=== PATIENT | male | born 1950 | race Caucasian/White ===

== ENCOUNTER 2021-03-13 14:30 | Outpatient (RCR) | payer OTHER, SELFPAY ==
[2021-03-05 15:08] VITALS: BMI 48.6
[2021-03-05 15:13] VITALS: BMI 48.6
== END 2021-05-21 15:50 | disposition home or self-care (01) ==
LOC: ANHDMC 14:30
PROVIDERS: PCP Family Medicine; Visit Provider Physician Assistant
DX: E11.65 Type 2 diabetes mellitus with hyperglycemia (principal); E11.22 Type 2 diabetes mellitus with diabetic chronic kidney disease; E11.40 Type 2 diabetes mellitus with diabetic neuropathy, unspecified; Z71.89 Other specified counseling; Z71.3 Dietary counseling and surveillance
CPT/HCPCS: 97802; G0108; G0109

== ENCOUNTER 2021-05-21 09:29 | Outpatient (CLI) | payer OTHER, SELFPAY ==
[2021-05-21 09:59] LABS: Anion Gap 8 mmol/L (8-16); Blood Urea Nitrogen 9 mg/dL (9-20); Calcium 9.2 mg/dL (8.4-10.2); Carbon Dioxide 26 mmol/L (22-30); Chloride 101 mmol/L (98-107); Estimated Glomerular Filt Rate > 60; Glucose 283 mg/dL (65-110); Potassium 4.3 mmol/L (3.4-5.0); Sodium 135 mmol/L (137-145)
[2021-05-21 10:01] LABS: Prothrombin Time 12.6 Seconds (11.1-14.7)
[2021-05-21 10:02] LABS: Partial Thromboplastin Time 32.6 SECONDS (22.3-36.8)
== END 2021-05-21 09:30 | disposition home or self-care (01) ==
PROVIDERS: Anesthesiology; PCP Family Medicine; Visit Provider Plastic Surgery
DX: Z01.818 Encounter for other preprocedural examination (principal); E11.65 Type 2 diabetes mellitus with hyperglycemia; N18.30 Chronic kidney disease, stage 3 unspecified
CPT/HCPCS: 36415; 80048; 85610; 85730

== ENCOUNTER → 2021-05-25 00:41 | Outpatient (CLI) | payer OTHER, SELFPAY ==
[2021-05-25 21:01] LABS: SARS-CoV-2 RNA PCR Negative
== END ==
PROVIDERS: PCP Family Medicine; Visit Provider Plastic Surgery
DX: Z01.812 Encounter for preprocedural laboratory examination (principal); Z20.828 Contact with and (suspected) exposure to other viral communicable diseases
CPT/HCPCS: C9803; U0003; U0005

== ENCOUNTER 2021-05-29 00:26 | Day surgery (SDC) | payer OTHER, SELFPAY ==
[2021-05-20 09:55] VITALS: BMI 43.9
--- NOTE | 2021-05-28 09:54 | WPDANESEPPF ---
Anes - Initial Pre Proc Eval Procedure: Operation Date: 05/29/21 07:30 Proposed Procedures p Excision Nodular Mass Left Upper Nasal Lobule with Frozen Section and Local Tissue Transfer - Arron Ortiz MD Date/Time: 05/28/21 09:54 Surgeon: Arron Ortiz MD Pre Op Diagnosis: nodular mass left upper nasal lobule Patient Data Age: 70 Gender: M Height: 1.7 m Weight: 127.27 kg Allergies Allergy/AdvReac Type Severity Reaction Status Date / Time No Known Allergies Allergy Verified 05/29/21 06:05 Home Medications Medication Instructions Recorded Confirmed Type furosemide 20 mg tablet 20 mg PO QAM #90 tablet 08/09/20 05/29/21 Rx clonidine HCl 0.2 mg tablet 0.2 mg PO TID #270 tablet 10/22/20 05/29/21 Rx gabapentin 300 mg capsule 300 mg PO TID #270 cap 10/22/20 05/29/21 Rx glimepiride 2 mg tablet 2 mg PO QAM #90 tablet 10/22/20 05/29/21 Rx metoprolol tartrate 100 mg tablet 100 mg PO Q12H #180 tablet 10/22/20 05/29/21 Rx metformin 1,000 mg tablet 1,000 mg PO BID #180 tablet 03/01/21 05/29/21 Rx amlodipine 10 mg tablet 10 mg PO .QHS #90 tablet 04/25/21 05/29/21 Rx naloxone 4 mg/actuation nasal spray 4 mg INTRANASAL Q3M PRN #2 ea 04/29/21 05/29/21 Rx zolpidem 10 mg tablet 5 mg PO QHS PRN #30 tablet 04/29/21 05/29/21 Rx hydrocodone 10 mg-acetaminophen 1 tablet PO Q6H PRN #120 tablet 05/05/21 05/29/21 Rx 325 mg tablet aspirin [Aspirin Low Dose] 81 mg PO DAILY 05/20/21 05/29/21 History atorvastatin 20 mg PO QAM 05/20/21 05/29/21 History Patient hx anesthesia problems: none Family hx anesthesia problems: none PMFSH Past Medical History Medical History Abnormality of gait Ambulatory dysfunction Atherosclerosis of aorta CAD in [place] artery Cardiac hypertrophy Chronic diastolic (congestive) heart failure Chronic kidney disease, stage 3 (moderate) Chronic pain disorder Coronary arteriosclerosis in patient with history of previous myocardial infarction Diabetic nephropathy associated with type 2 diabetes mellitus Essential (primary) hypertension Extreme obesity Insomnia Intervertebral disc disorders with myelopathy, lumbar region Low testosterone MDD (major depressive disorder), recurrent episode, moderate Mixed hyperlipidemia Morbid (severe) obesity due to excess calories Obstructive sleep apnea (adult) (pediatric) [place] (myocardial infarction) Opioid dependence, uncomplicated Personal history of nicotine dependence Physical debility 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 Type 2 diabetes mellitus with stage 3 chronic kidney disease Ventricular hypertrophy due to hypertensive disease Vitamin D deficiency, unspecified Family History Family History Mother Family history of premature coronary heart disease Patient's mother is Father Hypertension Family history of diabetes mellitus in first degree relative Social History Social History (Updated 05/09/21 @ 13:52 by Yarely Molina) Social History: Single Smoking packs per day: 1 Smoking cigarettes per day: 20.0 Years smoked: 35 Smoking pack-years: 35.00 Smoking status: Former smoker Tobacco type: cigarettes Second hand tobacco smoke exposure: No Smoking end date: 09/21/13 Additional smoking assessment comments: QUITE 2013 Alcohol intake: former Alcohol use details: STATES STOPPED 25-30 YRS AGO Substance use: never Substance use type: does not use Living arrangements: with family Additional living arrangements comments: LIVES WITH SON Gender identity (if verbalized by the patient): Male Sexual Orientation (if Verbalized by the Patient): Straight or Heterosexual Spiritual care concerns: No Anes - Eval Final PreProcedure Day of Procedure 05/28/21 09:54 Patient weight: morbidly obese Heart: regular rate and rhythm Lungs:
[2021-05-29] VITALS (8 sets, daily range): BP systolic 125–146; BP diastolic 78–95; PULSE 85–100; RESP 14–21; TEMP 36.4–36.5; O2SAT 94–100
[2021-05-29] MEDS: LACTATED RINGERS 1,000 ML 30 ML IV CONT (06:30)
[2021-05-29 06:53] LABS: Glucose Point of Care 292 mg/dl (65-105)
[2021-05-29] MEDS: INSULIN HUMAN REGULAR (*BKC) 100 UNITS/ML IV PUSH (06:56)
--- NOTE | 2021-05-29 07:21 | SUR.PREOP ---
0707-PT INFORMED DR. FRANK HAS CALLED AND REPORTED HE WILL BE 10 MINUTES LATE.
--- NOTE | 2021-05-29 07:27 | WPDHPUPDATE1 ---
History and Physical Update Update Date/Time: 05/29/21 07:27 History and Physical has been reviewed, including an updated exam of the patient. There are NO changes in the patient's condition. Risks, benefits, and alternatives have been discussed and questions answered. Patient agrees to proceed with procedure.
[2021-05-29 07:31] LABS: Glucose Point of Care 252 mg/dl (65-105)
[2021-05-29] MEDS: ceFAZolin 3 GM/D5W 100 ML 100 ML IVPB (07:50)
[2021-05-29 09:23] LABS: Glucose Point of Care 248 mg/dl (65-105)
--- NOTE | 2021-05-29 09:30 | W.PM.PROC2 ---
Procedure Note - Detailed Date of Procedure 05/29/21 Pre-op Diagnosis nodular mass left upper nasal lobule Post-op Diagnosis other (Basal cell carcinoma of the left upper nasal lobule) Procedure Performed 1.5 cm excision of basal cell carcinoma left upper nasal lobule with frozen section and local tissue transfer for sq cm Surgeon Arron Ortiz MD Anesthesia MAC Indications Lucent 12 mm nodule in the left upper nasal lobule Findings BCC Description of Procedure The site was marked on the patient's nose in holding area. He was taken to the operating room placed supine on the operating table. A time-out was held and confirmed. His face was prepped and draped in usual fashion. He was given an LMA monitored anesthetic. The area was marked for the excision. It was locally infiltrated with 1% lidocaine with epinephrine. The full-thickness skin ellipse was taken and the specimen was marked at the most superior aspect and sent for frozen section . The pathologist revealed that the tumor was basal cell carcinoma and the margin was free Lora for specimen. In the meantime we had taken the 1 and a 0.5 mm deep margin off due to the fact it was apparent continue was tumor extending to that level. That specimen was sent to pathology but the evaluation was canceled by the surgeon after hearing the report on the 1st specimen. The closure was accomplished with local tissue transfer. This was comprised of a rotation flap from the left side. The flap was elevated and the surrounding tissue widely undermined allowing maximum advancement. The flap rotated easily. A depressed contour resulted partly because of the thickness of this tumor and the thickness of the local skin that was removed. The patient was discharged with instructions in wound care and follow-up. He has a prescription for doxycycline 100 mg 10. He has hydrocodone 10/325 at home on chronic use basis. Estimated Blood Loss 3 Drains No Packing No Pathology yes Complications No immediate complications Condition stable Disposition PACU
--- NOTE | 2021-05-29 10:51 | SUR.PHASEI ---
0951- Pt Blood sugar 248. Reviewed with Dr. Stanley he stated to have pt check blood sugar at home and treat as needed
== END 2021-05-29 10:43 | disposition home or self-care (01) ==
PROVIDERS: PCP Family Medicine; Visit Provider Plastic Surgery
PROC: (CPT 14060; principal; 2021-05-29 07:30)
DX: C44.311 Basal cell carcinoma of skin of nose (principal); I25.10 Atherosclerotic heart disease of native coronary artery without angina pectoris; I13.0 Hypertensive heart and chronic kidney disease with heart failure and stage 1 through stage 4 chronic kidney disease, or unspecified chronic kidney disease; N18.30 Chronic kidney disease, stage 3 unspecified; I50.32 Chronic diastolic (congestive) heart failure; E11.22 Type 2 diabetes mellitus with diabetic chronic kidney disease; E11.21 Type 2 diabetes mellitus with diabetic nephropathy; G89.29 Other chronic pain; E78.2 Mixed hyperlipidemia; I25.2 Old myocardial infarction; E11.42 Type 2 diabetes mellitus with diabetic polyneuropathy; E55.9 Vitamin D deficiency, unspecified; G47.33 Obstructive sleep apnea (adult) (pediatric); F33.1 Major depressive disorder, recurrent, moderate; Z79.891 Long term (current) use of opiate analgesic; Z79.84 Long term (current) use of oral hypoglycemic drugs; Z79.82 Long term (current) use of aspirin; Z87.891 Personal history of nicotine dependence; E66.01 Morbid (severe) obesity due to excess calories; Z68.42 Body mass index [BMI] 45.0-49.9, adult
CPT/HCPCS: 14060; 36415; 80048; 82948; 85610; 85730; 88304; 88305; 88331; 88332; A9270; C9803; J0690; J1815; J2250; J2370; J2704; J3010; J7120; U0003; U0005

== ENCOUNTER 2021-09-22 18:39 | Observation (INO) | payer OTHER, SELFPAY ==
[2021-09-22] VITALS (13 sets, daily range): BP systolic 126–173; BP diastolic 80–118; PULSE 87–97; RESP 14–25; TEMP 36.9; O2SAT 96–100
--- NOTE | ~2021-09-22 | CT_ITS ---
EXAMINATION: CT lumbar spine wo con DATE: 09/24/2021 09:58 INDICATION: Low back pain. Decreased left leg strength. TECHNIQUE: Computed tomography (CT) of the lumbar spine was performed without intravenous contrast. A utomated exposure control and iterative reconstruction technique were employed. The dose-length produ ct was 1248.20 mGy-cm. COMPARISON: Lumbar spine radiographs 09/10/2004 FINDINGS: There is a 2.4 cm mass in left adrenal gland measuring low-attenuation, consistent with an adenoma. There is 3 mm retrolisthesis of L1 on L2. There is severely decreased disc height at T12-L1 and L1-L2 with endplate remodeling. The following disc levels are specifically discussed: T12-L1: The disc is bulging. There is severe bilateral facet joint osteoarthritis. There is moderate right and mild left neural foraminal stenosis. There is mild central canal stenosis. L1-L2: The disc is bulging. There is moderate bilateral facet joint osteoarthritis. There is mild rig ht and moderate left neural foraminal stenosis. There is mild central canal stenosis. L2-L3: The disc is bulging. There is severe bilateral facet joint osteoarthritis. There is mild bilat eral neural foraminal stenosis. There is no central canal stenosis. L3-L4: The disc is bulging. There is severe bilateral facet joint osteoarthritis. There is mild bilat eral neural foraminal stenosis. There is mild central canal stenosis. L4-L5: The disc is bulging. There is severe bilateral facet joint osteoarthritis. There is moderate b ilateral neural foraminal stenosis. There is moderate central canal stenosis. L5-S1: The disc is bulging. There is severe bilateral facet joint osteoarthritis. There is mild bilat eral neural foraminal stenosis. There is mild central canal stenosis. IMPRESSION: 1. Severe lumbar and lower thoracic spondylosis. Reviewed, dictated and finalized at location A. RT CAR DRIVER
--- NOTE | ~2021-09-22 | CT_ITS ---
EXAMINATION: CT brain wo con DATE: 09/22/2021 19:12 INDICATION: Gait instability. Repeat fall. TECHNIQUE: Computed tomography (CT) of the head was performed without intravenous contrast. The mA wa s adjusted according to patient size. Iterative reconstruction technique was employed. The dose-lengt h product was 605.33 mGy-cm. COMPARISON: None FINDINGS: There are scattered areas of low attenuation in the cerebral white matter. There is an infa rct in left occipital lobe. There is no intracranial hemorrhage, acute infarction, or abnormal intrac ranial mass lesion. The ventricles are normal in size. There is mild mucosal thickening in the parana kriss sinuses. The orbits are normal. The mastoid air cells are normal. IMPRESSION: 1. Infarct in left occipital lobe, likely subacute or chronic. 2. Moderate nonspecific cerebral white matter disease, which likely represents chronic small vessel i schemic disease. Reviewed, dictated and finalized at location A. ONENT LAB TECH IMPRESSION: 1. Infarct in left occipital lobe, likely subacute or chronic. 2. Moderate nonspecific cerebral white matter disease, which likely represents chronic small vessel ischemic disease.
--- NOTE | ~2021-09-22 | XR_ITS ---
EXAMINATION: XR tibia fibula RT 2V DATE: 09/22/2021 19:22 INDICATION: Right lower leg pain. TECHNIQUE: 2 views of right tibia and fibula on 3 radiographs were obtained. COMPARISON: None. FINDINGS: There is varus angulation at the knee. No acute fracture. There is heterotopic ossification distal to medial malleolus. There is severe osteoarthritis of the knee and mild osteoarthritis of th e ankle. IMPRESSION: 1. Polyarticular osteoarthritis. Reviewed, dictated and finalized at location A. RAM REP
--- NOTE | ~2021-09-22 | XR_ITS ---
EXAMINATION: XR chest 1V DATE: 09/22/2021 19:22 INDICATION: Altered mental status. TECHNIQUE: A single frontal view of the chest was obtained. COMPARISON: None. FINDINGS: Sensitivity is decreased by obesity. There is no pneumonia, pleural effusion, or pneumothor ax. The heart size is normal. Calcified hilar and mediastinal lymph nodes are consistent with old gra nulomatous disease. IMPRESSION: 1. No acute cardiopulmonary disease. Reviewed, dictated and finalized at location A. UNITY SERVICE WORKER
--- NOTE | ~2021-09-22 | US_ITS ---
EXAMINATION: US carotid duplex BI DATE: 09/23/2021 08:46 INDICATION: Stroke TECHNIQUE: Grayscale, color Doppler, and pulsed Doppler images of the cervical carotid arteries were obtained. The degree of vessel stenosis is placed in one of the following categories: normal, <50%, 5 0-69%, >=70% but less than near-occlusion, near-occlusion, or total occlusion. Note that percent sten osis relative to normal distal artery lumen diameter is indirectly measured from velocity measurement s as described by Trever, et al. Radiology 2003; 229:340-346. COMPARISON: None. FINDINGS: RIGHT: The right common carotid artery (CCA) peak systolic velocity (PSV) is 66 cm/s. The right internal car otid artery (ICA) PSV is 68 cm/s. The right ICA end-diastolic velocity (EDV) is 18 cm/s. The right IC A/CCA PSV ratio is 1.0. Grayscale and color Doppler images yield an estimate of <50% diameter reducti on from plaque in the ICA. The external carotid artery (ECA) PSV is 149 cm/s. There is antegrade flow in the right vertebral artery. LEFT: The left CCA PSV is 68 cm/s. The left ICA PSV is 66 cm/s. The left ICA EDV is 18 cm/s. The left ICA/C CA PSV ratio is 1.0. Grayscale and color Doppler images yield an estimate of <50% diameter reduction from plaque in the ICA. The ECA PSV is 87 cm/s. There is antegrade flow in the left vertebral artery. IMPRESSION: 1. <50% stenosis in the right internal carotid artery. 2. <50% stenosis in the left internal carotid artery. Reviewed, dictated and finalized at location B. T HANGER
--- NOTE | 2021-09-22 18:52 | ECG_ITS ---
Measurements Intervals [place] Rate: 87 P: [place]: 0 QRS: -11 QRSD: 92 T: 24 QT: 362 QTc: 436 Interpretive Statements SINUS RHYTHM ATRIAL PREMATURE COMPLEXES LOW QRS VOLTAGE IN PRECORDIAL LEADS BORDERLINE R WAVE PROGRESSION, ANTERIOR LEADS INFERIOR INFARCT, AGE INDETERMINATE ABNORMAL ECG Electronically Signed On 09-22-2021 20:15:45 COMPUTATIONAL SCIENCES PROFESSOR by Carson Chavez D.O.
--- NOTE | 2021-09-22 18:54 | ED.GENADULT ---
HPI - General Adult General Chief complaint: Fall Stated complaint: dyspnea Time Seen by Provider: 09/22/21 18:42 Source: patient History of Present Illness HPI narrative: Patient is a 70 y/o male complaining of frequent falls for 4-5 months. He states that his last fall was yesterday. He states that his son helped him up after he fell yesterday because he was not able to get up himself. He was put in a chair. However, he has not been able to get up from the chair today. There is no known alleviating or exacerbating factor. He has some right leg pain after his fall. He did not hit his head. He has no headache, neck pain, back pain, chest pain or abdominal pain. He states that he usually use a cane and/or walker for ambulation. Related Data Home Medications Medication Instructions Recorded Confirmed aspirin [Aspirin Low Dose] 81 mg PO DAILY 05/20/21 07/31/21 atorvastatin 20 mg PO QAM 05/20/21 07/31/21 Allergies Allergy/AdvReac Type Severity Reaction Status Date / Time No Known Allergies Allergy Verified 07/31/21 08:02 Review of Systems Constitutional: Constitutional: Denies chills, Denies fever(s), Denies headache(s) and Denies weakness Eyes: Eyes: Denies blurry vision ENT: Denies headache(s) and Denies neck pain Cardiovascular: Cardiovascular: Denies chest pain and Denies dyspnea Respiratory: Respiratory: Denies cough and Denies dyspnea Gastrointestinal: Gastrointestinal: Denies abdominal pain, Denies diarrhea, Denies nausea and Denies vomiting Genitourinary: Genitourinary: Denies hematuria and Denies dysuria Musculoskeletal: Musculoskeletal: Reports as per HPI, Denies back pain, Denies neck pain and Reports other (right leg pain) Neurologic: Denies headache(s) and Denies weakness [facility] Past Medical History Medical History Abnormality of gait Ambulatory dysfunction Atherosclerosis of aorta CAD in [place] artery Cardiac hypertrophy Chronic diastolic (congestive) heart failure Chronic kidney disease, stage 3 (moderate) Chronic pain disorder Coronary arteriosclerosis in patient with history of previous myocardial infarction Diabetic nephropathy associated with type 2 diabetes mellitus Essential (primary) hypertension Extreme obesity Insomnia Intervertebral disc disorders with myelopathy, lumbar region Low testosterone MDD (major depressive disorder), recurrent episode, moderate Mixed hyperlipidemia Morbid (severe) obesity due to excess calories Obstructive sleep apnea (adult) (pediatric) [place] (myocardial infarction) Opioid dependence, uncomplicated Personal history of nicotine dependence Physical debility 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 Type 2 diabetes mellitus with stage 3 chronic kidney disease Ventricular hypertrophy due to hypertensive disease Vitamin D deficiency, unspecified Family History Family History Mother Family history of premature coronary heart disease Patient's mother is Father Hypertension Family history of diabetes mellitus in first degree relative Social History Social History Social History: Single Smoking packs per day: 1 Smoking cigarettes per day: 20.0 Years smoked: 35 Smoking pack-years: 35.00 Tobacco type: cigarettes Second hand tobacco smoke exposure: No Smoking end date: 09/21/13 Additional smoking assessment comments: 2013 Alcohol intake: former Alcohol use details: STATES STOPPED 25-30 YRS AGO Substance use: never Substance use type: does not use Additional living arrangements comments: LIVES WITH SON Gender identity (if verbalized by the patient): Male Sexual Orientation (if Verbalized by the Patient): Straight or Heterosexual Spiritual care concerns: No Exam Const: General
--- NOTE | 2021-09-22 19:00 | PC.NURSE ---
Assuming care of pt.
[2021-09-22 19:08] LABS: Basophils Percent Auto 0.3 % (0.2-1.2); Eosinophils Absolute Auto 0.1 K/mm3 (0-0.3); Eosinophils Percent Auto 1.4 % (0-4.4); Hematocrit 41.3 % (42.0-52.0); Hemoglobin 13.2 g/dL (14.0-18.0); Immature Granulocyte Absolute 0.02 K/mm3 (0.00-0.031); Immature Granulocyte Percent A 0.2 % (0-0.5); Lymphocytes Absolute Auto 1.84 K/mm3 (0.9-3.2); Lymphocytes Percent Auto 21.1 % (18.3-44.2); Mean Corpuscular Hemoglobin 29.4 pg (26-34); Mean Platelet Volume 11.3 fl (7.4-10.4); Monocytes Absolute Auto 0.5 K/mm3 (0.1-0.6); Monocytes Percent Auto 5.7 % (2.6-8.5); Neutrophils Absolute Auto 6.2 K/mm3 (1.3-6.7); Neutrophils Percent Auto 71.3 % (45.5-73.1); Platelet Count Result 161 k/mm3 (150-375); Red Blood Count 4.49 M/mm3 (4.6-6.20); Red Cell Distribution Width 13.2 % (11.5-14.5); White Blood Count 8.7 K/mm3 (4.5-10.0)
[2021-09-22 19:17] LABS: Alanine Aminotransferase 14 U/L (4-50); Albumin Level 3.7 g/dL (3.5-5.1); Alkaline Phosphatase 93 U/L (38-126); Anion Gap 8 mmol/L (8-16); Aspartate Amino Transferase 22 U/L (17-59); Bilirubin,Total 0.4 mg/dL (0.2-1.3); Blood Urea Nitrogen 17 mg/dL (9-20); Calcium 9.2 mg/dL (8.4-10.2); Carbon Dioxide 30 mmol/L (22-30); Chloride 102 mmol/L (98-107); Estimated CRCL calculation 106 ml/min; Estimated Glomerular Filt Rate > 60; Glucose 252 mg/dL (65-110); Potassium 4.1 mmol/L (3.4-5.0); Sodium 140 mmol/L (137-145)
[2021-09-22 20:21] LABS: Add Urine Microscopic? YES; Appearance Urine Clear (Clear); Bilirubin Urine Negative (Negative); Blood Urine Negative (Negative); Color Urine Yellow (Yellow); Glucose Urine UA 1+ mg/dL (Negative); Ketones Urine Negative (Negative); Leukocyte Esterase Ur Negative LEU/UL (Negative); Mucus Urine Moderate /lpf; Nitrate Urine Negative (Negative); Protein Urine Negative (Negative); Squamous Epithelial Cell Urine Rare /hpf (Few); Urobilinogen Urine Negative mg/dL (<2.0); WBC Urine 0-3 /hpf
[2021-09-23] VITALS (19 sets, daily range): BP systolic 125–181; BP diastolic 69–119; PULSE 96–122; RESP 15–30; TEMP 36.6–36.7; O2SAT 95–100; BMI 42.9
--- NOTE | 2021-09-23 | ECHO_ITS ---
Patient Info Name: Francisco J Pineda Age: 70 years : 1950 Gender: Male Ht: 67 in Wt: 379 lbs BSA: 2.96 m2 HR: 104 bpm BP: 146 / 85 mmHg Heart Rhythm: Sinus Rhythm Technical Quality: Fair Exam Date: 09/23/2021 12:51 PM Exam Location: [facility] Patient Status: Outpatient Admit Date: 09/22/2021 Staff Ordering Physician: Indira Mckeon MD Loan Interviewer Mortgage: Avani Ibrahim RDCS Attending Provider: Dot Israel DO Referring Physician: Mike CRUZ; Exam Type: CA echo doppler color flow Study Info Indications - STROKE Complete two-dimensional, color flow and Doppler transthoracic echocardiogram is performed. Summary 1. Complete two-dimensional, color flow and Doppler transthoracic echocardiogram is performed. 2. Left ventricular chamber dimension is normal. 3. Left ventricular systolic function is normal, estimated at 60-65%. 4. There is moderately increased left ventricular wall thickness. 5. The left ventricular diastolic function is grade I diastolic dysfunction. 6. There is no aortic valve stenosis. 7. There is trace tricuspid valve regurgitation. 8. No pulmonary hypertension, estimated pulmonary arterial systolic pressure is 14 mmHg. 9. There is trace mitral valve regurgitation. Left Ventricle Left ventricular chamber dimension is normal. Left ventricular systolic function is normal, estimated at 60-65%. There is moderately increased left ventricular wall thickness. The left ventricular diastolic function is grade I diastolic dysfunction. Right Ventricle Right ventricular chamber dimension is normal. Right ventricular systolic function is normal. Left Atria Left atrial chamber dimension is mildly enlarged. Right Atria Right atrial chamber dimension is mildly enlarged. Aortic Valve The aortic valve is not well visualized. There is no aortic valve stenosis. There is no aortic valve regurgitation. Pulmonic Valve The pulmonic valve is not well visualized. There is trace pulmonic regurgitation. Mitral Valve The mitral valve has normal leaflets. There is trace mitral valve regurgitation. The mitral valve annulus is moderately calcified. Tricuspid Valve The tricuspid valve leaflets are not well visualized. There is trace tricuspid valve regurgitation. No pulmonary hypertension, estimated pulmonary arterial systolic pressure is 14 mmHg. Pericardium/Pleural The pericardium appears normal. There is small pericardial effusion. Inferior Vena Cava Normal inferior vena cava with >50% collapse upon inspiration consistent with normal right atrial pressure, 5 mmHg. Aorta The aortic root size at the sinus of Valsalva is normal. The prox ascending aorta size is normal. Left Ventricular Outflow Tract Name Value Normal LVOT 2D LVOT Diameter 2.1 cm LVOT Doppler LVOT Peak Gradient 4 mmHg LVOT Mean Gradient 2 mmHg LVOT VTI 16 cm LVOT VTI/AV VTI Ratio 0.7 LVOT Stroke Volume 56 ml LVOT CO
--- NOTE | 2021-09-23 07:30 | PC.NURSE ---
Pt found sitting on edge of bed with IV ripped out and marklogic developer ripped off while this nurse was receiving report from steward/stewardess night nurse, Elena. This nurse returned pt to bed, placed pt on monitor and replaced IV.
--- NOTE | 2021-09-23 08:55 | PM.IMHP ---
H&P: HPI History of Present Illness Date/Time: 09/23/21 08:55 Chief Complaint: frequent falls Narrative: Patient is a 70 y/o male complaining of frequent falls for 4-5 months. He states he lives with his son and ambulates with walker. He has been having difficulty with ambulation for quite some time but he fell yesterday and was unable to get up by himself. His son put him up in the chair. He reports that he is weak on both of his legs he feels strong in his upper extremities. He denies any urinary problems with no urinary retention or incontinence. No stool incontinence. He denies any headache chest pain shortness of breath abdominal pain nausea vomiting.. His ER evaluation noted hypertension and mild tachycardia. He is hyperglycemic with glucose of 252. Urinalysis with rbc's were negative for infection. His CT head revealed infarct in left occipital lobe likely subacute or chronic. He denies any visual symptoms. There is also moderate nonspecific cerebral white matter disease which likely represent chronic small vessel ischemic disease. Chest x-ray was negative for any acute cardiopulmonary disease. Carotid Doppler has been done which showed less than 50% stenosis in right and left internal carotid artery. Review of Systems Review of Systems: - CONSTITUTIONAL: Denies weight loss, fever and chills. - HEENT: Denies changes in vision and hearing - RESPIRATORY: Denies SOB and cough. - CV: Denies palpitations and CP. - GI: Denies abdominal pain, nausea, vomiting and diarrhea. - : Denies dysuria and urinary frequency. - MSK: Denies myalgia and joint pain. - SKIN: Denies rash and pruritus. - NEUROLOGICAL: Denies headache and syncope. Reports recurrent falls and generalized weakness - PSYCHIATRIC: Denies recent changes in mood. Denies anxiety and depression. All systems reviewed & are unremarkable except as noted in HPI and below Constitutional: Constitutional: Reports fatigue and Reports weakness Neurologic: Reports weakness Endocrine: Endocrine: Reports fatigue PMFSH Past Medical History Medical History Abnormality of gait Ambulatory dysfunction Atherosclerosis of aorta CAD in [place] artery Cardiac hypertrophy Chronic diastolic (congestive) heart failure Chronic kidney disease, stage 3 (moderate) Chronic pain disorder Coronary arteriosclerosis in patient with history of previous myocardial infarction Diabetic nephropathy associated with type 2 diabetes mellitus Essential (primary) hypertension Extreme obesity Insomnia Intervertebral disc disorders with myelopathy, lumbar region Low testosterone MDD (major depressive disorder), recurrent episode, moderate Mixed hyperlipidemia Morbid (severe) obesity due to excess calories Obstructive sleep apnea (adult) (pediatric) [place] (myocardial infarction) Opioid dependence, uncomplicated Personal history of nicotine dependence Physical debility 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 Type 2 diabetes mellitus with stage 3 chronic kidney disease Ventricular hypertrophy due to hypertensive disease Vitamin D deficiency, unspecified Family History Family History Mother Family history of premature coronary heart disease Patient's mother is Father Hypertension Family history of diabetes mellitus in first degree relative Social History Social History Social History: Single Smoking packs per day: 1 Smoking cigarettes per day: 20.0 Years smoked: 35 Smoking pack-years: 35.00 Smoking status: Former smoker Tobacco type: cigarettes Second hand tobacco smoke exposure: No Additional smoking assessment comments: QUITE 2013 Alcohol intake: never Alcohol use details: STATES STOPPED 25-30 YRS AGO Substance use: never
--- NOTE | 2021-09-23 09:14 | PC.NURSE ---
This attempted to update pt daughter, Bridgette, with pt permission and was unable to contact. Unable to leave a voicemail at this time.
--- NOTE | 2021-09-23 09:17 | PC.NURSE ---
This nurse attempted to call and give report to the nurse, but is unable at this time stating, The nurse is not available at this time and the room is still being cleaned. The nurse will call back shortly. This nurse will call back shortly as well if no call is received. Charge nurse made aware.
--- NOTE | 2021-09-23 09:35 | PC.NURSE ---
This nurse gave report to Neha for [facility] 242. This nurse also gave an update to Clifford, pt son.
[2021-09-23 11:10] LABS: Hemoglobin A1C 8.2 % (<5.7)
--- NOTE | 2021-09-23 11:20 | PCSTNOTE ---
Please refer to the Bedside Swallow Evaluation in the EMR. Please note, silent aspiration cannot be ruled out at bedside.
[2021-09-23 13:01] LABS: Glucose Point of Care 269 mg/dl (65-105)
--- NOTE | 2021-09-23 13:04 | ADMGEN ---
This patient, Francisco J Pineda, was admitted to 2 Medical Room 242-. Patient/family oriented to hospital policies and general routines including ID bracelet, bed and alarms, visiting hours, pain management, procedures, bathroom and other care routines, personal items, smoking policy, room service/diet, and visiting hours. Information on how to activate the Rapid Response Team has been discussed. Patient/Family are encouraged to report perceived risks to care and to ask questions if they do not understand what they are told or what they should do.
[2021-09-23] MEDS: INSULIN ASPART (*BKC) 100 UNITS/ML SUB-Q ×2 (13:09→16:39)
[2021-09-23 16:32] LABS: Glucose Point of Care 207 mg/dl (65-105)
[2021-09-23 17:26] LABS: Vitamin D 25 Hydroxy < 12.8 ng/mL
[2021-09-23 18:13] LABS: Thyroid Stimulating Hormone Reflex 0.559 uIU/mL (0.465-4.68)
[2021-09-23 20:16] LABS: Hepatitis B Surface Antigen Negative (Negative)
[2021-09-23 20:22] LABS: HAV RESULT Negative (Negative); Hepatitis B Core IgM Result Negative (Negative)
[2021-09-23 20:40] LABS: Hepatitis C Virus Antibody Reactive (Negative)
[2021-09-23] MEDS: METOPROLOL TARTRATE 50 MG TAB 100 MG PO (20:55)
[2021-09-23] MEDS: GABAPENTIN 300 MG CAPSULE PO (20:55)
[2021-09-23] MEDS: cloNIDine HCL 0.2 MG TABLET PO (20:56)
[2021-09-23] MEDS: amLODIPine BESYLATE 5 MG TABLET 10 MG PO (20:56)
[2021-09-23 21:10] LABS: Glucose Point of Care 190 mg/dl (65-105)
[2021-09-24] VITALS (8 sets, daily range): BP systolic 112–142; BP diastolic 80–82; PULSE 76–94; RESP 18–21; TEMP 36.2–36.5; O2SAT 97–100
[2021-09-24 07:47] LABS: Glucose Point of Care 241 mg/dl (65-105)
[2021-09-24] MEDS: ASPIRIN 81 MG ENTERIC TABLET PO (07:54)
[2021-09-24] MEDS: METOPROLOL TARTRATE 50 MG TAB 100 MG PO ×2 (07:54→21:51)
[2021-09-24] MEDS: metFORMIN HCL 500 MG TABLET 1000 MG PO ×2 (07:54→17:05)
[2021-09-24] MEDS: cloNIDine HCL 0.2 MG TABLET PO ×3 (07:55→17:07)
[2021-09-24] MEDS: ATORVASTATIN 20 MG TABLET PO (07:55)
[2021-09-24] MEDS: ENOXAPARIN 40 MG/0.4 ML SYRINGE SUB-Q (07:55)
[2021-09-24] MEDS: GABAPENTIN 300 MG CAPSULE PO ×3 (07:55→17:05)
[2021-09-24] MEDS: GLIMEPIRIDE 2 MG TABLET PO (07:55)
[2021-09-24] MEDS: INSULIN ASPART (*BKC) 100 UNITS/ML SUB-Q ×2 (07:59→12:16)
[2021-09-24] MEDS: ERGOCALCIFEROL 50,000 UNIT CAPSULE 50000 UNITS PO (08:50)
[2021-09-24] MEDS: FUROSEMIDE 20 MG TABLET PO (08:50)
[2021-09-24 10:07] LABS: Anion Gap 8 mmol/L (8-16); Blood Urea Nitrogen 13 mg/dL (9-20); Calcium 9.4 mg/dL (8.4-10.2); Carbon Dioxide 28 mmol/L (22-30); Chloride 102 mmol/L (98-107); Cholesterol 137 mg/dL (0-200); Estimated CRCL calculation 127 ml/min; Estimated Glomerular Filt Rate > 60; Glucose 304 mg/dL (65-110); HDL Direct 35 mg/dL; Potassium 4.1 mmol/L (3.4-5.0); Sodium 138 mmol/L (137-145); Triglycerides 129 mg/dL (<150)
[2021-09-24 10:19] LABS: LDL Cholesterol Direct 76 mg/dL
[2021-09-24 11:31] LABS: Glucose Point of Care 224 mg/dl (65-105)
[2021-09-24 12:25] LABS: Folic Acid 6.4 ng/mL (2.76->20)
--- NOTE | 2021-09-24 12:34 | WPDNEURCNPN ---
Assessment and Plan Additional Plan 1 diabetic neuropathy 2. Chronic back with lower extremity weakness rule out the possibility of spinal stenosis MRI of the lumbosacral spine is warranted 3. Is status post left occipital stroke 4. Rule out the possibility of super imposed new TIA versus stroke 5. Will need EMG and nerve conduction study as an outpatient and physical therapy and occupational therapy once the MRIs are completed Consult date: 09/24/21 HPI: Francisco J Pineda is a 70 year old maleAdmitted to the hospital for the complaints of frequent falls over the last several months. Patient usually walks with a walker. Yesterday he was walker when he fell and was unable to get up by himself his son managed to put him in the chair reportedly is weak on both of his lower extremities he gave no history of bowel or bladder dysfunction, gave no history of associated headaches or difficulties in breathing, in the emergency room he was found to have hypertension and mild tachycardia but his blood sugar was 252, the CT scan of the head documented left occipital lobe infarct either chronic or subacute with moderate nonspecific white matter disease, chest x-ray was negative and the carotid studies Doppler documented less than 50% stenosis bilaterally . Review of the past history is consistent with the gait dysfunction of long duration with secondary complication of diabetes that is nephropathy and neuropathy, historically he has the former smoker and no drinker and his outpatient medications include clonidine 0.2 mg t.i.d. along with glimepiride, metformin, and sitagliptin or diabetic Review of Systems Review of Systems: All systems reviewed & are unremarkable except as noted in HPI and below PMFSH Past Medical History Medical History Abnormality of gait Ambulatory dysfunction Atherosclerosis of aorta CAD in [place] artery Cardiac hypertrophy Chronic diastolic (congestive) heart failure Chronic kidney disease, stage 3 (moderate) Chronic pain disorder Coronary arteriosclerosis in patient with history of previous myocardial infarction Diabetic nephropathy associated with type 2 diabetes mellitus Essential (primary) hypertension Extreme obesity Insomnia Intervertebral disc disorders with myelopathy, lumbar region Low testosterone MDD (major depressive disorder), recurrent episode, moderate Mixed hyperlipidemia Morbid (severe) obesity due to excess calories Obstructive sleep apnea (adult) (pediatric) [place] (myocardial infarction) Opioid dependence, uncomplicated Personal history of nicotine dependence Physical debility 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 Type 2 diabetes mellitus with stage 3 chronic kidney disease Ventricular hypertrophy due to hypertensive disease Vitamin D deficiency, unspecified Family History Family History Mother Family history of premature coronary heart disease Patient's mother is Father Hypertension Family history of diabetes mellitus in first degree relative Social History Social History Social History: Single Smoking packs per day: 1 Smoking cigarettes per day: 20.0 Years smoked: 35 Smoking pack-years: 35.00 Smoking status: Former smoker Tobacco type: cigarettes Second hand tobacco smoke exposure: No Additional smoking assessment comments: QUITE 2013 Alcohol intake: never Alcohol use details: STATES STOPPED 25-30 YRS AGO Substance use: never Substance use type: does not use Additional living arrangements comments: LIVES WITH SON Gender identity (if verbalized by the patient): Male Sexual Orientation (if Verbalized by the Patient): Straight or Heterosexual Spiritual care concerns: No Meds Home Medications and Allergies Home Medications M
--- NOTE | 2021-09-24 14:28 | PM.IMPN ---
Progress Note: A&P Assessment and Plan (1) Weakness: Code(s): R53.1 - Weakness Status: Acute Assessment and Plan: Generalized weakness more left lower extremity than upper extremity he does endorse back pain. Patient was unable to get MRI because he could not walk to the MRI machine. The symptoms are chronic and not started acutely according to history I suspect these are related to his chronic degenerative disc disease rather than an acute process. His history in the medical records does represent and abnormality in the gait and ambulatory dysfunction as 1 of the diagnosis likely related to his chronic back pain and related neuropathy. CT head does show left occipital subacute or chronic infarct. Symptoms not quite suggestive of an acute infarct in this area. Cannot further evaluate stroke workup with an MRI because he cannot walk to the machine. Neurology was consulted and recommended CT spine and I read him the results and abnormalities. He felt at this time patient could follow-up with an outpatient spinal surgeon after discharge. Telemetry shows no acute arrhythmias noted as to the cause of his acute versus chronic stroke Carotid artery ultrasound came back negative for any significant stenosis bilaterally Echocardiogram showed normal EF 60-65%, moderate LVH, diastolic dysfunction grade 1. Lipid panel is well controlled with LDL of 76. Patient also found to be vitamin B12 deficient so will start IM Cyanocobalamin which could be contributing to some of his gait abnormality. (2) Stroke: Qualifiers: CVA mechanism: unspecified Qualified Code(s): I63.9 - Cerebral infarction, unspecified Code(s): I63.9 - Cerebral infarction, unspecified Status: Acute Assessment and Plan: Continue aspirin, statin, better control of DM, otherwise work up is negative so far as the cause. Follow up with Neurology as an outpatient in 4 weeks. Continue PT/OT (3) Spinal stenosis: Code(s): M48.00 - Spinal stenosis, site unspecified Status: Acute Assessment and Plan: CT lumbar spine shows severe lumbar and lower thoracic spondylosis. There is 3 mm retrolisthesis of L1 on L2. There is severely decreased disc height at T12-L1 and L1-L2 with endplate remodeling. The following disc levels are specifically discussed: T12-S1: The disc is bulging on all levels. There is severe-moderate bilateral facet joint osteoarthritis. There is moderate right and mild left neural foraminal stenosis. There is mild central canal stenosis at most levels. Talked to the neurologist and the patient does not have any acute severe findings that would be concerning for him to need emergent transfer at this time. Neurologist feels he can follow-up outpatient with a spinal surgeon for further workup and evaluation. Will continue monitoring his symptoms and neuro examination for any changes (4) Diabetic neuropathy: Code(s): E11.40 - Type 2 diabetes mellitus with diabetic neuropathy, unspecified Status: Acute Assessment and Plan: Could be causing his frequent falls. Continue gabapentin. PT/OT. (5) Hypertensive heart disease with chronic diastolic congestive heart failure: Code(s): I11.0 - Hypertensive heart disease with heart failure; I50.32 - Chronic diastolic (congestive) heart failure Status: Acute Assessment and Plan: Pressure stable 142/82. Continue home medications. Continue monitoring make adjustments if needed. (6) Type 2 diabetes mellitus with hyperglycemia: Code(s): E11.65 - Type 2 diabetes mellitus with hyperglycemia Status: Acute Assessment and Plan: Hemoglobin A1c elevated at 8.2%. He is only on glimepiride
[2021-09-24 14:57] LABS: Rapid Plasma Reagin Non-Reactive (NonReactive)
[2021-09-24] MEDS: HYDROcodone/acetaminophen (*CRX) 10-325 MG TABLET 1 TAB PO (17:04)
[2021-09-24 17:09] LABS: Glucose Point of Care 179 mg/dl (65-105)
[2021-09-24] MEDS: CYANOCOBALAMIN INJ 1,000 MCG/ML VIAL 1000 MCG IM (17:09)
[2021-09-24 20:44] LABS: Glucose Point of Care 206 mg/dl (65-105)
[2021-09-24] MEDS: amLODIPine BESYLATE 5 MG TABLET 10 MG PO (21:51)
[2021-09-25 06:00] VITALS: BP 114/67; PULSE 68; RESP 18; TEMP 36.2; O2SAT 97
[2021-09-25 06:03] LABS: Anion Gap 9 mmol/L (8-16); Blood Urea Nitrogen 21 mg/dL (9-20); Calcium 9.1 mg/dL (8.4-10.2); Carbon Dioxide 28 mmol/L (22-30); Chloride 101 mmol/L (98-107); Estimated CRCL calculation 79 ml/min; Estimated Glomerular Filt Rate > 60; Glucose 223 mg/dL (65-110); Sodium 138 mmol/L (137-145)
[2021-09-25 06:35] LABS: Hematocrit 38.3 % (42.0-52.0); Hemoglobin 12.6 g/dL (14.0-18.0); Mean Corpuscular HGB Conc 32.9 g/dl (32-36); Mean Corpuscular Hemoglobin 29.5 pg (26-34); Mean Corpuscular Volume 89.7 fl (80-100); Mean Platelet Volume 12.1 fl (7.4-10.4); Platelet Count Result 163 k/mm3 (150-375); Red Blood Count 4.27 M/mm3 (4.6-6.20); Red Cell Distribution Width 13.2 % (11.5-14.5); White Blood Count 7.8 K/mm3 (4.5-10.0)
[2021-09-25 07:54] LABS: Glucose Point of Care 229 mg/dl (65-105)
[2021-09-25] MEDS: INSULIN ASPART (*BKC) 100 UNITS/ML SUB-Q (08:01)
[2021-09-25 08:06] VITALS: PULSE 82
[2021-09-25] MEDS: METOPROLOL TARTRATE 50 MG TAB 100 MG PO (08:06)
[2021-09-25] MEDS: ENOXAPARIN 40 MG/0.4 ML SYRINGE SUB-Q (08:06)
[2021-09-25] MEDS: cloNIDine HCL 0.2 MG TABLET PO ×3 (08:07→16:54)
[2021-09-25] MEDS: GABAPENTIN 300 MG CAPSULE PO ×3 (08:07→16:54)
[2021-09-25] MEDS: ATORVASTATIN 20 MG TABLET PO (08:07)
[2021-09-25] MEDS: metFORMIN HCL 500 MG TABLET 1000 MG PO ×2 (08:07→16:54)
[2021-09-25] MEDS: ASPIRIN 81 MG ENTERIC TABLET PO (08:07)
[2021-09-25] MEDS: GLIMEPIRIDE 2 MG TABLET PO (08:08)
[2021-09-25] MEDS: CYANOCOBALAMIN INJ 1,000 MCG/ML VIAL 1000 MCG IM (08:08)
[2021-09-25] MEDS: HYDROcodone/acetaminophen (*CRX) 7.5-325 MG TABLET 1 TAB PO ×2 (10:42→16:53)
--- NOTE | 2021-09-25 12:07 | PM.DS ---
DS: Admitting Diagnosis Discharge Date 09/25/20 Admitting Diagnosis Frequent Falls DS: Discharge Diagnosis Discharge Diagnosis (1) Weakness: Code(s): R53.1 - Weakness Status: Acute Assessment and Plan: Patient is a 60-year-old man with a history of diastolic CHF, CKD stage 3, diabetes with neuropathy, hypertension, chronic back and arthritis pain on chronic opiates, who presented to the emergency room after having frequent falls over the last 4-5 months and was unable to get up prior to arrival in his family had to help him to his feet. Initial vitals showed blood pressure 149/87, heart rate 97, afebrile, normal oxygenation on room air. Initial labs showed normocytic anemia with a hemoglobin of 13, hematocrit 41%, normal differential, BMP normal, elevated glucose to 252, hemoglobin A1c elevated at 8.2%, normal LFTs. Normal TSH. Deficient in vitamin-D and this was supplemented. Deficient in vitamin B12 and this was supplemented. Normal urinalysis without any infection. CT head on arrival showed infarct to left occipital lobe, likely subacute versus chronic. Moderate nonspecific cerebral white matter disease, which likely represents chronic small vessel ischemia. Chest x-ray showed no acute cardiopulmonary disease. X-ray right tib-fib showed polyarticular osteoarthritis. Patient was admitted to the hospital for further stroke workup and PT/OT evaluations. Due to the patient's frequent falls we want to further work up his back pain to make sure does not have any acute concerning symptoms. Patient was unable to get MRI because he could not walk to the MRI machine. The symptoms are chronic and not started acutely according to history I suspect these are related to his chronic degenerative disc disease rather than an acute process. His history in the medical records does represent and abnormality in the gait and ambulatory dysfunction as 1 of the diagnosis likely related to his chronic back pain and related neuropathy. CT Lumbar spine showed Severe lumbar and lower thoracic spondylosis. Neurology was consulted and recommended CT spine and I read him the results and abnormalities. He felt at this time patient could follow-up with an outpatient spinal surgeon after discharge. Patient was stable to be discharged to care home rehab facility to continue physical and occupational therapy. He will be referred to the neurologist's office, Dr. Higginbotham who says that they can send the patient's information for to [facility] for a neurosurgery consultation. Patient also had a stroke workup which was normal at this time. Telemetry shows no acute arrhythmias noted as to the cause of his acute versus chronic stroke Carotid artery ultrasound came back negative for any significant stenosis bilaterally Echocardiogram showed normal EF 60-65%, moderate LVH, diastolic dysfunction grade 1. Lipid panel is well controlled with LDL of 76. Neurology wound the patient continue on aspirin, better diabetic control, and follow-up in the office in 4 weeks for further workup and evaluation. (2) Stroke: Qualifiers: CVA mechanism: unspecified Qualified Code(s): I63.9 - Cerebral infarction, unspecified Code(s): I63.9 - Cerebral infarction, unspecified Status: Acute Assessment and Plan: (3) Spinal stenosis: Code(s): M48.00 - Spinal stenosis, site unspecified Status: Acute Assessment and Plan: CT lumbar spine shows severe lumbar and lower thoracic spondylosis. There is 3 mm retrolisthesis of L1 on L2. There is severely decreased disc height at T12-L1 and L1-L2 with endplate remodeling. The following disc levels are specifically discussed: T12-S1: The disc is bulging on all levels. There is severe-moderate bilateral facet joint osteoarthritis. There is moderate right and mild left neural foraminal stenos
[2021-09-25 12:12] LABS: Glucose Point of Care 196 mg/dl (65-105)
[2021-09-25 12:20] VITALS: BP 111/79; PULSE 84
[2021-09-25 12:45] LABS: EDCOVIDSCREEN Negative (Negative)
[2021-09-25 14:00] VITALS: BP 114/75; PULSE 76; RESP 24; TEMP 36.1; O2SAT 92
[2021-09-25 16:26] LABS: Glucose Point of Care 192 mg/dl (65-105)
== END 2021-09-25 18:52 ==
LOC: ANHED 09-23 01:54 → ANH3MEDSUR 09-23 02:46 → ANH2MED 09-23 10:22
PROVIDERS: Internal Medicine; Admitting Provider Internal Medicine; Emergency Provider Emergency Medicine; PCP Family Medicine; Visit Provider Physician Assistant
DX: I63.9 Cerebral infarction, unspecified (principal); R06.00 Dyspnea, unspecified; W19.XXXA Unspecified fall, initial encounter; R53.1 Weakness; R53.81 Other malaise; E11.65 Type 2 diabetes mellitus with hyperglycemia; R29.6 Repeated falls; M47.816 Spondylosis without myelopathy or radiculopathy, lumbar region; M47.814 Spondylosis without myelopathy or radiculopathy, thoracic region; I13.0 Hypertensive heart and chronic kidney disease with heart failure and stage 1 through stage 4 chronic kidney disease, or unspecified chronic kidney disease; E11.22 Type 2 diabetes mellitus with diabetic chronic kidney disease; N18.30 Chronic kidney disease, stage 3 unspecified; I50.32 Chronic diastolic (congestive) heart failure; E11.21 Type 2 diabetes mellitus with diabetic nephropathy; I25.10 Atherosclerotic heart disease of native coronary artery without angina pectoris; I25.2 Old myocardial infarction; F33.1 Major depressive disorder, recurrent, moderate; E78.2 Mixed hyperlipidemia; G47.33 Obstructive sleep apnea (adult) (pediatric); E11.42 Type 2 diabetes mellitus with diabetic polyneuropathy; E55.9 Vitamin D deficiency, unspecified; Z79.82 Long term (current) use of aspirin; Z87.891 Personal history of nicotine dependence; Z79.84 Long term (current) use of oral hypoglycemic drugs; F11.20 Opioid dependence, uncomplicated; Z20.822 Contact with and (suspected) exposure to COVID-19
CPT/HCPCS: 36415; 70450; 71045; 72131; 73590; 80048; 80053; 80061; 80074; 81001; 82306; 82607; 82746; 82948; 83036; 84443; 85025; 85027; 86592; 87426; 87522; 92610; 93005; 93306; 93880; 96372; 97110; 97116; 97162; 97166; 97530; 97535; 99285; A9270; C9803; G0378; J1650; J1815; J3420

== ENCOUNTER 2024-12-08 15:59 | Inpatient (IN) | payer OTHER, SELFPAY ==
[2024-12-08] VITALS (13 sets, daily range): BP systolic 123–149; BP diastolic 69–114; PULSE 85–144; RESP 16–24; TEMP 36.4–36.9; O2SAT 94–97; BMI 55.1
--- NOTE | ~2024-12-08 | US_ITS ---
EXAM: ABDOMEN ULTRASOUND HISTORY: abdominal pain x 1 week, too large for CT scanner COMPARISON: None FINDINGS: LIVER: The liver demonstrates fatty infiltration. The portal vein is patent and demonstrates hepatopedal (but phasic) flow GALLBLADDER: Surgically absent. BILE DUCTS: Common bile duct measures 5.7mm. PANCREAS: Limited evaluation of the pancreas secondary to overlying bowel gas SPLEEN: The spleen is unremarkable in echogenicity and increased in size measuring 13cm in longitudin al dimension. RIGHT KIDNEY: 13 cm. In length. No hydronephrosis or bulky renal calculi. LEFT KIDNEY: 12cm in length. No hydronephrosis or renal calculi. VASCULATURE : The visualized portion of the abdominal aorta is nonaneurysmal. The IVC is patent. IMPRESSION: Evaluation of the pancreas is limited by overlying bowel gas. Phasic flow within the portal vein, suggesting portal hypertension. Fatty infiltration of the liver. Splenomegaly. Reviewed, dictated and finalized at location A.
--- NOTE | ~2024-12-08 | NM_ITS ---
EXAMINATION: NM lung vent and perfusion DATE: 12/08/2024 21:03 INDICATION: Shortness of breath, with elevated d-dimer and elevated BNP TECHNIQUE: 22 mCi xenon-133 by inhalation and 4.87 mCi Tc-99m MAA by intravenous route. Scintigraphi c images of the chest were obtained. COMPARISON: Reference is made to a plain film evaluation of the chest, performed the same day FINDINGS: There is homogeneous radiotracer activity throughout the lungs on the single breath ventilation seque nce. There is relatively homogeneous perfusion throughout the lungs. No discrete ventilation and perfusion mismatch is identified. IMPRESSION: 1. Low probability for pulmonary embolism. Reviewed, dictated and finalized at location A.
--- NOTE | ~2024-12-08 | XR_ITS ---
CHEST RADIOGRAPH CLINICAL HISTORY: sob, swelling . COMPARISON: 09/22/2021 TECHNIQUE: Single portable view of the chest. FINDINGS The cardiomediastinal silhouette is enlarged, unchanged. Increased interstitial markings are identified bilaterally, findings suggesting mild pulmonary vascul ar congestion. Hazy opacification of the bilateral hemidiaphragms, likely related to overlying soft tissues rather t elizabeth infiltrates. The lungs otherwise appear clear. IMPRESSION: Mild pulmonary vascular congestion, without focal infiltrate or effusion. Reviewed, dictated and finalized at location A.
--- NOTE | ~2024-12-08 | CT_ITS ---
History: Headache and right facial droop, along with left lid droop. Last no well approximately 1 hour earlier PROCEDURE: CT head without contrast. COMPARISON: 09/22/2021 TECHNIQUE: Axial imaging of the head performed from the skull base to the vertex without IV contrast. Sagittal a nd coronal reformations obtained. DLP: 681 mGy-cm FINDINGS: The ventricles are normal in size, shape and position. There is no mass, mass effect or midline shift. There is no abnormal extra-axial fluid collection or intracranial hemorrhage. Visualized paranasal sinuses are clear. The mastoid air cells are well aerated. No acute displaced fractures within the overlying cranium. Impression: No acute intracranial hemorrhage or suspicious mass effect. Reviewed, dictated and finalized at location A. Impression: No acute intracranial hemorrhage or suspicious mass effect.
--- NOTE | ~2024-12-08 | US_ITS ---
BILATERAL LOWER EXTREMITY VENOUS ULTRASOUND Ordering provider: Sharmin Duarte PA-C History: . Bilateral lower extremity edema . Comparison: None. FINDINGS: RIGHT LOWER EXTREMITY VEINS: --COMMON FEMORAL: Patent and free of thrombus. Normal compressibility, phasic flow and augmentation. --PROXIMAL SUPERFICIAL FEMORAL: Patent and free of thrombus. Normal compressibility, phasic flow and augmentation. --DISTAL SUPERFICIAL FEMORAL: Patent and free of thrombus. Normal compressibility, phasic flow and au gmentation. --POPLITEAL: Patent and free of thrombus. Normal compressibility, phasic flow and augmentation. --POSTERIOR TIBIAL: Patent and free of thrombus. Normal compressibility, phasic flow and augmentation . LEFT LOWER EXTREMITY VEINS: --COMMON FEMORAL: Patent and free of thrombus. Normal compressibility, phasic flow and augmentation. --PROXIMAL SUPERFICIAL FEMORAL: Patent and free of thrombus. Normal compressibility, phasic flow and augmentation. --DISTAL SUPERFICIAL FEMORAL: Patent and free of thrombus. Normal compressibility, phasic flow and au gmentation. --POPLITEAL: Patent and free of thrombus. Normal compressibility, phasic flow and augmentation. --POSTERIOR TIBIAL: Patent and free of thrombus. Normal compressibility, phasic flow and augmentation . IMPRESSION: Negative bilateral lower extremity venous US. No deep vein thrombosis. Reviewed, dictated and finalized at location A.
--- NOTE | ~2024-12-08 | CT_ITS ---
EXAMINATION: CTA BRAIN/CAROTID DATE: 12/13/2024 16:26 INDICATION: Left eye drooping TECHNIQUE: Computed tomographic angiography (CTA) of the head and neck was performed with 100 mL Omni paque-350 intravenous contrast. Multiplanar reconstructions and maximum intensity projection 3D-recon structions of the carotid arteries and of the intracranial arteries were created by the technologist on a separate workstation. Precontrast CT of the head was also obtained. Automated exposure control and iterative reconstruction technique were employed.The dose-length product was 1808.23 mGy-cm. COMPARISON: Head CT dated 12/11/2024 FINDINGS: Carotid arteries: Aortic arch is normal in caliber with no dissection. There is approximately 40-60% stenosis of the ri ght carotid bulb relative to normal distal artery lumen diameter (NASCET criteria). More precise asse ssment is limited by motion artifact at this level. There is atherosclerotic plaque with 0% stenosis of the left carotid bulb relative to normal distal artery lumen diameter. There is atherosclerotic pl aque without hemodynamically significant stenosis at the origin of the bilateral codominant vertebral arteries. Small posterior layering right pleural effusion. Calcified nodule at the superior segment left lower lobe consistent with old granulomatous disease. Moderate cervical spondylosis. Cervical so ft tissues are unremarkable. Head: No change in a small region of encephalomalacia in the left occipital lobe consistent with sequela of old infarct. No acute intracranial hemorrhage, acute infarction or abnormal extra axial fluid collec tion. There is moderate scattered white matter hypoattenuation consistent with chronic small vessel i schemic disease. Symmetric prominence of the sulci consistent with mild age-appropriate diffuse cereb ral volume loss. Ventricles are normal and symmetric. No abnormally enhancing brain lesions on the po st contrast imaging. No mass/mass effect. Mild mucosal thickening bilateral ethmoid sinuses. The orbi ts and mastoid air cells are normal. Intracranial arteries There is extensive atherosclerotic calcific a cyst along the bilateral carotid siphons with multifoca l <50% stenosis along the right carotid siphon and with and moderate 5770% stenosis at the posterior segment of the left internal carotid artery with multifocal mild stenosis in the more distal left car otid siphon greatest at the supraclinoid segment were again appears to approach 50% stenosis. The yojana ateral vertebral arteries are codominant with additional prominent calcified plaque with multifocal m ild <50% stenosis on the right and a moderate 50-70% stenosis on the left.. 50% stenosis along the mi d basilar artery. Both A1 and P1 segments are patent. Moderate stenosis at the right A1 and P1 segmen ts. There is a patent anterior communicating artery. No aneurysms identified. Cerebral arterial arbor ization appears symmetric. IMPRESSION: 1. 40-60% stenosis of the right carotid bulb relative to normal distal artery lumen diameter (NASCET criteria) with more precise assessment limited by motion artifact. 2. Atherosclerotic plaque with 0% stenosis of the left carotid bulb relative to normal distal artery lumen diameter. 3. Extensive cerebral atherosclerotic disease with moderate stenosis at the left vertebral, basilar, right internal carotid arteries as well as the right A1 and P1 segments. 3. Old left occipital lobe infarct and moderate nonspecific cerebral white matter disease. No acute i ntracranial process. Reviewed, dictated and finalized at location B. IMPRESSION: 1. 40-60% stenosis of the right carotid bulb relative to normal distal artery l umen diameter (NASCET criteria) with more precise assessment limited by motion artifact. 2. Atherosclerotic plaque with 0% stenosis of the left carotid bulb relative to normal distal artery lumen diameter. 3. Extensive cerebral atherosclerotic disease with moderate stenosis at the lef t vertebral, basilar, right internal carotid arteries as well as the right A1 a nd P1 segments. 3. Old left occipital lobe infarct and moderate nonspecific cerebral white sheridan er disease. No acute intracranial process.
--- NOTE | 2024-12-08 16:02 | ECG_ITS ---
Test Date: 2024-12-08 16:10:36 Measurements Intervals [place] Rate: 128 P: 0 TX: 0 QRS: -42 QRSD: 95 T: 10 QT: 326 QTc: 477 Interpretive Statements ATRIAL FIBRILLATION WITH RAPID VENTRICULAR RESPONSE LOW QRS VOLTAGE IN PRECORDIAL LEADS [QRS DEFLECTION < 1.0 mV IN CHEST LEADS] POSSIBLE ANTERIOR MYOCARDIAL INFARCTION , PROBABLY OLD [30 ms Q WAVE IN V3/V4, OR R < 0.2 mV IN V4] No previous ECG available for comparison Electronically Signed On 12-09-2024 18:22:51 CDT by Gui Posadas M.D.
--- OUTSIDE RECORDS SUMMARY | 2024-12-08 16:03 | XMS_ITS | Clinical Summary ---
Author Organization [facility] [place] [address] Address [address] [place] [address] Care Team Providers Care Brand Inspector Name Role Phone Evie Platt MD Primary Care Provider Allergies No known active allergies Medications HYDROcodone-magaly taminophen (NORCO) 10-325 mg per tablet Take by mouth every 6 (six) hours as needed 08/05/2019 Active glimepiride (AMARYL) 2 mg tablet Take 2 mg by mouth daily 07/25/2019 Active cloNIDine (CATAPRES) 0.2 mg tablet Take 0.2 mg by mouth 3 (three) times a day 07/14/2019 Active metoprolol (LOPRESSOR) 100 mg tablet Take 100 mg by mouth 2 (two) times a day 05/31/2019 Active furosemide (LASIX) 20 mg tablet Take 20 mg by mouth daily 06/29/2019 Active metFORMIN (GLUCOPHAGE) 1,000 mg tablet Take 1,000 mg by mouth 2 (two) times a day 06/25/2019 Active amLODIPine (NORVASC) 10 mg tablet Take 10 mg by mouth daily 05/28/2019 Active atorvastatin (LIPITOR) 20 mg tablet Take 20 mg by mouth daily 07/04/2019 Active gabapentin (NEURONTIN) 300 mg capsule Take 300 mg by mouth 3 (three) times a day Active hydrALAZINE (APRESOLINE) 25 mg tabletIndicatio ns:hypertension Take 25 mg by mouth 3 (three) times a day Active zolpidem (AMBIEN) 10 mg tabletIndicatio ns:Sleep-Onset Insomnia Take 10 mg by mouth nightly as needed for sleep Active ergocalciferol (VITAMIN D) 50,000 unit capsule Take 50,000 Units by mouth once a week 03/17/2022 Active insulin glargine (TOUJEO) 300 unit/mL (1.5 mL) pen for injection Inject 10 Units/day under the skin Active aspirin 81 mg enteric coated tablet TAKE 1 TABLET BY MOUTH EVERY DAY 90 tablet 2 08/01/2022 Active Active Problems No known active problems Surgical History Surgery Date Site/Laterality Comments APPENDECTOMY Medical History Medical History Date Comments Hypertension Hyperlipidemia Diabetes mellitus (HCC) Acid indigestion Arthritis Family History Medical History Relation Name Comments Kidney disease Father Stroke Father Heart attack Mother Relation Name Status Comments Father (Age 65) Mother (Age 72) Social History Tobacco Use Types Packs/Day Years Used Date Smoking Tobacco: Former Cigarettes Q uit: 2018 Smokeless Tobacco: Former Alcohol Use Standard Drinks/Week Comments Not Currently 0 (1 standard drink = 0.6 oz pur e alcohol) Personal Safety Answer Date Recorded Getting School Help Needed Not on file 11/14 Sex and Gender Information Value Date Recorded Sex Assigned at Not on file 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 Gender Identity Not on file Sexual Orientation Not on file Obstetrics History Last Filed Vital Signs Vital Sign Reading Time Taken Comments Blood Pressure 128/78 03/26/2022 11:45 AM CDT Pulse 85 03/26/2022 11:45 AM CDT Temperature - - Respiratory Rate - - Oxygen Saturation 97% 03/26/2022 11:45 AM CDT Inhaled Oxygen Concentration - - Weight 130.6 kg (288 lb) 03/26/2022 11:45 AM CDT Height 171.5 cm (5' 7.5 ) 03/26/2022 11:45 AM CD T Body Mass Index 44.44 03/26/2022 11:45 AM CDT Plan of Treatment Health Maintenance Due Date Last Done Comments Colon Cancer Screening-Colonoscopy 1950 Depression Screening 1950 Fall Risk Assessment 1950 Hepatitis C Screening 1950 DTaP/Tdap/Td Vaccine (1 - Tdap) 1963 Hepatitis B Screening 1970 Abdominal Aortic Aneurysm (A AA) Screen 2017 Well Visit 65+ 2017 Zoster Vaccine (2 of 2) 09/16/2021 07/22/2021 Pneumococcal vaccine 65+ (2 of 2 - PCV) 07/23/2022 07/23/2021 Covid-19 Vaccine ( - 2023- season) 2024 08/06/2021, 06/12/2021, 05/15/2021 Influenza Vaccine (#1) 2024 07/22/2021 Insurance Care Teams Brand Inspector Relationship Specialty Start Date End Date Evie Platt MD [address] [facility] [address] [place] [address] PCP - General 10/25/15
--- OUTSIDE RECORDS SUMMARY | 2024-12-08 16:03 | XMS_ITS | Referral Summary ---
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
--- OUTSIDE RECORDS SUMMARY | 2024-12-08 16:03 | XMS_ITS | Clinical Summary ---
Author Organization [facility] Address [address] [place] [address] Care Team Providers Care Service Officer Name Role Phone Unavailable Primary Care Provider Unavailabl e Social History Tobacco Use Types Packs/Day Years Used Date Smoking Tobacco: Never Assessed Sex and Gender Information Value Date Recorded Sex Assigned at Not on file Legal Sex Male 4:28 PM CDT Gender Identity Not on file Sexual Orientation Not on file Plan of Treatment Health Maintenance Due Date Last Done Comments Colorectal Cancer Screening Colonoscopy (10 Years) 1952 Hepatitis C 1970 DTaP, Tdap and Td Vaccines ( 1 - Tdap) 1971 Zoster Vaccines (1 of 2) 2002 Pneumococcal Vaccine: 65+ Ye ars (1 of 1 - PCV) 2017 COVID-19 Vaccine ( - 2023-2 5 season) 2024 Influenza Adult (#1) 2024 RSV Immunization or 60+ Years (1 - 1-dose 75+ series) 2027 Meningococcal B Vaccine Aged Out No l onger eligible based on patient's age to complete this topic Meningococcal Vaccine Aged Out No alethea ned eligible based on patient's age to complete this topic RSV Immunizations Under 20 Months Aged Out No longer eligible based on patient's age to complete this topic
--- OUTSIDE RECORDS SUMMARY | 2024-12-08 17:20 | XMS_ITS | Clinical Summary ---
Author Organization [facility] Address [address] [place] [address] Care Team Providers Care State Tested Nursing Assistant Name Role Phone Unavailable Primary Care Provider [...]
--- OUTSIDE RECORDS SUMMARY | 2024-12-08 17:20 | XMS_ITS | Clinical Summary ---
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
--- OUTSIDE RECORDS SUMMARY | 2024-12-08 17:20 | XMS_ITS | Referral Summary ---
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
[2024-12-08 17:34] LABS: Basophils Absolute Auto 0.1 K/mm3 (0.0-0.1); Basophils Percent Auto 0.5 % (0.2-1.2); Eosinophils Percent Auto 0.2 % (0-4.4); Hematocrit 42.5 % (42.0-52.0); Hemoglobin 13.2 g/dL (14.0-18.0); Immature Granulocyte Absolute 0.04 K/mm3 (0.00-0.031); Immature Granulocyte Percent A 0.4 % (0-0.5); Immature Platelet Fraction Pct 8.1 % (0.9-11.2); Lymphocytes Absolute Auto 2.16 K/mm3 (0.9-3.2); Lymphocytes Percent Auto 22.5 % (18.3-44.2); Mean Corpuscular HGB Conc 31.1 g/dl (32-36); Mean Corpuscular Hemoglobin 29.8 pg (26-34); Mean Corpuscular Volume 95.9 fl (80-100); Mean Platelet Volume 11.9 fl (7.4-10.4); Monocytes Absolute Auto 0.4 K/mm3 (0.1-0.6); Monocytes Percent Auto 4.5 % (2.6-8.5); Neutrophils Absolute Auto 6.9 K/mm3 (1.3-6.7); Neutrophils Percent Auto 71.9 % (45.5-73.1); Platelet Count Result 127 k/mm3 (150-375); Red Blood Count 4.43 M/mm3 (4.6-6.20); Red Cell Distribution Width 14.3 % (11.5-14.5); White Blood Count 9.6 K/mm3 (4.5-10.0)
[2024-12-08 17:41] LABS: Alanine Aminotransferase 21 U/L (6-50); Albumin Level 3.9 g/dL (3.5-5.1); Alkaline Phosphatase 92 U/L (38-126); Anion Gap 9 mmol/L (4-12); Aspartate Amino Transferase 21 U/L (17-59); Bilirubin,Total 0.6 mg/dL (0.2-1.3); Blood Urea Nitrogen 16 mg/dL (9-20); Calcium 8.9 mg/dL (8.4-10.2); Carbon Dioxide 25 mmol/L (22-30); Chloride 103 mmol/L (98-107); Estimated Glomerular Filt Rate > 60; Glucose 224 mg/dL (65-110); Potassium 3.8 mmol/L (3.4-5.0); Sodium 137 mmol/L (137-145)
[2024-12-08 17:42] LABS: INR 1.2; Prothrombin Time 15.3 Seconds (11.1-14.7)
[2024-12-08 17:43] LABS: Partial Thromboplastin Time 30.8 Seconds (22.3-36.8)
--- NOTE | 2024-12-08 17:50 | ED_ITS ---
HPI - SOB/Dyspnea General Chief Complaint: Shortness of Breath/Dyspnea <Rain Arizmendi APRN - Last Filed: 12/08/24 21:48> Stated Complaint: Abd pain, shortness of breath <Rain Arizmendi APRN - Last Filed: 12/08/24 21:48> Time Seen by Provider: 12/08/24 17:13 <Rain Arizmendi APRN - Last Filed: 12/08/24 21:48> History of Present Illness HPI Narrative: Patient is a 74 male presents to the complains of right upper quadrant abdominal pain and shortness a breath that started approximately 1 week ago. He endorses a history of CHF, diabetes, high blood pressure, obesity. Patient reports he has never CHF exacerbation, nor has he ever been diagnosed with atrial fibrillation. He reports that shortness of breath and right upper quadrant pain have worsened throughout the week in today he went in to see his primary care who advised him to come right to the ER for further evaluation. Patient denies any recent fevers, chest pain, back pain. He reports his lower extremities are always swollen. <Rain Arizmendi APRN - Last Filed: 12/08/24 21:48> Related Data Allergies/Adverse Reactions: Allergies Allergy/AdvReac Type Severity Reaction Status Date / Time metformin AdvReac Severe diarrhea Uncoded 12/08/24 17:25 <Rain Arizmendi APRN - Last Filed: 12/08/24 21:48> Review of Systems 2 Review of Systems: All systems reviewed & are unremarkable except as noted in HPI and below <Rain Arizmendi APRN - Last Filed: 12/08/24 21:48> FOR[facility]LY [facility] Past Medical History Medical History: Medical History Constipation Vitamin B12 deficiency Stroke BCC (basal cell carcinoma of skin) Nasal lesion Balance problem Vaccine counseling Atherosclerosis of aorta [place] (myocardial infarction) Personal history of nicotine dependence Type 2 diabetes mellitus with hyperglycemia BMI 45.0-49.9, adult Insomnia CAD in [place] artery Physical debility Abnormality of gait Lesion of nose Omphalitis in adult Morbid (severe) obesity due to excess calories Coronary arteriosclerosis in patient with history of previous myocardial infarction Morbid obesity Ambulatory dysfunction Chronic kidney disease, stage 3 (moderate) Chronic pain disorder Diabetic nephropathy associated with type 2 diabetes mellitus Essential (primary) hypertension Intervertebral disc disorders with myelopathy, lumbar region MDD (major depressive disorder), recurrent episode, moderate Mixed hyperlipidemia Obstructive sleep apnea (adult) (pediatric) Opioid dependence, uncomplicated Type 2 diabetes mellitus with stage 3 chronic kidney disease Ventricular hypertrophy due to hypertensive disease Vitamin D deficiency, unspecified <Rain Arizmendi APRN - Last Filed: 12/08/24 21:48> Family History Family History: Family History Mother Family history of premature coronary heart disease Patient's mother is Father Hypertension Family history of diabetes mellitus in first degree relative <Rain Arizmendi APRN - Last Filed: 12/08/24 21:48> Social History Social History: Social History Social History: Single Smoking packs per day: 1 Smoking cigarettes per day: 20.0 Years smoked: 35 Smoking pack-years: 35.00 Smoking status: Former smoker Tobacco type: cigarettes Second hand tobacco smoke exposure: No Additional smoking assessment comments: QUITE 2013 Alcohol intake: never Alcohol use details: STATES STOPPED 25-30 YRS AGO Substance use: never Substance use type: does not use Lack of Transportation: No Lack of Food: Never True Current Housing: I Have Housing Concerned About Future Housing: No Difficulty Paying Gas/Electric Bills: No Difficulty Paying for Meds: No Currently Unemployed: YES Education: Decline to Answer Difficulty w/ Childcare or Family Care: No Living arrangements: with family Additional living arrangements comments: LIVES WITH SON Occupation/Education: retired Gender identity (if verbalized by the patient): Male Sexual Orientation (if Verbalized by the Patient): Straight or Heterosexual Spiritual care concerns: No <Rain Arizmendi APRN - Last Filed: 12/08/24 21:48> Exam 2 Narrative: GENERAL: Ill-appearing, obese, non-toxic, in mild distress with movement. HEAD: Normocephalic, atraumatic. NECK: Supple. No adenopathy, no masses. RESPIRATORY: Airway patent, respirations labored. Clear to auscultation bilaterally, no rales, rhonchi, wheezing. CARDIOVASCULAR: irregular rate without murmurs, rubs, or gallops. Peripheral pulses 1+ d/t pitting edema ABDOMINAL: Soft, tender in RUQ, distended, no hepatosplenomegaly. Normoactive BS. + Rojas's sign MUSCULOSKELETAL: Moves all extremities. Strength/ROM intact without gross deformities. SKIN: Warm, dry, pallor. No rashes. NEURO: A&O X3. Speech clear. Cranial nerves II-XII intact. No ataxic movements. PSYCHIATRIC: Appropriate mood and affect. Normal interaction. <Rain Arizmendi, ROM - Last Filed: 12/08/24 21:48> Course ACCESS REP/PA Physician Supervision This visit was performed by both a physician and an APC. I performed all aspects of the MDM as documented. <Del Dc MD - Last Filed: 12/08/24 22:42> Vital Signs Vital signs: Vital Signs Temperature 98.1 F 12/08/24 16:04 Pulse Rate 130 H 12/08/24 16:04 Respiratory Rate 24 H 12/08/24 16:04 Blood Pressure 130/88 12/08/24 16:04 Pulse Oximetry 97 12/08/24 16:04 Oxygen Delivery Room Air 12/08/24 16:04 Temperature 97.6 F 12/08/24 21:12 Pulse Rate 107 H 12/08/24 21:21 Respiratory Rate 24 H 12/08/24 21:12 Blood Pressure 144/96 H 12/08/24 21:21 Pulse Oximetry 94 12/08/24 21:12 Oxygen Delivery Room Air 12/08/24 19:09 <Rain Arizmendi APRN - Last Filed: 12/08/24 21:48> Vital Signs Temperature 98.1 F 12/08/24 16:04 Pulse Rate 130 H 12/08/24 16:04 Respiratory Rate 24 H 12/08/24 16:04 Blood Pressure 130/88 12/08/24 16:04 Pulse Oximetry 97 12/08/24 16:04 Oxygen Delivery Room Air 12/08/24 16:04 Temperature 97.6 F 12/08/24 21:12 Pulse Rate 107 H 12/08/24 21:21 Respiratory Rate 24 H 12/08/24 21:12 Blood Pressure 144/96 H 12/08/24 21:21 Pulse Oximetry 94 12/08/24 21:12 Oxygen Delivery Room Air 12/08/24 19:09 <Del Dc MD - Last Filed: 12/08/24 22:42> MDM - SOB/Dyspnea MDM Narrative Medical decision making narrative: Patient is a 74 male presents to the complains of right upper quadrant abdominal pain and shortness a breath that started approximately 1 week ago. He endorses a history of CHF, diabetes, high blood pressure, obesity. Patient reports he has never CHF exacerbation, nor has he ever been diagnosed with atrial fibrillation. He reports that shortness of breath and right upper quadrant pain have worsened throughout the week in today he went in to see his primary care who advised him to come right to the ER for further evaluation. Patient denies any recent fevers, chest pain, back pain. He reports his lower extremities are always swollen. Labs Ordered: CBC, CMP, D-dimer, proBNP, PTT, INR Imaging Ordered: Chest x-ray, CT PE/abdomen/pelvis Medications Ordered: Lasix 40 mg IV, diltiazem drip Results: Pt's abdominal ultrasound indicates Evaluation of the pancreas is limited by overlying bowel gas. Phasic flow within the portal vein, suggesting portal hypertension. Fatty infiltration of the liver. Splenomegaly. Diagnosis: Atrial fibrillation, CHF exacerbation Patient Education/Shared MDM: Results shared with patient. He endorses improvement following medication administration. Spoke with hospitalist who is in agreement with pt admission to the IMU. Patient verbalized understanding and is in agreement with plan. <Rain Arizmendi APRN - Last Filed: 12/08/24 21:48> Differential Diagnosis Differential diagnosis: Likely acute exacerbation of chronic obstructive airways disease, congestive heart failure, community acquired pneumonia and pulmonary embolism < Rain Arizmendi APRN - Last Filed: 12/08/24 21:48> Lab Data Attestation: I reviewed the patient's lab results. <Rain Arizmendi APRN - Last Filed: 12/08/24 21:48> Result diagrams: 12/08/24 17:26 12/08/24 17:26 <Rain Arizmendi APRN - Last Filed: 12/08/24 21:48> Labs: Lab Results 12/08/24 12/08/24 Range/Units 17:26 19:13 WBC 9.6 (4.5-10.0) K/mm3 RBC 4.43 L (4.6-6.20) M/mm3 Hgb 13.2 L (14.0-18.0) g/dL Hct 42.5 (42.0-52.0) % MCV 95.9 (80-100) fl MCH 29.8 (26-34) pg MCHC 31.1 L (32-36) g/dl RDW 14.3 (11.5-14.5) % Plt Count 127 L (150-375) k/mm3 MPV 11.9 H (7.4-10.4) fl Immature Gran % (Auto) 0.4 (0-0.5) % Neut % (Auto) 71.9 (45.5-73.1) % Lymph % (Auto) 22.5 (18.3-44.2) % [place] % (Auto) 4.5 (2.6-8.5) % Eos % (Auto) 0.2 (0-4.4) % Baso % (Auto) 0.5 (0.2-1.2) % Lymph # (Auto) 2.16 (0.9-3.2) K/mm3 [place] # (Auto) 0.4 (0.1-0.6) K/mm3 Eos # (Auto) 0.0 (0-0.3) K/mm3 Baso # (Auto) 0.1 (0.0-0.1) K/mm3 Abs Immat Gran (auto) 0.04 H (0.00-0.031) K/mm3 Absolute Neuts (auto) 6.9 H (1.3-6.7) K/mm3 Absolute Nucleated RBC 0.000 (0.0-0.012) K/mm3 Nucleated RBC % 0.0 (0.0-0.2) % % Immature Plt Fraction 8.1 (0.9-11.2) % PT 15.3 H (11.1-14.7) Seconds INR 1.2 APTT 30.8 (22.3-36.8) Seconds D-Dimer 1.64 H (<0.48) ug/mL Sodium 137 (137-145) mmol/L Potassium 3.8 (3.4-5.0) mmol/L Chloride 103 (98-107) mmol/L Carbon Dioxide 25 (22-30) mmol/L Anion Gap 9 (4-12) mmol/L BUN 16 (9-20) mg/dL Creatinine 1.01 (0.7-1.3) mg/dL Estim Creat Clear Calc Not Reportable Estimated GFR > 60 (59 - ) Glucose 224 H (65-110) mg/dL Calcium 8.9 (8.4-10.2) mg/dL Total Bilirubin 0.6 (0.2-1.3) mg/dL AST 21 (17-59) U/L ALT 21 (6-50) U/L Alkaline Phosphatase 92 (38-126) U/L Troponin I < 0.012 (0.000-0.034) ng/mL NT-Pro-B Natriuret Pep 3540 H (19.9-100) pg/mL Total Protein 7.0 (6.3-8.2) g/dL Albumin 3.9 (3.5-5.1) g/dL Lipase 57 (23-300) U/L <Rain Arizmendi, TRANSITION OF CARE SPECIALIST - Last Filed: 12/08/24 21:48> Lab Results 12/08/24 12/08/24 Range/Units 17:26 19:13 WBC 9.6 (4.5-10.0) K/mm3 RBC 4.43 L (4.6-6.20) M/mm3 Hgb 13.2 L (14.0-18.0) g/dL Hct 42.5 (42.0-52.0) % MCV 95.9 (80-100) fl MCH 29.8 (26-34) pg MCHC 31.1 L (32-36) g/dl RDW 14.3 (11.5-14.5) % Plt Count 127 L (150-375) k/mm3 MPV 11.9 H (7.4-10.4) fl Immature Gran % (Auto) 0.4 (0-0.5) % Neut % (Auto) 71.9 (45.5-73.1) % Lymph % (Auto) 22.5 (18.3-44.2) % [place] % (Auto) 4.5 (2.6-8.5) % Eos % (Auto) 0.2 (0-4.4) % Baso % (Auto) 0.5 (0.2-1.2) % Lymph # (Auto) 2.16 (0.9-3.2) K/mm3 [place] # (Auto) 0.4 (0.1-0.6) K/mm3 Eos # (Auto) 0.0 (0-0.3) K/mm3 Baso # (Auto) 0.1 (0.0-0.1) K/mm3 Abs Immat Gran (auto) 0.04 H (0.00-0.031) K/mm3 Absolute Neuts (auto) 6.9 H (1.3-6.7) K/mm3 Absolute Nucleated RBC 0.000 (0.0-0.012) K/mm3 Nucleated RBC % 0.0 (0.0-0.2) % % Immature Plt Fraction 8.1 (0.9-11.2) % PT 15.3 H (11.1-14.7) Seconds INR 1.2 APTT 30.8 (22.3-36.8) Seconds D-Dimer 1.64 H (<0.48) ug/mL Sodium 137 (137-145) mmol/L Potassium 3.8 (3.4-5.0) mmol/L Chloride 103 (98-107) mmol/L Carbon Dioxide 25 (22-30) mmol/L Anion Gap 9 (4-12) mmol/L BUN 16 (9-20) mg/dL Creatinine 1.01 (0.7-1.3) mg/dL Estim Creat Clear Calc Not Reportable Estimated GFR > 60 (59 - ) Glucose 224 H (65-110) mg/dL Calcium 8.9 (8.4-10.2) mg/dL Total Bilirubin 0.6 (0.2-1.3) mg/dL AST 21 (17-59) U/L ALT 21 (6-50) U/L Alkaline Phosphatase 92 (38-126) U/L Troponin I < 0.012 (0.000-0.034) ng/mL NT-Pro-B Natriuret Pep 3540 H (19.9-100) pg/mL Total Protein 7.0 (6.3-8.2) g/dL Albumin 3.9 (3.5-5.1) g/dL Lipase 57 (23-300) U/L <Del Dc MD - Last Filed: 12/08/24 22:42> Imaging Data Attestation: I personally reviewed and interpreted this imaging study as follows: < Rain Arizmendi APRN - Last Filed: 12/08/24 21:48> Radiologist's impression: Impressions Chest X-Ray 12/08/24 18:40 IMPRESSION: Mild pulmonary vascular congestion, without focal infiltrate or effusion. Abdomen Ultrasound 12/08/24 19:11 IMPRESSION: Evaluation of the pancreas is limited by overlying bowel gas. Phasic flow within the portal vein, suggesting portal hypertension. Fatty infiltration of the liver. Splenomegaly. Pulmonary Perfusion Imaging 12/08/24 21:11 IMPRESSION: 1. Low probability for pulmonary embolism. <Rain Arizmendi APRN - Last Filed: 12/08/24 21:48> Discharge Plan Discharge Clinical Impression: Atrial fibrillation, Congestive heart failure, Portal hypertension <Rain Arizmendi APRN - Last Filed: 12/08/24 21:48> Patient Disposition: Still a Patient <Rain Arimzendi APRN - Last Filed: 12/08/24 21:48> Condition: Serious <Rain Arizmendi APRN - Last Filed: 12/08/24 21:48>
[2024-12-08 17:53] LABS: NT Pro B Type Natriuretic Pept 3540 pg/mL (19.9-100); Troponin I < 0.012 ng/mL (0.000-0.034)
[2024-12-08 18:05] LABS: D Dimer 1.64 ug/mL (<0.48)
[2024-12-08] MEDS: FUROSEMIDE INJ 40 MG/4 ML VIAL IV PUSH (18:08)
[2024-12-08] MEDS: dilTIAZem HCl INJ 25 MG/5 ML VIAL 10 MG IV PUSH (18:08)
[2024-12-08] MEDS: dilTIAZem 100 MG/100 ML 100 MG/100 ML BAG IV CONT (18:36)
[2024-12-08 19:27] LABS: Lipase 57 U/L (23-300)
--- NOTE | 2024-12-08 20:35 | PM.IMHP ---
H&P: HPI History of Present Illness Date/Time: 12/08/24 20:35 Chief Complaint: Shortness of breath. Narrative: This is a pleasant 74-year-old male with history of stroke, coronary artery disease, diastolic dysfunction, hypertension, dyslipidemia, chronic kidney disease, type 2 diabetes mellitus, untreated sleep apnea, and morbid obesity who presented to the emergency department with complaints of shortness of breath. He gives a 2 to three-week history of progressive lower extremity edema extending to the abdomen, dyspnea on lesser and lesser exertion, and occasional sensations of racing heart. He estimates that he has gained 30 lb in the last few weeks, mainly in his abdomen. He does not necessarily have abdominal pain per se but he has more of a fullness feeling due to the swelling. His appetite has not been great but he attributes that to the fact that he gets a bit short of breath with eating. Additionally he has a cough which is occasionally productive of yellow-colored sputum. On presentation to the emergency department he was found to be in rapid atrial fibrillation which is a new diagnosis for him. With further questioning he does mention intermittent palpitations over the years but they are always fleeting and he in fact is not having any sensations of racing heart at this time. He denies syncope, near syncope, fever, sinus congestion, sore throat, pleuritic pain, vomiting, and calf pain. No known history of atrial fibrillation or congestive heart failure. He denies significant caffeine and alcohol use. In the ED: His heart rate was 125 on arrival, and atrial fibrillation. Blood pressure was 125/86. Labs were significant for a WBC count of 9.6, platelet 127, D-dimer 1.64, troponin less than 0.012, proBNP 3540, glucose 224. Chest x-ray showed mild pulmonary vascular congestion without focal infiltrate or effusion. Right upper quadrant ultrasound showed phasic flow within the portal vein suggesting portal hypertension, fatty infiltration of the liver, and splenomegaly. V/Q scan she showed low probability for pulmonary embolism. He was started on a diltiazem drip with improvement in his rate and was given a dose of apixaban given elevated [id number]. He is being admitted in this setting for further treatment and evaluation. Review of Systems Review of Systems: 12 systems were reviewed and are negative except for as per HPI. [facility] Past Medical History Medical History (Updated 12/09/24 @ 03:01 by Sharmin Duarte PA-C) Diastolic dysfunction Insulin dependent type 2 diabetes mellitus Depression Constipation Vitamin B12 deficiency Stroke BCC (basal cell carcinoma of skin) Nasal lesion Atherosclerosis of aorta Personal history of nicotine dependence Insomnia Physical debility Lesion of nose Coronary arteriosclerosis in patient with history of previous myocardial infarction MPI in September 2019 showed infarct with relatively preserved EF Morbid obesity Ambulatory dysfunction Chronic kidney disease, stage 3 (moderate) Chronic pain disorder Diabetic nephropathy associated with type 2 diabetes mellitus Essential (primary) hypertension Intervertebral disc disorders with myelopathy, lumbar region Mixed hyperlipidemia Obstructive sleep apnea (adult) (pediatric) Non compliant with CPAP Opioid dependence, uncomplicated Ventricular hypertrophy due to hypertensive disease Vitamin D deficiency, unspecified Surgical History Surgical History (Updated 12/09/24 @ 02:57 by Sharmin Duarte PA-C) Status post surgical removal of malignant neoplasm of skin History of cholecystectomy History of appendectomy Family History Family History Mother Patient's mother is Family history of premature coronary heart disease Father Family history of diabetes mellitus in first degree relative Hypertension Patient's father is Alcoholic cirrhosis of liver Social History Social History (Updated 12/09/24 @ 02:59 by Sharmin Duarte PA-C) Social History: Surrogate medical decision maker: Clifford Pineda, son. Code status: Full code. Smoking packs per day: 1 Smoking cigarettes per day: 20.0 Years smoked: 20 Smoking pack-years: 20.00 Smoking status: Former smoker Tobacco type: cigarettes Second hand tobacco smoke exposure: Yes Additional smoking assessment comments: Quit 2013. Alcohol intake: never Alcohol use details: No alcohol in over 25 years. Substance use: never Substance use type: does not use Do You Feel Safe in your Home?: Yes Lack of Transportation: No Lack of Food: Never True Current Housing: I Have Housing Concerned About Future Housing: No Difficulty Paying Gas/Electric Bills: No Difficulty Paying for Meds: No Currently Unemployed: No Education: High School Diploma/GED Difficulty w/ Childcare or Family Care: No Living arrangements: with family Additional living arrangements comments: He and his son live together in [place]. Occupation/Education: retired Spiritual care concerns: No Meds Home Medications and Allergies Home Medications ?Medication ?Instructions ?Recorded ?Confirmed ?Type naloxone 4 mg/actuation nasal spray 4 mg intranasal Q3M PRN opioid 04/29/21 12/09/24 Rx overdose #2 ea cyanocobalamin (vitamin B-12) 1,000 mcg PO QAM #0 tabs 09/25/21 12/09/24 Rx 1,000 mcg tablet (Vitamin B-12) lancets (Microlet Lancet) #100 ea 10/25/21 12/09/24 Rx flash glucose scanning reader #1 ea 06/08/23 12/09/24 Rx (FreeStyle Sara 2 [place]) gabapentin 300 mg capsule See Rx Instructions .Route 01/15/24 12/09/24 Rx .COMPLEX #270 caps metoprolol tartrate 100 mg tablet See Rx Instructions .Route 03/11/24 12/09/24 Rx .COMPLEX #180 tabs pen needle, diabetic 31 gauge x #200 ea 06/07/24 12/09/24 Rx 5/16 (BD Ultra-Fine Short Pen Needle) atorvastatin 20 mg tablet See Rx Instructions .Route 07/10/24 12/09/24 Rx .COMPLEX #90 tabs amlodipine 10 mg tablet See Rx Instructions .Route 08/29/24 12/08/24 Rx .COMPLEX #90 tabs aspirin 81 mg tablet,delayed 81 mg PO DAILY #100 tabs 08/29/24 12/09/24 Rx release (Teo Low Dose Aspirin) clonidine HCl 0.2 mg tablet 0.2 mg PO TID #300 tabs 08/29/24 12/09/24 Rx furosemide 20 mg tablet See Rx Instructions .Route 08/29/24 12/09/24 Rx .COMPLEX #180 tabs glimepiride 4 mg tablet See Rx Instructions .Route 08/29/24 12/09/24 Rx .COMPLEX #90 tabs losartan 25 mg tablet 25 mg PO DAILY #90 tabs 09/12/24 12/09/24 Rx flash glucose sensor (FreeStyle #2 ea 09/27/24 12/09/24 Rx Sara 2 Sensor kit) ergocalciferol (vitamin D2) 1,250 See Rx Instructions .Route 10/07/24 12/09/24 Rx mcg (50,000 unit) capsule .COMPLEX #12 caps semaglutide 1 mg/dose (4 mg/3 mL) 1 mg (0.75 mL) subcut WEEKLY #3 mL 10/31/24 12/09/24 Rx subcutaneous pen injector (Ozempic) Toujeo Max U-300 SoloStar 300 See Rx Instructions .Route 12/05/24 12/09/24 Rx unit/mL (3 mL) subcutaneous .COMPLEX #6 mL insulin pen (insulin glargine U-300 conc) hydrocodone 7.5 mg-acetaminophen 1 tablet PO Q4H PRN Pain Rated 12/05/24 12/09/24 Rx 325 mg tablet 7-10 #180 tabs Allergies Allergy/AdvReac Type Severity Reaction Status Date / Time metformin AdvReac Severe diarrhea Uncoded 12/09/24 00:04 Vital Signs Vital Signs - 24 hr 12/08/24 16:04 12/08/24 17:45 12/08/24 17:46 Temperature 98.1 F Pulse Rate 130 H 125 H 126 H Respiratory Rate 24 H 16 19 Blood Pressure 130/88 125/97 H Pulse Oximetry 97 Oxygen Delivery Room Air 12/08/24 18:00 12/08/24 18:01 12/08/24 18:36 Temperature Pulse Rate 109 H 92 106 H Respiratory Rate 20 24 H Blood Pressure 136/95 H 136/105 H Pulse Oximetry 97 Oxygen Delivery 12/08/24 19:08 12/08/24 19:08 12/08/24 19:09 Temperature 98.4 F Pulse Rate 144 H 144 H Respiratory Rate 20 Blood Pressure 149/114 H Pulse Oximetry 97 97 Oxygen Delivery Room Air 12/08/24 19:09 Temperature Pulse Rate 127 H Respiratory Rate Blood Pressure 149/114 H Pulse Oximetry Oxygen Delivery Exam Narrative: General: Chronically ill-appearing gentleman the semi-Gonzalez position in bed. Weight: 159.7 kg. BMI: 55.1. HEENT: PERRL, EOMI. Sclera anicteric. Oral mucosa moist. Crowded oropharynx. Neck: Supple. Limited due to neck circumference. Respiratory: Mild conversational dyspnea though he appears in no respiratory distress. Lung sounds are a bit diminished due to body habitus with scattered crackles at the bases. Cardiovascular: Irregularly irregular rate and rhythm. Gastrointestinal: Abdomen is obese and nontender with positive bowel sounds. Skin: Warm and dry. Extremities: No cyanosis or clubbing. Tight pitting edema up to the lower abdomen. No palpable knots or cords. Neurological: Alert. Cranial nerves 2-12 are grossly intact. No gross focal deficits to casual conversation. Psychiatric: Pleasant and cooperative with normal mood and affect. H&P: Results Labs Labs: Short CBC 12/08/24 Range/Units 17:26 WBC 9.6 (4.5-10.0) K/mm3 Hgb 13.2 L (14.0-18.0) g/dL Hct 42.5 (42.0-52.0) % Plt Count 127 L (150-375) k/mm3 BMP 12/08/24 17:26 Sodium 137 Potassium 3.8 Chloride 103 Carbon Dioxide 25 BUN 16 Creatinine 1.01 Glucose 224 H Calcium 8.9 Cardiac Enzymes 12/08/24 Range/Units 17:26 Troponin I < 0.012 (0.000-0.034) ng/mL Liver Function 12/08/24 Range/Units 17:26 Total Bilirubin 0.6 (0.2-1.3) mg/dL AST 21 (17-59) U/L ALT 21 (6-50) U/L Alkaline Phosphatase 92 (38-126) U/L Albumin 3.9 (3.5-5.1) g/dL Impressions Chest X-Ray 12/08/24 18:40 IMPRESSION: Mild pulmonary vascular congestion, without focal infiltrate or effusion. Abdomen Ultrasound 12/08/24 19:11 IMPRESSION: Evaluation of the pancreas is limited by overlying bowel gas. Phasic flow within the portal vein, suggesting portal hypertension. Fatty infiltration of the liver. Splenomegaly. Pulmonary Perfusion Imaging 12/08/24 21:11 IMPRESSION: 1. Low probability for pulmonary embolism. Assessment and Plan Assessment and plan (1) Atrial fibrillation with rapid ventricular response: Code(s): I48.91 - Unspecified atrial fibrillation Status: Acute (2) Acute on chronic diastolic congestive heart failure: Code(s): I50.33 - Acute on chronic diastolic (congestive) heart failure Status: Acute (3) Essential (primary) hypertension: Code(s): I10 - Essential (primary) hypertension Status: Acute (4) Insulin dependent type 2 diabetes mellitus: Code(s): E11.9 - Type 2 diabetes mellitus without complications; Z79.4 - dedicated intermodal truck driver (current) use of insulin Status: Acute (5) Obstructive sleep apnea: Code(s): G47.33 - Obstructive sleep apnea (adult) (pediatric) Status: Acute Plan The patient presented to the emergency department for evaluation of shortness of breath and edema as detailed in HPI. Labs, imaging, EKG, and all reports were personally reviewed. He has significant lower extremity edema and a reported 30 lb weight gain in several weeks time. He will be diuresed with close monitoring of volume status, renal function, and electrolytes. Decompensation may be related to rapid atrial fibrillation, untreated sleep apnea, or likely a combination of multiple factors. Continue diltiazem drip. He has been started on apixaban for stroke prophylaxis. ApneaLink, echocardiogram, and TSH are pending. Blood pressures were reviewed and they have been stable. Continue basal insulin. Initiate sliding scale insulin, Accu-Cheks, and hypoglycemic protocol. Check hemoglobin A1c. Other chronic medical conditions are reportedly stable. His home medications will be reviewed and resumed as appropriate. Findings and treatment plan were discussed with the patient. Questions were solicited and answered to satisfaction. The patient's medical management will be taken over by the hospitalist team in a.m. Quality VTE Prophylaxis VTE prophylaxis: pharmacologic ordered The patient has been admitted under observation status. Hospitalist [facility] Advance Care Plan I have confirmed that the patient's Advanced Care Plan is present, code status is documented, or surrogate decision maker is listed in patient medical record.: Yes Medication Reconciliation I have utilized all available resources to obtain, update and review the patients current medications (includes all prescriptions, OTC, herbals, cannabis, and nutritional supplements).: Yes
[2024-12-08] MEDS: APIXABAN 5 MG TABLET 10 MG PO (21:07)
--- NOTE | 2024-12-08 23:30 | ADMGEN ---
This patient, Francisco J Pineda, was admitted to IMU Room 214-01. Patient/family oriented to hospital policies and general routines including ID bracelet, bed and alarms, visiting hours, pain management, procedures, bathroom and other care routines, personal items, smoking policy, room service/diet, and visiting hours. Information on how to activate the Rapid Response Team has been discussed. Patient/Family are encouraged to report perceived risks to care and to ask questions if they do not understand what they are told or what they should do.
[2024-12-08 23:39] LABS: Glucose Point of Care 167 mg/dl (65-105)
[2024-12-09] VITALS (26 sets, daily range): BP systolic 94–126; BP diastolic 51–89; PULSE 52–120; RESP 18–22; TEMP 36.6–37.1; O2SAT 95–100
[2024-12-09 00:12] LABS: Hemoglobin A1C 7.8 % (<5.7)
[2024-12-09] MEDS: dilTIAZem 100 MG/100 ML 100 MG/100 ML BAG 10 MG IV CONT (02:55)
[2024-12-09] MEDS: HYDROcodone/acetaminophen (*CRX) 7.5-325 MG TABLET 1 TAB PO ×4 (03:17→22:02)
[2024-12-09 04:23] LABS: Hematocrit 37.8 % (42.0-52.0); Hemoglobin 12.1 g/dL (14.0-18.0); Mean Corpuscular Hemoglobin 30.2 pg (26-34); Mean Corpuscular Volume 94.3 fl (80-100); Mean Platelet Volume 12.1 fl (7.4-10.4); Platelet Count Result 121 k/mm3 (150-375); Red Blood Count 4.01 M/mm3 (4.6-6.20); Red Cell Distribution Width 14.3 % (11.5-14.5); White Blood Count 8.1 K/mm3 (4.5-10.0)
[2024-12-09 04:34] LABS: Anion Gap 8 mmol/L (4-12); Blood Urea Nitrogen 16 mg/dL (9-20); Calcium 8.6 mg/dL (8.4-10.2); Carbon Dioxide 25 mmol/L (22-30); Chloride 104 mmol/L (98-107); Estimated CRCL calculation 99 ml/min; Estimated Glomerular Filt Rate > 60; Glucose 157 mg/dL (65-110); Magnesium 1.5 mg/dL (1.6-2.3); Potassium 3.5 mmol/L (3.4-5.0); Sodium 137 mmol/L (137-145)
[2024-12-09 08:57] LABS: Glucose Point of Care 169 mg/dl (65-105)
[2024-12-09] MEDS: ATORVASTATIN 20 MG TABLET BY MOUTH (09:41)
[2024-12-09] MEDS: METOPROLOL TARTRATE 50 MG TAB 100 MG PO ×2 (09:41→22:02)
[2024-12-09] MEDS: FUROSEMIDE INJ 40 MG/4 ML VIAL IV PUSH ×2 (09:41→16:46)
[2024-12-09] MEDS: ASPIRIN 81 MG ENTERIC TABLET PO (09:42)
[2024-12-09] MEDS: CYANOCOBALAMIN 1,000 MCG TABLET 1000 MCG PO (09:42)
[2024-12-09] MEDS: GLIMEPIRIDE 2 MG TABLET 4 MG PO (09:42)
[2024-12-09] MEDS: LOSARTAN POTASSIUM 25 MG TABLET PO (09:42)
[2024-12-09] MEDS: GABAPENTIN 300 MG CAPSULE BY MOUTH ×3 (09:42→16:45)
[2024-12-09] MEDS: APIXABAN 5 MG TABLET PO ×2 (09:42→22:02)
[2024-12-09] MEDS: INSULIN GLARGINE (*BKC) 100 UNITS/ML 50 UNITS SUB-Q (09:46)
[2024-12-09] MEDS: cloNIDine HCL 0.2 MG TABLET PO ×3 (09:48→16:45)
--- NOTE | 2024-12-09 10:16 | PM.CNCAR ---
Assessment and Plan Assessment and plan (1) Atrial fibrillation with rapid ventricular response: Code(s): I48.91 - Unspecified atrial fibrillation Status: Acute Assessment and Plan: This is a new diagnosis for the patient. Chronicity is unknown. I explained atrial fibrillation to the patient including pathophysiology, management strategies, risks/complications. Since he has been in this arrhythmia for an unknown period of time, will proceed with a rate control and anticoagulation strategy. Heart rate is currently in the 70s on diltiazem drip and oral metoprolol. Decrease diltiazem drip to 5 mg/hr now. Can discontinue diltiazem if heart rate remains less than 90bpm Continue oral metoprolol 100 mg q.12 hours. This can be titrated if needed He has a CHADS2 Vasc score of at least 4, anticoagulation is indicated. He has already been started on apixaban for systemic anticoagulation. Echocardiogram has been ordered and is pending (2) Congestive heart failure: Code(s): I50.9 - Heart failure, unspecified Status: Acute Assessment and Plan: He has signs of clinical heart failure on exam with pulmonary rales, abdominal subcutaneous edema, and lower extremity edema. Continue with IV furosemide 40 mg twice daily. Further recommendations to follow review of echocardiogram results. Please monitor strict intake and output, daily weights (3) Coronary arteriosclerosis in patient with history of previous myocardial infarction: Code(s): I25.10 - Atherosclerotic heart disease of [place] coronary artery without angina pectoris; I25.2 - Old myocardial infarction Status: Acute Assessment and Plan: This is stable. He is not reporting any anginal symptoms. Continue statin, aspirin (4) Mixed hyperlipidemia: Code(s): E78.2 - Mixed hyperlipidemia Status: Acute Assessment and Plan: Continue statin (5) Essential (primary) hypertension: Code(s): I10 - Essential (primary) hypertension Status: Acute Assessment and Plan: Blood pressure is at goal. History of Present Illness History of Present Illness Consult date/time: 12/09/24 10:16 Requesting physician: Terry Stanley MD Consult reason: atrial fibrillation Reason For Visit: atrial fibrillation, CHF exacerbation Narrative: Francisco J Pineda is a 74-year-old male with coronary artery disease, hypertension, hyperlipidemia, diastolic dysfunction, untreated sleep apnea, diabetes mellitus type 2, and morbid obesity. This is a patient who presents to the hospital with a chief complaint of shortness of breath. Patient reports increasing shortness of breath, rapid weight gain, lower extremity edema, and abdominal distention over the past several weeks. His EKG the emergency department showed atrial fibrillation with rapid ventricular response. This is a new diagnosis for the patient. He is placed on a diltiazem drip and his heart rates have improved. He is being diuresed and feels somewhat better but still has abdominal discomfort because of distention. Shortness of breath has improved. He is comfortable and in no acute distress at the time of my evaluation. Review of Systems Review of Systems: All systems reviewed & are unremarkable except as noted in HPI and below PMFSH Past Medical History Medical History Diastolic dysfunction Insulin dependent type 2 diabetes mellitus Depression Constipation Vitamin B12 deficiency Stroke BCC (basal cell carcinoma of skin) Nasal lesion Atherosclerosis of aorta Personal history of nicotine dependence Insomnia Physical debility Lesion of nose Coronary arteriosclerosis in patient with history of previous myocardial infarction MPI in September 2019 showed infarct with relatively preserved EF Morbid obesity Ambulatory dysfunction Chronic kidney disease, stage 3 (moderate) Chronic pain disorder Diabetic nephropathy associated with type 2 diabetes mellitus Essential (primary) hypertension Intervertebral disc disorders with myelopathy, lumbar region Mixed hyperlipidemia Obstructive sleep apnea (adult) (pediatric) Non compliant with CPAP Opioid dependence, uncomplicated Ventricular hypertrophy due to hypertensive disease Vitamin D deficiency, unspecified Surgical History Surgical History Status post surgical removal of malignant neoplasm of skin History of cholecystectomy History of appendectomy Family History Family History Mother Patient's mother is Family history of premature coronary heart disease Father Family history of diabetes mellitus in first degree relative Hypertension Patient's father is Alcoholic cirrhosis of liver Social History Social History Social History: Surrogate medical decision maker: Clifford Pineda, son. Code status: Full code. Smoking packs per day: 1 Smoking cigarettes per day: 20.0 Years smoked: 20 Smoking pack-years: 20.00 Smoking status: Former smoker Tobacco type: cigarettes Second hand tobacco smoke exposure: Yes Additional smoking assessment comments: Quit 2013. Alcohol intake: never Alcohol use details: No alcohol in over 25 years. Substance use: never Substance use type: does not use Do You Feel Safe in your Home?: Yes Lack of Transportation: No Lack of Food: Never True Current Housing: I Have Housing Concerned About Future Housing: No Difficulty Paying Gas/Electric Bills: No Difficulty Paying for Meds: No Currently Unemployed: No Education: High School Diploma/GED Difficulty w/ Childcare or Family Care: No Living arrangements: with family Additional living arrangements comments: He and his son live together in [place]. Occupation/Education: retired Spiritual care concerns: No Meds Home Medications and Allergies Home Medications ?Medication ?Instructions ?Recorded ?Confirmed ?Type naloxone 4 mg/actuation nasal spray 4 mg intranasal Q3M PRN opioid 04/29/21 12/09/24 Rx overdose #2 ea cyanocobalamin (vitamin B-12) 1,000 mcg PO QAM #0 tabs 09/25/21 12/09/24 Rx 1,000 mcg tablet (Vitamin B-12) lancets (Microlet Lancet) #100 ea 10/25/21 12/09/24 Rx flash glucose scanning reader #1 ea 06/08/23 12/09/24 Rx (FreeStyle Sara 2 [place]) gabapentin 300 mg capsule See Rx Instructions .Route 01/15/24 12/09/24 Rx .COMPLEX #270 caps metoprolol tartrate 100 mg tablet See Rx Instructions .Route 03/11/24 12/09/24 Rx .COMPLEX #180 tabs pen needle, diabetic 31 gauge x #200 ea 06/07/24 12/09/24 Rx 5/16 (BD Ultra-Fine Short Pen Needle) atorvastatin 20 mg tablet See Rx Instructions .Route 07/10/24 12/09/24 Rx .COMPLEX #90 tabs amlodipine 10 mg tablet See Rx Instructions .Route 08/29/24 12/08/24 Rx .COMPLEX #90 tabs aspirin 81 mg tablet,delayed 81 mg PO DAILY #100 tabs 08/29/24 12/09/24 Rx release (Teo Low Dose Aspirin) clonidine HCl 0.2 mg tablet 0.2 mg PO TID #300 tabs 08/29/24 12/09/24 Rx furosemide 20 mg tablet See Rx Instructions .Route 08/29/24 12/09/24 Rx .COMPLEX #180 tabs glimepiride 4 mg tablet See Rx Instructions .Route 08/29/24 12/09/24 Rx .COMPLEX #90 tabs losartan 25 mg tablet 25 mg PO DAILY #90 tabs 09/12/24 12/09/24 Rx flash glucose sensor (FreeStyle #2 ea 09/27/24 12/09/24 Rx Sara 2 Sensor kit) ergocalciferol (vitamin D2) 1,250 See Rx Instructions .Route 10/07/24 12/09/24 Rx mcg (50,000 unit) capsule .COMPLEX #12 caps semaglutide 1 mg/dose (4 mg/3 mL) 1 mg (0.75 mL) subcut WEEKLY #3 mL 10/31/24 12/09/24 Rx subcutaneous pen injector (Ozempic) Toujeo Max U-300 SoloStar 300 See Rx Instructions .Route 12/05/24 12/09/24 Rx unit/mL (3 mL) subcutaneous .COMPLEX #6 mL insulin pen (insulin glargine U-300 conc) hydrocodone 7.5 mg-acetaminophen 1 tablet PO Q4H PRN Pain Rated 12/05/24 12/09/24 Rx 325 mg tablet 7-10 #180 tabs Allergies Allergy/AdvReac Type Severity Reaction Status Date / Time metformin AdvReac Severe diarrhea Uncoded 12/09/24 00:04 Vital Signs Vital Signs - 24 hr 12/08/24 16:04 12/08/24 17:45 12/08/24 17:46 Temperature 36.7 C Pulse Rate 130 H 125 H 126 H Respiratory Rate 24 H 16 19 Blood Pressure 130/88 125/97 H Pulse Oximetry 97 Oxygen Delivery Room Air Oxygen Flow Rate 12/08/24 18:00 12/08/24 18:01 12/08/24 18:36 Temperature Pulse Rate 109 H 92 106 H Respiratory Rate 20 24 H Blood Pressure 136/95 H 136/105 H Pulse Oximetry 97 Oxygen Delivery Oxygen Flow Rate 12/08/24 19:08 12/08/24 19:08 12/08/24 19:09 Temperature 36.9 C Pulse Rate 144 H 144 H Respiratory Rate 20 Blood Pressure 149/114 H Pulse Oximetry 97 97 Oxygen Delivery Room Air Oxygen Flow Rate 12/08/24 19:09 12/08/24 21:05 12/08/24 21:12 Temperature 36.4 C Pulse Rate 127 H 118 H 96 Respiratory Rate 24 H Blood Pressure 149/114 H 134/102 H 134/102 H Pulse Oximetry 94 Oxygen Delivery Oxygen Flow Rate 12/08/24 21:21 12/08/24 22:57 12/08/24 23:38 Temperature 36.6 C 36.6 C Pulse Rate 107 H 118 H 85 Respiratory Rate 24 H 23 H Blood Pressure 144/96 H 144/89 H 123/69 Pulse Oximetry 94 94 Oxygen Delivery Oxygen Flow Rate 12/09/24 00:00 12/09/24 00:00 12/09/24 00:51 Temperature Pulse Rate 97 85 100 Respiratory Rate Blood Pressure 123/69 112/67 Pulse Oximetry 95 Oxygen Delivery Oxygen Flow Rate 12/09/24 02:00 12/09/24 02:00 12/09/24 02:55 Temperature Pulse Rate 100 102 H 92 Respiratory Rate Blood Pressure 112/67 94/51 L Pulse Oximetry Oxygen Delivery Oxygen Flow Rate 12/09/24 02:55 12/09/24 03:52 12/09/24 04:00 Temperature 36.8 C Pulse Rate 92 120 H Respiratory Rate 22 H Blood Pressure 94/51 L 94/51 L Pulse Oximetry 95 95 Oxygen Delivery Nasal Cannula Oxygen Flow Rate 2 12/09/24 04:00 12/09/24 05:12 12/09/24 05:13 Temperature Pulse Rate 95 106 H 106 H Respiratory Rate Blood Pressure 126/68 126/68 Pulse Oximetry Oxygen Delivery Oxygen Flow Rate 12/09/24 06:00 12/09/24 06:00 12/09/24 06:00 Temperature Pulse Rate 100 100 100 Respiratory Rate Blood Pressure 106/66 106/66 Pulse Oximetry 100 Oxygen Delivery Oxygen Flow Rate 12/09/24 08:00 12/09/24 09:41 Temperature 37.0 C Pulse Rate 109 H 107 H Respiratory Rate 20 Blood Pressure 112/78 Pulse Oximetry 97 Oxygen Delivery Oxygen Flow Rate Exam Const: General: comfortable, no acute distress, alert and awake Orientation/consciousness: patient oriented x3 HENMT: Head: normal to inspection Eyes: General: appearance normal, both eyes and all related structures Pupils: Equal, round and reactive pupils present Neck: Neck: normal visual inspection, supple and no JVD Carotids: normal carotid upstroke Resp: Effort & Inspection: normal respiratory effort Auscultation: rales Cardio: Rate: tachycardic Rhythm: abnormal rhythm irregularly irregular Heart sounds: S1 normal heart sound present, S2 normal heart sound present and no murmurs GI: Inspection: distended GI Palp: Yes Firmness to palpation present (GI) Auscultation: normal bowel sounds Skin: General skin exam: normal color Neuro: General: patient oriented x3 Cranial nerves: Yes Equal, round and reactive pupils present Extrem: General: abnormal to inspection Other: Bilateral pretibial pitting edema Psych: Appearance: grossly normal Mental Status: mental status grossly normal Results Labs and Meds 12/09/24 04:01 12/09/24 04:01 Lab results: Cardiac Enzymes 12/08/24 Range/Units 17: AST 21 (17-59) U/L Troponin I < 0.012 (0.000-0.034) ng/mL Coagulation 12/08/24 Range/Units 17: PT 15.3 H (11.1-14.7) Seconds APTT 30.8 (22.3-36.8) Seconds CBC 12/08/24 12/09/24 Range/Units 17:26 04:01 WBC 9.6 8.1 (4.5-10.0) K/mm3 RBC 4.43 L 4.01 L (4.6-6.20) M/mm3 Hgb 13.2 L 12.1 L (14.0-18.0) g/dL Hct 42.5 37.8 L (42.0-52.0) % Plt Count 127 L 121 L (150-375) k/mm3 Lymph # (Auto) 2.16 (0.9-3.2) K/mm3 Page # (Auto) 0.4 (0.1-0.6) K/mm3 Eos # (Auto) 0.0 (0-0.3) K/mm3 Baso # (Auto) 0.1 (0.0-0.1) K/mm3 Comprehensive Metabolic Panel 12/08/24 12/09/24 Range/Units 17:26 04:01 Sodium 137 137 (137-145) mmol/L Potassium 3.8 3.5 (3.4-5.0) mmol/L Chloride 103 104 (98-107) mmol/L Carbon Dioxide 25 25 (22-30) mmol/L BUN 16 16 (9-20) mg/dL Creatinine 1.01 0.86 (0.7-1.3) mg/dL Glucose 224 H 157 H (65-110) mg/dL Calcium 8.9 8.6 (8.4-10.2) mg/dL AST 21 (17-59) U/L ALT 21 (6-50) U/L Alkaline Phosphatase 92 (38-126) U/L Total Protein 7.0 (6.3-8.2) g/dL Albumin 3.9 (3.5-5.1) g/dL Intake and Output 12/08/24 12/09/24 12/09/24 23:59 07:59 15:59 Intake Total 24.8 356.0 Output Total 400 Balance 24.8 -44.0 Intake: IV 24.8 106.0 dilTIAZem 100 MG/100 ML 100 mg 24.8 106.0 In 100 ml @ 10 MG/HR 10 mls/hr IV CONT .Q10H [facility] Rx#:[id number] Oral 250 Output: Urine 400 Patient Weight 12/09/24 23:59 Weight 159.7 kg
[2024-12-09] MEDS: PERFLUTREN LIPID MICROSPHERES 1.5 ML VIAL DILUTED TO 10 ML TOTAL VOLUME IV PUSH (11:00)
--- NOTE | 2024-12-09 11:26 | PC.NURSE ---
On 12/09/24, the student, [Kunal Gentile], provided care and completed [facility] documentation on this patient. I have reviewed the student's documentation and agree with the findings.
--- NOTE | 2024-12-09 11:40 | IVDEFINITY ---
Prior to administration of IV Definity the patient was educated on the risks and benefits of the imaging enhancing agent including potential adverse side effects. The patient verbalized understanding. Allergies were verified. No exclusion criteria were identified and at least one of the following inclusion criteria were met: 1) physician request, 2) patient technically difficult to image (per the [place] [employer] Echocardi[employer] guidelines of two or more segments not discernable within the apical view), or 3) questionable left ventricular function. ?
[2024-12-09] MEDS: INSULIN ASPART (*BKC) 100 UNITS/ML SUB-Q (11:58)
--- NOTE | 2024-12-09 13:09 | PC.NURSE ---
On 12/09/24, the student, [Joyce Butts], provided care and completed [facility] documentation on this patient. I have reviewed the student's documentation and agree with the findings.
[2024-12-09 13:17] LABS: Glucose Point of Care 220 mg/dl (65-105)
--- NOTE | 2024-12-09 14:47 | PM.IMPN ---
Progress Note: A&P Assessment and Plan (1) Atrial fibrillation with rapid ventricular response: Code(s): I48.91 - Unspecified atrial fibrillation Status: Acute (2) Acute on chronic diastolic congestive heart failure: Code(s): I50.33 - Acute on chronic diastolic (congestive) heart failure Status: Acute (3) Essential (primary) hypertension: Code(s): I10 - Essential (primary) hypertension Status: Acute (4) Insulin dependent type 2 diabetes mellitus: Code(s): E11.9 - Type 2 diabetes mellitus without complications; Z79.4 - [employer] (current) use of insulin Status: Acute (5) Obstructive sleep apnea: Code(s): G47.33 - Obstructive sleep apnea (adult) (pediatric) Status: Acute Plan Afib RVR Continue Cardizem infusion and Metoprolol CHADS2 VASc 4, continue Eliquis ECHO pending cardiology CHF exacerbation diffuse edema involving LE and abdominal war ECHO pending Lasix 40 mg cards following HLD continue statin HTN Continue home meds DVT prophylaxis on full Eliquis Subjective Date/time seen: 12/09/24 14:47 Interval history: Comfortable at bedside Review of Systems Review of Systems: 12 systems were reviewed and are negative except for as per HPI. Exam Narrative: General: Chronically ill-appearing gentleman the semi-Gonzalez position in bed. Weight: 159.7 kg. BMI: 55.1. HEENT: PERRL, EOMI. Sclera anicteric. Oral mucosa moist. Crowded oropharynx. Neck: Supple. Limited due to neck circumference. Respiratory: Mild conversational dyspnea though he appears in no respiratory distress. Lung sounds are a bit diminished due to body habitus with scattered crackles at the bases. Cardiovascular: Irregularly irregular rate and rhythm. Gastrointestinal: Abdomen is obese and nontender with positive bowel sounds. Skin: Warm and dry. Extremities: No cyanosis or clubbing. Tight pitting edema up to the lower abdomen. No palpable knots or cords. Neurological: Alert. Cranial nerves 2-12 are grossly intact. No gross focal deficits to casual conversation. Psychiatric: Pleasant and cooperative with normal mood and affect. Objective Data Vital Signs Vital Signs: Vital Signs - 24 hr 12/08/24 16:04 12/08/24 17:45 12/08/24 17:46 Temperature 98.1 F Pulse Rate 130 H 125 H 126 H Respiratory Rate 24 H 16 19 Blood Pressure 130/88 125/97 H Pulse Oximetry 97 Oxygen Delivery Room Air Oxygen Flow Rate 12/08/24 18:00 12/08/24 18:01 12/08/24 18:36 Temperature Pulse Rate 109 H 92 106 H Respiratory Rate 20 24 H Blood Pressure 136/95 H 136/105 H Pulse Oximetry 97 Oxygen Delivery Oxygen Flow Rate 12/08/24 19:08 12/08/24 19:08 12/08/24 19:09 Temperature 98.4 F Pulse Rate 144 H 144 H Respiratory Rate 20 Blood Pressure 149/114 H Pulse Oximetry 97 97 Oxygen Delivery Room Air Oxygen Flow Rate 12/08/24 19:09 12/08/24 21:05 12/08/24 21:12 Temperature 97.6 F Pulse Rate 127 H 118 H 96 Respiratory Rate 24 H Blood Pressure 149/114 H 134/102 H 134/102 H Pulse Oximetry 94 Oxygen Delivery Oxygen Flow Rate 12/08/24 21:21 12/08/24 22:57 12/08/24 23:38 Temperature 98 F 97.9 F Pulse Rate 107 H 118 H 85 Respiratory Rate 24 H 23 H Blood Pressure 144/96 H 144/89 H 123/69 Pulse Oximetry 94 94 Oxygen Delivery Oxygen Flow Rate 12/09/24 00:00 12/09/24 00:00 12/09/24 00:51 Temperature Pulse Rate 97 85 100 Respiratory Rate Blood Pressure 123/69 112/67 Pulse Oximetry 95 Oxygen Delivery Oxygen Flow Rate 12/09/24 02:00 12/09/24 02:00 12/09/24 02:55 Temperature Pulse Rate 100 102 H 92 Respiratory Rate Blood Pressure 112/67 94/51 L Pulse Oximetry Oxygen Delivery Oxygen Flow Rate 12/09/24 02:55 12/09/24 03:52 12/09/24 04:00 Temperature 98.2 F Pulse Rate 92 120 H Respiratory Rate 22 H Blood Pressure 94/51 L 94/51 L Pulse Oximetry 95 95 Oxygen Delivery Nasal Cannula Oxygen Flow Rate 2 12/09/24 04:00 12/09/24 05:12 12/09/24 05:13 Temperature Pulse Rate 95 106 H 106 H Respiratory Rate Blood Pressure 126/68 126/68 Pulse Oximetry Oxygen Delivery Oxygen Flow Rate 12/09/24 06:00 12/09/24 06:00 12/09/24 06:00 Temperature Pulse Rate 100 100 100 Respiratory Rate Blood Pressure 106/66 106/66 Pulse Oximetry 100 Oxygen Delivery Oxygen Flow Rate 12/09/24 08:00 12/09/24 08:00 12/09/24 08:00 Temperature 98.6 F Pulse Rate 109 H 100 Respiratory Rate 20 Blood Pressure 112/78 Pulse Oximetry 97 96 Oxygen Delivery Nasal Cannula Oxygen Flow Rate 2 12/09/24 08:00 12/09/24 08:15 12/09/24 09:41 Temperature Pulse Rate 109 H 107 H Respiratory Rate Blood Pressure 112/78 Pulse Oximetry 97 Oxygen Delivery Nasal Cannula Oxygen Flow Rate 2 12/09/24 10:00 12/09/24 10:00 12/09/24 10:00 Temperature 98.4 F Pulse Rate 117 H 83 117 H Respiratory Rate 18 Blood Pressure 112/69 112/69 Pulse Oximetry 98 Oxygen Delivery Oxygen Flow Rate 12/09/24 11:15 12/09/24 11:29 12/09/24 12:00 Temperature 98.7 F Pulse Rate 81 81 52 L Respiratory Rate 22 H Blood Pressure 109/74 Pulse Oximetry 98 Oxygen Delivery Oxygen Flow Rate 12/09/24 12:00 12/09/24 12:00 12/09/24 12:00 Temperature Pulse Rate 70 70 Respiratory Rate Blood Pressure 109/74 Pulse Oximetry 98 Oxygen Delivery Nasal Cannula Oxygen Flow Rate 2 12/09/24 14:00 12/09/24 14:00 12/09/24 14:00 Temperature 98.7 F Pulse Rate 89 81 52 L Respiratory Rate 22 H Blood Pressure 109/74 Pulse Oximetry 98 Oxygen Delivery Oxygen Flow Rate Intake/Output Intake/Output: Intake & Output 12/06/24 12/07/24 12/08/24 12/09/24 23:59 23:59 23:59 23:59 Intake Total 24.8 782.3 Output Total 1400 Balance 24.8 -617.7 Meds/Results Medications: Active Medications Generic Name Dose Route Start Last Admin Trade Name Freq PRN Reason Stop Dose Admin Acetaminophen 650 mg 12/08/24 23:25 Acetaminophen 325 Mg Tablet PO Q6H PRN Mild Pain (1-3) or Fever Hydrocodone Bitart/Acetaminophen 1 tab 12/09/24 00:18 12/09/24 12:54 Hydrocodone/Acetaminophen (*Crx) 7.5-325 Mg Tablet PO 1 tab Q4H PRN Administration Pain Rated 7-10 Apixaban 5 mg 12/09/24 09:00 12/09/24 09:42 Apixaban 5 Mg Tablet PO 5 mg Q12HR SHIRA Administration Aspirin 81 mg 12/09/24 09:00 12/09/24 09:42 Aspirin 81 Mg Enteric Tablet PO 81 mg DAILY SHIRA Administration Atorvastatin Calcium 20 mg 12/09/24 09:00 12/09/24 09:41 Atorvastatin 20 Mg Tablet BY MOUTH 20 mg DAILY SHIRA Administration Clonidine HCl 0.2 mg 12/09/24 09:00 12/09/24 12:55 Clonidine Hcl 0.2 Mg Tablet PO 0.2 mg TID SHIRA Administration Cyanocobalamin 1,000 mcg 12/09/24 09:00 12/09/24 09:42 Cyanocobalamin 1,000 Mcg Tablet PO 1,000 mcg QAM SHIRA Administration Dextrose 12.5 gm 12/08/24 23:25 Dextrose 50% 25 Gm/50 Ml Syringe IV PUSH PRN PRN Hypoglycemia Protocol Furosemide 40 mg 12/09/24 09:00 12/09/24 09:41 Furosemide Inj 40 Mg/4 Ml Vial IV PUSH 40 mg BID SHIRA Administration Gabapentin 300 mg 12/09/24 09:00 12/09/24 12:55 Gabapentin 300 Mg Capsule BY MOUTH 300 mg TID SHIRA Administration Glimepiride 4 mg 12/09/24 08:00 12/09/24 09:42 Glimepiride 2 Mg Tablet PO 4 mg DAILY@0800 SHIRA Administration Glucagon 1 mg 12/08/24 23:25 Glucagon For Inj 1 Mg Vial IM PRN PRN Hypoglycemia Protocol Glucose 15 gm 12/08/24 23:25 Glucose Oral Gel 15 Gm Of Glucse In 37.5 Gm Tube PO PRN PRN Hypoglycemia Protocol Dextrose 1,000 mls @ 100 mls/hr 12/08/24 23:25 Dextrose 5% 1,000 Ml IVPB PRN PRN Hypoglycemia Protocol Diltiazem HCl 100 mg in 100 mls @ 5 mls/hr 12/09/24 02:55 12/09/24 14:00 Cardizem 100 Mg/100 Ml IV CONT 5 mg/hr .Q20H SHIRA 5 mls/hr Infusion 5 MG/HR Insulin Aspart 4 - 8 units 12/09/24 08:00 12/09/24 11:58 Insulin Aspart (*Bkc) 100 Units/Ml SUB-Q 4 units TIDWM SHIRA Administration Protocol Insulin Aspart 2 - 4 units 12/09/24 21:00 Insulin Aspart (*Bkc) 100 Units/Ml SUB-Q HS [facility] Protocol Insulin Glargine 50 units 12/09/24 09:00 12/09/24 09:46 Insulin Glargine (*Bkc) 100 Units/Ml SUB-Q 50 units DAILY SHIRA Administration Insulin Glargine 60 units 12/09/24 17:00 Insulin Glargine (*Bkc) 100 Units/Ml SUB-Q DAILY@1700 SHIRA Losartan Potassium 25 mg 12/09/24 09:00 12/09/24 09:42 Losartan Potassium 25 Mg Tablet PO 25 mg DAILY SHIRA Administration Metoprolol Tartrate 100 mg 12/09/24 09:00 12/09/24 09:41 Metoprolol Tartrate 50 Mg Tab PO 100 mg Q12HR SHIRA Administration Radiology Results: ITS Impressions Chest X-Ray 12/08/24 18:40 IMPRESSION: Mild pulmonary vascular congestion, without focal infiltrate or effusion. Abdomen Ultrasound 12/08/24 19:11 IMPRESSION: Evaluation of the pancreas is limited by overlying bowel gas. Phasic flow within the portal vein, suggesting portal hypertension. Fatty infiltration of the liver. Splenomegaly. Pulmonary Perfusion Imaging 12/08/24 21:11 IMPRESSION: 1. Low probability for pulmonary embolism. Venous Doppler Study 12/09/24 08:11 IMPRESSION: Negative bilateral lower extremity venous US. No deep vein thrombosis. Labs Labs: Laboratory Results - last 24 hr 12/08/24 12/08/24 12/08/24 17:26 19:13 23:35 WBC 9.6 RBC 4.43 L Hgb 13.2 L Hct 42.5 MCV 95.9 MCH 29.8 MCHC 31.1 L RDW 14.3 Plt Count 127 L MPV 11.9 H Immature Gran % (Auto) 0.4 Neut % (Auto) 71.9 Lymph % (Auto) 22.5 [place] % (Auto) 4.5 Eos % (Auto) 0.2 Baso % (Auto) 0.5 Lymph # (Auto) 2.16 [place] # (Auto) 0.4 Eos # (Auto) 0.0 Baso # (Auto) 0.1 Abs Immat Gran (auto) 0.04 H Absolute Neuts (auto) 6.9 H Absolute Nucleated RBC 0.000 Nucleated RBC % 0.0 % Immature Plt Fraction 8.1 PT 15.3 H INR 1.2 APTT 30.8 D-Dimer 1.64 H Sodium 137 Potassium 3.8 Chloride 103 Carbon Dioxide 25 Anion Gap 9 BUN 16 Creatinine 1.01 Estim Creat Clear Calc Not Reportable Estimated GFR > 60 Glucose 224 H POC Capillary Glucose 167 H Hemoglobin A1c 7.8 H Calcium 8.9 Magnesium Total Bilirubin 0.6 AST 21 ALT 21 Alkaline Phosphatase 92 Troponin I < 0.012 NT-Pro-B Natriuret Pep 3540 H Total Protein 7.0 Albumin 3.9 Lipase 57 TSH (Reflex) 12/09/24 12/09/24 12/09/24 04:01 07:41 11:42 WBC 8.1 RBC 4.01 L Hgb 12.1 L Hct 37.8 L MCV 94.3 MCH 30.2 MCHC 32.0 RDW 14.3 Plt Count 121 L MPV 12.1 H Immature Gran % (Auto) Neut % (Auto) Lymph % (Auto) [place] % (Auto) Eos % (Auto) Baso % (Auto) Lymph # (Auto) [place] # (Auto) Eos # (Auto) Baso # (Auto) Abs Immat Gran (auto) Absolute Neuts (auto) Absolute Nucleated RBC Nucleated RBC % % Immature Plt Fraction PT INR APTT D-Dimer Sodium 137 Potassium 3.5 Chloride 104 Carbon Dioxide 25 Anion Gap 8 BUN 16 Creatinine 0.86 Estim Creat Clear Calc 99 Estimated GFR > 60 Glucose 157 H POC Capillary Glucose 169 H 220 H Hemoglobin A1c Calcium 8.6 Magnesium 1.5 L Total Bilirubin AST ALT Alkaline Phosphatase Troponin I NT-Pro-B Natriuret Pep Total Protein Albumin Lipase TSH (Reflex) 1.040 Quality VTE Prophylaxis VTE prophylaxis: pharmacologic ordered
[2024-12-09] MEDS: INSULIN GLARGINE (*BKC) 100 UNITS/ML 60 UNITS SUB-Q (16:46)
[2024-12-09 17:53] LABS: Glucose Point of Care 199 mg/dl (65-105)
[2024-12-09 20:34] LABS: Glucose Point of Care 167 mg/dl (65-105)
--- NOTE | 2024-12-09 23:25 | ECHO_ITS ---
Patient Info Name: Francisco J Pineda Age: 74 years : 1950 Gender: Male Ht: 67 in Wt: 352 lbs BSA: 2.85 m2 HR: 100 bpm BP: 106 / 66 mmHg Heart Rhythm: Atrial Fibrillation Technical Quality: Fair Exam Date: 12/09/2024 10:18 AM Exam Location: Echo Lab Patient Status: Inpatient Admit Date: 12/09/2024 Staff Ordering Physician: Sharmin Duarte PA-C Switchboard Manager: Namita Tellez RDCS Attending Provider: Terry Stanley MD Referring Physician: Gerald SINGH; Exam Type: CA echo dop color flow w con Study Info Indications - RVR - Afib Complete two-dimensional, color flow and Doppler transthoracic echocardiogram is performed with contrast to opacify the left ventricle and to improve the deliniation of the left ventricle endocardial borders. Contrast/Agitated Saline Contrast/Ag. Saline: Definity Amount: 6.00 ml IV Access Condition: patent with no signs of infiltration Summary 1. Left ventricular chamber dimension is normal. 2. Left ventricular systolic function is normal, estimated at 50-55%. 3. There is moderately increased left ventricular wall thickness. 4. Right ventricular chamber dimension is mildly enlarged. 5. Right ventricular systolic function is reduced. 6. Left atrial chamber dimension is severely enlarged. 7. Right atrial chamber dimension is severely enlarged. 8. There is moderate tricuspid valve regurgitation. 9. There is trivial pericardial effusion. Left Ventricle Left ventricular chamber dimension is normal. Left ventricular systolic function is normal, estimated at 50-55%. There is moderately increased left ventricular wall thickness. The left ventricular diastolic function is abnormal. Right Ventricle Right ventricular chamber dimension is mildly enlarged. Right ventricular systolic function is reduced. Left Atria Left atrial chamber dimension is severely enlarged. Right Atria Right atrial chamber dimension is severely enlarged. Atrial Septum Intact interatrial septum visualized by color flow imaging. Aortic Valve The aortic valve is not well visualized. There is no aortic valve stenosis. There is no aortic valve regurgitation. Pulmonic Valve The pulmonic valve is not well visualized. Mitral Valve The mitral valve has thickened leaflets. There is trace mitral valve regurgitation. The mitral valve annulus is moderately calcified. Tricuspid Valve There is moderate tricuspid valve regurgitation. Pericardium/Pleural There is trivial pericardial effusion. Inferior Vena Cava Normal IVC size. Aorta The aortic root size at the sinus of Valsalva is normal. Left Ventricular Outflow Tract Name Value Normal LVOT 2D LVOT Diameter 2.33 cm LVOT Doppler LVOT Peak Gradient 4 mmHg LVOT Mean Gradient 2 mmHg LVOT VTI 16.93 cm LVOT VTI/AV VTI Ratio 0.80 LVOT Stroke Volume 72.10 ml LVOT CO 16.87 l/min LVOT CI 5.93 L/min/m2 Pulmonic Valve Name Value Normal RVOT Doppler RVOT Peak Gradient 1 mmHg PV Doppler PV Peak Gradient 3 mmHg Mitral Valve Name Value Normal MV Doppler MV Decel [place] 691.76 cm/s2 MV PHT 0 s MV Area (PHT) 3.96 cm2 4.00-5.00 MV Diastolic Function MV E Peak Velocity 132.44 cm/s MV A Peak Velocity 0.80 cm/s MV E/A 164.95 MV Decel Time 0 s MV Annular TDI MV E/e' (Septal) 18.28 <=8.00 MV E/e' (Lateral) 14.47 <=8.00 MV E/e' (Average) 16.38 Tricuspid Valve Name Value Normal TV Regurgitation Doppler TR Peak Velocity 324.65 cm/s TR Peak Gradient 42 mmHg Aorta Name Value Normal Ascending Aorta Ao Root Diameter (MM) 1.47 cm Ao Root Diam Index (MM) 0.52 cm/m2 Aortic Valve Name Value Normal AV Doppler AV Peak Velocity 112.89 cm/s AV Peak Gradient 5 mmHg AV Mean Gradient 3 mmHg AV VTI 21.14 cm AV Area (Cont Eq VTI) 3.41 cm2 >=3.00 AV Area (Cont Eq [place]ion) 3.20 cm2 AV Regurgitation 2D LVOT Area 4.26 cm2 Ventricles Name Value Normal LV Dimensions 2D/MM IVS Diastolic Thickness (2D) 1.16 cm 0.60-1.00 LVID Diastole (2D) 5.32 cm 4.20-5.80 LVIW Diastolic Thickness (2D) 1.14 cm 0.60-1.00 LVID Systole (2D) 3.02 cm 2.50-4.00 LVOT Diameter 2.33 cm LV Mass (2D Cubed) 243.54 g 88.00-224.00 LV Mass Index (2D Cubed) 0.01 g/cm2 0.00-0.01 Relative Wall Thickness (2D) 0.43 LV Fractional Shortening/Ejection Fraction 2D/MM LV Fractional Shortening (2D) 43 % 25-43 LV EF (2D Teicholz) 74 % 52-72 LV Diastolic Volume (4C MOD) 152.02 ml LV EF (4C MOD) 56 % LV Diastolic Volume (2C MOD) 177.49 ml LV EF (2C MOD) 60 % LV Diastolic Volume (BP MOD) 168.17 ml 62.00-150.00 LV Diastolic Volume Index (BP MOD) 0.06 l/m2 0.03-0.07 LV Systolic Volume (BP MOD) 69.21 ml 21.00-61.00 LV Systolic Volume Index (BP MOD) 0.02 l/m2 0.01-0.03 LV EF (BP MOD) 59 % 52-72 LV Diastolic Length (4C) 8.04 cm LV Systolic Length (4C) 7.13 cm LV Stroke Volume (4C MOD) 85.35 ml Atria Name Value Normal RA Dimensions RA Area (4C) 22.48 cm2 <=18.00 Report Signatures
[2024-12-10] VITALS (23 sets, daily range): BP systolic 98–130; BP diastolic 61–81; PULSE 72–130; RESP 16–24; TEMP 36.4–36.9; O2SAT 95–100
[2024-12-10] MEDS: HYDROcodone/acetaminophen (*CRX) 7.5-325 MG TABLET 1 TAB PO ×3 (03:05→20:42)
[2024-12-10 05:07] LABS: Basophils Percent Auto 0.4 % (0.2-1.2); Eosinophils Absolute Auto 0.1 K/mm3 (0-0.3); Eosinophils Percent Auto 0.9 % (0-4.4); Hematocrit 39.7 % (42.0-52.0); Hemoglobin 12.4 g/dL (14.0-18.0); Immature Granulocyte Absolute 0.03 K/mm3 (0.00-0.031); Immature Granulocyte Percent A 0.3 % (0-0.5); Lymphocytes Absolute Auto 2.03 K/mm3 (0.9-3.2); Lymphocytes Percent Auto 20.9 % (18.3-44.2); Mean Corpuscular HGB Conc 31.2 g/dl (32-36); Mean Corpuscular Hemoglobin 30.1 pg (26-34); Mean Corpuscular Volume 96.4 fl (80-100); Mean Platelet Volume 11.9 fl (7.4-10.4); Monocytes Absolute Auto 0.7 K/mm3 (0.1-0.6); Monocytes Percent Auto 6.9 % (2.6-8.5); Neutrophils Absolute Auto 6.9 K/mm3 (1.3-6.7); Neutrophils Percent Auto 70.6 % (45.5-73.1); Platelet Count Result 129 k/mm3 (150-375); Red Blood Count 4.12 M/mm3 (4.6-6.20); Red Cell Distribution Width 14.1 % (11.5-14.5); White Blood Count 9.7 K/mm3 (4.5-10.0)
[2024-12-10 05:24] LABS: Alanine Aminotransferase 17 U/L (6-50); Albumin Level 3.6 g/dL (3.5-5.1); Alkaline Phosphatase 91 U/L (38-126); Anion Gap 8 mmol/L (4-12); Aspartate Amino Transferase 19 U/L (17-59); Bilirubin,Total 0.7 mg/dL (0.2-1.3); Blood Urea Nitrogen 14 mg/dL (9-20); Calcium 8.9 mg/dL (8.4-10.2); Carbon Dioxide 28 mmol/L (22-30); Chloride 101 mmol/L (98-107); Estimated CRCL calculation 98 ml/min; Estimated Glomerular Filt Rate > 60; Glucose 97 mg/dL (65-110); Magnesium 1.6 mg/dL (1.6-2.3); Potassium 3.7 mmol/L (3.4-5.0); Sodium 137 mmol/L (137-145)
[2024-12-10 07:33] LABS: Glucose Point of Care 98 mg/dl (65-105)
[2024-12-10] MEDS: GABAPENTIN 300 MG CAPSULE BY MOUTH ×3 (08:47→17:13)
[2024-12-10] MEDS: FUROSEMIDE INJ 40 MG/4 ML VIAL IV PUSH ×2 (08:47→17:13)
[2024-12-10] MEDS: LOSARTAN POTASSIUM 25 MG TABLET PO (08:47)
[2024-12-10] MEDS: METOPROLOL TARTRATE 50 MG TAB 100 MG PO ×2 (08:47→20:41)
[2024-12-10] MEDS: CYANOCOBALAMIN 1,000 MCG TABLET 1000 MCG PO (08:48)
[2024-12-10] MEDS: ASPIRIN 81 MG ENTERIC TABLET PO (08:48)
[2024-12-10] MEDS: GLIMEPIRIDE 2 MG TABLET 4 MG PO (08:48)
[2024-12-10] MEDS: APIXABAN 5 MG TABLET PO ×2 (08:48→20:41)
[2024-12-10] MEDS: ATORVASTATIN 20 MG TABLET BY MOUTH (08:48)
[2024-12-10] MEDS: cloNIDine HCL 0.2 MG TABLET PO ×3 (08:48→17:13)
[2024-12-10 11:22] LABS: Glucose Point of Care 158 mg/dl (65-105)
--- NOTE | 2024-12-10 11:39 | P.PNIM_ITS ---
Progress Note: A&P Assessment and Plan (1) Atrial fibrillation with rapid ventricular response: Code(s): I48.91 - Unspecified atrial fibrillation Status: Acute (2) Acute on chronic diastolic congestive heart failure: Code(s): I50.33 - Acute on chronic diastolic (congestive) heart failure Status: Acute (3) Essential (primary) hypertension: Code(s): I10 - Essential (primary) hypertension Status: Acute (4) Insulin dependent type 2 diabetes mellitus: Code(s): E11.9 - Type 2 diabetes mellitus without complications; Z79.4 - computer terminal operator (current) use of insulin Status: Acute (5) Obstructive sleep apnea: Code(s): G47.33 - Obstructive sleep apnea (adult) (pediatric) Status: Acute Plan Afib RVR, controlled Continue Cardizem infusion and Metoprolol CHADS2 VASc 4, continue Eliquis ECHO showed EF 50-55% cardiology following CHF exacerbation, diastolic diffuse edema involving LE and abdominal war ECHO EF 50-55% Lasix 40 mg cards following HLD continue statin HTN Continue home meds DVT prophylaxis on full Eliquis Subjective Date/time seen: 12/10/24 11:39 Interval history: Comfortable at bedside Review of Systems Review of Systems: 12 systems were reviewed and are negativ e except for as per HPI. Exam Narrative: General: Chronically ill-appearing gentleman the semi-Gonzalez position in bed. Weight: 159.7 kg. BMI: 55.1. HEENT: PERRL, EOMI. Sclera anicteric. Oral mucosa moist. Crowded oropharynx. Neck: Supple. Limited due to neck circumference. Respiratory: Mild conversational dyspnea though he appears in no respiratory distress. Lung sounds are a bit diminished due to body habitus with scattered crackles at the bases. Cardiovascular: Irregularly irregular rate and rhythm. Gastrointestinal: Abdomen is obese and nontender with positive bowel sounds. Skin: Warm and dry. Extremities: No cyanosis or clubbing. Tight pitting edema up to the lower abdomen. No palpable knots or cords. Neurological: Alert. Cranial nerves 2-12 are grossly intact. No gross focal deficits to casual conversation. Psychiatric: Pleasant and cooperative with normal mood and affect. Objective Data Vital Signs Vital Signs: Vital Signs - 24 hr 12/09/24 12:00 12/09/24 12:00 12/09/24 12:00 Temperature 98.7 F Pulse Rate 52 L 70 Respiratory Rate 22 H Blood Pressure 109/74 Pulse Oximetry 98 98 Oxygen Delivery Nasal Cannula Oxygen Flow Rate 2 12/09/24 12:00 12/09/24 14:00 12/09/24 14:00 Temperature Pulse Rate 70 89 81 Respiratory Rate Blood Pressure 109/74 Pulse Oximetry Oxygen Delivery Oxygen Flow Rate 12/09/24 14:00 12/09/24 15:27 12/09/24 16:00 Temperature 98.7 F Pulse Rate 52 L 68 Respiratory Rate 22 H Blood Pressure 109/74 Pulse Oximetry 98 98 Oxygen Delivery Nasal Cannula Oxygen Flow Rate 2 12/09/24 16:00 12/09/24 16:00 12/09/24 18:00 Temperature 98 F Pulse Rate 98 85 84 Respiratory Rate 20 Blood Pressure 120/82 Pulse Oximetry 98 Oxygen Delivery Oxygen Flow Rate 12/09/24 20:00 12/09/24 20:27 12/09/24 21:20 Temperature 98.6 F Pulse Rate 101 H 91 91 Respiratory Rate 20 20 Blood Pressure 114/89 Pulse Oximetry 99 99 Oxygen Delivery Nasal Cannula Oxygen Flow Rate 2 12/09/24 22:00 12/09/24 22:02 12/09/24 23:59 Temperature 98.1 F Pulse Rate 103 H 103 H 100 Respiratory Rate 20 Blood Pressure 103/78 Pulse Oximetry 99 Oxygen Delivery Oxygen Flow Rate 12/10/24 00:00 12/10/24 00:05 12/10/24 00:13 Temperature Pulse Rate 93 100 73 Respiratory Rate 20 16 Blood Pressure Pulse Oximetry 99 96 Oxygen Delivery Nasal Cannula Nasal Cannula Oxygen Flow Rate 1 1 12/10/24 01:45 12/10/24 03:02 12/10/24 03:02 Temperature 97.5 F L Pulse Rate 95 81 81 Respiratory Rate 20 20 Blood Pressure 98/71 L Pulse Oximetry 97 97 Oxygen Delivery Nasal Cannula Oxygen Flow Rate 1 12/10/24 04:00 12/10/24 06:00 12/10/24 08:00 Temperature Pulse Rate 125 H 99 Respiratory Rate Blood Pressure Pulse Oximetry 97 Oxygen Delivery Nasal Cannula Oxygen Flow Rate 1 12/10/24 08:00 12/10/24 08:00 12/10/24 08:47 Temperature 97.8 F Pulse Rate 102 H 130 H 110 H Respiratory Rate 24 H Blood Pressure 129/80 Pulse Oximetry 100 Oxygen Delivery Oxygen Flow Rate 12/10/24 09:15 12/10/24 10:00 Temperature Pulse Rate 109 H Respiratory Rate Blood Pressure Pulse Oximetry 98 Oxygen Delivery Nasal Cannula Oxygen Flow Rate 1 Intake/Output Intake/Output: Intake & Output 12/07/24 12/08/24 12/09/24 12/10/24 23:59 23:59 23:59 23:59 Intake Total 24.8 1625.2 955 Output Total 1850 1300 Balance 24.8 -224.8 -345 Meds/Results Medications: Active Medications Generic Name Dose Route Start Last Admin Trade Name Freq PRN Reason Stop Dose Admin Acetaminophen 650 mg 12/08/24 23:25 Acetaminophen 325 Mg Tablet PO Q6H PRN Mild Pain (1-3) or Fever Hydrocodone Bitart/Acetaminophen 1 tab 12/09/24 00:18 12/10/24 03:05 Hydrocodone/Acetaminophen (*Crx) 7.5-325 Mg Tablet PO 1 tab Q4H PRN Administration Pain Rated 7-10 Apixaban 5 mg 12/09/24 09:00 12/10/24 08:48 Apixaban 5 Mg Tablet PO 5 mg Q12HR SHIRA Administration Aspirin 81 mg 12/09/24 09:00 12/10/24 08:48 Aspirin 81 Mg Enteric Tablet PO 81 mg DAILY SHIRA Administration Atorvastatin Calcium 20 mg 12/09/24 09:00 12/10/24 08:48 Atorvastatin 20 Mg Tablet BY MOUTH 20 mg DAILY SHIRA Administration Clonidine HCl 0.2 mg 12/09/24 09:00 12/10/24 08:48 Clonidine Hcl 0.2 Mg Tablet PO 0.2 mg TID SHIRA Administration Cyanocobalamin 1,000 mcg 12/09/24 09:00 12/10/24 08:48 Cyanocobalamin 1,000 Mcg Tablet PO 1,000 mcg QAM SHIRA Administration Dextrose 12.5 gm 12/08/24 23:25 Dextrose 50% 25 Gm/50 Ml Syringe IV PUSH PRN PRN Hypoglycemia Protocol Furosemide 40 mg 12/09/24 09:00 12/10/24 08:47 Furosemide Inj 40 Mg/4 Ml Vial IV PUSH 40 mg BID SHIRA Administration Gabapentin 300 mg 12/09/24 09:00 12/10/24 08:47 Gabapentin 300 Mg Capsule BY MOUTH 300 mg TID SHIRA Administration Glimepiride 4 mg 12/09/24 08:00 12/10/24 08:48 Glimepiride 2 Mg Tablet PO 4 mg DAILY@0800 SHIRA Administration Glucagon 1 mg 12/08/24 23:25 Glucagon For Inj 1 Mg Vial IM PRN PRN Hypoglycemia Protocol Glucose 15 gm 12/08/24 23:25 Glucose Oral Gel 15 Gm Of Glucse In 37.5 Gm Tube PO PRN PRN Hypoglycemia Protocol Dextrose 1,000 mls @ 100 mls/hr 12/08/24 23:25 Dextrose 5% 1,000 Ml IVPB PRN PRN Hypoglycemia Protocol Insulin Aspart 4 - 8 units 12/09/24 08:00 12/10/24 11:24 Insulin Aspart (*Bkc) 100 Units/Ml SUB-Q Not Given TIDWM SHIRA Protocol Insulin Aspart 2 - 4 units 12/09/24 21:00 12/09/24 22:00 Insulin Aspart (*Bkc) 100 Units/Ml SUB-Q Not Given HS SHIRA Protocol Insulin Glargine 50 units 12/09/24 09:00 12/10/24 11:24 Insulin Glargine (*Bkc) 100 Units/Ml SUB-Q Not Given DAILY [facility] Insulin Glargine 60 units 12/09/24 17:00 12/09/24 16:46 Insulin Glargine (*Bkc) 100 Units/Ml SUB-Q 60 units DAILY@1700 SHIRA Administration Losartan Potassium 25 mg 12/09/24 09:00 12/10/24 08:47 Losartan Potassium 25 Mg Tablet PO 25 mg DAILY SHIRA Administration Metoprolol Tartrate 100 mg 12/09/24 09:00 12/10/24 08:47 Metoprolol Tartrate 50 Mg Tab PO 100 mg Q12HR SHIRA Administration Radiology Results: ITS Impressions Chest X-Ray 12/08/24 18:40 IMPRESSION: Mild pulmonary vascular congestion, without focal infiltrate or effusion. Abdomen Ultrasound 12/08/24 19:11 IMPRESSION: Evaluation of the pancreas is limited by overlying bowel gas. Phasic flow within the portal vein, suggesting portal hypertension. Fatty infiltration of the liver. Splenomegaly. Pulmonary Perfusion Imaging 12/08/24 21:11 IMPRESSION: 1. Low probability for pulmonary embolism. Venous Doppler Study 12/09/24 08:11 IMPRESSION: Negative bilateral lower extremity venous US. No deep vein thrombosis. Labs Labs: Laboratory Results - last 24 hr 12/09/24 12/09/24 12/09/24 11:42 15:55 20:31 WBC RBC Hgb Hct MCV MCH MCHC RDW Plt Count MPV Immature Gran % (Auto) Neut % (Auto) Lymph % (Auto) [place] % (Auto) Eos % (Auto) Baso % (Auto) Lymph # (Auto) [place] # (Auto) Eos # (Auto) Baso # (Auto) Abs Immat Gran (auto) Absolute Neuts (auto) Absolute Nucleated RBC Nucleated RBC % Sodium Potassium Chloride Carbon Dioxide Anion Gap BUN Creatinine Estim Creat Clear Calc Estimated GFR Glucose POC Capillary Glucose 220 H 199 H 167 H Calcium Magnesium Total Bilirubin AST ALT Alkaline Phosphatase Total Protein Albumin 12/10/24 12/10/24 12/10/24 04:53 07:30 11:19 WBC 9.7 RBC 4.12 L Hgb 12.4 L Hct 39.7 L MCV 96.4 MCH 30.1 MCHC 31.2 L RDW 14.1 Plt Count 129 L MPV 11.9 H Immature Gran % (Auto) 0.3 Neut % (Auto) 70.6 Lymph % (Auto) 20.9 [place] % (Auto) 6.9 Eos % (Auto) 0.9 Baso % (Auto) 0.4 Lymph # (Auto) 2.03 [place] # (Auto) 0.7 H Eos # (Auto) 0.1 Baso # (Auto) 0.0 Abs Immat Gran (auto) 0.03 Absolute Neuts (auto) 6.9 H Absolute Nucleated RBC 0.000 Nucleated RBC % 0.0 Sodium 137 Potassium 3.7 Chloride 101 Carbon Dioxide 28 Anion Gap 8 BUN 14 Creatinine 0.88 Estim Creat Clear Calc 98 Estimated GFR > 60 Glucose 97 POC Capillary Glucose 98 158 H Calcium 8.9 Magnesium 1.6 Total Bilirubin 0.7 AST 19 ALT 17 Alkaline Phosphatase 91 Total Protein 7.0 Albumin 3.6 Quality VTE Prophylaxis VTE prophylaxis: pharmacologic ordered
--- NOTE | 2024-12-10 12:08 | PM.PNCARD ---
Progress Note: A&P Assessment and Plan (1) Atrial fibrillation with rapid ventricular response: Code(s): I48.91 - Unspecified atrial fibrillation Status: Acute Plan 1. Atrial fibrillation with RVR 2. Acute on chronic heart failure with preserved LVEF 3. Coronary artery disease 4. Hypertension 5. Hyperlipidemia 6. Type 2 diabetes mellitus 7. RUSSELL, untreated 8. Morbid obesity with BMI of 56 PLAN: -Continue IV Lasix 40mg BID. Please monitor strict I/Os. -Continue Metoprolol 100mg BID. Will add PO Diltiazem for additional rate control. -Continue Eliquis 5mg BID for stroke risk reduction. -Continue ASA, statin. Recommendations and plan discussed with Hospitalist. Subjective Date/time seen: 12/10/24 12:08 Interval history: Reason for visit: AFIB with RVR, CHF HPI: Francisco J Pineda is a 74-year-old male with coronary artery disease, hypertension, hyperlipidemia, diastolic dysfunction, untreated sleep apnea, diabetes mellitus type 2, and morbid obesity. This is a patient who presents to the hospital with a chief complaint of shortness of breath. Patient reports increasing shortness of breath, rapid weight gain, lower extremity edema, and abdominal distention over the past several weeks. His EKG the emergency department showed atrial fibrillation with rapid ventricular response. This is a new diagnosis for the patient. He is placed on a diltiazem drip and his heart rates have improved. He is being diuresed and feels somewhat better but still has abdominal discomfort because of distention. Shortness of breath has improved. He is comfortable and in no acute distress at the time of my evaluation. Date of service 12/10: Off Diltiazem drip now, has occasional RVR. Review of Systems Cardiovascular: Cardiovascular: Reports as per HPI Exam Const: General: no acute distress Other: Morbidly obese HENMT: Mouth: Yes moist mucous membranes Eyes: General: appearance normal, both eyes and all related structures Sclera: sclerae normal Resp: Effort & Inspection: normal respiratory effort Cardio: Rhythm: abnormal rhythm irregularly irregular Other: Bilateral lower extremity edema Skin: General skin exam: normal color Neuro: Speech: normal speech Psych: Mental Status: mental status grossly normal Affect: normal affect Objective Data Vital Signs Vital Signs: Vital Signs - 24 hr 12/09/24 14:00 12/09/24 14:00 12/09/24 14:00 Temperature 37.1 C Pulse Rate 89 81 52 L Respiratory Rate 22 H Blood Pressure 109/74 Pulse Oximetry 98 Oxygen Delivery Oxygen Flow Rate 12/09/24 15:27 12/09/24 16:00 12/09/24 16:00 Temperature Pulse Rate 68 98 Respiratory Rate Blood Pressure Pulse Oximetry 98 Oxygen Delivery Nasal Cannula Oxygen Flow Rate 2 12/09/24 16:00 12/09/24 18:00 12/09/24 20:00 Temperature 36.6 C Pulse Rate 85 84 101 H Respiratory Rate 20 Blood Pressure 120/82 Pulse Oximetry 98 Oxygen Delivery Oxygen Flow Rate 12/09/24 20:27 12/09/24 21:20 12/09/24 22:00 Temperature 37.0 C Pulse Rate 91 91 103 H Respiratory Rate 20 20 Blood Pressure 114/89 Pulse Oximetry 99 99 Oxygen Delivery Nasal Cannula Oxygen Flow Rate 2 12/09/24 22:02 12/09/24 23:59 12/10/24 00:00 Temperature 36.7 C Pulse Rate 103 H 100 93 Respiratory Rate 20 Blood Pressure 103/78 Pulse Oximetry 99 Oxygen Delivery Oxygen Flow Rate 12/10/24 00:05 12/10/24 00:13 12/10/24 01:45 Temperature Pulse Rate 100 73 95 Respiratory Rate 20 16 Blood Pressure Pulse Oximetry 99 96 Oxygen Delivery Nasal Cannula Nasal Cannula Oxygen Flow Rate 1 1 12/10/24 03:02 12/10/24 03:02 12/10/24 04:00 Temperature 36.4 C L Pulse Rate 81 81 125 H Respiratory Rate 20 20 Blood Pressure 98/71 L Pulse Oximetry 97 97 Oxygen Delivery Nasal Cannula Oxygen Flow Rate 1 12/10/24 06:00 12/10/24 08:00 12/10/24 08:00 Temperature 36.6 C Pulse Rate 99 102 H Respiratory Rate 24 H Blood Pressure 129/80 Pulse Oximetry 97 100 Oxygen Delivery Nasal Cannula Oxygen Flow Rate 1 12/10/24 08:00 12/10/24 08:47 12/10/24 09:15 Temperature Pulse Rate 130 H 110 H Respiratory Rate Blood Pressure Pulse Oximetry 98 Oxygen Delivery Nasal Cannula Oxygen Flow Rate 1 12/10/24 10:00 12/10/24 11:45 Temperature 36.8 C Pulse Rate 109 H 91 Respiratory Rate 22 H Blood Pressure 130/81 Pulse Oximetry 95 Oxygen Delivery Oxygen Flow Rate Intake/Output Intake/Output: Intake & Output 03/19/25 03/20/25 03/21/25 03/22/25 23:59 23:59 23:59 23:59 Intake Total 24.8 1625.2 955 Output Total 1850 2100 Balance 24.8 -224.8 -1145 Meds/Results Medications: Active Medications Generic Name Dose Route Start Last Admin Trade Name Freq PRN Reason Stop Dose Admin Acetaminophen 650 mg 12/08/24 23:25 Acetaminophen 325 Mg Tablet PO Q6H PRN Mild Pain (1-3) or Fever Hydrocodone Bitart/Acetaminophen 1 tab 12/09/24 00:18 12/10/24 03:05 Hydrocodone/Acetaminophen (*Crx) 7.5-325 Mg Tablet PO 1 tab Q4H PRN Administration Pain Rated 7-10 Apixaban 5 mg 12/09/24 09:00 12/10/24 08:48 Apixaban 5 Mg Tablet PO 5 mg Q12HR SHIRA Administration Aspirin 81 mg 12/09/24 09:00 12/10/24 08:48 Aspirin 81 Mg Enteric Tablet PO 81 mg DAILY SHIRA Administration Atorvastatin Calcium 20 mg 12/09/24 09:00 12/10/24 08:48 Atorvastatin 20 Mg Tablet BY MOUTH 20 mg DAILY SHIRA Administration Clonidine HCl 0.2 mg 12/09/24 09:00 12/10/24 08:48 Clonidine Hcl 0.2 Mg Tablet PO 0.2 mg TID SHIRA Administration Cyanocobalamin 1,000 mcg 12/09/24 09:00 12/10/24 08:48 Cyanocobalamin 1,000 Mcg Tablet PO 1,000 mcg QAM SHIRA Administration Dextrose 12.5 gm 12/08/24 23:25 Dextrose 50% 25 Gm/50 Ml Syringe IV PUSH PRN PRN Hypoglycemia Protocol Furosemide 40 mg 12/09/24 09:00 12/10/24 08:47 Furosemide Inj 40 Mg/4 Ml Vial IV PUSH 40 mg BID SHIRA Administration Gabapentin 300 mg 12/09/24 09:00 12/10/24 08:47 Gabapentin 300 Mg Capsule BY MOUTH 300 mg TID SHIRA Administration Glimepiride 4 mg 12/09/24 08:00 12/10/24 08:48 Glimepiride 2 Mg Tablet PO 4 mg DAILY@0800 SHIRA Administration Glucagon 1 mg 12/08/24 23:25 Glucagon For Inj 1 Mg Vial IM PRN PRN Hypoglycemia Protocol Glucose 15 gm 12/08/24 23:25 Glucose Oral Gel 15 Gm Of Glucse In 37.5 Gm Tube PO PRN PRN Hypoglycemia Protocol Dextrose 1,000 mls @ 100 mls/hr 12/08/24 23:25 Dextrose 5% 1,000 Ml IVPB PRN PRN Hypoglycemia Protocol Insulin Aspart 4 - 8 units 12/09/24 08:00 12/10/24 11:24 Insulin Aspart (*Bkc) 100 Units/Ml SUB-Q Not Given TIDWM SHIRA Protocol Insulin Aspart 2 - 4 units 12/09/24 21:00 12/09/24 22:00 Insulin Aspart (*Bkc) 100 Units/Ml SUB-Q Not Given HS SHIRA Protocol Insulin Glargine 50 units 12/09/24 09:00 12/10/24 11:24 Insulin Glargine (*Bkc) 100 Units/Ml SUB-Q Not Given DAILY SHIRA Insulin Glargine 60 units 12/09/24 17:00 12/09/24 16:46 Insulin Glargine (*Bkc) 100 Units/Ml SUB-Q 60 units DAILY@1700 SHIRA Administration Losartan Potassium 25 mg 12/09/24 09:00 12/10/24 08:47 Losartan Potassium 25 Mg Tablet PO 25 mg DAILY SHIRA Administration Metoprolol Tartrate 100 mg 12/09/24 09:00 12/10/24 08:47 Metoprolol Tartrate 50 Mg Tab PO 100 mg Q12HR SHIRA Administration Radiology Results: ITS Impressions Chest X-Ray 12/08/24 18:40 IMPRESSION: Mild pulmonary vascular congestion, without focal infiltrate or effusion. Abdomen Ultrasound 12/08/24 19:11 IMPRESSION: Evaluation of the pancreas is limited by overlying bowel gas. Phasic flow within the portal vein, suggesting portal hypertension. Fatty infiltration of the liver. Splenomegaly. Pulmonary Perfusion Imaging 12/08/24 21:11 IMPRESSION: 1. Low probability for pulmonary embolism. Venous Doppler Study 12/09/24 08:11 IMPRESSION: Negative bilateral lower extremity venous US. No deep vein thrombosis. Labs Labs: Laboratory Results - last 24 hr 12/09/24 12/09/24 12/09/24 11:42 15:55 20:31 WBC RBC Hgb Hct MCV MCH MCHC RDW Plt Count MPV Immature Gran % (Auto) Neut % (Auto) Lymph % (Auto) [place] % (Auto) Eos % (Auto) Baso % (Auto) Lymph # (Auto) [place] # (Auto) Eos # (Auto) Baso # (Auto) Abs Immat Gran (auto) Absolute Neuts (auto) Absolute Nucleated RBC Nucleated RBC % Sodium Potassium Chloride Carbon Dioxide Anion Gap BUN Creatinine Estim Creat Clear Calc Estimated GFR Glucose POC Capillary Glucose 220 H 199 H 167 H Calcium Magnesium Total Bilirubin AST ALT Alkaline Phosphatase Total Protein Albumin 12/10/24 12/10/24 12/10/24 04:53 07:30 11:19 WBC 9.7 RBC 4.12 L Hgb 12.4 L Hct 39.7 L MCV 96.4 MCH 30.1 MCHC 31.2 L RDW 14.1 Plt Count 129 L MPV 11.9 H Immature Gran % (Auto) 0.3 Neut % (Auto) 70.6 Lymph % (Auto) 20.9 [place] % (Auto) 6.9 Eos % (Auto) 0.9 Baso % (Auto) 0.4 Lymph # (Auto) 2.03 [place] # (Auto) 0.7 H Eos # (Auto) 0.1 Baso # (Auto) 0.0 Abs Immat Gran (auto) 0.03 Absolute Neuts (auto) 6.9 H Absolute Nucleated RBC 0.000 Nucleated RBC % 0.0 Sodium 137 Potassium 3.7 Chloride 101 Carbon Dioxide 28 Anion Gap 8 BUN 14 Creatinine 0.88 Estim Creat Clear Calc 98 Estimated GFR > 60 Glucose 97 POC Capillary Glucose 98 158 H Calcium 8.9 Magnesium 1.6 Total Bilirubin 0.7 AST 19 ALT 17 Alkaline Phosphatase 91 Total Protein 7.0 Albumin 3.6
[2024-12-10] MEDS: dilTIAZem HCL CD 180 MG CAP.24HR PO (12:45)
[2024-12-10 16:29] LABS: Glucose Point of Care 207 mg/dl (65-105)
[2024-12-10] MEDS: INSULIN GLARGINE (*BKC) 100 UNITS/ML 60 UNITS SUB-Q (17:12)
[2024-12-10] MEDS: INSULIN ASPART (*BKC) 100 UNITS/ML SUB-Q (17:12)
[2024-12-10 20:02] LABS: Glucose Point of Care 193 mg/dl (65-105)
[2024-12-11] VITALS (19 sets, daily range): BP systolic 96–128; BP diastolic 66–98; PULSE 62–105; RESP 14–20; TEMP 36.4–37.2; O2SAT 92–98
[2024-12-11 05:27] LABS: Basophils Percent Auto 0.4 % (0.2-1.2); Eosinophils Absolute Auto 0.1 K/mm3 (0-0.3); Eosinophils Percent Auto 1.2 % (0-4.4); Hematocrit 40.2 % (42.0-52.0); Hemoglobin 12.2 g/dL (14.0-18.0); Immature Granulocyte Absolute 0.03 K/mm3 (0.00-0.031); Immature Granulocyte Percent A 0.4 % (0-0.5); Immature Platelet Fraction Pct 9.6 % (0.9-11.2); Lymphocytes Absolute Auto 1.86 K/mm3 (0.9-3.2); Lymphocytes Percent Auto 27.7 % (18.3-44.2); Mean Corpuscular HGB Conc 30.3 g/dl (32-36); Mean Corpuscular Hemoglobin 29.5 pg (26-34); Mean Corpuscular Volume 97.1 fl (80-100); Mean Platelet Volume 11.5 fl (7.4-10.4); Monocytes Absolute Auto 0.7 K/mm3 (0.1-0.6); Monocytes Percent Auto 9.7 % (2.6-8.5); Neutrophils Absolute Auto 4.1 K/mm3 (1.3-6.7); Neutrophils Percent Auto 60.6 % (45.5-73.1); Platelet Count Result 112 k/mm3 (150-375); Red Blood Count 4.14 M/mm3 (4.6-6.20); White Blood Count 6.7 K/mm3 (4.5-10.0)
[2024-12-11 05:43] LABS: Alanine Aminotransferase 16 U/L (6-50); Albumin Level 3.7 g/dL (3.5-5.1); Alkaline Phosphatase 89 U/L (38-126); Anion Gap 7 mmol/L (4-12); Aspartate Amino Transferase 19 U/L (17-59); Bilirubin,Total 0.5 mg/dL (0.2-1.3); Blood Urea Nitrogen 18 mg/dL (9-20); Calcium 8.8 mg/dL (8.4-10.2); Carbon Dioxide 31 mmol/L (22-30); Chloride 99 mmol/L (98-107); Estimated CRCL calculation 80 ml/min; Estimated Glomerular Filt Rate > 60; Glucose 108 mg/dL (65-110); Magnesium 1.8 mg/dL (1.6-2.3); Potassium 3.8 mmol/L (3.4-5.0); Sodium 137 mmol/L (137-145)
--- NOTE | 2024-12-11 09:13 | PM.IMPN ---
Progress Note: A&P Assessment and Plan (1) Atrial fibrillation with rapid ventricular response: Code(s): I48.91 - Unspecified atrial fibrillation Status: Acute Assessment and Plan: Patient heart rate is better. Will continue with metoprolol and monitor clozapine (2) Acute on chronic diastolic congestive heart failure: Code(s): I50.33 - Acute on chronic diastolic (congestive) heart failure Status: Acute Assessment and Plan: Patient swelling is much better. Will continue to diurese and monitor closely. Daily I and O. (3) Essential (primary) hypertension: Code(s): I10 - Essential (primary) hypertension Status: Acute Assessment and Plan: Stable on current medication, will continue current treatment. (4) Insulin dependent type 2 diabetes mellitus: Code(s): E11.9 - Type 2 diabetes mellitus without complications; Z79.4 - long term acute care registered nurse (current) use of insulin Status: Acute Assessment and Plan: Stable on current medication, will continue current treatment. (5) Obstructive sleep apnea: Code(s): G47.33 - Obstructive sleep apnea (adult) (pediatric) Status: Acute Assessment and Plan: Stable Plan Afib RVR, controlled Continue Cardizem infusion and Metoprolol CHADS2 VASc 4, continue Eliquis ECHO showed EF 50-55% cardiology following CHF exacerbation, diastolic diffuse edema involving LE and abdominal war ECHO EF 50-55% Lasix 40 mg cards following HLD continue statin HTN Continue home meds DVT prophylaxis on full Eliquis Subjective Date/time seen: 12/11/24 09:13 Interval history: Reason for visit: AFIB with RVR, CHF Patient was seen during the morning rounds today. Feeling slightly better Decrease sob, no chest pain No abdominal pain or nausea Review of Systems Review of Systems: 12 systems were reviewed and are negative except for as per HPI. Exam Narrative: General: Chronically ill-appearing gentleman the semi-Gonzalez position in bed. Weight: 159.7 kg. BMI: 55.1. HEENT: PERRL, EOMI. Sclera anicteric. Oral mucosa moist. Crowded oropharynx. Neck: Supple. Limited due to neck circumference. Respiratory: Air entry is better Cardiovascular: Irregularly irregular rate and rhythm. Gastrointestinal: Abdomen is obese and nontender with positive bowel sounds. Skin: Warm and dry. Extremities: No cyanosis or clubbing. 2 plus edema. No palpable knots or cords. Neurological: Alert. Cranial nerves 2-12 are grossly intact. No gross focal deficits to casual conversation. Psychiatric: Pleasant and cooperative with normal mood and affect. Objective Data Vital Signs Vital Signs: Vital Signs - 24 hr 12/10/24 09:15 12/10/24 10:00 12/10/24 11:45 Temperature 36.8 C Pulse Rate 109 H 91 Respiratory Rate 22 H Blood Pressure 130/81 Pulse Oximetry 98 95 Oxygen Delivery Nasal Cannula Oxygen Flow Rate 1 12/10/24 12:00 12/10/24 12:00 12/10/24 14:00 Temperature Pulse Rate 115 H 109 H Respiratory Rate Blood Pressure Pulse Oximetry 95 Oxygen Delivery Room Air Oxygen Flow Rate 12/10/24 16:00 12/10/24 16:00 12/10/24 16:00 Temperature 36.7 C Pulse Rate 72 105 H Respiratory Rate 22 H Blood Pressure 123/72 Pulse Oximetry 97 97 Oxygen Delivery Room Air Oxygen Flow Rate 12/10/24 18:00 12/10/24 20:00 12/10/24 20:03 Temperature 36.9 C Pulse Rate 89 85 91 Respiratory Rate 20 Blood Pressure 104/61 Pulse Oximetry 98 Oxygen Delivery Oxygen Flow Rate 12/10/24 20:25 12/10/24 20:41 12/10/24 22:00 Temperature Pulse Rate 91 80 83 Respiratory Rate 20 Blood Pressure Pulse Oximetry 98 Oxygen Delivery Room Air Oxygen Flow Rate 12/10/24 23:40 12/10/24 23:54 12/11/24 00:00 Temperature 36.9 C Pulse Rate 87 87 83 Respiratory Rate 22 H 22 H Blood Pressure 108/68 Pulse Oximetry 98 98 Oxygen Delivery Room Air Oxygen Flow Rate 12/11/24 02:00 12/11/24 04:00 12/11/24 04:58 Temperature 36.8 C Pulse Rate 82 71 76 Respiratory Rate 20 Blood Pressure 96/66 L Pulse Oximetry 98 Oxygen Delivery Oxygen Flow Rate 12/11/24 05:35 12/11/24 06:00 12/11/24 07:25 Temperature 36.4 C Pulse Rate 76 87 88 Respiratory Rate 20 16 Blood Pressure 114/73 Pulse Oximetry 98 95 Oxygen Delivery Room Air Oxygen Flow Rate Intake/Output Intake/Output: Intake & Output 12/08/24 12/09/24 12/10/24 12/11/24 23:59 23:59 23:59 23:59 Intake Total 24.8 1625.2 2138 250 Output Total 1850 0590 400 Balance 24.8 -224.8 -312 -150 Meds/Results Medications: Active Medications Generic Name Dose Route Start Last Admin Trade Name Freq PRN Reason Stop Dose Admin Acetaminophen 650 mg 12/08/24 23:25 Acetaminophen 325 Mg Tablet PO Q6H PRN Mild Pain (1-3) or Fever Hydrocodone Bitart/Acetaminophen 1 tab 12/09/24 00:18 12/10/24 20:42 Hydrocodone/Acetaminophen (*Crx) 7.5-325 Mg Tablet PO 1 tab Q4H PRN Administration Pain Rated 7-10 Apixaban 5 mg 12/09/24 09:00 12/10/24 20:41 Apixaban 5 Mg Tablet PO 5 mg Q12HR SHIRA Administration Aspirin 81 mg 12/09/24 09:00 12/10/24 08:48 Aspirin 81 Mg Enteric Tablet PO 81 mg DAILY SHIRA Administration Atorvastatin Calcium 20 mg 12/09/24 09:00 12/10/24 08:48 Atorvastatin 20 Mg Tablet BY MOUTH 20 mg DAILY SHIRA Administration Clonidine HCl 0.2 mg 12/09/24 09:00 12/10/24 17:13 Clonidine Hcl 0.2 Mg Tablet PO 0.2 mg TID SHIRA Administration Cyanocobalamin 1,000 mcg 12/09/24 09:00 12/10/24 08:48 Cyanocobalamin 1,000 Mcg Tablet PO 1,000 mcg QAM SHIRA Administration Dextrose 12.5 gm 12/08/24 23:25 Dextrose 50% 25 Gm/50 Ml Syringe IV PUSH PRN PRN Hypoglycemia Protocol Diltiazem HCl 180 mg 12/10/24 12:10 12/10/24 12:45 Diltiazem Hcl Cd 180 Mg Cap.24hr PO 180 mg QAM SHIRA Administration Furosemide 40 mg 12/09/24 09:00 12/10/24 17:13 Furosemide Inj 40 Mg/4 Ml Vial IV PUSH 40 mg BID SHIRA Administration Gabapentin 300 mg 12/09/24 09:00 12/10/24 17:13 Gabapentin 300 Mg Capsule BY MOUTH 300 mg TID SHIRA Administration Glimepiride 4 mg 12/09/24 08:00 12/10/24 08:48 Glimepiride 2 Mg Tablet PO 4 mg DAILY@0800 SHIRA Administration Glucagon 1 mg 12/08/24 23:25 Glucagon For Inj 1 Mg Vial IM PRN PRN Hypoglycemia Protocol Glucose 15 gm 12/08/24 23:25 Glucose Oral Gel 15 Gm Of Glucse In 37.5 Gm Tube PO PRN PRN Hypoglycemia Protocol Dextrose 1,000 mls @ 100 mls/hr 12/08/24 23:25 Dextrose 5% 1,000 Ml IVPB PRN PRN Hypoglycemia Protocol Insulin Aspart 4 - 8 units 12/09/24 08:00 12/10/24 17:12 Insulin Aspart (*Bkc) 100 Units/Ml SUB-Q 4 units TIDWM SHIRA Administration Protocol Insulin Aspart 2 - 4 units 12/09/24 21:00 12/10/24 20:39 Insulin Aspart (*Bkc) 100 Units/Ml SUB-Q Not Given HS SHIRA Protocol Insulin Glargine 60 units 12/09/24 17:00 12/10/24 17:12 Insulin Glargine (*Bkc) 100 Units/Ml SUB-Q 60 units DAILY@1700 SHIRA Administration Losartan Potassium 25 mg 12/09/24 09:00 12/10/24 08:47 Losartan Potassium 25 Mg Tablet PO 25 mg DAILY SHIRA Administration Metoprolol Tartrate 100 mg 12/09/24 09:00 12/10/24 20:41 Metoprolol Tartrate 50 Mg Tab PO 100 mg Q12HR SHIRA Administration Radiology Results: ITS Impressions Chest X-Ray 12/08/24 18:40 IMPRESSION: Mild pulmonary vascular congestion, without focal infiltrate or effusion. Abdomen Ultrasound 12/08/24 19:11 IMPRESSION: Evaluation of the pancreas is limited by overlying bowel gas. Phasic flow within the portal vein, suggesting portal hypertension. Fatty infiltration of the liver. Splenomegaly. Pulmonary Perfusion Imaging 12/08/24 21:11 IMPRESSION: 1. Low probability for pulmonary embolism. Venous Doppler Study 12/09/24 08:11 IMPRESSION: Negative bilateral lower extremity venous US. No deep vein thrombosis. Labs Labs: Laboratory Results - last 24 hr 12/10/24 12/10/24 12/10/24 11:19 16:19 19:41 WBC RBC Hgb Hct MCV MCH MCHC RDW Plt Count MPV Immature Gran % (Auto) Neut % (Auto) Lymph % (Auto) Daniels % (Auto) Eos % (Auto) Baso % (Auto) Lymph # (Auto) Daniels # (Auto) Eos # (Auto) Baso # (Auto) Abs Immat Gran (auto) Absolute Neuts (auto) Absolute Nucleated RBC Nucleated RBC % % Immature Plt Fraction Sodium Potassium Chloride Carbon Dioxide Anion Gap BUN Creatinine Estim Creat Clear Calc Estimated GFR Glucose POC Capillary Glucose 158 H 207 H 193 H Calcium Magnesium Total Bilirubin AST ALT Alkaline Phosphatase Total Protein Albumin 12/11/24 04:51 WBC 6.7 RBC 4.14 L Hgb 12.2 L Hct 40.2 L MCV 97.1 MCH 29.5 MCHC 30.3 L RDW 14.0 Plt Count 112 L MPV 11.5 H Immature Gran % (Auto) 0.4 Neut % (Auto) 60.6 Lymph % (Auto) 27.7 Daniels % (Auto) 9.7 H Eos % (Auto) 1.2 Baso % (Auto) 0.4 Lymph # (Auto) 1.86 Daniels # (Auto) 0.7 H Eos # (Auto) 0.1 Baso # (Auto) 0.0 Abs Immat Gran (auto) 0.03 Absolute Neuts (auto) 4.1 Absolute Nucleated RBC 0.000 Nucleated RBC % 0.0 % Immature Plt Fraction 9.6 Sodium 137 Potassium 3.8 Chloride 99 Carbon Dioxide 31 H Anion Gap 7 BUN 18 Creatinine 1.09 Estim Creat Clear Calc 80 Estimated GFR > 60 Glucose 108 POC Capillary Glucose Calcium 8.8 Magnesium 1.8 Total Bilirubin 0.5 AST 19 ALT 16 Alkaline Phosphatase 89 Total Protein 7.0 Albumin 3.7 Quality VTE Prophylaxis VTE prophylaxis: pharmacologic ordered
[2024-12-11 10:03] LABS: Glucose Point of Care 106 mg/dl (65-105)
[2024-12-11] MEDS: GABAPENTIN 300 MG CAPSULE BY MOUTH ×3 (10:03→16:49)
[2024-12-11] MEDS: APIXABAN 5 MG TABLET PO ×2 (10:03→20:28)
[2024-12-11] MEDS: cloNIDine HCL 0.2 MG TABLET PO ×3 (10:03→16:49)
[2024-12-11] MEDS: METOPROLOL TARTRATE 50 MG TAB 100 MG PO ×2 (10:03→20:28)
[2024-12-11] MEDS: CYANOCOBALAMIN 1,000 MCG TABLET 1000 MCG PO (10:03)
[2024-12-11] MEDS: GLIMEPIRIDE 2 MG TABLET 4 MG PO (10:03)
[2024-12-11] MEDS: ASPIRIN 81 MG ENTERIC TABLET PO (10:04)
[2024-12-11] MEDS: HYDROcodone/acetaminophen (*CRX) 7.5-325 MG TABLET 1 TAB PO ×3 (10:04→20:27)
[2024-12-11] MEDS: FUROSEMIDE INJ 40 MG/4 ML VIAL IV PUSH ×2 (10:04→16:50)
[2024-12-11] MEDS: ATORVASTATIN 20 MG TABLET BY MOUTH (10:04)
[2024-12-11] MEDS: dilTIAZem HCL CD 180 MG CAP.24HR PO (10:04)
[2024-12-11] MEDS: LOSARTAN POTASSIUM 25 MG TABLET PO (10:04)
--- NOTE | 2024-12-11 10:36 | PC.NURSE ---
While passing morning medications and completing head to toe assessment at 1015, patient began to complain of a severe headache 05/31, stated that he felt absolutely terrible out of no where and a left eye droop was noted. Neuro assessment completed. R facial droop noted along with L eye droop. Dr. Berkowitz notified. New orders for STAT head CT obtained. VSS at this time.
[2024-12-11 16:43] LABS: Glucose Point of Care 204 mg/dl (65-105)
[2024-12-11] MEDS: INSULIN GLARGINE (*BKC) 100 UNITS/ML 60 UNITS SUB-Q (16:48)
[2024-12-11] MEDS: INSULIN ASPART (*BKC) 100 UNITS/ML SUB-Q ×2 (16:49→21:33)
[2024-12-11 20:25] LABS: Glucose Point of Care 259 mg/dl (65-105)
[2024-12-12] VITALS (17 sets, daily range): BP systolic 110–154; BP diastolic 55–107; PULSE 79–117; RESP 20–26; TEMP 36.8–37.2; O2SAT 91–100
[2024-12-12 07:57] LABS: Glucose Point of Care 151 mg/dl (65-105)
[2024-12-12] MEDS: dilTIAZem HCL CD 180 MG CAP.24HR PO (09:30)
[2024-12-12] MEDS: cloNIDine HCL 0.2 MG TABLET PO ×3 (09:30→17:59)
[2024-12-12] MEDS: LOSARTAN POTASSIUM 25 MG TABLET PO (09:30)
[2024-12-12] MEDS: GLIMEPIRIDE 2 MG TABLET 4 MG PO (09:30)
[2024-12-12] MEDS: METOPROLOL TARTRATE 50 MG TAB 100 MG PO ×2 (09:30→21:17)
[2024-12-12] MEDS: ATORVASTATIN 20 MG TABLET BY MOUTH (09:30)
[2024-12-12] MEDS: GABAPENTIN 300 MG CAPSULE BY MOUTH ×3 (09:32→17:59)
[2024-12-12] MEDS: ASPIRIN 81 MG ENTERIC TABLET PO (09:32)
[2024-12-12] MEDS: APIXABAN 5 MG TABLET PO ×2 (09:32→21:17)
[2024-12-12] MEDS: FUROSEMIDE INJ 40 MG/4 ML VIAL IV PUSH ×2 (09:35→17:59)
--- NOTE | 2024-12-12 10:31 | P.PNCA_ITS ---
Progress Note: A&P Assessment and Plan (1) Atrial fibrillation with rapid ventricular response: Code(s): I48.91 - Unspecified atrial fibrillation Status: Acute Plan 1. Atrial fibrillation with RVR 2. Acute on chronic heart failure with preserved LVEF 3. Coronary artery disease 4. Hypertension 5. Hyperlipidemia 6. Type 2 diabetes mellitus 7. RUSSELL, untreated 8. Morbid obesity with BMI of 56 PLAN: -Continue IV Lasix 40mg BID. Please monitor strict I/Os. May be able to shift to p.o. furosemide tomorrow. His volume status is somewhat difficult to assess because of his body habitus -1500mL fluid restriction - according to I&O he is just barely fluid balance negative. -Check BNP -Continue Metoprolol 100mg BID. -Continue Diltiazem 180mg PO daily -Continue Eliquis 5mg BID for stroke risk reduction. -Continue ASA, statin. Subjective Date/time seen: 12/12/24 10:31 Interval history: Reason for visit: AFIB with RVR, CHF HPI: Francisco J Pineda is a 74-year-old male with coronary artery disease, hypertension, hyperlipidemia, diastolic dysfunction, untreated sleep apnea, diabetes mellitus type 2, and morbid obesity. This is a patient who presents to the hospital with a chief complaint of shortness of breath. Patient reports increasing shortness of breath, rapid weight gain, lower extremity edema, and abdominal distention over the past several weeks. His EKG the emergency department showed atrial fibrillation with rapid ventricular response. This is a new diagnosis for the patient. He is placed on a diltiazem drip and his heart rates have improved. He is being diuresed and feels somewhat better but still has abdominal discomfort because of distention. Shortness of breath has impro abdullahi. He is comfortable and in no acute distress at the time of my evaluation. Date of service 12/10: Off Diltiazem drip now, has occasional RVR. Date of service 12/12/2024: Rates are generally well-controlled. He states he feels about the same as he did when he entered the hospital, but notes his breathing has improved some.. Review of Systems Review of Systems: All systems reviewed & are unremarkable except as noted in HPI and below Cardiovascular: Cardiovascular: Reports as per HPI Exam Const: General: comfortable, no acute distress, alert and awake Orientation/consciousness: patient oriented x3 Other: Morbidly obese HENMT: Head: normal to inspection Mouth: Yes moist mucous membranes Eyes: General: appearance normal, both eyes and all related structures Sclera: sclerae normal Pupils: Equal, round and reactive pupils present Neck: Neck: normal visual inspection, supple and no JVD Carotids: normal carotid upstroke Resp: Effort & Inspection: normal respiratory effort Auscultation: rales Cardio: Rate: regular rate Rhythm: abnormal rhythm irregularly irregular Heart sounds: S1 normal heart sound present, S2 normal heart sound present and no murmurs Other: Bilateral lower extremity edema GI: Inspection: distended Auscultation: normal bowel sounds Skin: General skin exam: normal color Neuro: General: patient oriented x3 Cranial nerves: Yes Equal, round and reactive pupils present Speech: normal speech Extrem: General: abnormal to inspection Other: Bilateral pretibial pitting edema Psych: Appearance: grossly normal Mental Status: mental status grossly normal Affect: normal affect Objective Data Vital Signs Vital Signs: Vital Signs - 24 hr 12/11/24 12:00 12/11/24 12:00 12/11/24 12:00 Temperature 37.2 C Pulse Rate 62 87 Respiratory Rate 18 Blood Pressure 104/73 Pulse Oximetry 94 Oxygen Delivery Room Air Oxygen Flow Rate 12/11/24 14:00 12/11/24 15:32 12/11/24 16:00 Temperature 36.7 C Pulse Rate 80 83 Respiratory Rate 14 Blood Pressure 108/72 Pulse Oximetry 97 Oxygen Delivery Room Air Oxygen Flow Rate 12/11/24 16:00 12/11/24 16:00 12/11/24 18:00 Temperature Pulse Rate 74 87 Respiratory Rate Blood Pressure Pulse Oximetry Oxygen Delivery Room Air Oxygen Flow Rate 12/11/24 19:32 12/11/24 20:00 12/11/24 20:20 Temperature 36.9 C Pulse Rate 89 82 Respiratory Rate 20 Blood Pressure 120/71 Pulse Oximetry 92 Oxygen Delivery Room Air Oxygen Flow Rate 12/11/24 20:28 12/11/24 22:00 12/11/24 23:31 Temperature 37.0 C Pulse Rate 97 93 82 Respiratory Rate 20 Blood Pressure 122/98 H Pulse Oximetry 96 Oxygen Delivery Oxygen Flow Rate 12/12/24 00:00 12/12/24 00:30 12/12/24 02:00 Temperature Pulse Rate 89 90 Respiratory Rate Blood Pressure Pulse Oximetry Oxygen Delivery Room Air Oxygen Flow Rate 12/12/24 03:03 12/12/24 04:00 12/12/24 04:10 Temperature 37.1 C Pulse Rate 96 93 Respiratory Rate 22 H Blood Pressure 154/98 H Pulse Oximetry 92 Oxygen Delivery Room Air Oxygen Flow Rate 12/12/24 06:00 12/12/24 08:00 12/12/24 09:30 Temperature 37.1 C Pulse Rate 91 81 106 H Respiratory Rate 26 H Blood Pressure 132/107 H Pulse Oximetry 91 Oxygen Delivery Oxygen Flow Rate 12/12/24 09:32 Temperature Pulse Rate Respiratory Rate Blood Pressure Pulse Oximetry Oxygen Delivery Nasal Cannula Oxygen Flow Rate 3 Intake/Output Intake/Output: Intake & Output 12/09/24 12/10/24 12/11/24 12/12/24 23:59 23:59 23:59 23:59 Intake Total 1625.2 2138 1040 1000 Output Total 1850 2450 1350 600 Balance -224.8 -312 -310 400 Meds/Results Medications: Active Medications Generic Name Dose Route Start Last Admin Trade Name Freq PRN Reason Stop Dose Admin Acetaminophen 650 mg 12/08/24 23:25 Acetaminophen 325 Mg Tablet PO Q6H PRN Mild Pain (1-3) or Fever Hydrocodone Bitart/Acetaminophen 1 tab 12/09/24 00:18 12/11/24 20:27 Hydrocodone/Acetaminophen (*Crx) 7.5-325 Mg Tablet PO 1 tab Q4H PRN Administration Pain Rated 7-10 Apixaban 5 mg 12/09/24 09:00 12/12/24 09:32 Apixaban 5 Mg Tablet PO 5 mg Q12HR SHIRA Administration Aspirin 81 mg 12/09/24 09:00 12/12/24 09:32 Aspirin 81 Mg Enteric Tablet PO 81 mg DAILY SHIRA Administration Atorvastatin Calcium 20 mg 12/09/24 09:00 12/12/24 09:30 Atorvastatin 20 Mg Tablet BY MOUTH 20 mg DAILY SHIRA Administration Clonidine HCl 0.2 mg 12/09/24 09:00 12/12/24 09:30 Clonidine Hcl 0.2 Mg Tablet PO 0.2 mg TID SHIRA Administration Cyanocobalamin 1,000 mcg 12/09/24 09:00 12/11/24 10:03 Cyanocobalamin 1,000 Mcg Tablet PO 1,000 mcg QAM SHIRA Administration Dextrose 12.5 gm 12/08/24 23:25 Dextrose 50% 25 Gm/50 Ml Syringe IV PUSH PRN PRN Hypoglycemia Protocol Diltiazem HCl 180 mg 12/10/24 12:10 12/12/24 09:30 Diltiazem Hcl Cd 180 Mg Cap.24hr PO 180 mg QAM SHIRA Administration Furosemide 40 mg 12/09/24 09:00 12/12/24 09:35 Furosemide Inj 40 Mg/4 Ml Vial IV PUSH 40 mg BID SHIRA Administration Gabapentin 300 mg 12/09/24 09:00 12/12/24 09:32 Gabapentin 300 Mg Capsule BY MOUTH 300 mg TID SHIRA Administration Glimepiride 4 mg 12/09/24 08:00 12/12/24 09:30 Glimepiride 2 Mg Tablet PO 4 mg DAILY@0800 SHIRA Administration Glucagon 1 mg 12/08/24 23:25 Glucagon For Inj 1 Mg Vial IM PRN PRN Hypoglycemia Protocol Glucose 15 gm 12/08/24 23:25 Glucose Oral Gel 15 Gm Of Glucse In 37.5 Gm Tube PO PRN PRN Hypoglycemia Protocol Dextrose 1,000 mls @ 100 mls/hr 12/08/24 23:25 Dextrose 5% 1,000 Ml IVPB PRN PRN Hypoglycemia Protocol Insulin Aspart 4 - 8 units 12/09/24 08:00 12/11/24 16:49 Insulin Aspart (*Bkc) 100 Units/Ml SUB-Q 4 units TIDWM SHIRA Administration Protocol Insulin Aspart 2 - 4 units 12/09/24 21:00 12/11/24 21:33 Insulin Aspart (*Bkc) 100 Units/Ml SUB-Q 2 units HS SHIRA Administration Protocol Insulin Glargine 60 units 12/09/24 17:00 12/11/24 16:48 Insulin Glargine (*Bkc) 100 Units/Ml SUB-Q 60 units DAILY@1700 SHIRA Administration Losartan Potassium 25 mg 12/09/24 09:00 12/12/24 09:30 Losartan Potassium 25 Mg Tablet PO 25 mg DAILY SHIRA Administration Metoprolol Tartrate 100 mg 12/09/24 09:00 12/12/24 09:30 Metoprolol Tartrate 50 Mg Tab PO 100 mg Q12HR SHIRA Administration Radiology Results: ITS Impressions Chest X-Ray 12/08/24 18:40 IMPRESSION: Mild pulmonary vascular congestion, without focal infiltrate or effusion. Abdomen Ultrasound 12/08/24 19:11 IMPRESSION: Evaluation of the pancreas is limited by overlying bowel gas. Phasic flow within the portal vein, suggesting portal hypertension. Fatty infiltration of the liver. Splenomegaly. Pulmonary Perfusion Imaging 12/08/24 21:11 IMPRESSION: 1. Low probability for pulmonary embolism. Venous Doppler Study 12/09/24 08:11 IMPRESSION: Negative bilateral lower extremity venous US. No deep vein thrombosis. Head CT 12/11/24 11:04 Impression: No acute intracranial hemorrhage or suspicious mass effect. Labs Labs: Laboratory Results - last 24 hr 12/11/24 12/11/24 12/12/24 16:14 20:01 07:55 POC Capillary Glucose 204 H 259 H 151 H Quality VTE Prophylaxis VTE prophylaxis: pharmacologic ordered
[2024-12-12] MEDS: CYANOCOBALAMIN 1,000 MCG TABLET 1000 MCG PO (11:14)
[2024-12-12 11:58] LABS: NT Pro B Type Natriuretic Pept 3800 pg/mL (19.9-100)
[2024-12-12 14:28] LABS: Glucose Point of Care 186 mg/dl (65-105)
[2024-12-12 16:13] LABS: Glucose Point of Care 172 mg/dl (65-105)
--- NOTE | 2024-12-12 16:28 | PM.IMPN ---
Progress Note: A&P Assessment and Plan (1) Atrial fibrillation with rapid ventricular response: Code(s): I48.91 - Unspecified atrial fibrillation Status: Acute Assessment and Plan: Patient heart rate is better. Will continue with metoprolol and monitor clozapine (2) Acute on chronic diastolic congestive heart failure: Code(s): I50.33 - Acute on chronic diastolic (congestive) heart failure Status: Acute Assessment and Plan: Patient swelling is much better. Will continue to diurese and monitor closely. Daily I and O. (3) Essential (primary) hypertension: Code(s): I10 - Essential (primary) hypertension Status: Acute Assessment and Plan: Stable on current medication, will continue current treatment. (4) Insulin dependent type 2 diabetes mellitus: Code(s): E11.9 - Type 2 diabetes mellitus without complications; Z79.4 - termite exterminator helper (current) use of insulin Status: Acute Assessment and Plan: Stable on current medication, will continue current treatment. (5) Obstructive sleep apnea: Code(s): G47.33 - Obstructive sleep apnea (adult) (pediatric) Status: Acute Assessment and Plan: Stable Plan Afib RVR, controlled Continue metoprolol 100 mg b.i.d. and diltiazem 180 mg p.o. q.d. CHADS2 VASc 4, continue Eliquis 5 mg b.i.d. ECHO showed EF 50-55% cardiology following CHF exacerbation, diastolic diffuse edema involving LE and abdominal war ECHO EF 50-55% Lasix 40 mg IV b.i.d. Possible shift to p.o. furosemide tomorrow Monitor strict I's and O's cards following HLD continue statin HTN Continue home meds DVT prophylaxis on full Eliquis Subjective Date/time seen: 12/12/24 16:28 Interval history: As per nursing patient yesterday night patient was noticed to have drooping of left eyelid. Head CT was performed which showed no significant finding. Patient has chronic right-sided drooping which was not noticed today. Ordered MRI Review of Systems Review of Systems: 12 systems were reviewed and are negative except for as per HPI. Exam Narrative: General: Chronically ill-appearing gentleman the semi-Gonzalez position in bed. Weight: 159.7 kg. BMI: 55.1. HEENT: PERRL, EOMI. Sclera anicteric. Oral mucosa moist. Crowded oropharynx. Neck: Supple. Limited due to neck circumference. Respiratory: Air entry is better Cardiovascular: Irregularly irregular rate and rhythm. Gastrointestinal: Abdomen is obese and nontender with positive bowel sounds. Skin: Warm and dry. Extremities: No cyanosis or clubbing. 2 plus edema. No palpable knots or cords. Neurological: Alert. Cranial nerves 2-12 are grossly intact. No gross focal deficits to casual conversation. Psychiatric: Pleasant and cooperative with normal mood and affect. Objective Data Vital Signs Vital Signs: Vital Signs - 24 hr 12/11/24 18:00 12/11/24 19:32 12/11/24 20:00 Temperature 98.4 F Pulse Rate 87 89 82 Respiratory Rate 20 Blood Pressure 120/71 Pulse Oximetry 92 Oxygen Delivery Oxygen Flow Rate 12/11/24 20:20 12/11/24 20:28 12/11/24 22:00 Temperature Pulse Rate 97 93 Respiratory Rate Blood Pressure Pulse Oximetry Oxygen Delivery Room Air Oxygen Flow Rate 12/11/24 23:31 12/12/24 00:00 12/12/24 00:30 Temperature 98.6 F Pulse Rate 82 89 Respiratory Rate 20 Blood Pressure 122/98 H Pulse Oximetry 96 Oxygen Delivery Room Air Oxygen Flow Rate 12/12/24 02:00 12/12/24 03:03 12/12/24 04:00 Temperature 98.7 F Pulse Rate 90 96 93 Respiratory Rate 22 H Blood Pressure 154/98 H Pulse Oximetry 92 Oxygen Delivery Oxygen Flow Rate 12/12/24 04:10 12/12/24 06:00 12/12/24 08:00 Temperature 98.7 F Pulse Rate 91 81 Respiratory Rate 26 H Blood Pressure 132/107 H Pulse Oximetry 91 Oxygen Delivery Room Air Oxygen Flow Rate 12/12/24 08:00 12/12/24 08:00 12/12/24 09:30 Temperature Pulse Rate 110 H 106 H Respiratory Rate Blood Pressure Pulse Oximetry 95 Oxygen Delivery Nasal Cannula Oxygen Flow Rate 2 12/12/24 09:32 12/12/24 10:00 12/12/24 12:00 Temperature 98.5 F Pulse Rate 117 H 94 Respiratory Rate 24 H Blood Pressure 119/67 Pulse Oximetry 97 Oxygen Delivery Nasal Cannula Oxygen Flow Rate 3 12/12/24 15:15 Temperature Pulse Rate Respiratory Rate Blood Pressure Pulse Oximetry 96 Oxygen Delivery Nasal Cannula Oxygen Flow Rate 2 Intake/Output Intake/Output: Intake & Output 12/09/24 12/10/24 12/11/24 12/12/24 23:59 23:59 23:59 23:59 Intake Total 1625.2 2138 1040 1000 Output Total 1850 2450 1350 600 Balance -224.8 -312 -310 400 Meds/Results Medications: Active Medications Generic Name Dose Route Start Last Admin Trade Name Freq PRN Reason Stop Dose Admin Acetaminophen 650 mg 12/08/24 23:25 Acetaminophen 325 Mg Tablet PO Q6H PRN Mild Pain (1-3) or Fever Hydrocodone Bitart/Acetaminophen 1 tab 12/09/24 00:18 12/11/24 20:27 Hydrocodone/Acetaminophen (*Crx) 7.5-325 Mg Tablet PO 1 tab Q4H PRN Administration Pain Rated 7-10 Apixaban 5 mg 12/09/24 09:00 12/12/24 09:32 Apixaban 5 Mg Tablet PO 5 mg Q12HR SHIRA Administration Aspirin 81 mg 12/09/24 09:00 12/12/24 09:32 Aspirin 81 Mg Enteric Tablet PO 81 mg DAILY SHIRA Administration Atorvastatin Calcium 20 mg 12/09/24 09:00 12/12/24 09:30 Atorvastatin 20 Mg Tablet BY MOUTH 20 mg DAILY SHIRA Administration Clonidine HCl 0.2 mg 12/09/24 09:00 12/12/24 09:30 Clonidine Hcl 0.2 Mg Tablet PO 0.2 mg TID SHIRA Administration Cyanocobalamin 1,000 mcg 12/09/24 09:00 12/12/24 11:14 Cyanocobalamin 1,000 Mcg Tablet PO 1,000 mcg QAM SHIRA Administration Dextrose 12.5 gm 12/08/24 23:25 Dextrose 50% 25 Gm/50 Ml Syringe IV PUSH PRN PRN Hypoglycemia Protocol Diltiazem HCl 180 mg 12/10/24 12:10 12/12/24 09:30 Diltiazem Hcl Cd 180 Mg Cap.24hr PO 180 mg QAM SHIRA Administration Furosemide 40 mg 12/09/24 09:00 12/12/24 09:35 Furosemide Inj 40 Mg/4 Ml Vial IV PUSH 40 mg BID SHIRA Administration Gabapentin 300 mg 12/09/24 09:00 12/12/24 09:32 Gabapentin 300 Mg Capsule BY MOUTH 300 mg TID SHIRA Administration Glimepiride 4 mg 12/09/24 08:00 12/12/24 09:30 Glimepiride 2 Mg Tablet PO 4 mg DAILY@0800 SHIRA Administration Glucagon 1 mg 12/08/24 23: Glucagon For Inj 1 Mg Vial IM PRN PRN Hypoglycemia Protocol Glucose 15 gm 12/08/24 23: Glucose Oral Gel 15 Gm Of Glucse In 37.5 Gm Tube PO PRN PRN Hypoglycemia Protocol Dextrose 1,000 mls @ 100 mls/hr 12/08/24 23:25 Dextrose 5% 1,000 Ml IVPB PRN PRN Hypoglycemia Protocol Insulin Aspart 4 - 8 units 12/09/24 08:00 12/12/24 11:14 Insulin Aspart (*Bkc) 100 Units/Ml SUB-Q Not Given TIDWM SHIRA Protocol Insulin Aspart 2 - 4 units 12/09/24 21:00 12/11/24 21:33 Insulin Aspart (*Bkc) 100 Units/Ml SUB-Q 2 units HS SHIRA Administration Protocol Insulin Glargine 60 units 12/09/24 17:00 12/11/24 16:48 Insulin Glargine (*Bkc) 100 Units/Ml SUB-Q 60 units DAILY@1700 SHIRA Administration Losartan Potassium 25 mg 12/09/24 09:00 12/12/24 09:30 Losartan Potassium 25 Mg Tablet PO 25 mg DAILY SHIRA Administration Metoprolol Tartrate 100 mg 12/09/24 09:00 12/12/24 09:30 Metoprolol Tartrate 50 Mg Tab PO 100 mg Q12HR SHIRA Administration Radiology Results: ITS Impressions Chest X-Ray 12/08/24 18:40 IMPRESSION: Mild pulmonary vascular congestion, without focal infiltrate or effusion. Abdomen Ultrasound 12/08/24 19:11 IMPRESSION: Evaluation of the pancreas is limited by overlying bowel gas. Phasic flow within the portal vein, suggesting portal hypertension. Fatty infiltration of the liver. Splenomegaly. Pulmonary Perfusion Imaging 12/08/24 21:11 IMPRESSION: 1. Low probability for pulmonary embolism. Venous Doppler Study 12/09/24 08:11 IMPRESSION: Negative bilateral lower extremity venous US. No deep vein thrombosis. Head CT 12/11/24 11:04 Impression: No acute intracranial hemorrhage or suspicious mass effect. Labs Labs: Laboratory Results - last 24 hr 12/11/24 12/11/24 12/12/24 16:14 20:01 07:55 POC Capillary Glucose 204 H 259 H 151 H NT-Pro-B Natriuret Pep 12/12/24 12/12/24 12/12/24 11:32 11:43 15:53 POC Capillary Glucose 186 H 172 H NT-Pro-B Natriuret Pep 3800 H Quality VTE Prophylaxis VTE prophylaxis: pharmacologic ordered Hospitalist MIPS Advance Care Plan I have confirmed that the patient's Advanced Care Plan is present, code status is documented, or surrogate decision maker is listed in patient medical record.: Yes Medication Reconciliation I have utilized all available resources to obtain, update and review the patients current medications (includes all prescriptions, OTC, herbals, cannabis, and nutritional supplements).: Yes
[2024-12-12] MEDS: INSULIN GLARGINE (*BKC) 100 UNITS/ML 60 UNITS SUB-Q (17:59)
[2024-12-12 21:10] LABS: Glucose Point of Care 244 mg/dl (65-105)
[2024-12-12] MEDS: INSULIN ASPART (*BKC) 100 UNITS/ML SUB-Q (21:18)
[2024-12-12] MEDS: ACETAMINOPHEN 325 MG TABLET 650 MG PO (21:32)
[2024-12-13] VITALS (14 sets, daily range): BP systolic 102–153; BP diastolic 56–87; PULSE 79–131; RESP 18–26; TEMP 36.5–37.2; O2SAT 91–100
[2024-12-13 04:59] LABS: Hematocrit 39.4 % (42.0-52.0); Mean Corpuscular HGB Conc 30.5 g/dl (32-36); Mean Corpuscular Hemoglobin 29.8 pg (26-34); Mean Corpuscular Volume 97.8 fl (80-100); Mean Platelet Volume 11.9 fl (7.4-10.4); Platelet Count Result 113 k/mm3 (150-375); Red Blood Count 4.03 M/mm3 (4.6-6.20); White Blood Count 6.2 K/mm3 (4.5-10.0)
[2024-12-13 05:11] LABS: Alanine Aminotransferase 16 U/L (6-50); Albumin Level 3.4 g/dL (3.5-5.1); Alkaline Phosphatase 97 U/L (38-126); Anion Gap 8 mmol/L (4-12); Aspartate Amino Transferase 24 U/L (17-59); Bilirubin,Total 0.5 mg/dL (0.2-1.3); Blood Urea Nitrogen 26 mg/dL (9-20); Calcium 8.8 mg/dL (8.4-10.2); Carbon Dioxide 33 mmol/L (22-30); Chloride 97 mmol/L (98-107); Estimated CRCL calculation 74 ml/min; Estimated Glomerular Filt Rate 60; Glucose 94 mg/dL (65-110); Sodium 138 mmol/L (137-145)
[2024-12-13 05:20] LABS: NT Pro B Type Natriuretic Pept 4470 pg/mL (19.9-100)
--- NOTE | 2024-12-13 07:55 | PM.PNCARD ---
Progress Note: A&P Assessment and Plan (1) Atrial fibrillation with rapid ventricular response: Code(s): I48.91 - Unspecified atrial fibrillation Status: Acute Plan 1. Atrial fibrillation with RVR 2. Acute on chronic heart failure with preserved LVEF 3. Coronary artery disease 4. Hypertension 5. Hyperlipidemia 6. Type 2 diabetes mellitus 7. RUSSELL, untreated 8. Morbid obesity with BMI of 56 PLAN: -Lasix has been shifted to 40mg p.o. b.i.d. Please monitor strict I/Os. His volume status is somewhat difficult to assess because of his body habitus -1500mL fluid restriction - according to I&O he is just barely fluid balance negative. -Continue Metoprolol 100mg BID. -Continue Diltiazem 180mg PO daily -Continue Eliquis 5mg BID for stroke risk reduction. -Continue ASA, statin. Subjective Date/time seen: 12/13/24 07:55 Interval history: Reason for visit: AFIB with RVR, CHF HPI: Francisco J Pineda is a 74-year-old male with coronary artery disease, hypertension, hyperlipidemia, diastolic dysfunction, untreated sleep apnea, diabetes mellitus type 2, and morbid obesity. This is a patient who presents to the hospital with a chief complaint of shortness of breath. Patient reports increasing shortness of breath, rapid weight gain, lower extremity edema, and abdominal distention over the past several weeks. His EKG the emergency department showed atrial fibrillation with rapid ventricular response. This is a new diagnosis for the patient. He is placed on a diltiazem drip and his heart rates have improved. He is being diuresed and feels somewhat better but still has abdominal discomfort because of distention. Shortness of breath has improved. He is comfortable and in no acute distress at the time of my evaluation. Date of service 12/10: Off Diltiazem drip now, has occasional RVR. Date of service 12/12/2024: Rates are generally well-controlled. He states he feels about the same as he did when he entered the hospital, but notes his breathing has improved some.. Date of service 12/13/2024: Heart rates remain controlled. He denies shortness of breath. Swelling is perhaps slightly better. Review of Systems Review of Systems: All systems reviewed & are unremarkable except as noted in HPI and below Cardiovascular: Cardiovascular: Reports as per HPI Exam Const: General: comfortable, no acute distress, alert and awake Orientation/consciousness: patient oriented x3 Other: Morbidly obese HENMT: Head: normal to inspection Mouth: Yes moist mucous membranes Eyes: General: appearance normal, both eyes and all related structures Sclera: sclerae normal Pupils: Equal, round and reactive pupils present Neck: Neck: normal visual inspection, supple and no JVD Carotids: normal carotid upstroke Resp: Effort & Inspection: normal respiratory effort Cardio: Rate: regular rate Rhythm: abnormal rhythm irregularly irregular Heart sounds: S1 normal heart sound present, S2 normal heart sound present and no murmurs Other: Bilateral lower extremity edema GI: Inspection: distended Auscultation: normal bowel sounds Skin: General skin exam: normal color Neuro: General: patient oriented x3 Cranial nerves: Yes Equal, round and reactive pupils present Speech: normal speech Extrem: General: abnormal to inspection Other: mild bilateral pretibial edema Psych: Appearance: grossly normal Mental Status: mental status grossly normal Affect: normal affect Objective Data Vital Signs Vital Signs: Vital Signs - 24 hr 12/12/24 08:00 12/12/24 08:00 12/12/24 08:00 Temperature 37.1 C Pulse Rate 81 110 H Respiratory Rate 26 H Blood Pressure 132/107 H Pulse Oximetry 91 95 Oxygen Delivery Nasal Cannula Oxygen Flow Rate 2 12/12/24 09:30 12/12/24 09:32 12/12/24 10:00 Temperature Pulse Rate 106 H 117 H Respiratory Rate Blood Pressure Pulse Oximetry Oxygen Delivery Nasal Cannula Oxygen Flow Rate 3 12/12/24 12:00 12/12/24 12:00 12/12/24 12:00 Temperature 36.9 C Pulse Rate 94 86 Respiratory Rate 24 H Blood Pressure 119/67 Pulse Oximetry 97 98 Oxygen Delivery Nasal Cannula Oxygen Flow Rate 2 12/12/24 15:15 12/12/24 16:00 12/12/24 16:00 Temperature 37.2 C Pulse Rate 79 106 H Respiratory Rate 22 H Blood Pressure 112/81 Pulse Oximetry 96 100 Oxygen Delivery Nasal Cannula Oxygen Flow Rate 2 12/12/24 16:00 12/12/24 18:00 12/12/24 20:00 Temperature Pulse Rate 98 Respiratory Rate Blood Pressure Pulse Oximetry 98 97 Oxygen Delivery Nasal Cannula Room Air Oxygen Flow Rate 2 12/12/24 20:00 12/12/24 20:13 12/12/24 21:17 Temperature 36.8 C Pulse Rate 110 H 103 H 94 Respiratory Rate 20 Blood Pressure 110/55 L Pulse Oximetry 97 Oxygen Delivery Oxygen Flow Rate 12/12/24 21:58 12/12/24 23:44 12/12/24 23:52 Temperature 37.0 C Pulse Rate 96 93 Respiratory Rate 22 H Blood Pressure 116/56 L Pulse Oximetry 94 Oxygen Delivery Room Air Oxygen Flow Rate 12/13/24 00:00 12/13/24 02:00 12/13/24 04:00 Temperature 37.1 C Pulse Rate 91 89 80 Respiratory Rate 22 H Blood Pressure 109/61 Pulse Oximetry 93 Oxygen Delivery Oxygen Flow Rate 12/13/24 04:00 12/13/24 04:00 12/13/24 06:00 Temperature Pulse Rate 87 91 Respiratory Rate Blood Pressure Pulse Oximetry 93 Oxygen Delivery Nasal Cannula Oxygen Flow Rate 2 12/13/24 07:24 Temperature 37.0 C Pulse Rate 101 H Respiratory Rate 18 Blood Pressure 143/79 H Pulse Oximetry 100 Oxygen Delivery Oxygen Flow Rate Intake/Output Intake/Output: Intake & Output 12/10/24 12/11/24 12/12/24 12/13/24 23:59 23:59 23:59 23:59 Intake Total 2138 1040 1960 550 Output Total 2450 1350 900 600 Balance -312 -310 1060 -50 Meds/Results Medications: Active Medications Generic Name Dose Route Start Last Admin Trade Name Freq PRN Reason Stop Dose Admin Acetaminophen 650 mg 12/08/24 23:25 12/12/24 21:32 Acetaminophen 325 Mg Tablet PO 650 mg Q6H PRN Administration Mild Pain (1-3) or Fever Hydrocodone Bitart/Acetaminophen 1 tab 12/09/24 00:18 12/11/24 20:27 Hydrocodone/Acetaminophen (*Crx) 7.5-325 Mg Tablet PO 1 tab Q4H PRN Administration Pain Rated 7-10 Apixaban 5 mg 12/09/24 09:00 12/12/24 21:17 Apixaban 5 Mg Tablet PO 5 mg Q12HR SHIRA Administration Aspirin 81 mg 12/09/24 09:00 12/12/24 09:32 Aspirin 81 Mg Enteric Tablet PO 81 mg DAILY SHIRA Administration Atorvastatin Calcium 20 mg 12/09/24 09:00 12/12/24 09:30 Atorvastatin 20 Mg Tablet BY MOUTH 20 mg DAILY SHIRA Administration Clonidine HCl 0.2 mg 12/09/24 09:00 12/12/24 17:59 Clonidine Hcl 0.2 Mg Tablet PO 0.2 mg TID SHIRA Administration Cyanocobalamin 1,000 mcg 12/09/24 09:00 12/12/24 11:14 Cyanocobalamin 1,000 Mcg Tablet PO 1,000 mcg QAM SHIRA Administration Dextrose 12.5 gm 12/08/24 23:25 Dextrose 50% 25 Gm/50 Ml Syringe IV PUSH PRN PRN Hypoglycemia Protocol Diltiazem HCl 180 mg 12/10/24 12:10 12/12/24 09:30 Diltiazem Hcl Cd 180 Mg Cap.24hr PO 180 mg QAM SHIRA Administration Furosemide 40 mg 12/09/24 09:00 12/12/24 17:59 Furosemide Inj 40 Mg/4 Ml Vial IV PUSH 40 mg BID SHIRA Administration Gabapentin 300 mg 12/09/24 09:00 12/12/24 17:59 Gabapentin 300 Mg Capsule BY MOUTH 300 mg TID SHIRA Administration Glimepiride 4 mg 12/09/24 08:00 12/12/24 09:30 Glimepiride 2 Mg Tablet PO 4 mg DAILY@0800 SHIRA Administration Glucagon 1 mg 12/08/24 23:25 Glucagon For Inj 1 Mg Vial IM PRN PRN Hypoglycemia Protocol Glucose 15 gm 12/08/24 23:25 Glucose Oral Gel 15 Gm Of Glucse In 37.5 Gm Tube PO PRN PRN Hypoglycemia Protocol Dextrose 1,000 mls @ 100 mls/hr 12/08/24 23:25 Dextrose 5% 1,000 Ml IVPB PRN PRN Hypoglycemia Protocol Insulin Aspart 4 - 8 units 12/09/24 08:00 12/12/24 17:47 Insulin Aspart (*Bkc) 100 Units/Ml SUB-Q Not Given TIDWM [facility] Protocol Insulin Aspart 2 - 4 units 12/09/24 21:00 12/12/24 21:18 Insulin Aspart (*Bkc) 100 Units/Ml SUB-Q 2 units HS SHIRA Administration Protocol Insulin Glargine 60 units 12/09/24 17:00 12/12/24 17:59 Insulin Glargine (*Bkc) 100 Units/Ml SUB-Q 1 units DAILY@1700 SHIRA Administration Losartan Potassium 25 mg 12/09/24 09:00 12/12/24 09:30 Losartan Potassium 25 Mg Tablet PO 25 mg DAILY SHIRA Administration Metoprolol Tartrate 100 mg 12/09/24 09:00 12/12/24 21:17 Metoprolol Tartrate 50 Mg Tab PO 100 mg Q12HR SHIRA Administration Radiology Results: ITS Impressions Chest X-Ray 12/08/24 18:40 IMPRESSION: Mild pulmonary vascular congestion, without focal infiltrate or effusion. Abdomen Ultrasound 12/08/24 19:11 IMPRESSION: Evaluation of the pancreas is limited by overlying bowel gas. Phasic flow within the portal vein, suggesting portal hypertension. Fatty infiltration of the liver. Splenomegaly. Pulmonary Perfusion Imaging 12/08/24 21:11 IMPRESSION: 1. Low probability for pulmonary embolism. Venous Doppler Study 12/09/24 08:11 IMPRESSION: Negative bilateral lower extremity venous US. No deep vein thrombosis. Head CT 12/11/24 11:04 Impression: No acute intracranial hemorrhage or suspicious mass effect. Labs Labs: Laboratory Results - last 24 hr 12/12/24 12/12/24 12/12/24 07:55 11:32 11:43 WBC RBC Hgb Hct MCV MCH MCHC RDW Plt Count MPV Sodium Potassium Chloride Carbon Dioxide Anion Gap BUN Creatinine Estim Creat Clear Calc Estimated GFR Glucose POC Capillary Glucose 151 H 186 H Calcium Total Bilirubin AST ALT Alkaline Phosphatase NT-Pro-B Natriuret Pep 3800 H Total Protein Albumin 12/12/24 12/12/24 12/13/24 15:53 20:37 04:36 WBC 6.2 RBC 4.03 L Hgb 12.0 L Hct 39.4 L MCV 97.8 MCH 29.8 MCHC 30.5 L RDW 14.0 Plt Count 113 L MPV 11.9 H Sodium 138 Potassium 4.0 Chloride 97 L Carbon Dioxide 33 H Anion Gap 8 BUN 26 H Creatinine 1.19 Estim Creat Clear Calc 74 Estimated GFR 60 Glucose 94 POC Capillary Glucose 172 H 244 H Calcium 8.8 Total Bilirubin 0.5 AST 24 ALT 16 Alkaline Phosphatase 97 NT-Pro-B Natriuret Pep 4470 H Total Protein 7.0 Albumin 3.4 L Quality VTE Prophylaxis VTE prophylaxis: pharmacologic ordered
[2024-12-13 08:29] LABS: Glucose Point of Care 81 mg/dl (65-105)
[2024-12-13] MEDS: GLIMEPIRIDE 2 MG TABLET 4 MG PO (08:44)
[2024-12-13] MEDS: LOSARTAN POTASSIUM 25 MG TABLET PO (08:44)
[2024-12-13] MEDS: cloNIDine HCL 0.2 MG TABLET PO ×3 (08:45→17:10)
[2024-12-13] MEDS: APIXABAN 5 MG TABLET PO ×2 (08:45→21:19)
[2024-12-13] MEDS: CYANOCOBALAMIN 1,000 MCG TABLET 1000 MCG PO (08:45)
[2024-12-13] MEDS: METOPROLOL TARTRATE 50 MG TAB 100 MG PO ×2 (08:45→21:19)
[2024-12-13] MEDS: ASPIRIN 81 MG ENTERIC TABLET PO (08:46)
[2024-12-13] MEDS: ATORVASTATIN 20 MG TABLET BY MOUTH (08:46)
[2024-12-13] MEDS: FUROSEMIDE INJ 40 MG/4 ML VIAL IV PUSH (08:46)
[2024-12-13] MEDS: GABAPENTIN 300 MG CAPSULE BY MOUTH ×3 (08:46→17:10)
[2024-12-13] MEDS: dilTIAZem HCL CD 180 MG CAP.24HR PO (08:46)
--- NOTE | 2024-12-13 09:06 | P.PNIM_ITS ---
Progress Note: A&P Assessment and Plan (1) Atrial fibrillation with rapid ventricular response: Code(s): I48.91 - Unspecified atrial fibrillation Status: Acute Assessment and Plan: Patient heart rate is better. Will continue with metoprolol and monitor clozapine (2) Acute on chronic diastolic congestive heart failure: Code(s): I50.33 - Acute on chronic diastolic (congestive) heart failure Status: Acute Assessment and Plan: Patient swelling is much better. Will continue to diurese and monitor closely. Daily I and O. (3) Essential (primary) hypertension: Code(s): I10 - Essential (primary) hypertension Status: Acute Assessment and Plan: Stable on current medication, will continue current treatment. (4) Insulin dependent type 2 diabetes mellitus: Code(s): E11.9 - Type 2 diabetes mellitus without complications; Z79.4 - long term care administrator (current) use of insulin Status: Acute Assessment and Plan: Stable on current medication, will continue current treatment. (5) Obstructive sleep apnea: Code(s): G47.33 - Obstructive sleep apnea (adult) (pediatric) Status: Acute Assessment and Plan: Stable Plan Afib RVR, controlled Continue metoprolol 100 mg b.i.d. and diltiazem 180 mg p.o. q.d. CHADS2 VASc 4, continue Eliquis 5 mg b.i.d. ECHO showed EF 50-55% cardiology following CHF exacerbation, diastolic diffuse edema involving LE and abdominal war ECHO EF 50-55% Lasix 40 mg PO b.i.d. Monitor strict I's and O's cards following HLD continue statin DM Continue insulin glargine 60 units Sliding scale HTN Continue home meds DVT prophylaxis on full Eliquis Subjective Date/time seen: 12/13/24 09:06 Interval history: Unable to perform MRI due to weight. Ordered a CTA of head and neck. Possible discharge to skilled nursing tomorrow Review of Systems Review of Systems: 12 systems were reviewed and are negativ e except for as per HPI. Exam Narrative: General: Chronically ill-appearing gentleman the semi-Gonzalez position in bed. Weight: 159.7 kg. BMI: 55.1. HEENT: PERRL, EOMI. Sclera anicteric. Oral mucosa moist. Crowded oropharynx. Neck: Supple. Limited due to neck circumference. Respiratory: Air entry is better Cardiovascular: Irregularly irregular rate and rhythm. Gastrointestinal: Abdomen is obese and nontender with positive bowel sounds. Skin: Warm and dry. Extremities: No cyanosis or clubbing. 2 plus edema. No palpable knots or cords. Neurological: Alert. Cranial nerves 2-12 are grossly intact. No gross focal deficits to casual conversation. Psychiatric: Pleasant and cooperative with normal mood and affect. Objective Data Vital Signs Vital Signs: Vital Signs - 24 hr 12/12/24 09:30 12/12/24 09:32 12/12/24 10:00 Temperature Pulse Rate 106 H 117 H Respiratory Rate Blood Pressure Pulse Oximetry Oxygen Delivery Nasal Cannula Oxygen Flow Rate 3 12/12/24 12:00 12/12/24 12:00 12/12/24 12:00 Temperature 98.5 F Pulse Rate 94 86 Respiratory Rate 24 H Blood Pressure 119/67 Pulse Oximetry 97 98 Oxygen Delivery Nasal Cannula Oxygen Flow Rate 2 12/12/24 15:15 12/12/24 16:00 12/12/24 16:00 Temperature 98.9 F Pulse Rate 79 106 H Respiratory Rate 22 H Blood Pressure 112/81 Pulse Oximetry 96 100 Oxygen Delivery Nasal Cannula Oxygen Flow Rate 2 12/12/24 16:00 12/12/24 18:00 12/12/24 20:00 Temperature Pulse Rate 98 Respiratory Rate Blood Pressure Pulse Oximetry 98 97 Oxygen Delivery Nasal Cannula Room Air Oxygen Flow Rate 2 12/12/24 20:00 12/12/24 20:13 12/12/24 21:17 Temperature 98.3 F Pulse Rate 110 H 103 H 94 Respiratory Rate 20 Blood Pressure 110/55 L Pulse Oximetry 97 Oxygen Delivery Oxygen Flow Rate 12/12/24 21:58 12/12/24 23:44 12/12/24 23:52 Temperature 98.6 F Pulse Rate 96 93 Respiratory Rate 22 H Blood Pressure 116/56 L Pulse Oximetry 94 Oxygen Delivery Room Air Oxygen Flow Rate 12/13/24 00:00 12/13/24 02:00 12/13/24 04:00 Temperature 98.7 F Pulse Rate 91 89 80 Respiratory Rate 22 H Blood Pressure 109/61 Pulse Oximetry 93 Oxygen Delivery Oxygen Flow Rate 12/13/24 04:00 12/13/24 04:00 12/13/24 06:00 Temperature Pulse Rate 87 91 Respiratory Rate Blood Pressure Pulse Oximetry 93 Oxygen Delivery Nasal Cannula Oxygen Flow Rate 2 12/13/24 07:24 12/13/24 08:45 Temperature 98.6 F Pulse Rate 101 H 131 H Respiratory Rate 18 Blood Pressure 143/79 H Pulse Oximetry 100 Oxygen Delivery Oxygen Flow Rate Intake/Output Intake/Output: Intake & Output 12/10/24 12/11/24 12/12/24 12/13/24 23:59 23:59 23:59 23:59 Intake Total 2138 1040 1960 550 Output Total 2450 1350 900 600 Balance -312 -310 1060 -50 Meds/Results Medications: Active Medications Generic Name Dose Route Start Last Admin Trade Name Freq PRN Reason Stop Dose Admin Acetaminophen 650 mg 12/08/24 23:25 12/12/24 21:32 Acetaminophen 325 Mg Tablet PO 650 mg Q6H PRN Administration Mild Pain (1-3) or Fever Hydrocodone Bitart/Acetaminophen 1 tab 12/09/24 00:18 12/11/24 20:27 Hydrocodone/Acetaminophen (*Crx) 7.5-325 Mg Tablet PO 1 tab Q4H PRN Administration Pain Rated 7-10 Apixaban 5 mg 12/09/24 09:00 12/13/24 08:45 Apixaban 5 Mg Tablet PO 5 mg Q12HR SHIRA Administration Aspirin 81 mg 12/09/24 09:00 12/13/24 08:46 Aspirin 81 Mg Enteric Tablet PO 81 mg DAILY SHIRA Administration Atorvastatin Calcium 20 mg 12/09/24 09:00 12/13/24 08:46 Atorvastatin 20 Mg Tablet BY MOUTH 20 mg DAILY SHIRA Administration Clonidine HCl 0.2 mg 12/09/24 09:00 12/13/24 08:45 Clonidine Hcl 0.2 Mg Tablet PO 0.2 mg TID SHIRA Administration Cyanocobalamin 1,000 mcg 12/09/24 09:00 12/13/24 08:45 Cyanocobalamin 1,000 Mcg Tablet PO 1,000 mcg QAM SHIRA Administration Dextrose 12.5 gm 12/08/24 23:25 Dextrose 50% 25 Gm/50 Ml Syringe IV PUSH PRN PRN Hypoglycemia Protocol Diltiazem HCl 180 mg 12/10/24 12:10 12/13/24 08:46 Diltiazem Hcl Cd 180 Mg Cap.24hr PO 180 mg QAM SHIRA Administration Furosemide 40 mg 12/09/24 09:00 12/13/24 08:46 Furosemide Inj 40 Mg/4 Ml Vial IV PUSH 40 mg BID SHIRA Administration Gabapentin 300 mg 12/09/24 09:00 12/13/24 08:46 Gabapentin 300 Mg Capsule BY MOUTH 300 mg TID SHIRA Administration Glimepiride 4 mg 12/09/24 08:00 12/13/24 08:44 Glimepiride 2 Mg Tablet PO 4 mg DAILY@0800 SHIRA Administration Glucagon 1 mg 12/08/24 23:25 Glucagon For Inj 1 Mg Vial IM PRN PRN Hypoglycemia Protocol Glucose 15 gm 12/08/24 23:25 Glucose Oral Gel 15 Gm Of Glucse In 37.5 Gm Tube PO PRN PRN Hypoglycemia Protocol Dextrose 1,000 mls @ 100 mls/hr 12/08/24 23:25 Dextrose 5% 1,000 Ml IVPB PRN PRN Hypoglycemia Protocol Insulin Aspart 4 - 8 units 12/09/24 08:00 12/13/24 08:51 Insulin Aspart (*Bkc) 100 Units/Ml SUB-Q Not Given TIDWM SHIRA Protocol Insulin Aspart 2 - 4 units 12/09/24 21:00 12/12/24 21:18 Insulin Aspart (*Bkc) 100 Units/Ml SUB-Q 2 units HS SHIRA Administration Protocol Insulin Glargine 60 units 12/09/24 17:00 12/12/24 17:59 Insulin Glargine (*Bkc) 100 Units/Ml SUB-Q 1 units DAILY@1700 SHIRA Administration Losartan Potassium 25 mg 12/09/24 09:00 12/13/24 08:44 Losartan Potassium 25 Mg Tablet PO 25 mg DAILY SHIRA Administration Metoprolol Tartrate 100 mg 12/09/24 09:00 12/13/24 08:45 Metoprolol Tartrate 50 Mg Tab PO 100 mg Q12HR SHIRA Administration Radiology Results: ITS Impressions Chest X-Ray 12/08/24 18:40 IMPRESSION: Mild pulmonary vascular congestion, without focal infiltrate or effusion. Abdomen Ultrasound 12/08/24 19:11 IMPRESSION: Evaluation of the pancreas is limited by overlying bowel gas. Phasic flow within the portal vein, suggesting portal hypertension. Fatty infiltration of the liver. Splenomegaly. Pulmonary Perfusion Imaging 12/08/24 21:11 IMPRESSION: 1. Low probability for pulmonary embolism. Venous Doppler Study 12/09/24 08:11 IMPRESSION: Negative bilateral lower extremity venous US. No deep vein thrombosis. Head CT 12/11/24 11:04 Impression: No acute intracranial hemorrhage or suspicious mass effect. Labs Labs: Laboratory Results - last 24 hr 12/12/24 12/12/24 12/12/24 11:32 11:43 15:53 WBC RBC Hgb Hct MCV MCH MCHC RDW Plt Count MPV Sodium Potassium Chloride Carbon Dioxide Anion Gap BUN Creatinine Estim Creat Clear Calc Estimated GFR Glucose POC Capillary Glucose 186 H 172 H Calcium Total Bilirubin AST ALT Alkaline Phosphatase NT-Pro-B Natriuret Pep 3800 H Total Protein Albumin 12/12/24 12/13/24 12/13/24 20:37 04:36 07:20 WBC 6.2 RBC 4.03 L Hgb 12.0 L Hct 39.4 L MCV 97.8 MCH 29.8 MCHC 30.5 L RDW 14.0 Plt Count 113 L MPV 11.9 H Sodium 138 Potassium 4.0 Chloride 97 L Carbon Dioxide 33 H Anion Gap 8 BUN 26 H Creatinine 1.19 Estim Creat Clear Calc 74 Estimated GFR 60 Glucose 94 POC Capillary Glucose 244 H 81 Calcium 8.8 Total Bilirubin 0.5 AST 24 ALT 16 Alkaline Phosphatase 97 NT-Pro-B Natriuret Pep 4470 H Total Protein 7.0 Albumin 3.4 L Quality VTE Prophylaxis VTE prophylaxis: pharmacologic ordered Hospitalist MIPS Advance Care Plan I have confirmed that the patient's Advanced Care Plan is present, code status is documented, or surrogate decision maker is listed in patient medical record.: Yes Medication Reconciliation I have utilized all available resources to obtain, update and review the patients current medications (includes all prescriptions, OTC, herbals, cannabis, and nutritional supplements).: Yes
[2024-12-13 11:55] LABS: Glucose Point of Care 212 mg/dl (65-105)
[2024-12-13] MEDS: INSULIN ASPART (*BKC) 100 UNITS/ML SUB-Q (12:08)
[2024-12-13 16:48] LABS: Glucose Point of Care 151 mg/dl (65-105)
[2024-12-13] MEDS: INSULIN GLARGINE (*BKC) 100 UNITS/ML 60 UNITS SUB-Q (17:10)
[2024-12-13] MEDS: FUROSEMIDE 40 MG TABLET PO (17:10)
--- NOTE | 2024-12-13 17:24 | PC.NURSE ---
This patient, Francisco J Pineda, was transferred to [[id number] ] on 12/13/24 at 1724. Personal belongings sent with patient. Report given to [MILLIE De Leon @ [phone] ]. Appropriate documentation sent with patient.
--- NOTE | 2024-12-13 17:46 | PC.NURSE ---
This patient, Francisco J Pineda, was received from on 12/13/24 at 1746. Patient/family oriented to unit policies and routines.
--- NOTE | 2024-12-13 18:45 | PC.NURSE ---
On 12/13/24, the student, [Trisha Corrigan ], provided care and completed [facility] documentation on this patient. I have reviewed the student's documentation and agree with the findings.
[2024-12-13] MEDS: HYDROcodone/acetaminophen (*CRX) 7.5-325 MG TABLET 1 TAB PO (21:18)
[2024-12-13 21:27] LABS: Glucose Point of Care 183 mg/dl (65-105)
[2024-12-14 05:19] VITALS: BP 120/75; PULSE 95; RESP 18; TEMP 36.5; O2SAT 97
[2024-12-14 05:57] LABS: Hematocrit 38.7 % (42.0-52.0); Hemoglobin 11.9 g/dL (14.0-18.0); Immature Platelet Fraction Pct 8.8 % (0.9-11.2); Mean Corpuscular HGB Conc 30.7 g/dl (32-36); Mean Corpuscular Volume 97.5 fl (80-100); Mean Platelet Volume 12.1 fl (7.4-10.4); Platelet Count Result 102 k/mm3 (150-375); Red Blood Count 3.97 M/mm3 (4.6-6.20); Red Cell Distribution Width 13.9 % (11.5-14.5); White Blood Count 5.5 K/mm3 (4.5-10.0)
[2024-12-14 06:16] LABS: Alanine Aminotransferase 17 U/L (6-50); Albumin Level 3.5 g/dL (3.5-5.1); Alkaline Phosphatase 99 U/L (38-126); Anion Gap 4 mmol/L (4-12); Aspartate Amino Transferase 26 U/L (17-59); Bilirubin,Total 0.7 mg/dL (0.2-1.3); Blood Urea Nitrogen 23 mg/dL (9-20); Calcium 8.9 mg/dL (8.4-10.2); Carbon Dioxide 35 mmol/L (22-30); Chloride 97 mmol/L (98-107); Estimated CRCL calculation 95 ml/min; Estimated Glomerular Filt Rate > 60; Glucose 97 mg/dL (65-110); Potassium 3.9 mmol/L (3.4-5.0); Sodium 136 mmol/L (137-145)
[2024-12-14 08:03] LABS: Glucose Point of Care 106 mg/dl (65-105)
[2024-12-14 08:25] VITALS: BP 122/71; PULSE 96
[2024-12-14] MEDS: ASPIRIN 81 MG ENTERIC TABLET PO (08:26)
[2024-12-14] MEDS: cloNIDine HCL 0.2 MG TABLET PO ×3 (08:26→17:36)
[2024-12-14] MEDS: ATORVASTATIN 20 MG TABLET BY MOUTH (08:26)
[2024-12-14] MEDS: APIXABAN 5 MG TABLET PO ×2 (08:26→21:41)
[2024-12-14 08:27] VITALS: PULSE 96
[2024-12-14] MEDS: FUROSEMIDE 40 MG TABLET PO ×2 (08:27→17:36)
[2024-12-14] MEDS: LOSARTAN POTASSIUM 25 MG TABLET PO (08:27)
[2024-12-14] MEDS: METOPROLOL TARTRATE 50 MG TAB 100 MG PO ×2 (08:27→21:41)
[2024-12-14] MEDS: dilTIAZem HCL CD 180 MG CAP.24HR PO (08:27)
[2024-12-14] MEDS: GLIMEPIRIDE 2 MG TABLET 4 MG PO (08:27)
[2024-12-14] MEDS: GABAPENTIN 300 MG CAPSULE BY MOUTH ×3 (08:27→17:36)
[2024-12-14] MEDS: CYANOCOBALAMIN 1,000 MCG TABLET 1000 MCG PO (08:28)
[2024-12-14] MEDS: HYDROcodone/acetaminophen (*CRX) 7.5-325 MG TABLET 1 TAB PO ×3 (08:35→21:41)
--- NOTE | 2024-12-14 10:12 | PM.IMPN ---
Subjective Date/time seen: 12/14/24 10:12 Interval history: Unable to do MRI due to morbid obesity. 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 No acute intracranial process. Pending authorization for SNF Objective Data Vital Signs Vital Signs: Vital Signs - 24 hr 12/13/24 11:19 12/13/24 15:21 12/13/24 17:54 Temperature 97.9 F 98.4 F 99.0 F Pulse Rate 84 90 109 H Respiratory Rate 26 H 20 20 Blood Pressure 116/71 124/66 153/87 H Pulse Oximetry 98 95 91 Oxygen Delivery 12/13/24 20:00 12/13/24 21:19 12/13/24 21:55 Temperature 97.7 F Pulse Rate 117 H 79 Respiratory Rate 18 Blood Pressure 102/56 L Pulse Oximetry 93 Oxygen Delivery Room Air 12/14/24 05:19 12/14/24 08:25 12/14/24 08:25 Temperature 97.7 F Pulse Rate 95 96 Respiratory Rate 18 Blood Pressure 120/75 122/71 Pulse Oximetry 97 Oxygen Delivery Room Air 12/14/24 08:27 Temperature Pulse Rate 96 Respiratory Rate Blood Pressure Pulse Oximetry Oxygen Delivery Intake/Output Intake/Output: Intake & Output 12/11/24 12/12/24 12/13/24 12/14/24 23:59 23:59 23:59 23:59 Intake Total 1040 1960 1230 200 Output Total 1059 950 2087 400 Balance -310 1060 -20 -200 Meds/Results Medications: Active Medications Generic Name Dose Route Start Last Admin Trade Name Freq PRN Reason Stop Dose Admin Acetaminophen 650 mg 12/08/24 23:25 12/12/24 21:32 Acetaminophen 325 Mg Tablet PO 650 mg Q6H PRN Administration Mild Pain (1-3) or Fever Hydrocodone Bitart/Acetaminophen 1 tab 12/09/24 00:18 12/14/24 08:35 Hydrocodone/Acetaminophen (*Crx) 7.5-325 Mg Tablet PO 1 tab Q4H PRN Administration Pain Rated 7-10 Apixaban 5 mg 12/09/24 09:00 12/14/24 08:26 Apixaban 5 Mg Tablet PO 5 mg Q12HR SHRIA Administration Aspirin 81 mg 12/09/24 09:00 12/14/24 08:26 Aspirin 81 Mg Enteric Tablet PO 81 mg DAILY SHIRA Administration Atorvastatin Calcium 20 mg 12/09/24 09:00 12/14/24 08:26 Atorvastatin 20 Mg Tablet BY MOUTH 20 mg DAILY SHIRA Administration Clonidine HCl 0.2 mg 12/09/24 09:00 12/14/24 08:26 Clonidine Hcl 0.2 Mg Tablet PO 0.2 mg TID SHIRA Administration Cyanocobalamin 1,000 mcg 12/09/24 09:00 12/14/24 08:28 Cyanocobalamin 1,000 Mcg Tablet PO 1,000 mcg QAM SHIRA Administration Dextrose 12.5 gm 12/08/24 23:25 Dextrose 50% 25 Gm/50 Ml Syringe IV PUSH PRN PRN Hypoglycemia Protocol Diltiazem HCl 180 mg 12/10/24 12:10 12/14/24 08:27 Diltiazem Hcl Cd 180 Mg Cap.24hr PO 180 mg QAM SHIRA Administration Furosemide 40 mg 12/13/24 17:00 12/14/24 08:27 Furosemide 40 Mg Tablet PO 40 mg BID SHIRA Administration Gabapentin 300 mg 12/09/24 09:00 12/14/24 08:27 Gabapentin 300 Mg Capsule BY MOUTH 300 mg TID SHIRA Administration Glimepiride 4 mg 12/09/24 08:00 12/14/24 08:27 Glimepiride 2 Mg Tablet PO 4 mg DAILY@0800 SHIRA Administration Glucagon 1 mg 12/08/24 23:25 Glucagon For Inj 1 Mg Vial IM PRN PRN Hypoglycemia Protocol Glucose 15 gm 12/08/24 23:25 Glucose Oral Gel 15 Gm Of Glucse In 37.5 Gm Tube PO PRN PRN Hypoglycemia Protocol Dextrose 1,000 mls @ 100 mls/hr 12/08/24 23:25 Dextrose 5% 1,000 Ml IVPB PRN PRN Hypoglycemia Protocol Insulin Aspart 4 - 8 units 12/09/24 08:00 12/14/24 08:18 Insulin Aspart (*Bkc) 100 Units/Ml SUB-Q Not Given TIDWM [facility] Protocol Insulin Aspart 2 - 4 units 12/09/24 21:00 12/13/24 21:04 Insulin Aspart (*Bkc) 100 Units/Ml SUB-Q Not Given HS [facility] Protocol Insulin Glargine 60 units 12/09/24 17:00 12/13/24 17:10 Insulin Glargine (*Bkc) 100 Units/Ml SUB-Q 60 units DAILY@1700 SHIRA Administration Losartan Potassium 25 mg 12/09/24 09:00 12/14/24 08:27 Losartan Potassium 25 Mg Tablet PO 25 mg DAILY SHIRA Administration Metoprolol Tartrate 100 mg 12/09/24 09:00 12/14/24 08:27 Metoprolol Tartrate 50 Mg Tab PO 100 mg Q12HR SHIRA Administration Radiology Results: ITS Impressions Chest X-Ray 12/08/24 18:40 IMPRESSION: Mild pulmonary vascular congestion, without focal infiltrate or effusion. Abdomen Ultrasound 12/08/24 19:11 IMPRESSION: Evaluation of the pancreas is limited by overlying bowel gas. Phasic flow within the portal vein, suggesting portal hypertension. Fatty infiltration of the liver. Splenomegaly. Pulmonary Perfusion Imaging 12/08/24 21:11 IMPRESSION: 1. Low probability for pulmonary embolism. Venous Doppler Study 12/09/24 08:11 IMPRESSION: Negative bilateral lower extremity venous US. No deep vein thrombosis. Head CT 12/11/24 11:04 Impression: No acute intracranial hemorrhage or suspicious mass effect. Head/Neck CTA 12/13/24 16:30 IMPRESSION: 1. 40-60% stenosis of the right carotid bulb relative to normal distal artery lumen diameter (NASCET criteria) with more precise assessment limited by motion artifact. 2. Atherosclerotic plaque with 0% stenosis of the left carotid bulb relative to normal distal artery lumen diameter. 3. Extensive cerebral atherosclerotic disease with moderate stenosis at the left vertebral, basilar, right internal carotid arteries as well as the right A1 and P1 segments. 3. Old left occipital lobe infarct and moderate nonspecific cerebral white matter disease. No acute intracranial process. Labs Labs: Laboratory Results - last 24 hr 12/13/24 12/13/24 12/13/24 11:15 16:44 21:01 WBC RBC Hgb Hct MCV MCH MCHC RDW Plt Count MPV % Immature Plt Fraction Sodium Potassium Chloride Carbon Dioxide Anion Gap BUN Creatinine Estim Creat Clear Calc Estimated GFR Glucose POC Capillary Glucose 212 H 151 H 183 H Calcium Total Bilirubin AST ALT Alkaline Phosphatase Total Protein Albumin 12/14/24 12/14/24 05:30 08:00 WBC 5.5 RBC 3.97 L Hgb 11.9 L Hct 38.7 L MCV 97.5 MCH 30.0 MCHC 30.7 L RDW 13.9 Plt Count 102 L MPV 12.1 H % Immature Plt Fraction 8.8 Sodium 136 L Potassium 3.9 Chloride 97 L Carbon Dioxide 35 H Anion Gap 4 BUN 23 H Creatinine 0.91 Estim Creat Clear Calc 95 Estimated GFR > 60 Glucose 97 POC Capillary Glucose 106 H Calcium 8.9 Total Bilirubin 0.7 AST 26 ALT 17 Alkaline Phosphatase 99 Total Protein 7.0 Albumin 3.5
[2024-12-14 11:23] LABS: Glucose Point of Care 134 mg/dl (65-105)
[2024-12-14 14:00] VITALS: BP 118/81; PULSE 91; RESP 20; TEMP 36.5; O2SAT 97
--- NOTE | 2024-12-14 16:19 | P.DS_ITS ---
DS: Admitting Diagnosis Discharge Date 12/14/2024 Admitting Diagnosis Shortness of breath. DS: Discharge Diagnosis Discharge Diagnosis (1) Atrial fibrillation with rapid ventricular response: Code(s): I48.91 - Unspecified atrial fibrillation Status: Acute Assessment and Plan: Patient heart rate is better. Will continue with metoprolol and monitor clozapine (2) Acute on chronic diastolic congestive heart failure: Code(s): I50.33 - Acute on chronic diastolic (congestive) heart failure Status: Acute Assessment and Plan: Patient swelling is much better. Will continue to diurese and monitor closely. Daily I and O. (3) Essential (primary) hypertension: Code(s): I10 - Essential (primary) hypertension Status: Acute Assessment and Plan: Stable on current medication, will continue current treatment. (4) Insulin dependent type 2 diabetes mellitus: Code(s): E11.9 - Type 2 diabetes mellitus without complications; Z79.4 - skilled nursing (current) use of insulin Status: Acute Assessment and Plan: Stable on current medication, will continue current treatment. (5) Obstructive sleep apnea: Code(s): G47.33 - Obstructive sleep apnea (adult) (pediatric) Status: Acute Assessment and Plan: Stable Plan Afib RVR, controlled Continue metoprolol 100 mg b.i.d. and diltiazem 180 mg p.o. q.d. CHADS2 VASc 4, continue Eliquis 5 mg b.i.d. ECHO showed EF 50-55% cardiology following CHF exacerbation, diastolic diffuse edema involving LE and abdominal war ECHO EF 50-55% Lasix 40 mg PO b.i.d. Monitor strict I's and O's cards following HLD continue statin DM Continue insulin glargine 60 units Sliding scale HTN Continue home meds DVT prophylaxis on full Eliquis DS: Summary Hospital Course Hospital Course: 74-year-old male with history of stroke, coronary artery disease, diastolic dysfunction, hypertension, dyslipidemia, chronic kidney disease, type 2 diabetes mellitus, untreated sleep apnea, and morbid obesity who presented to the emergency department with complaints of shortness of breath. He gives a 2 to three-week history of progressive lower extremity edema extending to the abdomen, dyspnea on lesser and lesser exertion, and occasional sensations of racing heart. He estimates that he has gained 30 lb in the last few weeks, mainly in his abdomen. He does not necessarily have abdominal pain per se but he has more of a fullness feeling due to the swelling. His appetite has not been great but he attributes that to the fact that he gets a bit short of breath with eating. Additionally he has a cough which is occasionally productive of yellow- colored sputum. On presentation to the emergency department he was found to be in rapid atrial fibrillation which is a new diagnosis for him. With further questioning he does mention intermittent palpitations over the years but they are always fleeting and he in fact is not having any sensations of racing heart at this time. He denies syncope, near syncope, fever, sinus congestion, sore throat, pleuritic pain, vomiting, and calf pain. No known history of atrial fibrillation or congestive heart failure. He denies significant caffeine and alcohol use. In the ED: His heart rate was 125 on arrival, and atrial fibrillation. Blood pressure was 125/86. Labs were significant for a WBC count of 9.6, platelet 127, D-dimer 1.64, troponin less than 0.012, proBNP 3540, glucose 224. Chest x-ray showed mild pulmonary vascular congestion without focal infiltrate or effusion. Right upper quadrant ultrasound showed phasic flow within the portal vein suggesting portal hypertension, fatty infiltration of the liver, and s plenomegaly. V/Q scan she showed low probability for pulmonary embolism. He was started on a diltiazem drip with improvement in his rate and was given a dose of apixaban given elevated [id number]. He is being admitted in this setting for further treatment and evaluation. Assumed care 12/12 -12/14 During the hospitalization patient was treated for acute on chronic heart failure with preserved left ventricular ejection fraction and atrial fibrillation with the RVR. Patient was treated with Lasix 40 mg p.o. b.i.d. and metoprolol 100 mg b.i.d. and diltiazem 180 mg p.o. b.i.d. and advised to continue Eliquis 5 mg b.i.d. As per nursing on 12/11 night, patient had evidence of drooping of eyelid on left side . Of note patient had chronic drooping of right eyelid. Color Strainer performed CT which shows no significant findings. In morning during my evaluation patient had evidence of left eyelid drooping but no evidence of right eye lid drooping. When asked about which side he has chronic eyelid drooping he is not sure about which eye he has the chronic drooping. Unable to do MRI due to morbid obesity. 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 No acute intracranial process. Advised patient to follow-up with neurologist as an outpatient and driver's license reviewing officer for obstructive sleep apnea. Status at Discharge Cognitive/behavioral status at discharge: Stable Time Spent with Patient Time attestation: Total time spent providing and/or coordinating discharge services: 45 minute Exam Narrative: General: Chronically ill-appearing gentleman the semi-Gonzalez position in bed. Weight: 159.7 kg. BMI: 55.1. HEENT: PERRL, EOMI. Sclera anicteric. Oral mucosa moist. Crowded oropharynx. Neck: Supple. Limited due to neck circumference. Respiratory: Air entry is better Cardiovascular: Irregularly irregular rate and rhythm. Gastrointestinal: Abdomen is obese and nontender with positive bowel sounds. Skin: Warm and dry. Extremities: No cyanosis or clubbing. 2 plus edema. No palpable knots or cords. Neurological: Alert. Cranial nerves 2-12 are grossly intact. No gross focal deficits to casual conversation. Psychiatric: Pleasant and cooperative with normal mood and affect. DS: Data Data Completed and Pending Labs on day of discharge: Labs from last 24 hours 12/14/24 12/14/24 12/14/24 11:19 08:00 05:30 WBC 5.5 RBC 3.97 L Hgb 11.9 L Hct 38.7 L MCV 97.5 MCH 30.0 MCHC 30.7 L RDW 13.9 Plt Count 102 L MPV 12.1 H % Immature Plt Fraction 8.8 Sodium 136 L Potassium 3.9 Chloride 97 L Carbon Dioxide 35 H Anion Gap 4 BUN 23 H Creatinine 0.91 Estim Creat Clear Calc 95 Estimated GFR > 60 Glucose 97 POC Capillary Glucose 134 H 106 H Calcium 8.9 Total Bilirubin 0.7 AST 26 ALT 17 Alkaline Phosphatase 99 Total Protein 7.0 Albumin 3.5 12/13/24 12/13/24 21:01 16:44 WBC RBC Hgb Hct MCV MCH MCHC RDW Plt Count MPV % Immature Plt Fraction Sodium Potassium Chloride Carbon Dioxide Anion Gap BUN Creatinine Estim Creat Clear Calc Estimated GFR Glucose POC Capillary Glucose 183 H 151 H Calcium Total Bilirubin AST ALT Alkaline Phosphatase Total Protein Albumin Discharge Plan Discharge Attending physician on discharge: Silvano Johnston Consulting providers: Celina Tenorio; Betty Dumas Discharging Clinician: Silvano Johnston Anticipated Discharge Date/Time: 12/14/24 16:29 Patient Disposition: [place] Longterm/Asst Living Activity: as tolerated Diet: diabetic Discharge Instructions: Please see the driver's license reviewing officer as an outpatient for obstructive sleep apnea workup Please follow-up with the dial maker for obesity and diabetic management Check blood pressure 1 to 2 times a day. Record and bring into your doctor for review. Call your doctor if your blood pressure is greater than 180/110 or less than 90/45. Walk with cane or other assist device. Take precautions to avoid falls. Rise slowly from a lying or sitting position. Pause before standing or walking. Contact your doctor or call 911 and come to the Emergency Room if you have any type of trauma, lightheadedness with standing or other worrisome symptoms. Avoid NSAIDs (ibuprofen, naproxen, Aleve). Tylenol is safe to take. Follow-up with your primary care provider in 1-2 weeks. Please call for appointment. Follow-up with Cardiology in 2-4 weeks. Please call for an appointment. Thank you for using [facility] for your health care needs. Patient Instructions: Antibiotic Form, Heart Failure (DC), Heart Failure (GEN), A-fib (Atrial Fibrillation) (GEN), Safe Use of Anticoagulants (DC), Safe Use of Anticoagulants (GEN) Patient Language: Tongan Stand Alone Forms: General Discharge Information Discharge Medications: New Eliquis 5 mg Tablet 5 mg PO Q12HR Qty: 60 0RF diltiazem HCl 180 mg Capsule,Ext.Rel 24h Degradable 180 mg PO QAM Qty: 30 0RF furosemide 40 mg Tablet 40 mg PO BID Qty: 30 0RF Continued naloxone 4 mg/actuation spray,non-aerosol 4 mg intranasal Q3M PRN (Reason: opioid overdose) Qty: 2 0RF Rx Instructions: spray 1 dose into ONE nostril; alternate nostrils w each dose until help arrives--PT STATES NEVER PICKED UP RX (DME) FreeStyle Sara 2 Termo Misc See Rx Instructions .Route Qty: 1 0RF Rx Instructions: use to monitor blood sugar on insulin losartan 25 mg tablet 25 mg PO DAILY Qty: 90 1RF cyanocobalamin (vitamin B-12) [Vitamin B-12] 1,000 mcg Tablet 1,000 mcg PO QAM Qty: 0 0RF (DME) lancets [Microlet Lancet] Misc See Rx Instructions .Route Qty: 100 0RF Rx Instructions: As directed test daily gabapentin 300 mg capsule See Rx Instructions .ROUTE .COMPLEX Qty: 270 3RF Dose Instruction: TAKE 1 CAPSULE BY MOUTH THREE TIMES A DAY Rx Instructions: TAKE 1 CAPSULE BY MOUTH THREE TIMES A DAY metoprolol tartrate 100 mg tablet See Rx Instructions .ROUTE .COMPLEX Qty: 180 3RF Dose Instruction: TAKE 1 TABLET BY MOUTH EVERY 12 HOURS Rx Instructions: TAKE 1 TABLET BY MOUTH EVERY 12 HOURS (DME) pen needle, diabetic [BD Ultra-Fine Short Pen Needle] 31 gauge x 5/16 needle See Rx Instructions .ROUTE .COMPLEX Qty: 200 3RF Dose Instruction: USE WITH INSULIN INJECTIONS ONCE DAILY Rx Instructions: USE WITH INSULIN INJECTIONS TWICE A DAY atorvastatin 20 mg tablet See Rx Instructions .ROUTE .COMPLEX Qty: 90 1RF Dose Instruction: TAKE 1 TABLET BY MOUTH EVERY DAY IN THE MORNING Rx Instructions: TAKE 1 TABLET BY MOUTH EVERY DAY IN THE MORNING aspirin [Teo Low Dose Aspirin] 81 mg tablet,delayed release (DR/EC) 81 mg PO DAILY Qty: 100 3RF clonidine HCl 0.2 mg tablet 0.2 mg PO TID Qty: 300 3RF glimepiride 4 mg tablet See Rx Instructions .ROUTE .COMPLEX Qty: 90 1RF Dose Instruction: TAKE 1 TABLET BY MOUTH EVERY MORNING WITH BREAKFAST Rx Instructions: TAKE 1 TABLET BY MOUTH EVERY MORNING WITH BREAKFAST amlodipine 10 mg tablet See Rx Instructions .ROUTE .COMPLEX Qty: 90 1RF Dose Instruction: TAKE 1 TABLET BY MOUTH EVERYDAY AT BEDTIME Rx Instructions: TAKE 1 TABLET BY MOUTH EVERYDAY AT BEDTIME (DME) FreeStyle Sara 2 Sensor Kit See Rx Instructions .Route Qty: 2 3RF Rx Instructions: use to monitor blood sugar while on insulin ergocalciferol (vitamin D2) 1,250 mcg (50,000 unit) capsule See Rx Instructions .ROUTE .COMPLEX Qty: 12 0RF Dose Instruction: TAKE 1 CAPSULE BY MOUTH ONE TIME PER WEEK Rx Instructions: TAKE 1 CAPSULE BY MOUTH ONE TIME PER WEEK Ozempic 1 mg/dose (4 mg/3 mL) pen injector 1 mg subcut WEEKLY Qty: 3 5RF hydrocodone-acetaminophen 7.5-325 mg tablet 1 tablet PO Q4H PRN (Reason: Pain Rated 7-10) Qty: 180 0RF Toujeo Max U-300 SoloStar 300 unit/mL (3 mL) insulin pen See Rx Instructions .ROUTE .COMPLEX Qty: 6 2RF Dose Instruction: INJECT 50 UNITS SUBCUTANEOUSLY IN THE MORNING AND 60 IN THE EVENING Rx Instructions: INJECT 50 UNITS SUBCUTANEOUSLY IN THE MORNING AND 60 IN THE EVENING Discontinued furosemide 20 mg tablet See Rx Instructions .ROUTE .COMPLEX Qty: 180 1RF Dose Instruction: TAKE 2 TABLETS BY MOUTH EVERY MORNING Rx Instructions: TAKE 2 TABLETS BY MOUTH EVERY MORNING Date of admission: 12/09/24 10:22 Primary Care Provider: Kevyn Mccann Admitting Provider: Terry Stanley Attending physician on admission: Terry Stanley Condition: Stable
[2024-12-14 17:29] LABS: Glucose Point of Care 178 mg/dl (65-105)
[2024-12-14] MEDS: INSULIN GLARGINE (*BKC) 100 UNITS/ML 60 UNITS SUB-Q (17:36)
[2024-12-14 21:21] LABS: Glucose Point of Care 130 mg/dl (65-105)
[2024-12-14 22:00] VITALS: BP 127/79; PULSE 106; RESP 18; TEMP 36.6; O2SAT 95
== END 2024-12-14 22:30 | DRG 291 ==
LOC: ANHED 21:48 → ANHIMU 22:39 → ANH3MEDSUR 12-14 16:30 → ANHIMU 12-15 10:06
PROVIDERS: Nurse Practitioner; Physician Assistant; Admitting Provider Internal Medicine; Emergency Provider Registered Nurse; PCP Family Medicine; Visit Provider General Practice
DX: I13.0 Hypertensive heart and chronic kidney disease with heart failure and stage 1 through stage 4 chronic kidney disease, or unspecified chronic kidney disease (principal); I50.33 Acute on chronic diastolic (congestive) heart failure; K76.6 Portal hypertension; Z68.43 Body mass index [BMI] 50.0-59.9, adult; I48.91 Unspecified atrial fibrillation; I25.10 Atherosclerotic heart disease of native coronary artery without angina pectoris; E11.22 Type 2 diabetes mellitus with diabetic chronic kidney disease; N18.30 Chronic kidney disease, stage 3 unspecified; E78.2 Mixed hyperlipidemia; G47.33 Obstructive sleep apnea (adult) (pediatric); I70.0 Atherosclerosis of aorta; E66.01 Morbid (severe) obesity due to excess calories; Z87.891 Personal history of nicotine dependence; I25.2 Old myocardial infarction; Z85.828 Personal history of other malignant neoplasm of skin; Z86.73 Personal history of transient ischemic attack (TIA), and cerebral infarction without residual deficits
CPT/HCPCS: 36415; 70450; 70496; 70498; 71045; 76700; 78582; 80048; 80053; 82948; 83036; 83690; 83735; 83880; 84443; 84484; 85025; 85027; 85055; 85380; 85610; 85730; 93005; 93970; 94762; 96366; 96374; 96375; 97110; 97162; 97166; 97530; 99285; A9270; A9540; A9558; C8929; G0378; J1815; J1940; Q9957; Q9967

== ENCOUNTER 2024-12-17 20:09 | Inpatient (IN) | payer OTHER, SELFPAY ==
[2024-12-17] VITALS (11 sets, daily range): BP systolic 137–169; BP diastolic 100–133; PULSE 83–105; RESP 24–30; O2SAT 91–100
--- NOTE | ~2024-12-17 | XR_ITS ---
CHEST RADIOGRAPH CLINICAL HISTORY: dyspnea/ chf . COMPARISON: 12/08/2024 TECHNIQUE: Single portable view of the chest. FINDINGS The cardiomediastinal silhouette is enlarged, unchanged. Calcified lymph nodes within the mediastinum suggesting prior granulomatous disease. Increased interstitial markings are identified bilaterally, findings suggesting mild pulmonary vascul ar congestion. Bilateral pleural effusions, right greater than left. The remainder of the lungs are clear. IMPRESSION: Bilateral pleural effusions, with mild pulmonary vascular congestion. Reviewed, dictated and finalized at location A.
--- NOTE | ~2024-12-17 | XR_ITS ---
Portable chest x-ray Comparison: 12/18/2024 Clinical History: Shortness of breath Findings: Probable minimal right pleural effusion present. Left lung clear. Cardiomediastinal silho uette is stable. Calcified mediastinal lymph nodes are present. Bones and soft tissues are unremarkab le. Impression: Minimal right pleural effusion. Stable cardiomegaly. Reviewed, dictated and finalized at location . Impression: Minimal right pleural effusion. Stable cardiomegaly.
--- NOTE | ~2024-12-17 | XR_ITS ---
EXAMINATION: XR chest 1V portable Exam Date/Time: 12/18/2024 18:35 CDT HISTORY: hypoxia Comparison: 12/17/2024. RESULT: Lines, tubes, and devices: None. Lungs and pleura: Leftward rotation. Increasing mild diffuse reticular and groundglass opacities wit h indistinct vessels. Increasing bilateral costophrenic angle blunting. Cardiomediastinal silhouette: Stable. Calcified nodes. Other: No acute osseous or upper abdominal finding. IMPRESSION: Interval development of mild interstitial edema. Increasing small bilateral pleural effusions. Reviewed, dictated and finalized at location K. IMPRESSION: Interval development of mild interstitial edema. Increasing small bilateral ple ural effusions.
--- NOTE | 2024-12-17 20:59 | ECG_ITS ---
Test Date: 2024-12-17 21:31:26 Measurements Intervals [place] Rate: 86 P: 0 MA: 0 QRS: -27 QRSD: 87 T: 12 QT: 386 QTc: 462 Interpretive Statements ATRIAL FIBRILLATION WITH ABERRANT CONDUCTION OR VENTRICULAR PREMATURE COMPLEXES LOW QRS VOLTAGE IN PRECORDIAL LEADS [QRS DEFLECTION < 1.0 mV IN CHEST LEADS] POSSIBLE ANTERIOR MYOCARDIAL INFARCTION , PROBABLY OLD [30 ms Q WAVE IN V3/V4, OR R < 0.2 mV IN V4] POSSIBLE INFERIOR MYOCARDIAL INFARCTION , PROBABLY OLD [30 ms Q WAVE IN II/aVF] ABNORMAL ECG Electronically Signed On 12-18-2024 07:41:25 CDT by Tru Rodriguez M.D.
--- OUTSIDE RECORDS SUMMARY | 2024-12-17 20:59 | XMS_ITS | Clinical Summary ---
Author Organization [facility] Address [address] [place] [id number] Care Team Providers Care Clinical Auditor Name Role Phone Unavailable Primary Care Provider [...]
--- OUTSIDE RECORDS SUMMARY | 2024-12-17 20:59 | XMS_ITS | Referral Summary ---
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 Gender Identity Not on file Sexual Orientation [...] CDT Plan of Treatment Not on file Procedures Procedure Name Priority Date/Time Associated Diagnosis Comments CARDIOLOGY DOCUMENT SCAN Routine 12/12/2024 3:54 PM CDT CARDIOLOGY DOCUMENT SCAN Routine 12/10/2024 3:52 PM CDT CARDIOLOGY DOCUMENT SCAN Routine 12/09/2024 3:37 PM CDT from Last 3 Months Results * Cardiology Document Scan (12/12/2024 3:54 PM CDT) Anatomical Region Laterality Modality Other us Celina Tenorio NP [facility] CARDIAC SERVICES PROCEDUR ES Final Result * Cardiology Document Scan (12/10/2024 3:52 PM CDT) Anatomical Region Laterality Modality Other Gui Posadas MD [facility] CARDIAC SERVICES PRO CEDURES Final Result * Cardiology Document Scan (12/09/2024 3:37 PM CDT) Anatomical Region Laterality Modality Other Celina Tenorio NP CV CARDIAC SERVICES PROCEDUR ES Final Result from Last 3 Months Insurance [facility] Care Teams Manager Administration Relationship Specialty Start Date End Date Evie Platt MD [address] [address] PCP - General 10/25/15
--- OUTSIDE RECORDS SUMMARY | 2024-12-17 20:59 | XMS_ITS | Encounter Summary ---
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 Gender Identity Not on file Sexual Orientation Not on file documented as of this encounter Plan of Treatment Not on file documented as of this encounter Procedures Procedure Name Priority Date/Time Associated Diagnosis Comments CARDIOLOGY DOCUMENT SCAN Routine 12/12/2024 3:54 PM CDT CARDIOLOGY DOCUMENT SCAN Routine 12/10/2024 3:52 PM CDT CARDIOLOGY DOCUMENT SCAN Routine 12/09/2024 3:37 PM CDT documented in this encounter Results * Cardiology Document Scan (12/12/2024 3:54 [...] CV CARDIAC SERVICES PROCEDUR ES Final Result documented in this encounter Visit Diagnoses Not on filedocumented in this encounter Care Teams Processing Technician Relationship Specialty Start Date End Date Evie Platt MD [address] [address] PCP - General 10/25/15 documented as of this encounter
--- OUTSIDE RECORDS SUMMARY | 2024-12-17 20:59 | XMS_ITS | Clinical Summary ---
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
[2024-12-17] MEDS: FUROSEMIDE INJ 40 MG/4 ML VIAL IV PUSH (21:18)
--- NOTE | 2024-12-17 21:22 | ED_ITS ---
HPI - General Adult General Chief complaint: Shortness of Breath/Dyspnea Stated complaint: SOB, INCREASED EDEMA Time Seen by Provider: 12/17/24 20:18 History of Present Illness HPI narrative: This is a 74-year-old male history of congestive heart failure morbid obesity presenting for difficulty breathing. He is discharged from our hospital 3 days ago after admission for congestive heart failure and atrial fibrillation with RVR. Since the senior care his notice increased swelling of his legs and abdomen. He is now feeling more short of breath. He denies fevers chills chest pain difficulty breathing. He says he has been taking 40 mg Lasix b.i.d. p.o. daily. He says that he is eating whatever the senior care gives him. Related Data Allergies Allergy/AdvReac Type Severity Reaction Status Date / Time metformin AdvReac Severe diarrhea Uncoded 12/11/24 02:43 PMFSH Past Medical History Medical History Diastolic dysfunction Insulin dependent type 2 diabetes mellitus Depression Constipation Vitamin B12 deficiency Stroke BCC (basal cell carcinoma of skin) Nasal lesion Atherosclerosis of aorta Personal history of nicotine dependence Insomnia Physical debility Lesion of nose Coronary arteriosclerosis in patient with history of previous myocardial infarction MPI in September 2019 showed infarct with relatively preserved EF Morbid obesity Ambulatory dysfunction Chronic kidney disease, stage 3 (moderate) Chronic pain disorder Diabetic nephropathy associated with type 2 diabetes mellitus Essential (primary) hypertension Intervertebral disc disorders with myelopathy, lumbar region Mixed hyperlipidemia Obstructive sleep apnea (adult) (pediatric) Non compliant with CPAP Opioid dependence, uncomplicated Ventricular hypertrophy due to hypertensive disease Vitamin D deficiency, unspecified Surgical History Surgical History Status post surgical removal of malignant neoplasm of skin History of cholecystectomy History of appendectomy Family History Family History Mother Patient's mother is Family history of premature coronary heart disease Father Family history of diabetes mellitus in first degree relative Hypertension Patient's father is Alcoholic cirrhosis of liver Social History Social History Social History: Surrogate medical decision maker: Clifford Pineda, son. Code status: Full code. Smoking packs per day: 1 Smoking cigarettes per day: 20.0 Years smoked: 20 Smoking pack-years: 20.00 Smoking status: Former smoker Tobacco type: cigarettes Second hand tobacco smoke exposure: Yes Additional smoking assessment comments: Quit 2013. Alcohol intake: never Alcohol use details: No alcohol in over 25 years. Substance use: never Substance use type: does not use Do You Feel Safe in your Home?: Yes Lack of Transportation: No Lack of Food: Never True Current Housing: I Have Housing Concerned About Future Housing: No Difficulty Paying Gas/Electric Bills: No Difficulty Paying for Meds: No Currently Unemployed: No Education: High School Diploma/GED Difficulty w/ Childcare or Family Care: No Living arrangements: with family Additional living arrangements comments: He and his son live together in [place]. Occupation/Education: retired Spiritual care concerns: No Exam 2 Narrative: APPEARANCE: No apparent distress. Head: atraumatic. EYES: EOMI, NOSE: Atraumatic NECK: Trachea midline RESPIRATORY: Tachypneic, bibasilar rales, requiring supplemental oxygen CARDIOVASCULAR: RRR, pitting edema of the legs thighs. Swelling of her abdominal wall. ABDOMINAL: Distended, nontender MUSCULOSKELETAl: No obvious deformities NEURO: Alert. Moving 4/4 extremities SKIN:: Warm, dry. Normal color PSYCHIATRIC: Normal affect Course Vital Signs Vital signs: Vital Signs Pulse Rate 105 H 12/17/24 20:17 Respiratory Rate 30 H 12/17/24 20:17 Blood Pressure 169/133 H 12/17/24 20:17 Pulse Oximetry 93 12/17/24 20:17 Oxygen Delivery Room Air 12/17/24 20:17 Oxygen Flow Rate 2 12/17/24 20:17 Pulse Rate 88 12/17/24 21:22 Respiratory Rate 30 H 12/17/24 22:33 Blood Pressure 169/133 H 12/17/24 20:17 Pulse Oximetry 98 12/17/24 22:52 Oxygen Delivery Nasal Cannula 12/17/24 22:52 Oxygen Flow Rate 2 12/17/24 22:52 Medical Decision Making [facility] Narrative Medical decision making narrative: -Course: 74-year-old male w/ CHF presenting for shortness of breath. Patient is tachypneic and grossly edematous. Patient is 90 92% room air with p.o. to of 63.0. Placed on 2 L nasal cannula.. He has significant edema. Chest x-ray with pulmonary edema and small pleural effusions. EKG shows atrial fib without RVR. Given 40 mg IV Lasix. Patient will be admitted hospital for further management congestive heart failure and hypoxic respiratory failure. -DDX includes but is not limited to: CHF exacerbation, medication noncompliance, diet noncompliance, pneumonia -Co-morbidities complicating care: CHF, AFib morbid obesity Vital Signs Vital Signs: Vital Signs Pulse Rate 105 H 12/17/24 20:17 Respiratory Rate 30 H 12/17/24 20:17 Blood Pressure 169/133 H 12/17/24 20:17 Pulse Oximetry 93 12/17/24 20:17 Oxygen Delivery Room Air 12/17/24 20:17 Oxygen Flow Rate 2 12/17/24 20:17 Pulse Rate 88 12/17/24 21:22 Respiratory Rate 30 H 12/17/24 22:33 Blood Pressure 169/133 H 12/17/24 20:17 Pulse Oximetry 98 12/17/24 22:52 Oxygen Delivery Nasal Cannula 12/17/24 22:52 Oxygen Flow Rate 2 12/17/24 22:52 Lab Data 12/17/24 21:19 12/17/24 21:19 Labs: Lab Results 12/17/24 12/17/24 12/17/24 Range/Units 21:19 21:19 21:28 WBC 6.8 (4.5-10.0) K/mm3 RBC 3.78 L (4.6-6.20) M/mm3 Hgb 11.4 L (14.0-18.0) g/dL Hct 35.8 L (42.0-52.0) % MCV 94.7 (80-100) fl MCH 30.2 (26-34) pg MCHC 31.8 L (32-36) g/dl RDW 14.0 (11.5-14.5) % Plt Count 113 L (150-375) k/mm3 MPV 11.4 H (7.4-10.4) fl Immature Gran % (Auto) 0.3 (0-0.5) % Neut % (Auto) 73.5 H (45.5-73.1) % Lymph % (Auto) 19.1 (18.3-44.2) % Warren % (Auto) 5.9 (2.6-8.5) % Eos % (Auto) 0.9 (0-4.4) % Baso % (Auto) 0.3 (0.2-1.2) % Lymph # (Auto) 1.29 (0.9-3.2) K/mm3 Warren # (Auto) 0.4 (0.1-0.6) K/mm3 Eos # (Auto) 0.1 (0-0.3) K/mm3 Baso # (Auto) 0.0 (0.0-0.1) K/mm3 Abs Immat Gran (auto) 0.02 (0.00-0.031) K/mm3 Absolute Neuts (auto) 5.0 (1.3-6.7) K/mm3 Absolute Nucleated RBC 0.000 (0.0-0.012) K/mm3 Nucleated RBC % 0.0 (0.0-0.2) % % Immature Plt Fraction 8.3 (0.9-11.2) % Sodium 136 L (137-145) mmol/L Potassium 3.4 (3.4-5.0) mmol/L Chloride 96 L (98-107) mmol/L Carbon Dioxide 35 H (22-30) mmol/L Anion Gap 5 (4-12) mmol/L BUN 14 D (9-20) mg/dL Creatinine 0.88 (0.7-1.3) mg/dL Estim Creat Clear Calc 97 ml/min Estimated GFR > 60 (59 - ) Glucose 138 H (65-110) mg/dL POC Capillary Glucose 131 H (65-105) mg/dl Calcium 8.5 (8.4-10.2) mg/dL Total Bilirubin 0.4 (0.2-1.3) mg/dL AST 27 (17-59) U/L ALT 23 (6-50) U/L Alkaline Phosphatase 91 (38-126) U/L Troponin I 0.013 Cancelled (0.000-0.034) ng/mL NT-Pro-B Natriuret Pep 3770 H (19.9-100) pg/mL Total Protein 6.0 L (6.3-8.2) g/dL Albumin 3.4 L (3.5-5.1) g/dL Urine Color (Yellow) Urine Appearance (Clear) Urine pH (5.0-9.0) Ur Specific [place] (1.001-1.035) Urine Protein (Negative) mg/dL Urine Glucose (UA) (Negative) mg/dL Urine Ketones (Negative) mg/dL Ur Blood (Man) (Negative) Urine Nitrate (Negative) Urine Bilirubin (Negative) Urine Urobilinogen (<2.0) mg/dL Leukocyte Esterase Rfl (Negative) KEISHA/UL Influenza A (RT-PCR) Negative (Negative) Influenza B (RT-PCR) Negative (Negative) RSV (RT-PCR) Negative (Negative) SARS-CoV-2 RNA (RT-PCR) Negative (Negative) 12/17/24 Range/Units 22:13 WBC (4.5-10.0) K/mm3 RBC (4.6-6.20) M/mm3 Hgb (14.0-18.0) g/dL Hct (42.0-52.0) % MCV (80-100) fl MCH (26-34) pg MCHC (32-36) g/dl RDW (11.5-14.5) % Plt Count (150-375) k/mm3 MPV (7.4-10.4) fl Immature Gran % (Auto) (0-0.5) % Neut % (Auto) (45.5-73.1) % Lymph % (Auto) (18.3-44.2) % Warren % (Auto) (2.6-8.5) % Eos % (Auto) (0-4.4) % Baso % (Auto) (0.2-1.2) % Lymph # (Auto) (0.9-3.2) K/mm3 Warren # (Auto) (0.1-0.6) K/mm3 Eos # (Auto) (0-0.3) K/mm3 Baso # (Auto) (0.0-0.1) K/mm3 Abs Immat Gran (auto) (0.00-0.031) K/mm3 Absolute Neuts (auto) (1.3-6.7) K/mm3 Absolute Nucleated RBC (0.0-0.012) K/mm3 Nucleated RBC % (0.0-0.2) % % Immature Plt Fraction (0.9-11.2) % Sodium (137-145) mmol/L Potassium (3.4-5.0) mmol/L Chloride (98-107) mmol/L Carbon Dioxide (22-30) mmol/L Anion Gap (4-12) mmol/L BUN (9-20) mg/dL Creatinine (0.7-1.3) mg/dL Estim Creat Clear Calc ml/min Estimated GFR (59 - ) Glucose (65-110) mg/dL POC Capillary Glucose (65-105) mg/dl Calcium (8.4-10.2) mg/dL Total Bilirubin (0.2-1.3) mg/dL AST (17-59) U/L ALT (6-50) U/L Alkaline Phosphatase (38-126) U/L Troponin I (0.000-0.034) ng/mL NT-Pro-B Natriuret Pep (19.9-100) pg/mL Total Protein (6.3-8.2) g/dL Albumin (3.5-5.1) g/dL Urine Color Yellow (Yellow) Urine Appearance Clear (Clear) Urine pH 5.0 (5.0-9.0) Ur Specific [place] 1.011 (1.001-1.035) Urine Protein Negative (Negative) mg/dL Urine Glucose (UA) Negative (Negative) mg/dL Urine Ketones Negative (Negative) mg/dL Ur Blood (Man) Negative (Negative) Urine Nitrate Negative (Negative) Urine Bilirubin Negative (Negative) Urine Urobilinogen 0.2 (<2.0) mg/dL Leukocyte Esterase Rfl Negative (Negative) KEISHA/UL Influenza A (RT-PCR) (Negative) Influenza B (RT-PCR) (Negative) RSV (RT-PCR) (Negative) SARS-CoV-2 RNA (RT-PCR) (Negative) ABG Data ABG results: 12/17/24 22:26 Puncture Site Right radial ABG pH 7.415 ABG pCO2 45.8 H ABG pO2 63.0 L ABG PO2/FiO2 Ratio 3.00 ABG HCO3 28.7 H ABG O2 Saturation 92.3 L ABG O2 Content 15.8 L ABG Base Excess 3.5 A-a Gradient 31.9 Oxyhemoglobin 91.2 Total Hemoglobin 12.3 O2 Delivery Device Room air O2 Liters/Min Not Reportable FiO2 21 Discharge Plan Discharge Clinical Impression: CHF (congestive heart failure), Hypoxic respiratory failure Patient Disposition: Still a Patient Condition: Stable Patient Language: Japanese Prescriptions: No Action naloxone 4 mg/actuation spray,non-aerosol 4 mg intranasal Q3M PRN (Reason: opioid overdose) Qty: 2 0RF Rx Instructions: spray 1 dose into ONE nostril; alternate nostrils w each dose until help arrives--PT STATES NEVER PICKED UP RX (DME) FreeStyle Sara 2 [place] Misc See Rx Instructions .Route Qty: 1 0RF Rx Instructions: use to monitor blood sugar on insulin losartan 25 mg tablet 25 mg PO DAILY Qty: 90 1RF furosemide 40 mg Tablet 40 mg PO BID Qty: 30 0RF diltiazem HCl 180 mg Capsule,Ext.Rel 24h Degradable 180 mg PO QAM Qty: 30 0RF Eliquis 5 mg Tablet 5 mg PO Q12HR Qty: 60 0RF cyanocobalamin (vitamin B-12) [Vitamin B-12] 1,000 mcg Tablet 1,000 mcg PO QAM Qty: 0 0RF (DME) lancets [Microlet Lancet] Misc See Rx Instructions .Route Qty: 100 0RF Rx Instructions: As directed test daily gabapentin 300 mg capsule See Rx Instructions .ROUTE .COMPLEX Qty: 270 3RF Dose Instruction: TAKE 1 CAPSULE BY MOUTH THREE TIMES A DAY Rx Instructions: TAKE 1 CAPSULE BY MOUTH THREE TIMES A DAY metoprolol tartrate 100 mg tablet See Rx Instructions .ROUTE .COMPLEX Qty: 180 3RF Dose Instruction: TAKE 1 TABLET BY MOUTH EVERY 12 HOURS Rx Instructions: TAKE 1 TABLET BY MOUTH EVERY 12 HOURS (DME) pen needle, diabetic [BD Ultra-Fine Short Pen Needle] 31 gauge x 5/16 needle See Rx Instructions .ROUTE .COMPLEX Qty: 200 3RF Dose Instruction: USE WITH INSULIN INJECTIONS ONCE DAILY Rx Instructions: USE WITH INSULIN INJECTIONS TWICE A DAY atorvastatin 20 mg tablet See Rx Instructions .ROUTE .COMPLEX Qty: 90 1RF Dose Instruction: TAKE 1 TABLET BY MOUTH EVERY DAY IN THE MORNING Rx Instructions: TAKE 1 TABLET BY MOUTH EVERY DAY IN THE MORNING aspirin [Teo Low Dose Aspirin] 81 mg tablet,delayed release (DR/EC) 81 mg PO DAILY Qty: 100 3RF clonidine HCl 0.2 mg tablet 0.2 mg PO TID Qty: 300 3RF glimepiride 4 mg tablet See Rx Instructions .ROUTE .COMPLEX Qty: 90 1RF Dose Instruction: TAKE 1 TABLET BY MOUTH EVERY MORNING WITH BREAKFAST Rx Instructions: TAKE 1 TABLET BY MOUTH EVERY MORNING WITH BREAKFAST amlodipine 10 mg tablet See Rx Instructions .ROUTE .COMPLEX Qty: 90 1RF Dose Instruction: TAKE 1 TABLET BY MOUTH EVERYDAY AT BEDTIME Rx Instructions: TAKE 1 TABLET BY MOUTH EVERYDAY AT BEDTIME (DME) FreeStyle Sara 2 Sensor Kit See Rx Instructions .Route Qty: 2 3RF Rx Instructions: use to monitor blood sugar while on insulin ergocalciferol (vitamin D2) 1,250 mcg (50,000 unit) capsule See Rx Instructions .ROUTE .COMPLEX Qty: 12 0RF Dose Instruction: TAKE 1 CAPSULE BY MOUTH ONE TIME PER WEEK Rx Instructions: TAKE 1 CAPSULE BY MOUTH ONE TIME PER WEEK Ozempic 1 mg/dose (4 mg/3 mL) pen injector 1 mg subcut WEEKLY Qty: 3 5RF hydrocodone-acetaminophen 7.5-325 mg tablet 1 tablet PO Q4H PRN (Reason: Pain Rated 7-10) Qty: 180 0RF Toujeo Max U-300 SoloStar 300 unit/mL (3 mL) insulin pen See Rx Instructions .ROUTE .COMPLEX Qty: 6 2RF Dose Instruction: INJECT 50 UNITS SUBCUTANEOUSLY IN THE MORNING AND 60 IN THE EVENING Rx Instructions: INJECT 50 UNITS SUBCUTANEOUSLY IN THE MORNING AND 60 IN THE EVENING Follow-up/Referrals: Kevyn Mccann MD [Primary Care Provider] -
[2024-12-17 21:27] LABS: Basophils Percent Auto 0.3 % (0.2-1.2); Eosinophils Absolute Auto 0.1 K/mm3 (0-0.3); Eosinophils Percent Auto 0.9 % (0-4.4); Hematocrit 35.8 % (42.0-52.0); Hemoglobin 11.4 g/dL (14.0-18.0); Immature Granulocyte Absolute 0.02 K/mm3 (0.00-0.031); Immature Granulocyte Percent A 0.3 % (0-0.5); Immature Platelet Fraction Pct 8.3 % (0.9-11.2); Lymphocytes Absolute Auto 1.29 K/mm3 (0.9-3.2); Lymphocytes Percent Auto 19.1 % (18.3-44.2); Mean Corpuscular HGB Conc 31.8 g/dl (32-36); Mean Corpuscular Hemoglobin 30.2 pg (26-34); Mean Corpuscular Volume 94.7 fl (80-100); Mean Platelet Volume 11.4 fl (7.4-10.4); Monocytes Absolute Auto 0.4 K/mm3 (0.1-0.6); Monocytes Percent Auto 5.9 % (2.6-8.5); Neutrophils Percent Auto 73.5 % (45.5-73.1); Platelet Count Result 113 k/mm3 (150-375); Red Blood Count 3.78 M/mm3 (4.6-6.20); White Blood Count 6.8 K/mm3 (4.5-10.0)
[2024-12-17 21:31] LABS: Glucose Point of Care 131 mg/dl (65-105)
[2024-12-17 21:36] LABS: Alanine Aminotransferase 23 U/L (6-50); Albumin Level 3.4 g/dL (3.5-5.1); Alkaline Phosphatase 91 U/L (38-126); Anion Gap 5 mmol/L (4-12); Aspartate Amino Transferase 27 U/L (17-59); Bilirubin,Total 0.4 mg/dL (0.2-1.3); Blood Urea Nitrogen 14 mg/dL (9-20); Calcium 8.5 mg/dL (8.4-10.2); Carbon Dioxide 35 mmol/L (22-30); Chloride 96 mmol/L (98-107); Estimated CRCL calculation 97 ml/min; Estimated Glomerular Filt Rate > 60; Glucose 138 mg/dL (65-110); Potassium 3.4 mmol/L (3.4-5.0); Sodium 136 mmol/L (137-145)
[2024-12-17 21:48] LABS: NT Pro B Type Natriuretic Pept 3770 pg/mL (19.9-100); Troponin I 0.013 ng/mL (0.000-0.034)
[2024-12-17 22:04] LABS: Influenza A QL RT-PCR Negative (Negative); Influenza B QL RT-PCR Negative (Negative); RSV RNA, RT-PCR Negative (Negative); SARS-CoV-2 RNA PCR Negative (Negative)
[2024-12-17 22:20] LABS: Add Urine Microscopic? NO; Appearance Urine Clear (Clear); Bilirubin Urine Negative (Negative); Blood Urine Negative (Negative); Color Urine Yellow (Yellow); Glucose Urine UA Negative (Negative); Ketones Urine Negative (Negative); Leukocyte Esterase Ur Negative LEU/UL (Negative); Nitrate Urine Negative (Negative); Protein Urine Negative (Negative); Specific Grav Ur 1.011 (1.001-1.035); Urobilinogen Urine 0.2 mg/dL (<2.0)
[2024-12-17 22:39] LABS: Alveolar/Arterial O2 Gradient 31.9 mmHg; Base Excess ABG 3.5 mEq/l (+/-2.0); Fractional Inspired Oxygen 21 %; HCO3 ABG 28.7 mEq/l (22.0-26.0); Oxygen Content ABG 15.8 %vol (16.0-22.0); Oxygen Saturation ABG 92.3 % (95.0-100.0); Oxyhemoglobin 91.2 % THb (90.0-100.0); PCO2 ABG 45.8 mmHg (35.0-45.0); Total Hemoglobin 12.3 g/dL (12.0-18.0); pH ABG 7.415 (7.350-7.450)
[2024-12-17 22:41] LABS: Device ROOM AIR; Modified Allen's Test Pass; Site Drawn RIGHT RADIAL
[2024-12-18] VITALS (24 sets, daily range): BP systolic 111–150; BP diastolic 62–97; PULSE 72–126; RESP 18–224; TEMP 36.4–36.9; O2SAT 94–99; BMI 52.3; BMI 54.7
--- NOTE | 2024-12-18 01:50 | ADMGEN ---
This patient, Francisco J Pineda, was admitted to IMU Room 201-01 on 12/18/24 at 0116. Patient/family oriented to hospital policies and general routines including ID bracelet, bed and alarms, visiting hours, pain management, procedures, bathroom and other care routines, personal items, smoking policy, room service/diet, and visiting hours. Information on how to activate the Rapid Response Team has been discussed. Patient/Family are encouraged to report perceived risks to care and to ask questions if they do not understand what they are told or what they should do.
[2024-12-18 03:01] LABS: Troponin I < 0.012 ng/mL (0.000-0.034)
[2024-12-18] MEDS: METOPROLOL TARTRATE 50 MG TAB 100 MG PO ×2 (06:55→20:30)
[2024-12-18] MEDS: cloNIDine HCL 0.2 MG TABLET PO ×3 (06:55→20:30)
[2024-12-18] MEDS: ATORVASTATIN 20 MG TABLET PO (06:55)
[2024-12-18] MEDS: HYDROcodone/acetaminophen (*CRX) 7.5-325 MG TABLET 1 TAB PO ×3 (06:56→23:35)
[2024-12-18] MEDS: GABAPENTIN 300 MG CAPSULE PO ×3 (06:56→23:34)
[2024-12-18 08:23] LABS: Glucose Point of Care 121 mg/dl (65-105)
--- OUTSIDE RECORDS SUMMARY | 2024-12-18 08:25 | XMS_ITS | Referral Summary ---
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 Care Teams Customer Energy Specialist Relationship Specialty Start Date End Date Evie Platt MD [address] [address] PCP - General 10/25/15
--- OUTSIDE RECORDS SUMMARY | 2024-12-18 08:25 | XMS_ITS | Clinical Summary ---
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
--- OUTSIDE RECORDS SUMMARY | 2024-12-18 08:25 | XMS_ITS | Clinical Summary ---
Author Organization [facility] Address [address] [place] [id number] Care Team Providers Care Special Education Para Professional Name Role Phone Unavailable Primary Care Provider [...]
--- OUTSIDE RECORDS SUMMARY | 2024-12-18 08:25 | XMS_ITS | Encounter Summary ---
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
[2024-12-18] MEDS: FUROSEMIDE INJ 40 MG/4 ML VIAL 60 MG IV PUSH ×2 (09:21→18:02)
[2024-12-18] MEDS: ASPIRIN 81 MG ENTERIC TABLET PO (09:22)
[2024-12-18] MEDS: dilTIAZem HCL CD 180 MG CAP.24HR PO (09:22)
[2024-12-18] MEDS: CYANOCOBALAMIN 1,000 MCG TABLET 1000 MCG PO (09:22)
[2024-12-18] MEDS: APIXABAN 5 MG TABLET PO ×2 (09:23→20:30)
[2024-12-18] MEDS: LOSARTAN POTASSIUM 25 MG TABLET PO ×2 (09:23→10:26)
[2024-12-18] MEDS: GLIMEPIRIDE 2 MG TABLET 4 MG PO (09:23)
--- NOTE | 2024-12-18 09:31 | P.HP_ITS ---
H&P: HPI History of Present Illness Date/Time: 12/18/24 09:31 Chief Complaint: Shortness of breath/bilateral leg swelling Narrative: Patient is a 74-year-old male with history of stroke, coronary artery disease, diastolic dysfunction, hypertension, dyslipidemia, chronic kidney disease, type 2 diabetes mellitus, untreated sleep apnea, and morbid obesity who presented to the emergency department with complaints of shortness of breath. Patient was just discharged 3 days prior for CHF Exacerbation and AFib with RVR. patient presents today with worsening shortness a breath and reported significant weight gain for the past 3 days. Patient's BNP 37 70 with chest x-ray showing bilateral pleural effusions and mild pulmonary vascular congestion. notable anasarca throughout. Patient was given IV Lasix in the emergency department labs reviewed vital stable patient was admitted for further evaluation and treatment of CHF exacerbation Review of Systems Review of Systems: 12 systems were reviewed and are negativ e except for as per HPI. All systems reviewed & are unremarkable except as noted in HPI and below PMFSH Past Medical History Medical History Diastolic dysfunction Insulin dependent type 2 diabetes mellitus Depression Constipation Vitamin B12 deficiency Stroke BCC (basal cell carcinoma of skin) Nasal lesion Atherosclerosis of aorta Personal history of nicotine dependence Insomnia Physical debility Lesion of nose Coronary arteriosclerosis in patient with history of previous myocardial infarction MPI in September 2019 showed infarct with relatively preserved EF Morbid obesity Ambulatory dysfunction Chronic kidney disease, stage 3 (moderate) Chronic pain disorder Diabetic nephropathy associated with type 2 diabetes mellitus Essential (primary) hypertension Intervertebral disc disorders with myelopathy, lumbar region Mixed hyperlipidemia Obstructive sleep apnea (adult) (pediatric) Non compliant with CPAP Opioid dependence, uncomplicated Ventricular hypertrophy due to hypertensive disease Vitamin D deficiency, unspecified Surgical History Surgical History Status post surgical removal of malignant neoplasm of skin History of cholecystectomy History of appendectomy Family History Family History Mother Patient's mother is Family history of premature coronary heart disease Father Alcoholic cirrhosis of liver Family history of diabetes mellitus in first degree relative Patient's father is Hypertension Sibling Family history of diabetes mellitus in first degree relative Hypertension Colon cancer Chronic obstructive pulmonary disease Sibling Chronic obstructive pulmonary disease Social History Social History Social History: Surrogate medical decision maker: Clifford Pineda, son. Code status: Full code. Smoking packs per day: 1 Smoking cigarettes per day: 20.0 Years smoked: 20 Smoking pack-years: 20.00 Smoking status: Former smoker Tobacco type: cigarettes Second hand tobacco smoke exposure: Yes Additional smoking assessment comments: Quit 2013. Alcohol intake: never Alcohol use details: No alcohol in over 25 years. Substance use: never Substance use type: does not use Do You Feel Safe in your Home?: Yes Lack of Transportation: No Lack of Food: Never True Current Housing: I Have Housing Concerned About Future Housing: No Difficulty Paying Gas/Electric Bills: No Difficulty Paying for Meds: No Currently Unemployed: No Education: High School Diploma/GED Difficulty w/ Childcare or Family Care: No Living arrangements: with family Additional living arrangements comments: He and his son live together in [place]. Occupation/Education: retired Spiritual care concerns: No Meds Home Medications and Allergies Home Medications ?Medication ?Instructions ?Recorded ?Confirmed ?Type naloxone 4 mg/actuation nasal spray 4 mg intranasal Q3M PRN opioid 04/29/21 12/18/24 Rx overdose #2 ea cyanocobalamin (vitamin B-12) 1,000 mcg PO QAM #0 tabs 09/25/21 12/18/24 Rx 1,000 mcg tablet (Vitamin B-12) lancets (Microlet Lancet) #100 ea 10/25/21 12/18/24 Rx flash glucose scanning reader #1 ea 06/08/23 12/18/24 Rx (FreeStyle Sara 2 [place]) metoprolol tartrate 100 mg tablet See Rx Instructions .Route 03/11/24 12/18/24 Rx .COMPLEX #180 tabs pen needle, diabetic 31 gauge x #200 ea 06/07/24 12/18/24 Rx 5/16 (BD Ultra-Fine Short Pen Needle) atorvastatin 20 mg tablet See Rx Instructions .Route 07/10/24 12/18/24 Rx .COMPLEX #90 tabs aspirin 81 mg tablet,delayed 81 mg PO DAILY #100 tabs 08/29/24 12/18/24 Rx release (Teo Low Dose Aspirin) glimepiride 4 mg tablet See Rx Instructions .Route 08/29/24 12/18/24 Rx .COMPLEX #90 tabs losartan 25 mg tablet 25 mg PO DAILY #90 tabs 09/12/24 12/18/24 Rx flash glucose sensor (FreeStyle #2 ea 09/27/24 12/18/24 Rx Sara 2 Sensor kit) semaglutide 1 mg/dose (4 mg/3 mL) 1 mg (0.75 mL) subcut WEEKLY #3 mL 10/31/24 12/18/24 Rx subcutaneous pen injector (Ozempic) hydrocodone 7.5 mg-acetaminophen 1 tablet PO Q4H PRN Pain Rated 12/05/24 12/18/24 Rx 325 mg tablet 7-10 #180 tabs apixaban 5 mg tablet (Eliquis) 5 mg PO Q12HR #60 tabs 12/14/24 12/18/24 Rx diltiazem HCl 180 mg 180 mg PO QAM #30 caps 12/14/24 12/18/24 Rx capsule,extended release 24 hr, controlled furosemide 40 mg tablet 40 mg PO BID #30 tabs 12/14/24 12/18/24 Rx amlodipine 10 mg tablet 10 mg PO HS 12/18/24 12/18/24 History clonidine HCl 0.2 mg tablet 0.2 mg PO Q8H 12/18/24 12/18/24 History ergocalciferol (vitamin D2) 1,250 1,250 mcg PO WEEKLY 12/18/24 12/18/24 History mcg (50,000 unit) capsule gabapentin 300 mg capsule 300 mg PO Q8H 12/18/24 12/18/24 History insulin glargine U-300 conc 300 See Rx Instructions subcut .COMPLEX 12/18/24 12/18/24 History unit/mL (3 mL) subcutaneous pen (Toujeo Max U-300 SoloStar) suvorexant 10 mg tablet (Belsomra) 10 mg PO HS 12/18/24 12/18/24 History Allergies Allergy/AdvReac Type Severity Reaction Status Date / Time metformin AdvReac Severe diarrhea Uncoded 12/18/24 02:12 Vital Signs Vital Signs - 24 hr 12/17/24 20:17 12/17/24 20:17 12/17/24 21:22 Temperature Pulse Rate 105 H 88 Respiratory Rate 30 H Blood Pressure 169/133 H Pulse Oximetry 93 99 Oxygen Delivery Room Air Nasal Cannula Oxygen Flow Rate 2 Fraction of Inspired Oxygen 12/17/24 21:22 12/17/24 22:13 12/17/24 22:15 Temperature Pulse Rate Respiratory Rate Blood Pressure Pulse Oximetry 98 100 96 Oxygen Delivery Room Air Oxygen Flow Rate Fraction of Inspired Oxygen 12/17/24 22:17 12/17/24 22:31 12/17/24 22:33 Temperature Pulse Rate Respiratory Rate 30 H Blood Pressure Pulse Oximetry 97 91 Oxygen Delivery Room Air Room Air Oxygen Flow Rate Fraction of Inspired Oxygen 12/17/24 22:35 12/17/24 22:45 12/17/24 22:52 Temperature Pulse Rate Respiratory Rate Blood Pressure Pulse Oximetry 95 94 98 Oxygen Delivery Nasal Cannula Oxygen Flow Rate 2 Fraction of Inspired Oxygen 12/17/24 23:47 12/18/24 01:25 12/18/24 01:29 Temperature Pulse Rate 83 108 H 105 H Respiratory Rate 24 H 21 H Blood Pressure 137/100 H Pulse Oximetry 100 98 Oxygen Delivery Nasal Cannula Oxygen Flow Rate 2 Fraction of Inspired Oxygen 12/18/24 01:44 12/18/24 02:00 12/18/24 04:00 Temperature 97.8 F 97.7 F Pulse Rate 108 H 100 117 H Respiratory Rate 21 H 18 Blood Pressure 135/85 150/97 H Pulse Oximetry 98 98 Oxygen Delivery Oxygen Flow Rate Fraction of Inspired Oxygen 12/18/24 04:00 12/18/24 04:00 12/18/24 06:00 Temperature Pulse Rate 117 H 95 104 H Respiratory Rate 18 Blood Pressure Pulse Oximetry 98 Oxygen Delivery Nasal Cannula Oxygen Flow Rate 2 Fraction of Inspired Oxygen 12/18/24 06:55 12/18/24 07:52 12/18/24 08:00 Temperature 97.5 F L Pulse Rate 126 H 81 Respiratory Rate 28 H Blood Pressure 111/62 Pulse Oximetry 98 98 Oxygen Delivery Nasal Cannula Oxygen Flow Rate 1 Fraction of Inspired Oxygen 24 Exam Narrative: General: Pleasant chronically ill looking male in no acute distress HEENT: PERRL,Oral mucosa moist. Neck: Supple. Respiratory: Mild conversational dyspnea though he appears in no respiratory distress. Lung sounds diminished, scattered crackles at the bases. Cardiovascular: Irregularly irregular Gastrointestinal: Abdomen is obese and nontender with normal bowel sounds. Skin: Warm and dry. Extremities: No cyanosis or clubbing. anasarca throughout Neurological: Alert. No gross focal deficits to casual conversation. Psychiatric: Pleasant and cooperative with normal mood and affect. H&P: Results Labs Labs: Short CBC 12/17/24 Range/Units 21:19 WBC 6.8 (4.5-10.0) K/mm3 Hgb 11.4 L (14.0-18.0) g/dL Hct 35.8 L (42.0-52.0) % Plt Count 113 L (150-375) k/mm3 BMP 12/17/24 21:19 Sodium 136 L Potassium 3.4 Chloride 96 L Carbon Dioxide 35 H BUN 14 D Creatinine 0.88 Glucose 138 H Calcium 8.5 Cardiac Enzymes 12/17/24 12/17/24 12/18/24 Range/Units 21:19 21:19 02:29 Troponin I 0.013 Cancelled < 0.012 (0.000-0.034) ng/mL Liver Function 12/17/24 Range/Units 21:19 Total Bilirubin 0.4 (0.2-1.3) mg/dL AST 27 (17-59) U/L ALT 23 (6-50) U/L Alkaline Phosphatase 91 (38-126) U/L Albumin 3.4 L (3.5-5.1) g/dL Urine 12/17/24 Range/Units 22:13 Urine Color Yellow (Yellow) Urine Appearance Clear (Clear) Urine pH 5.0 (5.0-9.0) Ur Specific [place] 1.011 (1.001-1.035) Urine Protein Negative (Negative) mg/dL Urine Glucose (UA) Negative (Negative) mg/dL Imaging Chest x-ray: Radiologist's impression: HEST RADIOGRAPH CLINICAL HISTORY: dyspnea/ chf . COMPARISON: 12/08/2024 TECHNIQUE: Single portable view of the chest. FINDINGS The cardiomediastinal silhouette is enlarged, unchanged. Calcified lymph nodes within the mediastinum suggesting prior granulomatous disease. Increased interstitial markings are identified bilaterally, findings suggesting mild pulmonary vascular congestion. Bilateral pleural effusions, right greater than left. The remainder of the lungs are clear. IMPRESSION: Bilateral pleural effusions, with mild pulmonary vascular congestion. Assessment and Plan Assessment and plan (1) Acute on chronic diastolic congestive heart failure: Code(s): I50.33 - Acute on chronic diastolic (congestive) heart failure Status: Acute Assessment and Plan: Patient just discharged 3 days ago after hospitalization for CHF exacerbation and AFib RVR. Severe anasarca * BNP 3770 * IV Lasix b.i.d. may need to switch to Bumex * added spironolactone * cardiology consulted * monitor renal function during diuresis * previous echocardiogram: 12/09/24 LVEF of 50-55% with diastolic dysfunction moderate TR * EK AFIB has episodes of RVR not sustained * chest x-ray: bilateral pleural effusions interstitial congestion * Daily weight. * Strict I&O's * fluid restriction * elevate/Rayshawn wrap legs if needed * Antiplatelet therapy, statin therapy, loop diuretics as indicated,. * Optimize blood pressure less than 130/80. (2) Atrial fibrillation with rapid ventricular response: Code(s): I48.91 - Unspecified atrial fibrillation Status: Acute Assessment and Plan: * EKG showed 86 in atrial fibrillation * patient with episodes of RVR * resume patient's diltiazem, metoprolol, and Eliquis (3) Essential (primary) hypertension: Code(s): I10 - Essential (primary) hypertension Status: Acute Assessment and Plan: * reviewed * resume clonidine, diltiazem, metoprolol * discontinue patient's amlodipine due to bilateral leg edema * increased his losartan to 50 mg daily * BP per unit protocol (4) Insulin dependent type 2 diabetes mellitus: Code(s): E11.9 - Type 2 diabetes mellitus without complications; Z79.4 - alf (current) use of insulin Status: Acute Assessment and Plan: * Accu-Cheks a.c. HS * sliding scale insulin * hold oral diabetic medications * patient's long-acting insulin not formulated * Lantus 60 units HS * Watch for hypoglycemia/hypoglycemic protocol ordered (5) Mixed hyperlipidemia: Code(s): E78.2 - Mixed hyperlipidemia Status: Acute Assessment and Plan: * Resumed Atorvastatin (6) Obstructive sleep apnea: Code(s): G47.33 - Obstructive sleep apnea (adult) (pediatric) Status: Acute Assessment and Plan: * patient does not currently wear a CPAP * cardiology has consulted pulmonology to assist with evaluation and possible set up for CPAP Plan Code status: Full code per patient DVT prophylaxis: Eliquis Stress ulcer prophylaxis: Protonix 40 daily PT/OT notes: SNF Disposition: patient admitted to IMU for further evaluation and treatment acute on chronic exacerbation of CHF cardiology consulted for any further recommendations pulmonology also consulted to assist and possible sleep apnea needs is not currently have a CPAP machine at home. PT/OT ordered plan to return to residential facility for physical and occupational therapy when medically stable Quality VTE Prophylaxis VTE prophylaxis: pharmacologic ordered -Patient's previous records reviewed on admission -ER notes reviewed in detail on admission -discussed all findings and current treatment plan with patient/Family/POA -Consultations reviewed for recommendations -Patient's disposition for safe discharge discussed with behavioral health case manager Dictation performed by [employer] direct speech recognition software, therefore carbon blocks press operator variants and typographical errors may occur. Hospitalist MIPS Advance Care Plan I have confirmed that the patient's Advanced Care Plan is present, code status is documented, or surrogate decision maker is listed in patient medical record.: Yes Medication Reconciliation I have utilized all available resources to obtain, update and review the patients current medications (includes all prescriptions, OTC, herbals, cannabis, and nutritional supplements).: Yes The patient is not eligible for med reconciliation; the patient is in a emergent medical situation where delaying treatment would jeopardize the patients health.: No
[2024-12-18 09:58] LABS: Basophils Percent Auto 0.5 % (0.2-1.2); Eosinophils Absolute Auto 0.1 K/mm3 (0-0.3); Eosinophils Percent Auto 1.2 % (0-4.4); Hematocrit 36.7 % (42.0-52.0); Hemoglobin 11.6 g/dL (14.0-18.0); Immature Granulocyte Absolute 0.02 K/mm3 (0.00-0.031); Immature Granulocyte Percent A 0.3 % (0-0.5); Immature Platelet Fraction Pct 8.2 % (0.9-11.2); Lymphocytes Absolute Auto 1.29 K/mm3 (0.9-3.2); Lymphocytes Percent Auto 17.6 % (18.3-44.2); Mean Corpuscular HGB Conc 31.6 g/dl (32-36); Mean Corpuscular Hemoglobin 30.2 pg (26-34); Mean Corpuscular Volume 95.6 fl (80-100); Mean Platelet Volume 11.5 fl (7.4-10.4); Monocytes Absolute Auto 0.4 K/mm3 (0.1-0.6); Monocytes Percent Auto 5.6 % (2.6-8.5); Neutrophils Absolute Auto 5.5 K/mm3 (1.3-6.7); Neutrophils Percent Auto 74.8 % (45.5-73.1); Platelet Count Result 117 k/mm3 (150-375); Red Blood Count 3.84 M/mm3 (4.6-6.20); Red Cell Distribution Width 13.9 % (11.5-14.5); White Blood Count 7.3 K/mm3 (4.5-10.0)
[2024-12-18 10:05] LABS: Alanine Aminotransferase 25 U/L (6-50); Albumin Level 3.5 g/dL (3.5-5.1); Alkaline Phosphatase 89 U/L (38-126); Anion Gap 5 mmol/L (4-12); Aspartate Amino Transferase 34 U/L (17-59); Bilirubin,Total 0.5 mg/dL (0.2-1.3); Blood Urea Nitrogen 13 mg/dL (9-20); Calcium 8.4 mg/dL (8.4-10.2); Carbon Dioxide 34 mmol/L (22-30); Chloride 97 mmol/L (98-107); Estimated CRCL calculation 111 ml/min; Estimated Glomerular Filt Rate > 60; Glucose 104 mg/dL (65-110); Magnesium 1.9 mg/dL (1.6-2.3); Potassium 3.3 mmol/L (3.4-5.0); Sodium 136 mmol/L (137-145)
[2024-12-18 11:59] LABS: Glucose Point of Care 78 mg/dl (65-105)
--- NOTE | 2024-12-18 13:05 | PM.CNCAR ---
Assessment and Plan Assessment and plan (1) Acute on chronic diastolic congestive heart failure: Code(s): I50.33 - Acute on chronic diastolic (congestive) heart failure Status: Acute Assessment and Plan: Continue spironolactone, metoprolol, losartan, furosemide 60 mg IV q.12 hours. Will give a dose of metolazone 5 mg p.o. x1 now to evaluate for response. He is also on diltiazem for rate control, blood pressure control. I/O, daily weights. Low-salt diet. His potassium is low will give KCL 40 mEq p.o. x1 (2) CAD in [place] artery: Code(s): I25.10 - Atherosclerotic heart disease of [place] coronary artery without angina pectoris Status: Acute Assessment and Plan: No anginal symptoms (3) Paroxysmal atrial fibrillation with RVR: Code(s): I48.0 - Paroxysmal atrial fibrillation Status: Acute Assessment and Plan: Continue rate control for now as well as anticoagulation with Eliquis (4) Obstructive sleep apnea (adult) (pediatric): Code(s): G47.33 - Obstructive sleep apnea (adult) (pediatric) Status: Acute Assessment and Plan: Will consult pulmonology to help set up and evaluate his sleep apnea. He has not been on CPAP in decades. Obviously given his heart failure, morbid obesity and atrial fibrillation, his sleep apnea needs to be optimally controlled to assist with these cardiac issues. History of Present Illness History of Present Illness Consult date/time: 12/18/24 13:05 Requesting physician: Linnea Sprague, DIETARY SERVER Consult reason: congestive heart failure Reason For Visit: CHF Narrative: Date of service 12/18/2024: Reason for consultation: GREGORIA Stephen Requesting provider: Linnea Sprague History: Patient is a 74-year-old male who was recently admitted to the hospital for atrial fibrillation heart failure. He has a history of CAD, hypertension hyperlipidemia, diabetes, untreated sleep apnea, obesity presented hospital with shortness of breath. He was discharged under is nursing facility in had progressive weight gain over the past couple of days since discharge. He was short of breath and has abdominal discomfort, worsening edema. He is brought back to hospital for further workup and evaluation. He was also had borderline control in heart rate Review of Systems Review of Systems: All systems reviewed & are unremarkable except as noted in HPI and below Constitutional: Constitutional: Denies body ache(s) Eyes: Eyes: Denies blurry vision ENT: Reports Normal hearing present Cardiovascular: Cardiovascular: Reports chest pain and Reports pedal edema Respiratory: Respiratory: Reports dyspnea Gastrointestinal: Gastrointestinal: Reports abdominal pain Genitourinary: Genitourinary: Denies hematuria Musculoskeletal: Musculoskeletal: Denies myalgias Integumentary/Breasts: Skin/Breast: Denies skin pain Neurologic: Denies Abnormal speech present Psychiatric: Psychiatric: Denies behavioral changes Endocrine: Endocrine: Denies excessive sweating Hematologic/Lymphatic: Hematologic/Lymphatic: Denies easy bleeding Allergic/Immunologic: Allergic/Immunologic: Denies GI upset with certain foods PMFSH Past Medical History Medical History Diastolic dysfunction Insulin dependent type 2 diabetes mellitus Depression Constipation Vitamin B12 deficiency Stroke BCC (basal cell carcinoma of skin) Nasal lesion Atherosclerosis of aorta Personal history of nicotine dependence Insomnia Physical debility Lesion of nose Coronary arteriosclerosis in patient with history of previous myocardial infarction MPI in September 2019 showed infarct with relatively preserved EF Morbid obesity Ambulatory dysfunction Chronic kidney disease, stage 3 (moderate) Chronic pain disorder Diabetic nephropathy associated with type 2 diabetes mellitus Essential (primary) hypertension Intervertebral disc disorders with myelopathy, lumbar region Mixed hyperlipidemia Obstructive sleep apnea (adult) (pediatric) Non compliant with CPAP Opioid dependence, uncomplicated Ventricular hypertrophy due to hypertensive disease Vitamin D deficiency, unspecified Surgical History Surgical History Status post surgical removal of malignant neoplasm of skin History of cholecystectomy History of appendectomy Family History Family History Mother Patient's mother is Family history of premature coronary heart disease Father Alcoholic cirrhosis of liver Family history of diabetes mellitus in first degree relative Patient's father is Hypertension Sibling Family history of diabetes mellitus in first degree relative Hypertension Colon cancer Chronic obstructive pulmonary disease Sibling Chronic obstructive pulmonary disease Social History Social History Social History: Surrogate medical decision maker: Clifford Pineda, son. Code status: Full code. Smoking packs per day: 1 Smoking cigarettes per day: 20.0 Years smoked: 20 Smoking pack-years: 20.00 Smoking status: Former smoker Tobacco type: cigarettes Second hand tobacco smoke exposure: Yes Additional smoking assessment comments: Quit 2013. Alcohol intake: never Alcohol use details: No alcohol in over 25 years. Substance use: never Substance use type: does not use Do You Feel Safe in your Home?: Yes Lack of Transportation: No Lack of Food: Never True Current Housing: I Have Housing Concerned About Future Housing: No Difficulty Paying Gas/Electric Bills: No Difficulty Paying for Meds: No Currently Unemployed: No Education: High School Diploma/GED Difficulty w/ Childcare or Family Care: No Living arrangements: with family Additional living arrangements comments: He and his son live together in [place]. Occupation/Education: retired Spiritual care concerns: No Meds Home Medications and Allergies Home Medications ?Medication ?Instructions ?Recorded ?Confirmed ?Type naloxone 4 mg/actuation nasal spray 4 mg intranasal Q3M PRN opioid 04/29/21 12/18/24 Rx overdose #2 ea cyanocobalamin (vitamin B-12) 1,000 mcg PO QAM #0 tabs 09/25/21 12/18/24 Rx 1,000 mcg tablet (Vitamin B-12) lancets (Microlet Lancet) #100 ea 10/25/21 12/18/24 Rx flash glucose scanning reader #1 ea 06/08/23 12/18/24 Rx (FreeStyle Sara 2 Perry) metoprolol tartrate 100 mg tablet See Rx Instructions .Route 03/11/24 12/18/24 Rx .COMPLEX #180 tabs pen needle, diabetic 31 gauge x #200 ea 06/07/24 12/18/24 Rx 5/16 (BD Ultra-Fine Short Pen Needle) atorvastatin 20 mg tablet See Rx Instructions .Route 07/10/24 12/18/24 Rx .COMPLEX #90 tabs aspirin 81 mg tablet,delayed 81 mg PO DAILY #100 tabs 08/29/24 12/18/24 Rx release (Teo Low Dose Aspirin) glimepiride 4 mg tablet See Rx Instructions .Route 08/29/24 12/18/24 Rx .COMPLEX #90 tabs losartan 25 mg tablet 25 mg PO DAILY #90 tabs 09/12/24 12/18/24 Rx flash glucose sensor ([place] SteeleStyle #2 ea 09/27/24 12/18/24 Rx Sara 2 Sensor kit) semaglutide 1 mg/dose (4 mg/3 mL) 1 mg (0.75 mL) subcut WEEKLY #3 mL 10/31/24 12/18/24 Rx subcutaneous pen injector (Ozempic) hydrocodone 7.5 mg-acetaminophen 1 tablet PO Q4H PRN Pain Rated 12/05/24 12/18/24 Rx 325 mg tablet 7-10 #180 tabs apixaban 5 mg tablet (Eliquis) 5 mg PO Q12HR #60 tabs 12/14/24 12/18/24 Rx diltiazem HCl 180 mg 180 mg PO QAM #30 caps 12/14/24 12/18/24 Rx capsule,extended release 24 hr, controlled furosemide 40 mg tablet 40 mg PO BID #30 tabs 12/14/24 12/18/24 Rx amlodipine 10 mg tablet 10 mg PO HS 12/18/24 12/18/24 History clonidine HCl 0.2 mg tablet 0.2 mg PO Q8H 12/18/24 12/18/24 History ergocalciferol (vitamin D2) 1,250 1,250 mcg PO WEEKLY 12/18/24 12/18/24 History mcg (50,000 unit) capsule gabapentin 300 mg capsule 300 mg PO Q8H 12/18/24 12/18/24 History insulin glargine U-300 conc 300 See Rx Instructions subcut .COMPLEX 12/18/24 12/18/24 History unit/mL (3 mL) subcutaneous pen (Toujeo Max U-300 SoloStar) suvorexant 10 mg tablet (Belsomra) 10 mg PO HS 12/18/24 12/18/24 History Allergies Allergy/AdvReac Type Severity Reaction Status Date / Time metformin AdvReac Severe diarrhea Uncoded 12/18/24 02:12 Vital Signs Vital Signs - 24 hr 12/17/24 20:17 12/17/24 20:17 12/17/24 21:22 Temperature Pulse Rate 105 H 88 Respiratory Rate 30 H Blood Pressure 169/133 H Pulse Oximetry 93 99 Oxygen Delivery Room Air Nasal Cannula Oxygen Flow Rate 2 Fraction of Inspired Oxygen 12/17/24 21:22 12/17/24 22:13 12/17/24 22:15 Temperature Pulse Rate Respiratory Rate Blood Pressure Pulse Oximetry 98 100 96 Oxygen Delivery Room Air Oxygen Flow Rate Fraction of Inspired Oxygen 12/17/24 22:17 12/17/24 22:31 12/17/24 22:33 Temperature Pulse Rate Respiratory Rate 30 H Blood Pressure Pulse Oximetry 97 91 Oxygen Delivery Room Air Room Air Oxygen Flow Rate Fraction of Inspired Oxygen 12/17/24 22:35 12/17/24 22:45 12/17/24 22:52 Temperature Pulse Rate Respiratory Rate Blood Pressure Pulse Oximetry 95 94 98 Oxygen Delivery Nasal Cannula Oxygen Flow Rate 2 Fraction of Inspired Oxygen 12/17/24 23:47 12/18/24 01:25 12/18/24 01:29 Temperature Pulse Rate 83 108 H 105 H Respiratory Rate 24 H 21 H Blood Pressure 137/100 H Pulse Oximetry 100 98 Oxygen Delivery Nasal Cannula Oxygen Flow Rate 2 Fraction of Inspired Oxygen 12/18/24 01:44 12/18/24 02:00 12/18/24 04:00 Temperature 36.6 C 36.5 C Pulse Rate 108 H 100 117 H Respiratory Rate 21 H 18 Blood Pressure 135/85 150/97 H Pulse Oximetry 98 98 Oxygen Delivery Oxygen Flow Rate Fraction of Inspired Oxygen 12/18/24 04:00 12/18/24 04:00 12/18/24 06:00 Temperature Pulse Rate 117 H 95 104 H Respiratory Rate 18 Blood Pressure Pulse Oximetry 98 Oxygen Delivery Nasal Cannula Oxygen Flow Rate 2 Fraction of Inspired Oxygen 12/18/24 06:55 12/18/24 07:52 12/18/24 08:00 Temperature 36.4 C L Pulse Rate 126 H 81 Respiratory Rate 28 H Blood Pressure 111/62 Pulse Oximetry 98 98 Oxygen Delivery Nasal Cannula Oxygen Flow Rate 1 Fraction of Inspired Oxygen 12/18/24 08:00 12/18/24 08:00 12/18/24 10:00 Temperature Pulse Rate 96 85 Respiratory Rate Blood Pressure Pulse Oximetry 98 Oxygen Delivery Nasal Cannula Oxygen Flow Rate 1 Fraction of Inspired Oxygen 12/18/24 10:48 12/18/24 12:00 Temperature 36.4 C L Pulse Rate 107 H Respiratory Rate 28 H 20 Blood Pressure 142/93 H Pulse Oximetry 99 Oxygen Delivery Oxygen Flow Rate Fraction of Inspired Oxygen Exam Narrative: Awake alert oriented appears stated age Const: General: comfortable and no acute distress HENMT: Face/Nose/Sinus: Normal nares present Mouth: Yes moist mucous membranes Eyes: General: appearance normal, both eyes and all related structures Sclera: sclerae normal Neck: Neck: supple and no JVD Carotids: no bruits Chest: Other: No reproducible chest wall pain to palpation Resp: Effort & Inspection: normal respiratory effort Auscultation: diminished lung sounds Cardio: Rate: regular rate Rhythm: abnormal rhythm irregularly irregular Other: Distant heart tones GI: Inspection: non-distended Auscultation: normal bowel sounds Skin: General skin exam: normal color Neuro: Speech: normal speech Sensory Exam: normal sensation Extrem: General: edema Psych: Mental Status: mental status grossly normal Results Labs and Meds 12/18/24 09:49 12/18/24 09:49 Lab results: Cardiac Enzymes 12/17/24 12/17/24 12/18/24 Range/Units 21:19 21:19 02:29 AST 27 (17-59) U/L Troponin I 0.013 Cancelled < 0.012 (0.000-0.034) ng/mL 12/18/24 Range/Units 09:49 AST 34 (17-59) U/L Troponin I (0.000-0.034) ng/mL CBC 12/17/24 12/18/24 Range/Units 21:19 09:49 WBC 6.8 7.3 (4.5-10.0) K/mm3 RBC 3.78 L 3.84 L (4.6-6.20) M/mm3 Hgb 11.4 L 11.6 L (14.0-18.0) g/dL Hct 35.8 L 36.7 L (42.0-52.0) % Plt Count 113 L 117 L (150-375) k/mm3 Lymph # (Auto) 1.29 1.29 (0.9-3.2) K/mm3 [place] # (Auto) 0.4 0.4 (0.1-0.6) K/mm3 Eos # (Auto) 0.1 0.1 (0-0.3) K/mm3 Baso # (Auto) 0.0 0.0 (0.0-0.1) K/mm3 Comprehensive Metabolic Panel 12/17/24 12/18/24 Range/Units 21:19 09:49 Sodium 136 L 136 L (137-145) mmol/L Potassium 3.4 3.3 L (3.4-5.0) mmol/L Chloride 96 L 97 L (98-107) mmol/L Carbon Dioxide 35 H 34 H (22-30) mmol/L BUN 14 D 13 (9-20) mg/dL Creatinine 0.88 0.74 (0.7-1.3) mg/dL Glucose 138 H 104 (65-110) mg/dL Calcium 8.5 8.4 (8.4-10.2) mg/dL AST 27 34 (17-59) U/L ALT 23 25 (6-50) U/L Alkaline Phosphatase 91 89 (38-126) U/L Total Protein 6.0 L 6.0 L (6.3-8.2) g/dL Albumin 3.4 L 3.5 (3.5-5.1) g/dL Intake and Output 12/17/24 12/18/24 12/18/24 23:59 07:59 15:59 Intake Total 115 120 Output Total 900 450 Balance -785 -330 Intake: Oral 115 120 Output: Urine 900 Catheter Urine 0 450 External/Condom 0 450 Patient Weight 12/18/24 23:59 Weight 151.5 kg ECG is personally viewed and interpreted showing atrial fibrillation. Cannot rule out inferior and anterior myocardial infarction. Low voltage
[2024-12-18] MEDS: POTASSIUM CHLORIDE 20 MEQ ER TABLET 40 MEQ PO (14:25)
[2024-12-18] MEDS: metOLazone 5 MG TABLET PO (14:26)
[2024-12-18 16:25] LABS: Glucose Point of Care 82 mg/dl (65-105)
[2024-12-18] MEDS: POTASSIUM CHLORIDE 20 MEQ PACKET (FOR LIQUID) 40 MEQ PO (18:02)
--- NOTE | 2024-12-18 18:48 | PC.NURSE ---
RR 40 with audible wheezes after placing pt on bedpan. O2 97% on 1L. Dr. Guido made aware. New orders noted.
[2024-12-18 19:57] LABS: Glucose Point of Care 219 mg/dl (65-105)
[2024-12-18 20:01] LABS: Fractional Inspired Oxygen 24 %; HCO3 ABG 33.8 mEq/l (22.0-26.0); Oxygen Content ABG 16.4 %vol (16.0-22.0); Oxygen Saturation ABG 94.8 % (95.0-100.0); Oxyhemoglobin 93.7 % THb (90.0-100.0); PCO2 ABG 52.4 mmHg (35.0-45.0); PO2 ABG 72.8 mmHg (80.0-100.0); PO2 FiO2 Ratio Arterial Blood 3.03 %; Total Hemoglobin 12.4 g/dL (12.0-18.0); pH ABG 7.427 (7.350-7.450)
[2024-12-18 20:04] LABS: Device HIGH FLOW NASAL CANN; Modified Allen's Test Pass; Site Drawn RIGHT RADIAL
[2024-12-18] MEDS: traZODone HCL 25 MG TABLET PO (23:34)
[2024-12-18] MEDS: INSULIN GLARGINE (*BKC) 100 UNITS/ML 60 UNITS SUB-Q (23:54)
[2024-12-19] VITALS (29 sets, daily range): BP systolic 105–127; BP diastolic 58–91; PULSE 70–136; RESP 17–37; TEMP 36.3–37.1; O2SAT 90–99
[2024-12-19 04:44] LABS: Basophils Percent Auto 0.6 % (0.2-1.2); Eosinophils Absolute Auto 0.1 K/mm3 (0-0.3); Eosinophils Percent Auto 1.8 % (0-4.4); Hematocrit 37.6 % (42.0-52.0); Hemoglobin 11.5 g/dL (14.0-18.0); Immature Granulocyte Absolute 0.02 K/mm3 (0.00-0.031); Immature Granulocyte Percent A 0.3 % (0-0.5); Lymphocytes Absolute Auto 1.72 K/mm3 (0.9-3.2); Lymphocytes Percent Auto 25.2 % (18.3-44.2); Mean Corpuscular HGB Conc 30.6 g/dl (32-36); Mean Corpuscular Hemoglobin 29.6 pg (26-34); Mean Corpuscular Volume 96.9 fl (80-100); Mean Platelet Volume 12.1 fl (7.4-10.4); Monocytes Absolute Auto 0.5 K/mm3 (0.1-0.6); Monocytes Percent Auto 7.9 % (2.6-8.5); Neutrophils Absolute Auto 4.4 K/mm3 (1.3-6.7); Neutrophils Percent Auto 64.2 % (45.5-73.1); Platelet Count Result 132 k/mm3 (150-375); Red Blood Count 3.88 M/mm3 (4.6-6.20); White Blood Count 6.8 K/mm3 (4.5-10.0)
[2024-12-19 05:08] LABS: Alanine Aminotransferase 24 U/L (6-50); Albumin Level 3.5 g/dL (3.5-5.1); Alkaline Phosphatase 97 U/L (38-126); Anion Gap 5 mmol/L (4-12); Aspartate Amino Transferase 28 U/L (17-59); Bilirubin,Total 0.3 mg/dL (0.2-1.3); Blood Urea Nitrogen 17 mg/dL (9-20); Calcium 8.8 mg/dL (8.4-10.2); Carbon Dioxide 37 mmol/L (22-30); Chloride 95 mmol/L (98-107); Estimated CRCL calculation 77 ml/min; Estimated Glomerular Filt Rate > 60; Glucose 227 mg/dL (65-110); Potassium 3.8 mmol/L (3.4-5.0); Sodium 137 mmol/L (137-145)
[2024-12-19] MEDS: cloNIDine HCL 0.2 MG TABLET PO ×3 (06:23→20:50)
[2024-12-19] MEDS: GABAPENTIN 300 MG CAPSULE PO ×3 (06:23→20:50)
[2024-12-19] MEDS: FUROSEMIDE INJ 40 MG/4 ML VIAL 60 MG IV PUSH ×2 (06:51→17:10)
[2024-12-19] MEDS: LEVALBUTEROL NEB 1.25 MG/3 ML INHALATION (07:06)
[2024-12-19 07:11] LABS: Base Excess ABG 8.4 mEq/l (+/-2.0); Carboxyhemoglobin 0.7 % THb (0-2.0); Fractional Inspired Oxygen 24 %; HCO3 ABG 34.9 mEq/l (22.0-26.0); Methemoglobin ABG 0.3 %THb (0-1.5); Oxygen Content ABG 16.3 %vol (16.0-22.0); Oxygen Saturation ABG 95.5 % (95.0-100.0); Oxyhemoglobin 94.5 % THb (90.0-100.0); PCO2 ABG 57.2 mmHg (35.0-45.0); PO2 ABG 79.1 mmHg (80.0-100.0); Reduced Hemoglobin 4.5 %THb (0-5.0); Total Hemoglobin 12.2 g/dL (12.0-18.0); pH ABG 7.403 (7.350-7.450)
[2024-12-19 07:18] LABS: CPAP 6 cmH2O; Device CPAP; Modified Allen's Test Pass; Site Drawn RIGHT RADIAL
[2024-12-19 08:20] LABS: Glucose Point of Care 148 mg/dl (65-105)
[2024-12-19] MEDS: METOPROLOL TARTRATE 50 MG TAB 100 MG PO ×2 (09:34→20:51)
[2024-12-19] MEDS: dilTIAZem HCL CD 180 MG CAP.24HR PO (09:34)
[2024-12-19] MEDS: ASPIRIN 81 MG ENTERIC TABLET PO (09:34)
[2024-12-19] MEDS: SPIRONOLACTONE 50 MG TABLET PO (09:34)
[2024-12-19] MEDS: POTASSIUM CHLORIDE 20 MEQ PACKET (FOR LIQUID) 40 MEQ PO (09:34)
[2024-12-19] MEDS: LOSARTAN POTASSIUM 50 MG TABLET PO (09:34)
[2024-12-19] MEDS: APIXABAN 5 MG TABLET PO ×2 (09:34→20:50)
[2024-12-19] MEDS: CYANOCOBALAMIN 1,000 MCG TABLET 1000 MCG PO (09:35)
[2024-12-19] MEDS: ATORVASTATIN 20 MG TABLET PO (09:35)
[2024-12-19] MEDS: HYDROcodone/acetaminophen (*CRX) 7.5-325 MG TABLET 1 TAB PO ×2 (09:38→20:56)
--- NOTE | 2024-12-19 10:18 | PM.PNCARD ---
Progress Note: A&P Assessment and Plan (1) Acute on chronic diastolic congestive heart failure: Code(s): I50.33 - Acute on chronic diastolic (congestive) heart failure Status: Acute (2) Atrial fibrillation: Code(s): I48.91 - Unspecified atrial fibrillation Status: Acute (3) CAD in [place] artery: Code(s): I25.10 - Atherosclerotic heart disease of [place] coronary artery without angina pectoris Status: Acute Plan 74-year-old man with chronic diastolic heart failure, persistent atrial fibrillation on Eliquis, coronary artery disease, diabetes, hypertension, hyperlipidemia, obesity, and sleep apnea requiring CPAP presented with shortness of breath and lower extremity swelling Acute on chronic diastolic heart failure -continue Lasix 60 mg IV b.i.d. -continue losartan 50 mg p.o. daily and spironolactone 50 mg p.o. daily -consider adding Jardiance Persistent atrial fibrillation on Eliquis -rate controlled -continue Lopressor 100 mg p.o. b.i.d. and diltiazem 180 mg daily -continue Eliquis 5 mg p.o. b.i.d. Coronary artery disease -no angina at this time -continue aspirin 81 mg daily and atorvastatin 20 mg every evening Subjective Date/time seen: 12/19/24 10:18 Interval history: States that his shortness of breath has resolved. However still has abdominal distention as well as lower extremity swelling. Uses CPAP at night Review of Systems Cardiovascular: Cardiovascular: Reports as per HPI Respiratory: Respiratory: Reports as per HPI Exam Const: General: comfortable HENMT: Mouth: Yes moist mucous membranes Eyes: EOM: EOMs intact bilaterally Neck: Neck: no JVD Resp: Effort & Inspection: normal respiratory effort Auscultation: rales Cardio: Rate: regular rate Rhythm: abnormal rhythm GI: Inspection: distended Extrem: General: edema and pedal edema Objective Data Vital Signs Vital Signs: Vital Signs - 24 hr 12/18/24 10:48 12/18/24 12:00 12/18/24 12:00 Temperature 36.4 C L Pulse Rate 107 H 87 Respiratory Rate 28 H 20 Blood Pressure 142/93 H Pulse Oximetry 99 Oxygen Delivery Oxygen Flow Rate Fraction of Inspired Oxygen 12/18/24 12:00 12/18/24 14:00 12/18/24 16:00 Temperature 36.8 C Pulse Rate 99 72 Respiratory Rate 224 H Blood Pressure 121/82 Pulse Oximetry 99 98 Oxygen Delivery Nasal Cannula Oxygen Flow Rate 1 Fraction of Inspired Oxygen 12/18/24 16:00 12/18/24 16:00 12/18/24 18:00 Temperature Pulse Rate 110 H 107 H Respiratory Rate Blood Pressure Pulse Oximetry 98 Oxygen Delivery Nasal Cannula Oxygen Flow Rate 1 Fraction of Inspired Oxygen 12/18/24 19:43 12/18/24 19:45 12/18/24 20:00 Temperature 36.9 C Pulse Rate 99 88 102 H Respiratory Rate 20 18 Blood Pressure 113/66 Pulse Oximetry 95 Oxygen Delivery Oxygen Flow Rate Fraction of Inspired Oxygen 12/18/24 20:10 12/18/24 20:30 12/18/24 20:30 Temperature Pulse Rate 88 111 H 99 Respiratory Rate 18 20 Blood Pressure Pulse Oximetry 95 Oxygen Delivery Nasal Cannula Oxygen Flow Rate 1 Fraction of Inspired Oxygen 12/18/24 21:00 12/18/24 21:46 12/18/24 22:00 Temperature Pulse Rate 88 112 H Respiratory Rate 18 Blood Pressure Pulse Oximetry 95 95 Oxygen Delivery Autopap Nasal Cannula Oxygen Flow Rate 1 Fraction of Inspired Oxygen 24 12/18/24 23:30 12/19/24 00:00 12/19/24 00:02 Temperature 36.6 C Pulse Rate 85 136 H 85 Respiratory Rate 20 20 Blood Pressure 105/58 L Pulse Oximetry 94 94 Oxygen Delivery CPAP Oxygen Flow Rate 1 Fraction of Inspired Oxygen 12/19/24 02:00 12/19/24 03:02 12/19/24 03:20 Temperature Pulse Rate 88 88 94 Respiratory Rate 18 20 Blood Pressure Pulse Oximetry 95 96 Oxygen Delivery Autopap CPAP Oxygen Flow Rate 1 Fraction of Inspired Oxygen 12/19/24 04:00 12/19/24 05:00 12/19/24 06:00 Temperature 36.4 C Pulse Rate 95 94 89 Respiratory Rate 20 Blood Pressure 125/85 Pulse Oximetry 96 Oxygen Delivery Oxygen Flow Rate Fraction of Inspired Oxygen 12/19/24 06:32 12/19/24 07:07 12/19/24 07:07 Temperature Pulse Rate 105 H 113 H 113 H Respiratory Rate 37 H 20 20 Blood Pressure Pulse Oximetry 91 99 Oxygen Delivery Nasal Cannula CPAP Oxygen Flow Rate 1 1 Fraction of Inspired Oxygen 12/19/24 07:17 12/19/24 07:39 12/19/24 09:34 Temperature 36.3 C L Pulse Rate 76 94 89 Respiratory Rate 20 18 Blood Pressure 115/72 Pulse Oximetry 96 Oxygen Delivery Oxygen Flow Rate Fraction of Inspired Oxygen Intake/Output Intake/Output: Intake & Output 12/16/24 12/17/24 12/18/24 12/19/24 23:59 23:59 23:59 23:59 Intake Total 715 780 Output Total 2656 2483 Balance -1930 -8708 Meds/Results Medications: Active Medications Generic Name Dose Route Start Last Admin Trade Name Freq PRN Reason Stop Dose Admin Acetaminophen 650 mg 12/18/24 09:32 Acetaminophen 325 Mg Tablet PO Q4H PRN Mild Pain (1-3) or Fever Hydrocodone Bitart/Acetaminophen 1 tab 12/18/24 04:56 12/19/24 09:38 Hydrocodone/Acetaminophen (*Crx) 7.5-325 Mg Tablet PO 1 tab Q4H PRN Administration Pain Rated 7-10 Apixaban 5 mg 12/18/24 09:00 12/19/24 09:34 Apixaban 5 Mg Tablet PO 5 mg Q12HR SHIRA Administration Aspirin 81 mg 12/18/24 09:00 12/19/24 09:34 Aspirin 81 Mg Enteric Tablet PO 81 mg DAILY SHIRA Administration Atorvastatin Calcium 20 mg 12/18/24 05:00 12/19/24 09:35 Atorvastatin 20 Mg Tablet PO 20 mg DAILY SHIRA Administration Clonidine HCl 0.2 mg 12/18/24 05:00 12/19/24 06:23 Clonidine Hcl 0.2 Mg Tablet PO 0.2 mg Q8H SHIRA Administration Cyanocobalamin 1,000 mcg 12/18/24 09:00 12/19/24 09:35 Cyanocobalamin 1,000 Mcg Tablet PO 1,000 mcg QAM SHIRA Administration Dextrose 12.5 gm 12/18/24 04:57 Dextrose 50% 25 Gm/50 Ml Syringe IV PUSH PRN PRN Hypoglycemia Protocol Diltiazem HCl 180 mg 12/18/24 09:00 12/19/24 09:34 Diltiazem Hcl Cd 180 Mg Cap.24hr PO 180 mg QAM SHIRA Administration Furosemide 60 mg 12/19/24 06:45 12/19/24 06:51 Furosemide Inj 40 Mg/4 Ml Vial IV PUSH 60 mg BID SHIRA Administration Gabapentin 300 mg 12/18/24 06:00 12/19/24 06:23 Gabapentin 300 Mg Capsule PO 300 mg Q8HR SHIRA Administration Glucagon 1 mg 12/18/24 04:57 Glucagon For Inj 1 Mg Vial IM PRN PRN Hypoglycemia Protocol Glucose 15 gm 12/18/24 04:57 Glucose Oral Gel 15 Gm Of Glucse In 37.5 Gm Tube PO PRN PRN Hypoglycemia Protocol Dextrose 1,000 mls @ 100 mls/hr 12/18/24 04:57 Dextrose 5% 1,000 Ml IVPB PRN PRN Hypoglycemia Protocol Insulin Aspart 3 - 6 units 12/18/24 08:00 12/19/24 09:33 Insulin Aspart (*Bkc) 100 Units/Ml SUB-Q Not Given TIDWM SHIRA Protocol Insulin Glargine 60 units 12/18/24 21:00 12/18/24 23:54 Insulin Glargine (*Bkc) 100 Units/Ml SUB-Q 60 units HS SHIRA Administration Levalbuterol HCl 1.25 mg 12/18/24 18:32 12/19/24 07:06 Levalbuterol Neb 1.25 Mg/3 Ml INHALATION 1.25 mg Q6HRT PRN Administration Shortness Of Breath Losartan Potassium 50 mg 12/19/24 09:00 12/19/24 09:34 Losartan Potassium 50 Mg Tablet PO 50 mg DAILY SHIRA Administration Metoprolol Tartrate 100 mg 12/18/24 05:00 12/19/24 09:34 Metoprolol Tartrate 50 Mg Tab PO 100 mg Q12HR SHIRA Administration Ondansetron HCl 4 mg 12/18/24 09:32 Ondansetron Inj 4 Mg/2 Ml Vial IV PUSH Q6H PRN Nausea And Vomiting Potassium Chloride 40 meq 12/18/24 15:45 12/19/24 09:34 Potassium Chloride 20 Meq Packet (For Liquid) PO 40 meq DAILY SHIRA Administration Spironolactone 50 mg 12/19/24 09:00 12/19/24 09:34 Spironolactone 50 Mg Tablet PO 50 mg QAM SHIRA Administration Trazodone HCl 25 mg 12/18/24 20:13 12/18/24 23:34 Trazodone Hcl 25 Mg Tablet PO 25 mg HS PRN Administration Insomnia Radiology Results: ITS Impressions Chest X-Ray 12/19/24 06:51 Impression: Minimal right pleural effusion. Stable cardiomegaly. Labs Labs: Laboratory Results - last 24 hr 12/18/24 12/18/24 12/18/24 11:18 16:04 19:54 WBC RBC Hgb Hct MCV MCH MCHC RDW Plt Count MPV Immature Gran % (Auto) Neut % (Auto) Lymph % (Auto) [place] % (Auto) Eos % (Auto) Baso % (Auto) Lymph # (Auto) [place] # (Auto) Eos # (Auto) Baso # (Auto) Abs Immat Gran (auto) Absolute Neuts (auto) Absolute Nucleated RBC Nucleated RBC % Puncture Site ABG pH ABG pCO2 ABG pO2 ABG PO2/FiO2 Ratio ABG HCO3 ABG O2 Saturation ABG O2 Content ABG Base Excess A-a Gradient Oxyhemoglobin Carboxyhemoglobin Methemoglobin Reduced Hemoglobin Total Hemoglobin O2 Delivery Device O2 Liters/Min FiO2 CPAP Sodium Potassium Chloride Carbon Dioxide Anion Gap BUN Creatinine Estim Creat Clear Calc Estimated GFR Glucose POC Capillary Glucose 78 82 219 H Calcium Total Bilirubin AST ALT Alkaline Phosphatase Total Protein Albumin 12/18/24 12/19/24 12/19/24 19:58 03:41 07:00 WBC 6.8 RBC 3.88 L Hgb 11.5 L Hct 37.6 L MCV 96.9 MCH 29.6 MCHC 30.6 L RDW 14.0 Plt Count 132 L MPV 12.1 H Immature Gran % (Auto) 0.3 Neut % (Auto) 64.2 Lymph % (Auto) 25.2 [place] % (Auto) 7.9 Eos % (Auto) 1.8 Baso % (Auto) 0.6 Lymph # (Auto) 1.72 [place] # (Auto) 0.5 Eos # (Auto) 0.1 Baso # (Auto) 0.0 Abs Immat Gran (auto) 0.02 Absolute Neuts (auto) 4.4 Absolute Nucleated RBC 0.000 Nucleated RBC % 0.0 Puncture Site Right radial Right radial ABG pH 7.427 7.403 ABG pCO2 52.4 H 57.2 H ABG pO2 72.8 L 79.1 L ABG PO2/FiO2 Ratio 3.03 3.30 ABG HCO3 33.8 H 34.9 H ABG O2 Saturation 94.8 L 95.5 ABG O2 Content 16.4 16.3 ABG Base Excess 8.0 8.4 A-a Gradient 36.0 24.0 Oxyhemoglobin 93.7 94.5 Carboxyhemoglobin 0.7 Methemoglobin 0.3 Reduced Hemoglobin 4.5 Total Hemoglobin 12.4 12.2 O2 Delivery Device High flow nasal crispin Cpap O2 Liters/Min 1.0 1.0 FiO2 24 24 CPAP 6 Sodium 137 Potassium 3.8 Chloride 95 L Carbon Dioxide 37 H Anion Gap 5 BUN 17 Creatinine 1.09 Estim Creat Clear Calc 77 Estimated GFR > 60 Glucose 227 H POC Capillary Glucose Calcium 8.8 Total Bilirubin 0.3 AST 28 ALT 24 Alkaline Phosphatase 97 Total Protein 7.0 Albumin 3.5 12/19/24 07:38 WBC RBC Hgb Hct MCV MCH MCHC RDW Plt Count MPV Immature Gran % (Auto) Neut % (Auto) Lymph % (Auto) [place] % (Auto) Eos % (Auto) Baso % (Auto) Lymph # (Auto) [place] # (Auto) Eos # (Auto) Baso # (Auto) Abs Immat Gran (auto) Absolute Neuts (auto) Absolute Nucleated RBC Nucleated RBC % Puncture Site ABG pH ABG pCO2 ABG pO2 ABG PO2/FiO2 Ratio ABG HCO3 ABG O2 Saturation ABG O2 Content ABG Base Excess A-a Gradient Oxyhemoglobin Carboxyhemoglobin Methemoglobin Reduced Hemoglobin Total Hemoglobin O2 Delivery Device O2 Liters/Min FiO2 CPAP Sodium Potassium Chloride Carbon Dioxide Anion Gap BUN Creatinine Estim Creat Clear Calc Estimated GFR Glucose POC Capillary Glucose 148 H Calcium Total Bilirubin AST ALT Alkaline Phosphatase Total Protein Albumin
--- NOTE | 2024-12-19 10:23 | P.PNIM_ITS ---
Progress Note: A&P Assessment and Plan (1) Acute on chronic diastolic congestive heart failure: Code(s): I50.33 - Acute on chronic diastolic (congestive) heart failure Status: Acute Assessment and Plan: Patient just discharged 3 days ago after hospitalization for CHF exacerbation and AFib RVR. Severe anasarca * BNP 3770 * IV Lasix b.i.d. may need to switch to Bumex * added spironolactone * cardiology consulted * monitor renal function during diuresis * previous echocardiogram: 12/09/24 LVEF of 50-55% with diastolic dysfunction moderate TR * EK AFIB has episodes of RVR not sustained * chest x-ray: bilateral pleural effusions interstitial congestion * Daily weight. * Strict I&O's * fluid restriction * elevate/Rayshawn wrap legs if needed * Antiplatelet therapy, statin therapy, loop diuretics as indicated,. * Optimize blood pressure less than 130/80. 12/19: * Continue with Diuresis * Cardiology recommended adding Jardiance (2) Atrial fibrillation with rapid ventricular response: Code(s): I48.91 - Unspecified atrial fibrillation Status: Acute Assessment and Plan: * EKG showed 86 in atrial fibrillation * patient with episodes of RVR * resume patient's diltiazem, metoprolol, and Eliquis (3) Essential (primary) hypertension: Code(s): I10 - Essential (primary) hypertension Status: Acute Assessment and Plan: * reviewed * resume clonidine, diltiazem, metoprolol * discontinue patient's amlodipine due to bilateral leg edema * increased his losartan to 50 mg daily * BP per unit protocol (4) Insulin dependent type 2 diabetes mellitus: Code(s): E11.9 - Type 2 diabetes mellitus without complications; Z79.4 - adjunct faculty for medical terminology (current) use of insulin Status: Acute Assessment and Plan: * Accu-Cheks a.c. HS * sliding scale insulin * hold oral diabetic medications * patient's long-acting insulin not formulated * Lantus 60 units HS * Watch for hypoglycemia/hypoglycemic protocol ordered (5) Mixed hyperlipidemia: Code(s): E78.2 - Mixed hyperlipidemia Status: Acute Assessment and Plan: * Resumed Atorvastatin (6) Obstructive sleep apnea: Code(s): G47.33 - Obstructive sleep apnea (adult) (pediatric) Status: Acute Assessment and Plan: * patient does not currently wear a CPAP * cardiology has consulted pulmonology to assist with evaluation and possible set up for CPAP 12/19: * Tolerated CPAP at night (7) Morbid obesity: Code(s): E66.01 - Morbid (severe) obesity due to excess calories Status: Acute Assessment and Plan: * Encouraged strict diet restrictions and weight loss * Encourage increased activity patient going to Rehab at discharge * likely contributing to some of his chronic problems Plan Code status: Full code per patient DVT prophylaxis: Eliquis Stress ulcer prophylaxis: Protonix 40 daily PT/OT notes: SNF Disposition: patient admitted to IMU for further evaluation and treatment acute on chronic exacerbation of CHF cardiology consulted for any further recommendations pulmonology also consulted to assist and possible sleep apnea needs is not currently have a CPAP machine at home. PT/OT ordered plan to return to [facility] for physical and occupational therapy when medically stable Time Spent With Patient Time with patient: 15 - 25 minutes Subjective Date/time seen: 12/19/24 10:23 Interval history: Patient is a 74-year-old male who was admitted for further treatment of acute on chronic congestive heart failure. 12/19/2024: Patient reports he is feeling better today and abd feels less distended. Reports good urine output and tolerated the CPAP last night. Patient also reported he sleep well last night for the first time in years. Review of Systems Review of Systems: 12 systems were reviewed and are negativ e except for as per HPI. All systems reviewed & are unremarkable except as noted in HPI and below Exam Narrative: General: Pleasant chronically ill looking male in no acute distress HEENT: PERRL,Oral mucosa moist. Neck: Supple. Respiratory: Mild conversational dyspnea though he appears in no respiratory distress. Lung sounds diminished, scattered crackles at the bases. Cardiovascular: Irregularly irregular Gastrointestinal: Abdomen is obese and nontender with normal bowel sounds. Skin: Warm and dry. Extremities: No cyanosis or clubbing. anasarca throughout Neurological: Alert. No gross focal deficits to casual conversation. Psychiatric: Pleasant and cooperative with normal mood and affect. Objective Data Vital Signs Vital Signs: Vital Signs - 24 hr 12/18/24 10:48 12/18/24 12:00 12/18/24 12:00 Temperature 97.5 F L Pulse Rate 107 H 87 Respiratory Rate 28 H 20 Blood Pressure 142/93 H Pulse Oximetry 99 Oxygen Delivery Oxygen Flow Rate Fraction of Inspired Oxygen 12/18/24 12:00 12/18/24 14:00 12/18/24 16:00 Temperature 98.2 F Pulse Rate 99 72 Respiratory Rate 224 H Blood Pressure 121/82 Pulse Oximetry 99 98 Oxygen Delivery Nasal Cannula Oxygen Flow Rate 1 Fraction of Inspired Oxygen 12/18/24 16:00 12/18/24 16:00 12/18/24 18:00 Temperature Pulse Rate 110 H 107 H Respiratory Rate Blood Pressure Pulse Oximetry 98 Oxygen Delivery Nasal Cannula Oxygen Flow Rate 1 Fraction of Inspired Oxygen 12/18/24 19:43 12/18/24 19:45 12/18/24 20:00 Temperature 98.4 F Pulse Rate 99 88 102 H Respiratory Rate 20 18 Blood Pressure 113/66 Pulse Oximetry 95 Oxygen Delivery Oxygen Flow Rate Fraction of Inspired Oxygen 12/18/24 20:10 12/18/24 20:30 12/18/24 20:30 Temperature Pulse Rate 88 111 H 99 Respiratory Rate 18 20 Blood Pressure Pulse Oximetry 95 Oxygen Delivery Nasal Cannula Oxygen Flow Rate 1 Fraction of Inspired Oxygen 12/18/24 21:00 12/18/24 21:46 12/18/24 22:00 Temperature Pulse Rate 88 112 H Respiratory Rate 18 Blood Pressure Pulse Oximetry 95 95 Oxygen Delivery Autopap Nasal Cannula Oxygen Flow Rate 1 Fraction of Inspired Oxygen 24 12/18/24 23:30 12/19/24 00:00 12/19/24 00:02 Temperature 98 F Pulse Rate 85 136 H 85 Respiratory Rate 20 20 Blood Pressure 105/58 L Pulse Oximetry 94 94 Oxygen Delivery CPAP Oxygen Flow Rate 1 Fraction of Inspired Oxygen 12/19/24 02:00 12/19/24 03:02 12/19/24 03:20 Temperature Pulse Rate 88 88 94 Respiratory Rate 18 20 Blood Pressure Pulse Oximetry 95 96 Oxygen Delivery Autopap CPAP Oxygen Flow Rate 1 Fraction of Inspired Oxygen 12/19/24 04:00 12/19/24 05:00 12/19/24 06:00 Temperature 97.6 F Pulse Rate 95 94 89 Respiratory Rate 20 Blood Pressure 125/85 Pulse Oximetry 96 Oxygen Delivery Oxygen Flow Rate Fraction of Inspired Oxygen 12/19/24 06:32 12/19/24 07:07 12/19/24 07:07 Temperature Pulse Rate 105 H 113 H 113 H Respiratory Rate 37 H 20 20 Blood Pressure Pulse Oximetry 91 99 Oxygen Delivery Nasal Cannula CPAP Oxygen Flow Rate 1 1 Fraction of Inspired Oxygen 12/19/24 07:17 12/19/24 07:39 12/19/24 09:34 Temperature 97.3 F L Pulse Rate 76 94 89 Respiratory Rate 20 18 Blood Pressure 115/72 Pulse Oximetry 96 Oxygen Delivery Oxygen Flow Rate Fraction of Inspired Oxygen Intake/Output Intake/Output: Intake & Output 12/16/24 12/17/24 12/18/24 12/19/24 23:59 23:59 23:59 23:59 Intake Total 715 780 Output Total 7397 9230 [id number] -[id number] -[id number] Meds/Results Medications: Active Medications Generic Name Dose Route Start Last Admin Trade Name Freq PRN Reason Stop Dose Admin Acetaminophen 650 mg 12/18/24 09:32 Acetaminophen 325 Mg Tablet PO Q4H PRN Mild Pain (1-3) or Fever Hydrocodone Bitart/Acetaminophen 1 tab 12/18/24 04:56 12/19/24 09:38 Hydrocodone/Acetaminophen (*Crx) 7.5-325 Mg Tablet PO 1 tab Q4H PRN Administration Pain Rated 7-10 Apixaban 5 mg 12/18/24 09:00 12/19/24 09:34 Apixaban 5 Mg Tablet PO 5 mg Q12HR SHIRA Administration Aspirin 81 mg 12/18/24 09:00 12/19/24 09:34 Aspirin 81 Mg Enteric Tablet PO 81 mg DAILY SHIRA Administration Atorvastatin Calcium 20 mg 12/18/24 05:00 12/19/24 09:35 Atorvastatin 20 Mg Tablet PO 20 mg DAILY SHIRA Administration Clonidine HCl 0.2 mg 12/18/24 05:00 12/19/24 06:23 Clonidine Hcl 0.2 Mg Tablet PO 0.2 mg Q8H SHIRA Administration Cyanocobalamin 1,000 mcg 12/18/24 09:00 12/19/24 09:35 Cyanocobalamin 1,000 Mcg Tablet PO 1,000 mcg QAM SHIRA Administration Dextrose 12.5 gm 12/18/24 04:57 Dextrose 50% 25 Gm/50 Ml Syringe IV PUSH PRN PRN Hypoglycemia Protocol Diltiazem HCl 180 mg 12/18/24 09:00 12/19/24 09:34 Diltiazem Hcl Cd 180 Mg Cap.24hr PO 180 mg QAM SHIRA Administration Furosemide 60 mg 12/19/24 06:45 12/19/24 06:51 Furosemide Inj 40 Mg/4 Ml Vial IV PUSH 60 mg BID SHIRA Administration Gabapentin 300 mg 12/18/24 06:00 12/19/24 06:23 Gabapentin 300 Mg Capsule PO 300 mg Q8HR SHIRA Administration Glucagon 1 mg 12/18/24 04:57 Glucagon For Inj 1 Mg Vial IM PRN PRN Hypoglycemia Protocol Glucose 15 gm 12/18/24 04:57 Glucose Oral Gel 15 Gm Of Glucse In 37.5 Gm Tube PO PRN PRN Hypoglycemia Protocol Dextrose 1,000 mls @ 100 mls/hr 12/18/24 04:57 Dextrose 5% 1,000 Ml IVPB PRN PRN Hypoglycemia Protocol Insulin Aspart 3 - 6 units 12/18/24 08:00 12/19/24 09:33 Insulin Aspart (*Bkc) 100 Units/Ml SUB-Q Not Given TIDWM SHIRA Protocol Insulin Glargine 60 units 12/18/24 21:00 12/18/24 23:54 Insulin Glargine (*Bkc) 100 Units/Ml SUB-Q 60 units HS SHIRA Administration Levalbuterol HCl 1.25 mg 12/18/24 18:32 12/19/24 07:06 Levalbuterol Neb 1.25 Mg/3 Ml INHALATION 1.25 mg Q6HRT PRN Administration Shortness Of Breath Losartan Potassium 50 mg 12/19/24 09:00 12/19/24 09:34 Losartan Potassium 50 Mg Tablet PO 50 mg DAILY SHIRA Administration Metoprolol Tartrate 100 mg 12/18/24 05:00 12/19/24 09:34 Metoprolol Tartrate 50 Mg Tab PO 100 mg Q12HR SHIRA Administration Ondansetron HCl 4 mg 12/18/24 09:32 Ondansetron Inj 4 Mg/2 Ml Vial IV PUSH Q6H PRN Nausea And Vomiting Potassium Chloride 40 meq 12/18/24 15:45 12/19/24 09:34 Potassium Chloride 20 Meq Packet (For Liquid) PO 40 meq DAILY SHIRA Administration Spironolactone 50 mg 12/19/24 09:00 12/19/24 09:34 Spironolactone 50 Mg Tablet PO 50 mg QAM SHIRA Administration Trazodone HCl 25 mg 12/18/24 20:13 12/18/24 23:34 Trazodone Hcl 25 Mg Tablet PO 25 mg HS PRN Administration Insomnia Radiology Results: ITS Impressions Chest X-Ray 12/19/24 06:51 Impression: Minimal right pleural effusion. Stable cardiomegaly. Labs Labs: Laboratory Results - last 24 hr 12/18/24 12/18/24 12/18/24 11:18 16:04 19:54 WBC RBC Hgb Hct MCV MCH MCHC RDW Plt Count MPV Immature Gran % (Auto) Neut % (Auto) Lymph % (Auto) Elbert % (Auto) Eos % (Auto) Baso % (Auto) Lymph # (Auto) Elbert # (Auto) Eos # (Auto) Baso # (Auto) Abs Immat Gran (auto) Absolute Neuts (auto) Absolute Nucleated RBC Nucleated RBC % Puncture Site ABG pH ABG pCO2 ABG pO2 ABG PO2/FiO2 Ratio ABG HCO3 ABG O2 Saturation ABG O2 Content ABG Base Excess A-a Gradient Oxyhemoglobin Carboxyhemoglobin Methemoglobin Reduced Hemoglobin Total Hemoglobin O2 Delivery Device O2 Liters/Min FiO2 CPAP Sodium Potassium Chloride Carbon Dioxide Anion Gap BUN Creatinine Estim Creat Clear Calc Estimated GFR Glucose POC Capillary Glucose 78 82 219 H Calcium Total Bilirubin AST ALT Alkaline Phosphatase Total Protein Albumin 12/18/24 12/19/24 12/19/24 19:58 03:41 07:00 WBC 6.8 RBC 3.88 L Hgb 11.5 L Hct 37.6 L MCV 96.9 MCH 29.6 MCHC 30.6 L RDW 14.0 Plt Count 132 L MPV 12.1 H Immature Gran % (Auto) 0.3 Neut % (Auto) 64.2 Lymph % (Auto) 25.2 Elbert % (Auto) 7.9 Eos % (Auto) 1.8 Baso % (Auto) 0.6 Lymph # (Auto) 1.72 Elbert # (Auto) 0.5 Eos # (Auto) 0.1 Baso # (Auto) 0.0 Abs Immat Gran (auto) 0.02 Absolute Neuts (auto) 4.4 Absolute Nucleated RBC 0.000 Nucleated RBC % 0.0 Puncture Site Right radial Right radial ABG pH 7.427 7.403 ABG pCO2 52.4 H 57.2 H ABG pO2 72.8 L 79.1 L ABG PO2/FiO2 Ratio 3.03 3.30 ABG HCO3 33.8 H 34.9 H ABG O2 Saturation 94.8 L 95.5 ABG O2 Content 16.4 16.3 ABG Base Excess 8.0 8.4 A-a Gradient 36.0 24.0 Oxyhemoglobin 93.7 94.5 Carboxyhemoglobin 0.7 Methemoglobin 0.3 Reduced Hemoglobin 4.5 Total Hemoglobin 12.4 12.2 O2 Delivery Device High flow nasal crispin Cpap O2 Liters/Min 1.0 1.0 FiO2 24 24 CPAP 6 Sodium 137 Potassium 3.8 Chloride 95 L Carbon Dioxide 37 H Anion Gap 5 BUN 17 Creatinine 1.09 Estim Creat Clear Calc 77 Estimated GFR > 60 Glucose 227 H POC Capillary Glucose Calcium 8.8 Total Bilirubin 0.3 AST 28 ALT 24 Alkaline Phosphatase 97 Total Protein 7.0 Albumin 3.5 12/19/24 07:38 WBC RBC Hgb Hct MCV MCH MCHC RDW Plt Count MPV Immature Gran % (Auto) Neut % (Auto) Lymph % (Auto) Elbert % (Auto) Eos % (Auto) Baso % (Auto) Lymph # (Auto) Elbert # (Auto) Eos # (Auto) Baso # (Auto) Abs Immat Gran (auto) Absolute Neuts (auto) Absolute Nucleated RBC Nucleated RBC % Puncture Site ABG pH ABG pCO2 ABG pO2 ABG PO2/FiO2 Ratio ABG HCO3 ABG O2 Saturation ABG O2 Content ABG Base Excess A-a Gradient Oxyhemoglobin Carboxyhemoglobin Methemoglobin Reduced Hemoglobin Total Hemoglobin O2 Delivery Device O2 Liters/Min FiO2 CPAP Sodium Potassium Chloride Carbon Dioxide Anion Gap BUN Creatinine Estim Creat Clear Calc Estimated GFR Glucose POC Capillary Glucose 148 H Calcium Total Bilirubin AST ALT Alkaline Phosphatase Total Protein Albumin Quality VTE Prophylaxis VTE prophylaxis: pharmacologic ordered -Patient's previous records reviewed on admission -ER notes reviewed in detail on admission -discussed all findings and current treatment plan with patient/Family/POA -Consultations reviewed for recommendations -Patient's disposition for safe discharge discussed with manager of case management Dictation performed by Present direct speech recognition software, therefore kitchen worker variants and typographical errors may occur. Hospitalist MIPS Advance Care Plan I have confirmed that the patient's Advanced Care Plan is present, code status is documented, or surrogate decision maker is listed in patient medical record.: Yes Medication Reconciliation I have utilized all available resources to obtain, update and review the patients current medications (includes all prescriptions, OTC, herbals, cannabis, and nutritional supplements).: Yes The patient is not eligible for med reconciliation; the patient is in a emergent medical situation where delaying treatment would jeopardize the patients health.: No
[2024-12-19 11:42] LABS: Glucose Point of Care 141 mg/dl (65-105)
--- NOTE | 2024-12-19 12:49 | P.CONPL_ITS ---
Assessment and Plan Assessment and plan (1) Obstructive sleep apnea: Code(s): G47.33 - Obstructive sleep apnea (adult) (pediatric) Status: Acute Assessment and Plan: Regarding his obstructive sleep apnea the patient tells me in the 1970s he had a sleep study and was prescribed a fullface mask CPAP machine and he were to few times and could not tolerate it and never had any follow-up. At that time he had witnessed apneas per his . Recently he does not know if he snores. He and his sleep in separate bedrooms and does not know if he has witnessed apneas, he has no morning headaches. He was on Ozempic and weight 385 lb and lost 100 lb to 285 lb. He has now gained considerable water weight over the last 3 weeks and now weighs 340 lb. TSH 12/09/2024 1.04. 12/19/24: Patient wore the auto PAP 5-15 1 L bleed in and said he got the best night of his sleep in the last 3 weeks. Patient had an ABG on auto PAP 5-15 1 L bleed in of 7.40/57/79. Plan: The patient has untreated obstructive sleep apnea for many years with evidence of right heart failure with a tricuspid peak gradient of 42 on 12/09/2024. he has hypercarbic respiratory failure but he was also fluid overloaded. After he has been aggressively diuresed and no longer fluid overloaded I will repeat daytime ABG off of positive airway pressure for 24 hours to reassess for chronic hypercarbic respiratory failure secondary to obesity hypoventilation syndrome. In the meantime his blood gas on auto PAP 5-15 shows chronic hypercarbic respiratory failure and I will switch him to noninvasive ventilation with the AVAPS mode rate of 14, tidal volume 500, EPAP 8, minimal inspiratory pressure 9, maximal inspiratory pressure 25 and FiO2 24%. I will check overnight oximetry in ABG prior to removal. Discussed with Aiyana Sprague. Will follow with you. (2) Right heart failure: Code(s): I50.810 - Right heart failure, unspecified Status: Acute Assessment and Plan: 12/19/24: diuresed 1.9 L yesterday and cumulative diuresis is -2.9 L since admission on lasix 60 IV BID, Spironolactone 50 q.day. Chest x-ray shows minimal right pleural effusion with improved congestion. Patient states his edema and abdominal tightness are improved. BNP has improved from 3770 to 2660. Overall he says he feels better and he says he feels 30% back to his normal. his weight on admission was 158.6 kg and today he is 154.5 kg. Of note on 09/12/2024 he weighed 138.8 kg. Plan: recommend as aggressive diuresis as tolerated by his cardiac and renal systems per Cardiology and hospitalist teams. History of Present Illness History of Present Illness Consult date: 12/19/24 Chief complaint: CHF Narrative: 12/19/2024: This is a new pulmonary consult for hypoxemic and hypercarbic respiratory failure, morbid obesity and congestive heart failure. 74-year-old with a history of CVA, CAD, AFib with RVR, diastolic dysfunction, hypertension, hyperlipidemia, diabetes, morbid obesity and untreated sleep apnea. Regarding his obstructive sleep apnea the patient tells me in the he had a sleep study and was prescribed a fullface mask CPAP machine and he were to few times and could not tolerate it and never had any follow-up. At that time he had witnessed apneas per his . Recently he does not know if he snores. He and his sleep in separate bedrooms and does not know if he has witnessed apneas, he has no morning headaches. He was on Ozempic and weight 385 lb and lost 100 lb to 285 lb. At baseline he says he could walk 1 block and this is unchanged over the last year. Over the last 3-4 weeks he can only walk room to room. He does not measure his oxygen. Patient smoked tobacco from [id number] at 1 pack per day for a total of 31 pack years. Approximately 3-4 weeks ago he has had Shortness of breath at rest, dyspnea on exertion, weight gain, tight abdomen and lower extremity edema. He was admitted to the hospital from 12/08/2024 through 12/14/24 with fluid overload with an admission BNP of 3540, TSH 12/09/2024 1.04. AFib with RVR and he was diuresed with IV Lasix. His weight on admission was 159.7 kg and on discharge was 161.2 kg. on 12/13/2024 his BNP was 4470. He was admitted on 20 mg of Lasix twice a day and discharged on 40 mg of Lasix twice a day. 12/17/2024 the patient presented back to the hospital with worsening shortness of breath and increased edema. Is BNP was 3770, chest x-ray showed congestion with small effusions, he had AFib with RVR and he was treated with IV Lasix. His room air blood gas was 7.42/46/63. On 12/18/2024 the patient was on 1 L and had a blood gas of 7.43/52/73 and was empirically placed on auto PAP 5-15. 12/19/24: The patient is awake and alert currently on auto PAP with 1 L bleed in with saturations 97%. I placed him on room air and his saturations were 93- 94%. His white blood cell count 6.8, creatinine 1.09, diuresed 1.9 L yesterday and cumulative diuresis is -2.9 L. patient had an ABG on auto PAP 5-15 of 7.40/57/79. Chest x-ray shows minimal right pleural effusion with improved congestion. Patient states his edema and abdominal tightness are improved. Overall he says he feels better and he says he feels 30% back to his normal. He denies fever, chills, rigors. Remains with shortness of breath. Patient wore the auto PAP 5-15 and said he got the best night of his sleep in the last 3 weeks. DATA 12/17/24: CHEST RADIOGRAPH CLINICAL HISTORY: dyspnea/ chf . COMPARISON: 12/08/2024 TECHNIQUE: Single portable view of the chest. FINDINGS The cardiomediastinal silhouette is enlarged, unchanged. Calcified lymph nodes within the mediastinum suggesting prior granulomatous disease. Increased interstitial markings are identified bilaterally, findings suggesting mild pulmonary vascular congestion. Bilateral pleural effusions, right greater than left. The remainder of the lungs are clear. IMPRESSION: Bilateral pleural effusions, with mild pulmonary vascular congestion. Review of Systems 2 Constitutional: Constitutional: Reports no additional constitutional complaints Eyes: Eyes: Reports no additional eye complaints ENT: Reports system reviewed and no additional complaints, except as documented Cardiovascular: Cardiovascular: Reports no additional cardiovascular complaints Respiratory: Respiratory: Reports no additional respiratory complaints Gastrointestinal: Gastrointestinal: Reports no additional gastrointestinal complaints Musculoskeletal: Musculoskeletal: Reports no additional musculoskeletal complaints Neurologic: Reports system reviewed and no additional complaints, except as documented Psychiatric: Psychiatric: Reports no additional psychiatric complaints Endocrine: Endocrine: Reports no additional endocrine complaints Hematologic/Lymphatic: Hematologic/Lymphatic: Reports no additional hematologic/lymphatic complaints Allergic/Immunologic: Allergic/Immunologic: Reports no additional allergic/immunologic complaints [facility] Past Medical History Medical History Diastolic dysfunction Insulin dependent type 2 diabetes mellitus Depression Constipation Vitamin B12 deficiency Stroke BCC (basal cell carcinoma of skin) Nasal lesion Atherosclerosis of aorta Personal history of nicotine dependence Insomnia Physical debility Lesion of nose Coronary arteriosclerosis in patient with history of previous myocardial infarction MPI in September 2019 showed infarct with relatively preserved EF Morbid obesity Ambulatory dysfunction Chronic kidney disease, stage 3 (moderate) Chronic pain disorder Diabetic nephropathy associated with type 2 diabetes mellitus Essential (primary) hypertension Intervertebral disc disorders with myelopathy, lumbar region Mixed hyperlipidemia Obstructive sleep apnea (adult) (pediatric) Non compliant with CPAP Opioid dependence, uncomplicated Ventricular hypertrophy due to hypertensive disease Vitamin D deficiency, unspecified Surgical History Surgical History Status post surgical removal of malignant neoplasm of skin History of cholecystectomy History of appendectomy Family History Family History Mother Patient's mother is Family history of premature coronary heart disease Father Alcoholic cirrhosis of liver Family history of diabetes mellitus in first degree relative Patient's father is Hypertension Sibling Family history of diabetes mellitus in first degree relative Hypertension Colon cancer Chronic obstructive pulmonary disease Sibling Chronic obstructive pulmonary disease Social History Social History Social History: Surrogate medical decision maker: Clifford Pineda, son. Code status: Full code. Smoking packs per day: 1 Smoking cigarettes per day: 20.0 Years smoked: 20 Smoking pack-years: 20.00 Smoking status: Former smoker Tobacco type: cigarettes Second hand tobacco smoke exposure: Yes Additional smoking assessment comments: Quit 2013. Alcohol intake: never Alcohol use details: No alcohol in over 25 years. Substance use: never Substance use type: does not use Do You Feel Safe in your Home?: Yes Lack of Transportation: No Lack of Food: Never True Current Housing: I Have Housing Concerned About Future Housing: No Difficulty Paying Gas/Electric Bills: No Difficulty Paying for Meds: No Currently Unemployed: No Education: High School Diploma/GED Difficulty w/ Childcare or Family Care: No Living arrangements: with family Additional living arrangements comments: He and his son live together in [place]. Occupation/Education: retired Spiritual care concerns: No Meds Home Medications and Allergies Home Medications ?Medication ?Instructions ?Recorded ?Confirmed ?Type naloxone 4 mg/actuation nasal spray 4 mg intranasal Q3M PRN opioid 04/29/21 12/18/24 Rx overdose #2 ea cyanocobalamin (vitamin B-12) 1,000 mcg PO QAM #0 tabs 09/25/21 12/18/24 Rx 1,000 mcg tablet (Vitamin B-12) lancets (Microlet Lancet) #100 ea 10/25/21 12/18/24 Rx flash glucose scanning reader #1 ea 06/08/23 12/18/24 Rx (FreeStyle Sara 2 [place]) metoprolol tartrate 100 mg tablet See Rx Instructions .Route 03/11/24 12/18/24 Rx .COMPLEX #180 tabs pen needle, diabetic 31 gauge x #200 ea 06/07/24 12/18/24 Rx 5/16 (BD Ultra-Fine Short Pen Needle) atorvastatin 20 mg tablet See Rx Instructions .Route 07/10/24 12/18/24 Rx .COMPLEX #90 tabs aspirin 81 mg tablet,delayed 81 mg PO DAILY #100 tabs 08/29/24 12/18/24 Rx release (Teo Low Dose Aspirin) glimepiride 4 mg tablet See Rx Instructions .Route 08/29/24 12/18/24 Rx .COMPLEX #90 tabs losartan 25 mg tablet 25 mg PO DAILY #90 tabs 09/12/24 12/18/24 Rx flash glucose sensor (FreeStyle #2 ea 09/27/24 12/18/24 Rx Sara 2 Sensor kit) semaglutide 1 mg/dose (4 mg/3 mL) 1 mg (0.75 mL) subcut WEEKLY #3 mL 10/31/24 12/18/24 Rx subcutaneous pen injector (Ozempic) hydrocodone 7.5 mg-acetaminophen 1 tablet PO Q4H PRN Pain Rated 12/05/24 12/18/24 Rx 325 mg tablet 7-10 #180 tabs apixaban 5 mg tablet (Eliquis) 5 mg PO Q12HR #60 tabs 12/14/24 12/18/24 Rx diltiazem HCl 180 mg 180 mg PO QAM #30 caps 12/14/24 12/18/24 Rx capsule,extended release 24 hr, controlled furosemide 40 mg tablet 40 mg PO BID #30 tabs 12/14/24 12/18/24 Rx amlodipine 10 mg tablet 10 mg PO HS 12/18/24 12/18/24 History clonidine HCl 0.2 mg tablet 0.2 mg PO Q8H 12/18/24 12/18/24 History ergocalciferol (vitamin D2) 1,250 1,250 mcg PO WEEKLY 12/18/24 12/18/24 History mcg (50,000 unit) capsule gabapentin 300 mg capsule 300 mg PO Q8H 12/18/24 12/18/24 History insulin glargine U-300 conc 300 See Rx Instructions subcut .COMPLEX 12/18/24 12/18/24 History unit/mL (3 mL) subcutaneous pen (Toujeo Max U-300 SoloStar) suvorexant 10 mg tablet (Belsomra) 10 mg PO HS 12/18/24 12/18/24 History Allergies Allergy/AdvReac Type Severity Reaction Status Date / Time metformin AdvReac Severe diarrhea Uncoded 12/18/24 02:12 Vital Signs Vital Signs - 24 hr 12/18/24 14:00 12/18/24 16:00 12/18/24 16:00 Temperature 36.8 C Pulse Rate 99 72 110 H Respiratory Rate 224 H Blood Pressure 121/82 Pulse Oximetry 98 Oxygen Delivery Oxygen Flow Rate Fraction of Inspired Oxygen 12/18/24 16:00 12/18/24 18:00 12/18/24 19:43 Temperature 36.9 C Pulse Rate 107 H 99 Respiratory Rate 20 Blood Pressure 113/66 Pulse Oximetry 98 95 Oxygen Delivery Nasal Cannula Oxygen Flow Rate 1 Fraction of Inspired Oxygen 12/18/24 19:45 12/18/24 20:00 12/18/24 20:10 Temperature Pulse Rate 88 102 H 88 Respiratory Rate 18 18 Blood Pressure Pulse Oximetry Oxygen Delivery Oxygen Flow Rate Fraction of Inspired Oxygen 12/18/24 20:30 12/18/24 20:30 12/18/24 21:00 Temperature Pulse Rate 111 H 99 88 Respiratory Rate 20 18 Blood Pressure Pulse Oximetry 95 95 Oxygen Delivery Nasal Cannula Autopap Oxygen Flow Rate 1 Fraction of Inspired Oxygen 12/18/24 21:46 12/18/24 22:00 12/18/24 23:30 Temperature Pulse Rate 112 H 85 Respiratory Rate 20 Blood Pressure Pulse Oximetry 95 94 Oxygen Delivery Nasal Cannula CPAP Oxygen Flow Rate 1 1 Fraction of Inspired Oxygen 24 12/19/24 00:00 12/19/24 00:02 12/19/24 02:00 Temperature 36.6 C Pulse Rate 136 H 85 88 Respiratory Rate 20 Blood Pressure 105/58 L Pulse Oximetry 94 Oxygen Delivery Oxygen Flow Rate Fraction of Inspired Oxygen 12/19/24 03:02 12/19/24 03:20 12/19/24 04:00 Temperature Pulse Rate 88 94 95 Respiratory Rate 18 20 Blood Pressure Pulse Oximetry 95 96 Oxygen Delivery Autopap CPAP Oxygen Flow Rate 1 Fraction of Inspired Oxygen 12/19/24 05:00 12/19/24 06:00 12/19/24 06:32 Temperature 36.4 C Pulse Rate 94 89 105 H Respiratory Rate 20 37 H Blood Pressure 125/85 Pulse Oximetry 96 91 Oxygen Delivery Nasal Cannula Oxygen Flow Rate 1 Fraction of Inspired Oxygen 12/19/24 07:07 12/19/24 07:07 12/19/24 07:17 Temperature Pulse Rate 113 H 113 H 76 Respiratory Rate 20 20 20 Blood Pressure Pulse Oximetry 99 Oxygen Delivery CPAP Oxygen Flow Rate 1 Fraction of Inspired Oxygen 12/19/24 07:39 12/19/24 08:00 12/19/24 09:34 Temperature 36.3 C L Pulse Rate 94 93 89 Respiratory Rate 18 Blood Pressure 115/72 Pulse Oximetry 96 Oxygen Delivery Oxygen Flow Rate Fraction of Inspired Oxygen 12/19/24 10:00 12/19/24 11:19 Temperature 36.6 C Pulse Rate 95 104 H Respiratory Rate 22 H Blood Pressure 127/91 H Pulse Oximetry 93 Oxygen Delivery Oxygen Flow Rate Fraction of Inspired Oxygen Exam 2 Const: General: cooperative and comfortable Orientation/consciousness: o riented to person, oriented to place and oriented to time Other: obese HENMT: Head: normal to inspection Ears: hearing grossly normal bilaterally Eyes: General: appearance normal, both eyes and all related structures Neck: Neck: normal visual inspection Chest: Chest palpation & inspection: normal inspection of the chest Resp: Effort & Inspection: normal respiratory effort and able to speak in complete sentences Auscultation: no crackles, no rales, no rhonchi, no wheezes and diminished lung sounds Other: obese Cardio: Jugular venous distension: no JVD GI: Inspection: distended GI Palp: No abdominal tenderness Skin: General skin exam: normal color Neuro: General: oriented to person, oriented to place and oriented to time Extrem: General: normal to inspection and edema Psych: Appearance: grossly normal Results Laboratory Findings 12/19/24 03:41 12/19/24 03:41 ABG, PT/INR, D-dimer: ABG ABG pH 7.403 (7.350-7.450) 12/19/24 07:00 ABG pCO2 57.2 mmHg (35.0-45.0) H 12/19/24 07:00 ABG pO2 79.1 mmHg (80.0-100.0) L 12/19/24 07:00 ABG O2 Saturation 95.5 % (95.0-100.0) 12/19/24 07:00 Abnormal lab findings: Abnormal Labs 12/17/24 12/17/24 12/17/24 21:19 21:28 22:26 RBC 3.78 L Hgb 11.4 L Hct 35.8 L MCHC 31.8 L Plt Count 113 L MPV 11.4 H Neut % (Auto) 73.5 H Lymph % (Auto) ABG pCO2 45.8 H ABG pO2 63.0 L ABG HCO3 28.7 H ABG O2 Saturation 92.3 L ABG O2 Content 15.8 L Sodium 136 L Potassium Chloride 96 L Carbon Dioxide 35 H Glucose 138 H POC Capillary Glucose 131 H NT-Pro-B Natriuret Pep 3770 H Total Protein 6.0 L Albumin 3.4 L 12/18/24 12/18/24 12/18/24 08:07 09:49 19:54 RBC 3.84 L Hgb 11.6 L Hct 36.7 L MCHC 31.6 L Plt Count 117 L MPV 11.5 H Neut % (Auto) 74.8 H Lymph % (Auto) 17.6 L ABG pCO2 ABG pO2 ABG HCO3 ABG O2 Saturation ABG O2 Content Sodium 136 L Potassium 3.3 L Chloride 97 L Carbon Dioxide 34 H Glucose POC Capillary Glucose 121 H 219 H NT-Pro-B Natriuret Pep Total Protein 6.0 L Albumin 12/18/24 12/19/24 12/19/24 19:58 03:41 07:00 RBC 3.88 L Hgb 11.5 L Hct 37.6 L MCHC 30.6 L Plt Count 132 L MPV 12.1 H Neut % (Auto) Lymph % (Auto) ABG pCO2 52.4 H 57.2 H ABG pO2 72.8 L 79.1 L ABG HCO3 33.8 H 34.9 H ABG O2 Saturation 94.8 L ABG O2 Content Sodium Potassium Chloride 95 L Carbon Dioxide 37 H Glucose 227 H POC Capillary Glucose NT-Pro-B Natriuret Pep Total Protein Albumin 12/19/24 12/19/24 07:38 11:22 RBC Hgb Hct MCHC Plt Count MPV Neut % (Auto) Lymph % (Auto) ABG pCO2 ABG pO2 ABG HCO3 ABG O2 Saturation ABG O2 Content Sodium Potassium Chloride Carbon Dioxide Glucose POC Capillary Glucose 148 H 141 H NT-Pro-B Natriuret Pep Total Protein Albumin Diagnostic Findings Additional studies: ITS Impressions Chest X-Ray 12/17/24 21:58 IMPRESSION: Bilateral pleural effusions, with mild pulmonary vascular congestion. Chest X-Ray 12/18/24 19:31 IMPRESSION: Interval development of mild interstitial edema. Increasing small bilateral pleural effusions. Chest X-Ray 12/19/24 06:51 Impression: Minimal right pleural effusion. Stable cardiomegaly.
[2024-12-19 13:16] LABS: NT Pro B Type Natriuretic Pept 2660 pg/mL (19.9-100)
[2024-12-19 16:19] LABS: Glucose Point of Care 150 mg/dl (65-105)
[2024-12-19] MEDS: traZODone HCL 25 MG TABLET PO (20:50)
[2024-12-19] MEDS: INSULIN GLARGINE (*BKC) 100 UNITS/ML 60 UNITS SUB-Q (20:52)
[2024-12-19 20:55] LABS: Glucose Point of Care 135 mg/dl (65-105)
[2024-12-20] VITALS (18 sets, daily range): BP systolic 98–145; BP diastolic 64–88; PULSE 55–121; RESP 14–26; TEMP 36.4–36.7; O2SAT 92–99
[2024-12-20 04:40] LABS: Alveolar/Arterial O2 Gradient 28.7 mmHg; Base Excess ABG 12.5 mEq/l (+/-2.0); Fractional Inspired Oxygen 24 %; HCO3 ABG 38.9 mEq/l (22.0-26.0); Oxyhemoglobin 93.6 % THb (90.0-100.0); PCO2 ABG 57.9 mmHg (35.0-45.0); PO2 ABG 73.5 mmHg (80.0-100.0); PO2 FiO2 Ratio Arterial Blood 3.06 %; Total Hemoglobin 12.9 g/dL (12.0-18.0); pH ABG 7.445 (7.350-7.450)
[2024-12-20 04:45] LABS: Device OTHER DEVICE; Modified Allen's Test Pass; Site Drawn LEFT RADIAL
[2024-12-20] MEDS: GABAPENTIN 300 MG CAPSULE PO ×3 (05:52→20:12)
[2024-12-20] MEDS: cloNIDine HCL 0.2 MG TABLET PO (05:52)
[2024-12-20 06:12] LABS: Basophils Percent Auto 0.6 % (0.2-1.2); Eosinophils Absolute Auto 0.2 K/mm3 (0-0.3); Eosinophils Percent Auto 2.4 % (0-4.4); Hematocrit 39.1 % (42.0-52.0); Hemoglobin 12.3 g/dL (14.0-18.0); Immature Granulocyte Absolute 0.02 K/mm3 (0.00-0.031); Immature Granulocyte Percent A 0.3 % (0-0.5); Immature Platelet Fraction Pct 8.5 % (0.9-11.2); Lymphocytes Absolute Auto 1.54 K/mm3 (0.9-3.2); Lymphocytes Percent Auto 23.2 % (18.3-44.2); Mean Corpuscular HGB Conc 31.5 g/dl (32-36); Mean Corpuscular Hemoglobin 30.2 pg (26-34); Mean Corpuscular Volume 96.1 fl (80-100); Mean Platelet Volume 11.5 fl (7.4-10.4); Monocytes Absolute Auto 0.5 K/mm3 (0.1-0.6); Monocytes Percent Auto 7.7 % (2.6-8.5); Neutrophils Absolute Auto 4.4 K/mm3 (1.3-6.7); Neutrophils Percent Auto 65.8 % (45.5-73.1); Platelet Count Result 124 k/mm3 (150-375); Red Blood Count 4.07 M/mm3 (4.6-6.20); Red Cell Distribution Width 13.8 % (11.5-14.5); White Blood Count 6.6 K/mm3 (4.5-10.0)
[2024-12-20 06:25] LABS: Alanine Aminotransferase 21 U/L (6-50); Albumin Level 3.6 g/dL (3.5-5.1); Alkaline Phosphatase 100 U/L (38-126); Anion Gap 5 mmol/L (4-12); Aspartate Amino Transferase 21 U/L (17-59); Bilirubin,Total 0.6 mg/dL (0.2-1.3); Blood Urea Nitrogen 17 mg/dL (9-20); Carbon Dioxide 37 mmol/L (22-30); Chloride 92 mmol/L (98-107); Estimated CRCL calculation 91 ml/min; Estimated Glomerular Filt Rate > 60; Glucose 88 mg/dL (65-110); Potassium 3.6 mmol/L (3.4-5.0); Sodium 134 mmol/L (137-145)
[2024-12-20 07:44] LABS: Glucose Point of Care 101 mg/dl (65-105)
--- NOTE | 2024-12-20 09:07 | P.PNPL_ITS ---
Progress Note: A&P Assessment and Plan (1) Obstructive sleep apnea: Code(s): G47.33 - Obstructive sleep apnea (adult) (pediatric) Status: Acute Assessment and Plan: Regarding his obstructive sleep apnea the patient tells me in the he had a sleep study and was prescribed a fullface mask CPAP machine and he were to few times and could not tolerate it and never had any follow-up. At that time he had witnessed apneas per his . Recently he does not know if he snores. He and his sleep in separate bedrooms and does not know if he has witnessed apneas, he has no morning headaches. He was on Ozempic and weight 385 lb and lost 100 lb to 285 lb. He has now gained considerable water weight over the last 3 weeks and now weighs 340 lb. TSH 12/09/2024 1.04. 12/19/24: Patient wore the auto PAP 5-15 1 L bleed in and said he got the best night of his sleep in the last 3 weeks. Patient had an ABG on auto PAP 5-15 1 L bleed in of 7.40/57/79. Plan: The patient has untreated obstructive sleep apnea for many years with evidence of right heart failure with a tricuspid peak gradient of 42 on 12/09/2024. he has hypercarbic respiratory failure but he was also fluid overloaded. After he has been aggressively diuresed and no longer fluid overloaded I will repeat daytime ABG off of positive airway pressure for 24 hours to reassess for chronic hypercarbic respiratory failure secondary to obesity hypoventilation syndrome. In the meantime his blood gas on auto PAP 5-15 shows chronic hypercarbic respiratory failure and I will switch him to noninvasive ventilation with the AVAPS mode rate of 14, tidal volume 500, EPAP 8, minimal inspiratory pressure 9, maximal inspiratory pressure 25 and FiO2 24%. I will check overnight oximetry in ABG prior to removal. 12/20/24: Patient tells me he is continuing to improve. States he has 50% back to his normal. He denies cough, phlegm or wheezing. He is afebrile. White blood cell count 6.6. Currently is on room air with saturations 95%. Last night patient wore hospital noninvasive ventilator with the AVAPS mode rate of 14, tidal volume 500, EPAP 8, minimal inspiratory pressure 9, maximal inspiratory pressure 25, inspiratory time 1.0, rise of 3 and 24% FiO2. Patient said he slept very well with the machine although it felt like the air was coming and too fast. On these settings patient had an overnight oximetry with a recording duration of 5 hours and 54 minutes. Average saturation 95%. Low saturation 75%. Time with saturation less than or equal to 88% was 0 minutes. Oxygen desaturation index 7.1. Patient had an ABG prior to removal of the mass with pH of 7.45/58/74. I decreased his rise to 5 and increased his inspiratory time to 1.2 and he said these settings were much more comfortable. Plan: continue noninvasive ventilation with the AVAPS mode rate of 14, tidal volume 500, EPAP 8, minimal inspiratory pressure 9, maximal inspiratory pressure 25, inspiratory time 1.2 and a rise of 5. Tonight I will place on room air and perform an overnight oximetry on room air. Once patient is closer to his baseline will leave off of noninvasive ventilation for 24 hours and repeat a blood gas to determine if he still has chronic hypercarbic respiratory failure and if he does will then initiate plans for home noninvasive ventilation. Discussed with Linnea Sprague. Will follow with you. (2) Right heart failure: Code(s): I50.810 - Right heart failure, unspecified Status: Acute Assessment and Plan: 12/19/24: diuresed 1.9 L yesterday and cumulative diuresis is -2.9 L since admission on lasix 60 IV BID, Spironolactone 50 q.day. Chest x-ray shows mini mal right pleural effusion with improved congestion. Patient states his edema and abdominal tightness are improved. BNP has improved from 3770 to 2660. Overall he says he feels better and he says he feels 30% back to his normal. his weight on admission was 158.6 kg and today he is 154.5 kg. Of note on 09/12/2024 he weighed 138.8 kg. Plan: recommend as aggressive diuresis as tolerated by his cardiac and renal systems per Cardiology and hospitalist teams. 12/20/24: creatinine 0.93. He is on Lasix 60 IV b.i.d. and diuresed 3.7 L yesterday cumulative since admission he is -5.7 L. His weight today is 154.5 with admission weight of 158.6. Plan: Agree with as aggressive diuresis as tolerated by his cardiac and renal systems per Cardiology and the hospitalist team. Patient is having some soft blood pressures would consider decreasing his antihypertensives to allow for continued aggressive diuresis. Subjective Date/time seen: 12/20/24 09:07 Interval history: 12/19/2024: This is a new pulmonary consult for hypoxemic and hypercarbic respiratory failure, morbid obesity and congestive heart failure. 74-year-old with a history of CVA, CAD, AFib with RVR, diastolic dysfunction, hypertension, hyperlipidemia, diabetes, morbid obesity and untreated sleep apnea. Regarding his obstructive sleep apnea the patient tells me in the 1970s he had a sleep study and was prescribed a fullface mask CPAP machine and he were to few times and could not tolerate it and never had any follow-up. At that time he had witnessed apneas per his . Recently he does not know if he snores. He and his sleep in separate bedrooms and does not know if he has witnessed apneas, he has no morning headaches. He was on Ozempic and weight 385 lb and lost 100 lb to 285 lb. At baseline he says he could walk 1 block and this is unchanged over the last year. Over the last 3-4 weeks he can only walk room to room. He does not measure his oxygen. Patient smoked tobacco from [id number] at 1 pack per day for a total of 31 pack years. Approximately 3-4 weeks ago he has had Shortness of breath at rest, dyspnea on exertion, weight gain, tight abdomen and lower extremity edema. He was admitted to the hospital from 12/08/2024 through 12/14/24 with fluid overload with an admission BNP of 3540, TSH 12/09/2024 1.04. AFib with RVR and he was diuresed with IV Lasix. His weight on admission was 159.7 kg and on discharge was 161.2 kg. on 12/13/2024 his BNP was 4470. He was admitted on 20 mg of Lasix twice a day and discharged on 40 mg of Lasix twice a day. 12/17/2024 the patient presented back to the hospital with worsening shortness of breath and increased edema. Is BNP was 3770, chest x-ray showed congestion with small effusions, he had AFib with RVR and he was treated with IV Lasix. His room air blood gas was 7.42/46/63. On 12/18/2024 the patient was on 1 L and had a blood gas of 7.43/52/73 and was empirically placed on auto PAP 5-15. 12/19/24: The patient is awake and alert currently on auto PAP with 1 L bleed in with saturations 97%. I placed him on room air and his saturations were 93- 94%. His white blood cell count 6.8, creatinine 1.09, diuresed 1.9 L yesterday and cumulative diuresis is -2.9 L. patient had an ABG on auto PAP 5-15 of 7.40/57/79. Chest x-ray shows minimal right pleural effusion with improved congestion. Patient states his edema and abdominal tightness are improved. Overall he says he feels better and he says he feels 30% back to his normal. He denies fever, chills, rigors. Remains with shortness of breath. Patient wore the auto PAP 5-15 and said he got the best night of his sleep in the last 3 weeks. 12/20/24: Patient tells me he is continuing to improve. States he has 50% back to his normal. He denies cough, phlegm or wheezing. He is afebrile. White blood cell count 6.6, creatinine 0.93. He is on Lasix 60 IV b.i.d. and diuresed 3.7 L yesterday cumulative since admission he is -5.7 L. His weight today is 154.5 with admission weight of 158.6. Currently is on room air with saturations 95%. Last night patient wore hospital noninvasive ventilator with the AVAPS mode rate of 14, tidal volume 500, EPAP 8, minimal inspiratory pressure 9, maximal inspiratory pressure 25, inspiratory time 1.0, rise of 3 and 24% FiO2. Patient said he slept very well with the machine although it felt like the air was coming and too fast. On these settings patient had an overnight oximetry with a recording duration of 5 hours and 54 minutes. Average saturation 95%. Low saturation 75%. Time with saturation less than or equal to 88% was 0 minutes. Oxygen desaturation index 7.1. Patient had an ABG prior to removal of the mass with pH of 7.45/58/74. I decreased his rise to 5 and increased his inspiratory time to 1.2 and he said these settings were much more comfortable. DATA: 12/17/24: CHEST RADIOGRAPH CLINICAL HISTORY: dyspnea/ chf . COMPARISON: 12/08/2024 TECHNIQUE: Single portable view of the chest. FINDINGS The cardiomediastinal silhouette is enlarged, unchanged. Calcified lymph nodes within the mediastinum suggesting prior granulomatous disease. Increased interstitial markings are identified bilaterally, findings suggesting mild pulmonary vascular congestion. Bilateral pleural effusions, right greater than left. The remainder of the lungs are clear. IMPRESSION: Bilateral pleural effusions, with mild pulmonary vascular congestion. 12/09/24: Echo Summary 1. Left ventricular chamber dimension is normal. 2. Left ventricular systolic function is normal, estimated at 50-55%. 3. There is moderately increased left ventricular wall thickness. 4. Right ventricular chamber dimension is mildly enlarged. 5. Right ventricular systolic function is reduced. 6. Left atrial chamber dimension is severely enlarged. 7. Right atrial chamber dimension is severely enlarged. 8. There is moderate tricuspid valve regurgitation. 9. There is trivial pericardial effusion. Right Ventricle Right ventricular chamber dimension is mildly enlarged. Right ventricular systolic function is reduced. Left Atria Left atrial chamber dimension is severely enlarged. Right Atria Right atrial chamber dimension is severely enlarged. Atrial Septum Intact interatrial septum visualized by color flow imaging. 09/23/2021: Echo Summary 1. Complete two-dimensional, color flow and Doppler transthoracic echocardiogram is performed. 2. Left ventricular chamber dimension is normal. 3. Left ventricular systolic function is normal, estimated at 60-65%. 4. There is moderately increased left ventricular wall thickness. 5. The left ventricular diastolic function is grade I diastolic dysfunction. 6. There is no aortic valve stenosis. 7. There is trace tricuspid valve regurgitation. 8. No pulmonary hypertension, estimated pulmonary arterial systolic pressure is 14 mmHg. 9. There is trace mitral valve regurgitation. Right Ventricle Right ventricular chamber dimension is normal. Right ventricular systolic function is normal. Left Atria Left atrial chamber dimension is mildly enlarged. Right Atria Right atrial chamber dimension is mildly enlarged. Review of Systems Constitutional: Constitutional: Reports no additional constitutional compla ints Eyes: Eyes: Reports no additional eye complaints ENT: Reports system reviewed and no additional complaints, except as documented Cardiovascular: Cardiovascular: Reports no additional cardiovascular complaints Respiratory: Respiratory: Reports no additional respiratory complaints Gastrointestinal: Gastrointestinal: Reports no additional gastrointestinal complaints Musculoskeletal: Musculoskeletal: Reports no additional musculoskeletal complaints Neurologic: Reports system reviewed and no additional complaints, except as documented Psychiatric: Psychiatric: Reports no additional psychiatric complaints Endocrine: Endocrine: Reports no additional endocrine complaints Hematologic/Lymphatic: Hematologic/Lymphatic: Reports no additional hematologic/lymphatic complaints Allergic/Immunologic: Allergic/Immunologic: Reports no additional allergic/i mmunologic complaints Exam Const: General: cooperative and comfortable Orientation/consciousness: oriented to person, oriented to place and oriented to time Other: obese HENMT: Head: normal to inspection Ears: hearing grossly normal bilaterally Eyes: General: appearance normal, both eyes and all related structures Neck: Neck: normal visual inspection Chest: Chest palpation & inspection: normal inspection of the chest Resp: Effort & Inspection: normal respiratory effort and able to speak in complete sentences Auscultation: no crackles, no rales, no rhonchi, no wheezes and diminished lung sounds Other: obese Cardio: Jugular venous distension: no JVD GI: Inspection: distended Other: Less distended Skin: General skin exam: normal color Neuro: General: oriented to person, oriented to place and oriented to time Extrem: General: normal to inspection and edema Other: improved edema Psych: Appearance: grossly normal Objective Data Vital Signs Vital Signs: Vital Signs - 24 hr 12/19/24 09:34 12/19/24 10:00 12/19/24 11:19 Temperature 36.6 C Pulse Rate 89 95 104 H Respiratory Rate 22 H Blood Pressure 127/91 H Pulse Oximetry 93 Oxygen Delivery 12/19/24 12:00 12/19/24 13:19 12/19/24 13:35 Temperature Pulse Rate 106 H Respiratory Rate Blood Pressure Pulse Oximetry Oxygen Delivery Room Air Room Air 12/19/24 14:00 12/19/24 15:54 12/19/24 16:00 Temperature 36.6 C Pulse Rate 91 76 88 Respiratory Rate 18 Blood Pressure 114/64 Pulse Oximetry 90 Oxygen Delivery 12/19/24 18:00 12/19/24 19:41 12/19/24 20:00 Temperature 36.9 C Pulse Rate 103 H 84 124 H Respiratory Rate 20 Blood Pressure 106/75 Pulse Oximetry 92 Oxygen Delivery 12/19/24 20:00 12/19/24 20:51 12/19/24 22:00 Temperature Pulse Rate 89 77 Respiratory Rate Blood Pressure Pulse Oximetry Oxygen Delivery Room Air 12/19/24 22:30 12/19/24 22:35 12/19/24 23:15 Temperature 37.1 C Pulse Rate 106 H 93 Respiratory Rate 17 19 Blood Pressure 120/64 Pulse Oximetry 95 95 96 Oxygen Delivery BiPAP Room Air 12/20/24 00:00 12/20/24 00:00 12/20/24 02:00 Temperature Pulse Rate 78 88 Respiratory Rate Blood Pressure Pulse Oximetry Oxygen Delivery Room Air 12/20/24 04:00 12/20/24 04:00 12/20/24 04:30 Temperature Pulse Rate 75 82 Respiratory Rate 26 H Blood Pressure Pulse Oximetry 95 Oxygen Delivery Room Air BiPAP 12/20/24 05:46 12/20/24 06:00 12/20/24 07:36 Temperature 36.4 C 36.6 C Pulse Rate 91 112 H 121 H Respiratory Rate 22 H 20 Blood Pressure 98/64 L 114/71 Pulse Oximetry 99 92 Oxygen Delivery Intake/Output Intake/Output: Intake & Output 12/17/24 12/18/24 12/19/24 12/20/24 23:59 23:59 23:59 23:59 Intake Total 715 1260 780 Output Total 7760 7677 073 Dsvxobj -7760 -3932 130 Meds/Results Medications: Active Medications Generic Name Dose Route Start Last Admin Trade Name Freq PRN Reason Stop Dose Admin Acetaminophen 650 mg 12/18/24 09:32 Acetaminophen 325 Mg Tablet PO Q4H PRN Mild Pain (1-3) or Fever Hydrocodone Bitart/Acetaminophen 1 tab 12/18/24 04:56 12/19/24 20:56 Hydrocodone/Acetaminophen (*Crx) 7.5-325 Mg Tablet PO 1 tab Q4H PRN Administration Pain Rated 7-10 Apixaban 5 mg 12/18/24 09:00 12/19/24 20:50 Apixaban 5 Mg Tablet PO 5 mg Q12HR SHIRA Administration Aspirin 81 mg 12/18/24 09:00 12/19/24 09:34 Aspirin 81 Mg Enteric Tablet PO 81 mg DAILY SHIRA Administration Atorvastatin Calcium 20 mg 12/18/24 05:00 12/19/24 09:35 Atorvastatin 20 Mg Tablet PO 20 mg DAILY SHIRA Administration Clonidine HCl 0.2 mg 12/18/24 05:00 12/20/24 05:52 Clonidine Hcl 0.2 Mg Tablet PO 0.2 mg Q8H SHIRA Administration Cyanocobalamin 1,000 mcg 12/18/24 09:00 12/19/24 09:35 Cyanocobalamin 1,000 Mcg Tablet PO 1,000 mcg QAM SHIRA Administration Dextrose 12.5 gm 12/18/24 04:57 Dextrose 50% 25 Gm/50 Ml Syringe IV PUSH PRN PRN Hypoglycemia Protocol Diltiazem HCl 180 mg 12/18/24 09:00 12/19/24 09:34 Diltiazem Hcl Cd 180 Mg Cap.24hr PO 180 mg QAM SHIRA Administration Furosemide 60 mg 12/19/24 06:45 12/19/24 17:10 Furosemide Inj 40 Mg/4 Ml Vial IV PUSH 60 mg BID SHIRA Administration Gabapentin 300 mg 12/18/24 06:00 12/20/24 05:52 Gabapentin 300 Mg Capsule PO 300 mg Q8HR SHIRA Administration Glucagon 1 mg 12/18/24 04:57 Glucagon For Inj 1 Mg Vial IM PRN PRN Hypoglycemia Protocol Glucose 15 gm 12/18/24 04:57 Glucose Oral Gel 15 Gm Of Glucse In 37.5 Gm Tube PO PRN PRN Hypoglycemia Protocol Dextrose 1,000 mls @ 100 mls/hr 12/18/24 04:57 Dextrose 5% 1,000 Ml IVPB PRN PRN Hypoglycemia Protocol Insulin Aspart 3 - 6 units 12/18/24 08:00 12/19/24 17:33 Insulin Aspart (*Bkc) 100 Units/Ml SUB-Q Not Given TIDWM SHIRA Protocol Insulin Glargine 60 units 12/18/24 21:00 12/19/24 20:52 Insulin Glargine (*Bkc) 100 Units/Ml SUB-Q 60 units HS SHIRA Administration Levalbuterol HCl 1.25 mg 12/18/24 18:32 12/19/24 07:06 Levalbuterol Neb 1.25 Mg/3 Ml INHALATION 1.25 mg Q6HRT PRN Administration Shortness Of Breath Losartan Potassium 50 mg 12/19/24 09:00 12/19/24 09:34 Losartan Potassium 50 Mg Tablet PO 50 mg DAILY SHIRA Administration Metoprolol Tartrate 100 mg 12/18/24 05:00 12/19/24 20:51 Metoprolol Tartrate 50 Mg Tab PO 100 mg Q12HR SHIRA Administration Ondansetron HCl 4 mg 12/18/24 09:32 Ondansetron Inj 4 Mg/2 Ml Vial IV PUSH Q6H PRN Nausea And Vomiting Potassium Chloride 40 meq 12/18/24 15:45 12/19/24 09:34 Potassium Chloride 20 Meq Packet (For Liquid) PO 40 meq DAILY SHIRA Administration Spironolactone 50 mg 12/19/24 09:00 12/19/24 09:34 Spironolactone 50 Mg Tablet PO 50 mg QAM SHIRA Administration Trazodone HCl 25 mg 12/18/24 20:13 12/19/24 20:50 Trazodone Hcl 25 Mg Tablet PO 25 mg HS PRN Administration Insomnia Radiology Results: ITS Impressions Chest X-Ray 12/19/24 06:51 Impression: Minimal right pleural effusion. Stable cardiomegaly. Labs Labs: Laboratory Results - last 24 hr 12/19/24 12/19/24 12/19/24 03:41 11:22 15:55 WBC RBC Hgb Hct MCV MCH MCHC RDW Plt Count MPV Immature Gran % (Auto) Neut % (Auto) Lymph % (Auto) Bollinger % (Auto) Eos % (Auto) Baso % (Auto) Lymph # (Auto) [place]linger # (Auto) Eos # (Auto) Baso # (Auto) Abs Immat Gran (auto) Absolute Neuts (auto) Absolute Nucleated RBC Nucleated RBC % % Immature Plt Fraction Puncture Site ABG pH ABG pCO2 ABG pO2 ABG PO2/FiO2 Ratio ABG HCO3 ABG O2 Saturation ABG O2 Content ABG Base Excess A-a Gradient Oxyhemoglobin Total Hemoglobin O2 Delivery Device O2 Liters/Min FiO2 Sodium Potassium Chloride Carbon Dioxide Anion Gap BUN Creatinine Estim Creat Clear Calc Estimated GFR Glucose POC Capillary Glucose 141 H 150 H Calcium Total Bilirubin AST ALT Alkaline Phosphatase NT-Pro-B Natriuret Pep 2660 H Total Protein Albumin 12/19/24 12/20/24 12/20/24 20:49 04:27 06:06 WBC 6.6 RBC 4.07 L Hgb 12.3 L Hct 39.1 L MCV 96.1 MCH 30.2 MCHC 31.5 L RDW 13.8 Plt Count 124 L MPV 11.5 H Immature Gran % (Auto) 0.3 Neut % (Auto) 65.8 Lymph % (Auto) 23.2 Bollinger % (Auto) 7.7 Eos % (Auto) 2.4 Baso % (Auto) 0.6 Lymph # (Auto) 1.54 Bollinger # (Auto) 0.5 Eos # (Auto) 0.2 Baso # (Auto) 0.0 Abs Immat Gran (auto) 0.02 Absolute Neuts (auto) 4.4 Absolute Nucleated RBC 0.000 Nucleated RBC % 0.0 % Immature Plt Fraction 8.5 Puncture Site Left radial ABG pH 7.445 ABG pCO2 57.9 H ABG pO2 73.5 L ABG PO2/FiO2 Ratio 3.06 ABG HCO3 38.9 H ABG O2 Saturation 95.0 ABG O2 Content 17.0 ABG Base Excess 12.5 A-a Gradient 28.7 Oxyhemoglobin 93.6 Total Hemoglobin 12.9 O2 Delivery Device Other device O2 Liters/Min FiO2 24 Sodium 134 L Potassium 3.6 Chloride 92 L Carbon Dioxide 37 H Anion Gap 5 BUN 17 Creatinine 0.93 Estim Creat Clear Calc 91 Estimated GFR > 60 Glucose 88 POC Capillary Glucose 135 H Calcium 9.0 Total Bilirubin 0.6 AST 21 ALT 21 Alkaline Phosphatase 100 NT-Pro-B Natriuret Pep Total Protein 7.0 Albumin 3.6 12/20/24 07:36 WBC RBC Hgb Hct MCV MCH MCHC RDW Plt Count MPV Immature Gran % (Auto) Neut % (Auto) Lymph % (Auto) Bollinger % (Auto) Eos % (Auto) Baso % (Auto) Lymph # (Auto) Bollinger # (Auto) Eos # (Auto) Baso # (Auto) Abs Immat Gran (auto) Absolute Neuts (auto) Absolute Nucleated RBC Nucleated RBC % % Immature Plt Fraction Puncture Site ABG pH ABG pCO2 ABG pO2 ABG PO2/FiO2 Ratio ABG HCO3 ABG O2 Saturation ABG O2 Content ABG Base Excess A-a Gradient Oxyhemoglobin Total Hemoglobin O2 Delivery Device O2 Liters/Min FiO2 Sodium Potassium Chloride Carbon Dioxide Anion Gap BUN Creatinine Estim Creat Clear Calc Estimated GFR Glucose POC Capillary Glucose 101 Calcium Total Bilirubin AST ALT Alkaline Phosphatase NT-Pro-B Natriuret Pep Total Protein Albumin
[2024-12-20] MEDS: METOPROLOL TARTRATE 50 MG TAB 100 MG PO ×2 (09:15→20:12)
[2024-12-20] MEDS: APIXABAN 5 MG TABLET PO ×2 (09:15→20:12)
[2024-12-20] MEDS: FUROSEMIDE INJ 40 MG/4 ML VIAL 60 MG IV PUSH ×2 (09:15→16:08)
[2024-12-20] MEDS: ASPIRIN 81 MG ENTERIC TABLET PO (09:15)
[2024-12-20] MEDS: CYANOCOBALAMIN 1,000 MCG TABLET 1000 MCG PO (09:15)
[2024-12-20] MEDS: SPIRONOLACTONE 50 MG TABLET PO (09:15)
[2024-12-20] MEDS: ATORVASTATIN 20 MG TABLET PO (09:15)
[2024-12-20] MEDS: LOSARTAN POTASSIUM 50 MG TABLET PO (09:15)
[2024-12-20] MEDS: dilTIAZem HCL CD 180 MG CAP.24HR PO (09:16)
[2024-12-20] MEDS: POTASSIUM CHLORIDE 20 MEQ PACKET (FOR LIQUID) 40 MEQ PO (09:16)
[2024-12-20] MEDS: HYDROcodone/acetaminophen (*CRX) 7.5-325 MG TABLET 1 TAB PO ×2 (09:21→18:46)
--- NOTE | 2024-12-20 09:44 | P.PNIM_ITS ---
Progress Note: A&P Assessment and Plan (1) Acute on chronic diastolic congestive heart failure: Code(s): I50.33 - Acute on chronic diastolic (congestive) heart failure Status: Acute Assessment and Plan: Patient just discharged 3 days ago after hospitalization for CHF exacerbation and AFib RVR. Severe anasarca currently patient is getting aggressive IV diuresis [id number]% diastolic dysfunction with elevated BNP - spoke with pulmonology regarding patient's overnight pulse oximetry likely severe untreated RUSSELL and hypoventilation obesity syndrome. Pulmonology requesting continue with aggressive diuresis and once more fluid has been removed would like to leave patient off NIV for 24 hours and repeat ABG to see if patient has increased hypercapnia. -patient does have some soft BP during aggressive diuresis I will hold his losartan at this time and decrease his clonidine from 0.2 mg T.i.d. to 0.1 mg b.i.d. would like to completely taper patient off of clonidine but will need to do slowly to reduce chances rebound hypertension. can resume his losartan as BP tolerates * IV Lasix b.i.d. 60mg continue * added spironolactone * monitor renal function during diuresis * chest x-ray: bilateral pleural effusions interstitial congestion * Daily weight. * Strict I&O's * fluid restriction (2) Hypoventilation associated with obesity syndrome: Code(s): E66.2 - Morbid (severe) obesity with alveolar hypoventilation Status: Acute Assessment and Plan: * SEE ABOVE * will continue aggressive diuresis removal and he will need a 24 hour. Without his NIV and follow-up ABG * pulmonology following and assisting to see if patient will need NIV at discharge are just CPAP (3) Obstructive sleep apnea: Code(s): G47.33 - Obstructive sleep apnea (adult) (pediatric) Status: Acute Assessment and Plan: * patient does not currently wear a CPAP * cardiology has consulted pulmonology to assist with evaluation and possible set up for CPAP 12/19: * Tolerated CPAP at night 12/20: * See Above (4) Atrial fibrillation with rapid ventricular response: Code(s): I48.91 - Unspecified atrial fibrillation Status: Acute Assessment and Plan: * EKG showed 86 in atrial fibrillation * patient with episodes of RVR * resume patient's diltiazem, metoprolol, and Eliquis (5) Essential (primary) hypertension: Code(s): I10 - Essential (primary) hypertension Status: Acute Assessment and Plan: * reviewed * resume clonidine, diltiazem, metoprolol * discontinue patient's amlodipine due to bilateral leg edema * increased his losartan to 50 mg daily * BP per unit protocol (6) Insulin dependent type 2 diabetes mellitus: Code(s): E11.9 - Type 2 diabetes mellitus without complications; Z79.4 - terminal computer operator (current) use of insulin Status: Acute Assessment and Plan: * Accu-Shruthiks brittni HS * sliding scale insulin * hold oral diabetic medications * patient's long-acting insulin not formulated * Lantus 60 units HS * Watch for hypoglycemia/hypoglycemic protocol ordered (7) Mixed hyperlipidemia: Code(s): E78.2 - Mixed hyperlipidemia Status: Acute Assessment and Plan: * Resumed Atorvastatin (8) Morbid obesity: Code(s): E66.01 - Morbid (severe) obesity due to excess calories Status: Acute Assessment and Plan: * Encouraged strict diet restrictions and weight loss * Encourage increased activity patient going to Rehab at discharge * likely contributing to some of his chronic problems Plan Code status: Full code per patient DVT prophylaxis: Eliquis Stress ulcer prophylaxis: Protonix 40 daily PT/OT notes: SNF Disposition: patient admitted to IMU for further evaluation and treatment acute on chronic exacerbation of CHF cardiology consulted for any further recommendations pulmonology also consulted to assist and possible sleep apnea needs Does not currently have a CPAP machine at home may need NIV if he continues to have hypercapnia. PT/OT ordered [facility] and occupational therapy when medically stable. Time Spent With Patient Time with patient: 15 - 25 minutes Subjective Date/time seen: 12/20/24 09:44 Interval history: Patient is a 74-year-old male who was admitted for further treatment of acute on chronic congestive heart failure and RUSSELL 12/20/2024: patient up in chair reports he is breathing easier and feels his abdomen is less distended. denied any chest pain and continues to tolerate NIV at night. Review of Systems Review of Systems: 12 systems were reviewed and are negativ e except for as per HPI. All systems reviewed & are unremarkable except as noted in HPI and below Exam Narrative: General: Pleasant chronically ill looking male in no acute distress HEENT: Oral mucosa moist. Respiratory: Lung sounds diminished, scattered crackles at the bases. Cardiovascular: Irregularly irregular Gastrointestinal: Abdomen is obese and nontender with normal bowel sounds. Skin: Warm and dry. Extremities: No cyanosis or clubbing. anasarca throughout Neurological: Alert. No gross focal deficits to casual conversation. Objective Data Vital Signs Vital Signs: Vital Signs - 24 hr 12/19/24 10:00 12/19/24 11:19 12/19/24 12:00 Temperature 97.9 F Pulse Rate 95 104 H 106 H Respiratory Rate 22 H Blood Pressure 127/91 H Pulse Oximetry 93 Oxygen Delivery 12/19/24 13:19 12/19/24 13:35 12/19/24 14:00 Temperature Pulse Rate 91 Respiratory Rate Blood Pressure Pulse Oximetry Oxygen Delivery Room Air Room Air 12/19/24 15:54 12/19/24 16:00 12/19/24 18:00 Temperature 98 F Pulse Rate 76 88 103 H Respiratory Rate 18 Blood Pressure 114/64 Pulse Oximetry 90 Oxygen Delivery 12/19/24 19:41 12/19/24 20:00 12/19/24 20:00 Temperature 98.5 F Pulse Rate 84 124 H Respiratory Rate 20 Blood Pressure 106/75 Pulse Oximetry 92 Oxygen Delivery Room Air 12/19/24 20:51 12/19/24 22:00 12/19/24 22:30 Temperature Pulse Rate 89 77 106 H Respiratory Rate 17 Blood Pressure Pulse Oximetry 95 Oxygen Delivery BiPAP 12/19/24 22:35 12/19/24 23:15 12/20/24 00:00 Temperature 98.7 F Pulse Rate 93 Respiratory Rate 19 Blood Pressure 120/64 Pulse Oximetry 95 96 Oxygen Delivery Room Air Room Air 12/20/24 00:00 12/20/24 02:00 12/20/24 04:00 Temperature Pulse Rate 78 88 Respiratory Rate Blood Pressure Pulse Oximetry Oxygen Delivery Room Air 12/20/24 04:00 12/20/24 04:30 12/20/24 05:46 Temperature 97.6 F Pulse Rate 75 82 91 Respiratory Rate 26 H 22 H Blood Pressure 98/64 L Pulse Oximetry 95 99 Oxygen Delivery BiPAP 12/20/24 06:00 12/20/24 07:36 12/20/24 09:15 Temperature 98 F Pulse Rate 112 H 121 H 90 Respiratory Rate 20 Blood Pressure 114/71 Pulse Oximetry 92 Oxygen Delivery Intake/Output Intake/Output: Intake & Output 12/17/24 12/18/24 12/19/24 12/20/24 23:59 23:59 23:59 23:59 Intake Total 715 1260 780 Output Total 2650 4975 650 Balance -1935 -1465 130 Meds/Results Medications: Active Medications Generic Name Dose Route Start Last Admin Trade Name Freq PRN Reason Stop Dose Admin Acetaminophen 650 mg 12/18/24 09:32 Acetaminophen 325 Mg Tablet PO Q4H PRN Mild Pain (1-3) or Fever Hydrocodone Bitart/Acetaminophen 1 tab 12/18/24 04:56 12/20/24 09:21 Hydrocodone/Acetaminophen (*Crx) 7.5-325 Mg Tablet PO 1 tab Q4H PRN Administration Pain Rated 7-10 Apixaban 5 mg 12/18/24 09:00 12/20/24 09:15 Apixaban 5 Mg Tablet PO 5 mg Q12HR SHIRA Administration Aspirin 81 mg 12/18/24 09:00 12/20/24 09:15 Aspirin 81 Mg Enteric Tablet PO 81 mg DAILY SHIRA Administration Atorvastatin Calcium 20 mg 12/18/24 05:00 12/20/24 09:15 Atorvastatin 20 Mg Tablet PO 20 mg DAILY SHIRA Administration Clonidine HCl 1 mg 12/20/24 17:00 Clonidine Hcl 0.2 Mg Tablet PO BID SHIRA Cyanocobalamin 1,000 mcg 12/18/24 09:00 12/20/24 09:15 Cyanocobalamin 1,000 Mcg Tablet PO 1,000 mcg QAM SHIRA Administration Dextrose 12.5 gm 12/18/24 04:57 Dextrose 50% 25 Gm/50 Ml Syringe IV PUSH PRN PRN Hypoglycemia Protocol Diltiazem HCl 180 mg 12/18/24 09:00 12/20/24 09:16 Diltiazem Hcl Cd 180 Mg Cap.24hr PO 180 mg QAM SHIRA Administration Furosemide 60 mg 12/19/24 06:45 12/20/24 09:15 Furosemide Inj 40 Mg/4 Ml Vial IV PUSH 60 mg BID SHIRA Administration Gabapentin 300 mg 12/18/24 06:00 12/20/24 05:52 Gabapentin 300 Mg Capsule PO 300 mg Q8HR SHIRA Administration Glucagon 1 mg 12/18/24 04:57 Glucagon For Inj 1 Mg Vial IM PRN PRN Hypoglycemia Protocol Glucose 15 gm 12/18/24 04:57 Glucose Oral Gel 15 Gm Of Glucse In 37.5 Gm Tube PO PRN PRN Hypoglycemia Protocol Dextrose 1,000 mls @ 100 mls/hr 12/18/24 04:57 Dextrose 5% 1,000 Ml IVPB PRN PRN Hypoglycemia Protocol Insulin Aspart 3 - 6 units 12/18/24 08:00 12/20/24 09:16 Insulin Aspart (*Bkc) 100 Units/Ml SUB-Q Not Given TIDWM SHIRA Protocol Insulin Glargine 60 units 12/18/24 21:00 12/19/24 20:52 Insulin Glargine (*Bkc) 100 Units/Ml SUB-Q 60 units HS SHIRA Administration Levalbuterol HCl 1.25 mg 12/18/24 18:32 12/19/24 07:06 Levalbuterol Neb 1.25 Mg/3 Ml INHALATION 1.25 mg Q6HRT PRN Administration Shortness Of Breath Losartan Potassium 50 mg 12/19/24 09:00 12/20/24 09:15 Losartan Potassium 50 Mg Tablet PO 50 mg DAILY SHIRA Administration Metoprolol Tartrate 100 mg 12/18/24 05:00 12/20/24 09:15 Metoprolol Tartrate 50 Mg Tab PO 100 mg Q12HR SHIRA Administration Ondansetron HCl 4 mg 12/18/24 09:32 Ondansetron Inj 4 Mg/2 Ml Vial IV PUSH Q6H PRN Nausea And Vomiting Potassium Chloride 40 meq 12/18/24 15:45 12/20/24 09:16 Potassium Chloride 20 Meq Packet (For Liquid) PO 40 meq DAILY SHIRA Administration Spironolactone 50 mg 12/19/24 09:00 12/20/24 09:15 Spironolactone 50 Mg Tablet PO 50 mg QAM SHIRA Administration Trazodone HCl 25 mg 12/18/24 20:13 12/19/24 20:50 Trazodone Hcl 25 Mg Tablet PO 25 mg HS PRN Administration Insomnia Radiology Results: ITS Impressions Chest X-Ray 12/19/24 06:51 Impression: Minimal right pleural effusion. Stable cardiomegaly. Labs Labs: Laboratory Results - last 24 hr 12/19/24 12/19/24 12/19/24 03:41 11:22 15:55 WBC RBC Hgb Hct MCV MCH MCHC RDW Plt Count MPV Immature Gran % (Auto) Neut % (Auto) Lymph % (Auto) [place] % (Auto) Eos % (Auto) Baso % (Auto) Lymph # (Auto) [place] # (Auto) Eos # (Auto) Baso # (Auto) Abs Immat Gran (auto) Absolute Neuts (auto) Absolute Nucleated RBC Nucleated RBC % % Immature Plt Fraction Puncture Site ABG pH ABG pCO2 ABG pO2 ABG PO2/FiO2 Ratio ABG HCO3 ABG O2 Saturation ABG O2 Content ABG Base Excess A-a Gradient Oxyhemoglobin Total Hemoglobin O2 Delivery Device O2 Liters/Min FiO2 Sodium Potassium Chloride Carbon Dioxide Anion Gap BUN Creatinine Estim Creat Clear Calc Estimated GFR Glucose POC Capillary Glucose 141 H 150 H Calcium Total Bilirubin AST ALT Alkaline Phosphatase NT-Pro-B Natriuret Pep 2660 H Total Protein Albumin 12/19/24 12/20/24 12/20/24 20:49 04:27 06:06 WBC 6.6 RBC 4.07 L Hgb 12.3 L Hct 39.1 L MCV 96.1 MCH 30.2 MCHC 31.5 L RDW 13.8 Plt Count 124 L MPV 11.5 H Immature Gran % (Auto) 0.3 Neut % (Auto) 65.8 Lymph % (Auto) 23.2 [place] % (Auto) 7.7 Eos % (Auto) 2.4 Baso % (Auto) 0.6 Lymph # (Auto) 1.54 [place] # (Auto) 0.5 Eos # (Auto) 0.2 Baso # (Auto) 0.0 Abs Immat Gran (auto) 0.02 Absolute Neuts (auto) 4.4 Absolute Nucleated RBC 0.000 Nucleated RBC % 0.0 % Immature Plt Fraction 8.5 Puncture Site Left radial ABG pH 7.445 ABG pCO2 57.9 H ABG pO2 73.5 L ABG PO2/FiO2 Ratio 3.06 ABG HCO3 38.9 H ABG O2 Saturation 95.0 ABG O2 Content 17.0 ABG Base Excess 12.5 A-a Gradient 28.7 Oxyhemoglobin 93.6 Total Hemoglobin 12.9 O2 Delivery Device Other device O2 Liters/Min FiO2 24 Sodium 134 L Potassium 3.6 Chloride 92 L Carbon Dioxide 37 H Anion Gap 5 BUN 17 Creatinine 0.93 Estim Creat Clear Calc 91 Estimated GFR > 60 Glucose 88 POC Capillary Glucose 135 H Calcium 9.0 Total Bilirubin 0.6 AST 21 ALT 21 Alkaline Phosphatase 100 NT-Pro-B Natriuret Pep Total Protein 7.0 Albumin 3.6 12/20/24 07:36 WBC RBC Hgb Hct MCV MCH MCHC RDW Plt Count MPV Immature Gran % (Auto) Neut % (Auto) Lymph % (Auto) [place] % (Auto) Eos % (Auto) Baso % (Auto) Lymph # (Auto) [place] # (Auto) Eos # (Auto) Baso # (Auto) Abs Immat Gran (auto) Absolute Neuts (auto) Absolute Nucleated RBC Nucleated RBC % % Immature Plt Fraction Puncture Site ABG pH ABG pCO2 ABG pO2 ABG PO2/FiO2 Ratio ABG HCO3 ABG O2 Saturation ABG O2 Content ABG Base Excess A-a Gradient Oxyhemoglobin Total Hemoglobin O2 Delivery Device O2 Liters/Min FiO2 Sodium Potassium Chloride Carbon Dioxide Anion Gap BUN Creatinine Estim Creat Clear Calc Estimated GFR Glucose POC Capillary Glucose 101 Calcium Total Bilirubin AST ALT Alkaline Phosphatase NT-Pro-B Natriuret Pep Total Protein Albumin Quality VTE Prophylaxis VTE prophylaxis: pharmacologic ordered -Patient's previous records reviewed on admission -ER notes reviewed in detail on admission -discussed all findings and current treatment plan with patient/Family/POA -Consultations reviewed for recommendations -Patient's disposition for safe discharge discussed with major case detective Dictation performed by [email or web address] direct speech recognition software, therefore caterpillar mechanic variants and typographical errors may occur. Hospitalist MIPS Advance Care Plan I have confirmed that the patient's Advanced Care Plan is present, code status is documented, or surrogate decision maker is listed in patient medical record.: Yes Medication Reconciliation I have utilized all available resources to obtain, update and review the patients current medications (includes all prescriptions, OTC, herbals, cannabis, and nutritional supplements).: Yes The patient is not eligible for med reconciliation; the patient is in a emergent medical situation where delaying treatment would jeopardize the patients health.: No
[2024-12-20 11:43] LABS: Glucose Point of Care 111 mg/dl (65-105)
--- NOTE | 2024-12-20 13:30 | P.PNCA_ITS ---
Progress Note: A&P Assessment and Plan (1) Acute on chronic diastolic congestive heart failure: Code(s): I50.33 - Acute on chronic diastolic (congestive) heart failure Status: Acute (2) Atrial fibrillation: Code(s): I48.91 - Unspecified atrial fibrillation Status: Acute (3) CAD in [place] artery: Code(s): I25.10 - Atherosclerotic heart disease of [place] coronary artery without angina pectoris Status: Acute Plan 74-year-old man with chronic diastolic heart failure, persistent atrial fibrillation on Eliquis, coronary artery disease, diabetes, hypertension, hyperlipidemia, obesity, and sleep apnea requiring CPAP presented with shortness of breath and lower extremity swelling Acute on chronic diastolic heart failure -Continue Lasix 60 mg IV BID -Continue losartan 50 mg p.o. daily and spironolactone 50 mg p.o. daily -Will start Jardiance Persistent atrial fibrillation on Eliquis -Rate controlled -Continue Lopressor 100 mg p.o. b.i.d. and diltiazem 180 mg daily -Continue Eliquis 5 mg p.o. b.i.d. Coronary artery disease -No angina at this time -Continue aspirin 81 mg daily and atorvastatin 20 mg every evening Hypertension -Agree with weaning off Clonidine. Hyperlipidemia -Continue statin Subjective Date/time seen: 12/20/24 13:30 Interval history: Reason for visit: Acute on chronic CHF HPI: Patient is a 74-year-old male who was recently admitted to the hospital for atrial fibrillation heart failure. He has a history of CAD, hypertension hyperlipidemia, diabetes, untreated sleep apnea, obesity presented hospital with shortness of breath. He was discharged under is nursing facility in had progressive weight gain over the past couple of days since discharge. He was short of breath and has abdominal discomfort, worsening edema. He is brought back to hospital for further workup and evaluation. He was also had borderline control in heart rate Date of service 12/19: States that his shortness of breath has resolved. However still has abdominal distention as well as lower extremity swelling. Uses CPAP at night Date of service 12/20: States that his shortness of breath has resolved. However still has abdominal distention as well as lower extremity swelling. Uses CPAP at night Date of service 12/21: Feeling better, diuresing well. Review of Systems Review of Systems: All systems reviewed & are unremarkable except as noted in HPI and below (HPI) Exam Const: General: no acute distress Other: Morbidly obese Eyes: General: appearance normal, both eyes and all related structures Sclera: sclerae normal Resp: Effort & Inspection: normal respiratory effort Auscultation: diminished lung sounds Cardio: Rhythm: abnormal rhythm irregularly irregular Other: + Bilateral lower extremity edema Skin: General skin exam: normal color Neuro: Speech: normal speech Psych: Mental Status: mental status grossly normal Affect: normal affect Objective Data Vital Signs Vital Signs: Vital Signs - 24 hr 12/19/24 13:35 12/19/24 14:00 12/19/24 15:54 Temperature 36.6 C Pulse Rate 91 76 Respiratory Rate 18 Blood Pressure 114/64 Pulse Oximetry 90 Oxygen Delivery Room Air 12/19/24 16:00 12/19/24 18:00 12/19/24 19:41 Temperature 36.9 C Pulse Rate 88 103 H 84 Respiratory Rate 20 Blood Pressure 106/75 Pulse Oximetry 92 Oxygen Delivery 12/19/24 20:00 12/19/24 20:00 12/19/24 20:51 Temperature Pulse Rate 124 H 89 Respiratory Rate Blood Pressure Pulse Oximetry Oxygen Delivery Room Air 12/19/24 22:00 12/19/24 22:30 12/19/24 22:35 Temperature Pulse Rate 77 106 H Respiratory Rate 17 Blood Pressure Pulse Oximetry 95 95 Oxygen Delivery BiPAP Room Air 12/19/24 23:15 12/20/24 00:00 12/20/24 00:00 Temperature 37.1 C Pulse Rate 93 78 Respiratory Rate 19 Blood Pressure 120/64 Pulse Oximetry 96 Oxygen Delivery Room Air 12/20/24 02:00 12/20/24 04:00 12/20/24 04:00 Temperature Pulse Rate 88 75 Respiratory Rate Blood Pressure Pulse Oximetry Oxygen Delivery Room Air 12/20/24 04:30 12/20/24 05:46 12/20/24 06:00 Temperature 36.4 C Pulse Rate 82 91 112 H Respiratory Rate 26 H 22 H Blood Pressure 98/64 L Pulse Oximetry 95 99 Oxygen Delivery BiPAP 12/20/24 07:36 12/20/24 08:00 12/20/24 09:15 Temperature 36.6 C Pulse Rate 121 H 92 90 Respiratory Rate 20 Blood Pressure 114/71 Pulse Oximetry 92 Oxygen Delivery 12/20/24 10:00 12/20/24 11:17 12/20/24 12:00 Temperature 36.6 C Pulse Rate 103 H 80 87 Respiratory Rate 18 Blood Pressure 107/88 Pulse Oximetry 92 Oxygen Delivery Intake/Output Intake/Output: Intake & Output 12/17/24 12/18/24 12/19/24 12/20/24 23:59 23:59 23:59 23:59 Intake Total 715 1260 1020 Output Total 6095 6362 9423 Balance -5962 -2675 -980 Meds/Results Medications: Active Medications Generic Name Dose Route Start Last Admin Trade Name Freq PRN Reason Stop Dose Admin Acetaminophen 650 mg 12/18/24 09:32 Acetaminophen 325 Mg Tablet PO Q4H PRN Mild Pain (1-3) or Fever Hydrocodone Bitart/Acetaminophen 1 tab 12/18/24 04:56 12/20/24 09:21 Hydrocodone/Acetaminophen (*Crx) 7.5-325 Mg Tablet PO 1 tab Q4H PRN Administration Pain Rated 7-10 Apixaban 5 mg 12/18/24 09:00 12/20/24 09:15 Apixaban 5 Mg Tablet PO 5 mg Q12HR SHIRA Administration Aspirin 81 mg 12/18/24 09:00 12/20/24 09:15 Aspirin 81 Mg Enteric Tablet PO 81 mg DAILY SHIRA Administration Atorvastatin Calcium 20 mg 12/18/24 05:00 12/20/24 09:15 Atorvastatin 20 Mg Tablet PO 20 mg DAILY SHIRA Administration Clonidine HCl 1 mg 12/20/24 17:00 Clonidine Hcl 0.2 Mg Tablet PO BID SHIRA Cyanocobalamin 1,000 mcg 12/18/24 09:00 12/20/24 09:15 Cyanocobalamin 1,000 Mcg Tablet PO 1,000 mcg QAM SHIRA Administration Dextrose 12.5 gm 12/18/24 04:57 Dextrose 50% 25 Gm/50 Ml Syringe IV PUSH PRN PRN Hypoglycemia Protocol Diltiazem HCl 180 mg 12/18/24 09:00 12/20/24 09:16 Diltiazem Hcl Cd 180 Mg Cap.24hr PO 180 mg QAM SHIRA Administration Furosemide 60 mg 12/19/24 06:45 12/20/24 09:15 Furosemide Inj 40 Mg/4 Ml Vial IV PUSH 60 mg BID SHIRA Administration Gabapentin 300 mg 12/18/24 06:00 12/20/24 05:52 Gabapentin 300 Mg Capsule PO 300 mg Q8HR SHIRA Administration Glucagon 1 mg 12/18/24 04:57 Glucagon For Inj 1 Mg Vial IM PRN PRN Hypoglycemia Protocol Glucose 15 gm 12/18/24 04:57 Glucose Oral Gel 15 Gm Of Glucse In 37.5 Gm Tube PO PRN PRN Hypoglycemia Protocol Dextrose 1,000 mls @ 100 mls/hr 12/18/24 04:57 Dextrose 5% 1,000 Ml IVPB PRN PRN Hypoglycemia Protocol Insulin Aspart 3 - 6 units 12/18/24 08:00 12/20/24 12:12 Insulin Aspart (*Bkc) 100 Units/Ml SUB-Q Not Given TIDWM SHIRA Protocol Insulin Glargine 60 units 12/18/24 21:00 12/19/24 20:52 Insulin Glargine (*Bkc) 100 Units/Ml SUB-Q 60 units HS SHIRA Administration Levalbuterol HCl 1.25 mg 12/18/24 18:32 12/19/24 07:06 Levalbuterol Neb 1.25 Mg/3 Ml INHALATION 1.25 mg Q6HRT PRN Administration Shortness Of Breath Losartan Potassium 50 mg 12/19/24 09:00 12/20/24 09:15 Losartan Potassium 50 Mg Tablet PO 50 mg DAILY SHIRA Administration Metoprolol Tartrate 100 mg 12/18/24 05:00 12/20/24 09:15 Metoprolol Tartrate 50 Mg Tab PO 100 mg Q12HR SHIRA Administration Ondansetron HCl 4 mg 12/18/24 09:32 Ondansetron Inj 4 Mg/2 Ml Vial IV PUSH Q6H PRN Nausea And Vomiting Potassium Chloride 40 meq 12/18/24 15:45 12/20/24 09:16 Potassium Chloride 20 Meq Packet (For Liquid) PO 40 meq DAILY SHIRA Administration Spironolactone 50 mg 12/19/24 09:00 12/20/24 09:15 Spironolactone 50 Mg Tablet PO 50 mg QAM SHIRA Administration Trazodone HCl 25 mg 12/18/24 20:13 12/19/24 20:50 Trazodone Hcl 25 Mg Tablet PO 25 mg HS PRN Administration Insomnia Radiology Results: ITS Impressions Chest X-Ray 12/19/24 06:51 Impression: Minimal right pleural effusion. Stable cardiomegaly. Labs Labs: Laboratory Results - last 24 hr 12/19/24 12/19/24 12/20/24 15:55 20:49 04:27 WBC RBC Hgb Hct MCV MCH MCHC RDW Plt Count MPV Immature Gran % (Auto) Neut % (Auto) Lymph % (Auto) [place] % (Auto) Eos % (Auto) Baso % (Auto) Lymph # (Auto) [place] # (Auto) Eos # (Auto) Baso # (Auto) Abs Immat Gran (auto) Absolute Neuts (auto) Absolute Nucleated RBC Nucleated RBC % % Immature Plt Fraction Puncture Site Left radial ABG pH 7.445 ABG pCO2 57.9 H ABG pO2 73.5 L ABG PO2/FiO2 Ratio 3.06 ABG HCO3 38.9 H ABG O2 Saturation 95.0 ABG O2 Content 17.0 ABG Base Excess 12.5 A-a Gradient 28.7 Oxyhemoglobin 93.6 Total Hemoglobin 12.9 O2 Delivery Device Other device O2 Liters/Min FiO2 24 Sodium Potassium Chloride Carbon Dioxide Anion Gap BUN Creatinine Estim Creat Clear Calc Estimated GFR Glucose POC Capillary Glucose 150 H 135 H Calcium Total Bilirubin AST ALT Alkaline Phosphatase Total Protein Albumin 12/20/24 12/20/24 12/20/24 06:06 07:36 11:21 WBC 6.6 RBC 4.07 L Hgb 12.3 L Hct 39.1 L MCV 96.1 MCH 30.2 MCHC 31.5 L RDW 13.8 Plt Count 124 L MPV 11.5 H Immature Gran % (Auto) 0.3 Neut % (Auto) 65.8 Lymph % (Auto) 23.2 [place] % (Auto) 7.7 Eos % (Auto) 2.4 Baso % (Auto) 0.6 Lymph # (Auto) 1.54 [place] # (Auto) 0.5 Eos # (Auto) 0.2 Baso # (Auto) 0.0 Abs Immat Gran (auto) 0.02 Absolute Neuts (auto) 4.4 Absolute Nucleated RBC 0.000 Nucleated RBC % 0.0 % Immature Plt Fraction 8.5 Puncture Site ABG pH ABG pCO2 ABG pO2 ABG PO2/FiO2 Ratio ABG HCO3 ABG O2 Saturation ABG O2 Content ABG Base Excess A-a Gradient Oxyhemoglobin Total Hemoglobin O2 Delivery Device O2 Liters/Min FiO2 Sodium 134 L Potassium 3.6 Chloride 92 L Carbon Dioxide 37 H Anion Gap 5 BUN 17 Creatinine 0.93 Estim Creat Clear Calc 91 Estimated GFR > 60 Glucose 88 POC Capillary Glucose 101 111 H Calcium 9.0 Total Bilirubin 0.6 AST 21 ALT 21 Alkaline Phosphatase 100 Total Protein 7.0 Albumin 3.6
--- NOTE | 2024-12-20 15:45 | PC.NURSE ---
On 12/20/24, the student, [Trisha Corrigan ], provided care and completed [facility] documentation on this patient. I have reviewed the student's documentation and agree with the findings.
[2024-12-20] MEDS: INSULIN ASPART (*BKC) 100 UNITS/ML SUB-Q (16:09)
[2024-12-20] MEDS: cloNIDine HCL 0.1 MG TABLET PO (16:27)
[2024-12-20 16:52] LABS: Glucose Point of Care 204 mg/dl (65-105)
--- NOTE | 2024-12-20 18:40 | PC.NURSE ---
This patient, Francisco J Pineda, was transferred to [[id number] ] on 12/20/24 at 1818. Personal belongings sent with patient. Report given to [ MILLIE Cooley @ [phone]]. Appropriate documentation sent with patient. Family at bedside and aware of transfer
[2024-12-20 20:08] LABS: Glucose Point of Care 202 mg/dl (65-105)
[2024-12-20] MEDS: traZODone HCL 25 MG TABLET PO (20:12)
[2024-12-20] MEDS: INSULIN GLARGINE (*BKC) 100 UNITS/ML 60 UNITS SUB-Q (20:15)
[2024-12-21] VITALS (11 sets, daily range): BP systolic 103–118; BP diastolic 60–78; PULSE 68–115; RESP 14–18; TEMP 36.2–36.9; O2SAT 92–96
[2024-12-21] MEDS: GABAPENTIN 300 MG CAPSULE PO ×3 (06:25→20:53)
[2024-12-21 08:27] LABS: Glucose Point of Care 101 mg/dl (65-105)
[2024-12-21 08:42] LABS: Alanine Aminotransferase 20 U/L (6-50); Albumin Level 3.5 g/dL (3.5-5.1); Alkaline Phosphatase 102 U/L (38-126); Anion Gap 5 mmol/L (4-12); Aspartate Amino Transferase 26 U/L (17-59); Bilirubin,Total 0.6 mg/dL (0.2-1.3); Blood Urea Nitrogen 19 mg/dL (9-20); Calcium 9.1 mg/dL (8.4-10.2); Carbon Dioxide 36 mmol/L (22-30); Chloride 92 mmol/L (98-107); Estimated CRCL calculation 92 ml/min; Estimated Glomerular Filt Rate > 60; Glucose 96 mg/dL (65-110); Potassium 4.5 mmol/L (3.4-5.0); Sodium 133 mmol/L (137-145)
[2024-12-21 08:43] LABS: Basophils Percent Auto 0.6 % (0.2-1.2); Eosinophils Absolute Auto 0.1 K/mm3 (0-0.3); Eosinophils Percent Auto 1.7 % (0-4.4); Hemoglobin 11.7 g/dL (14.0-18.0); Immature Granulocyte Absolute 0.02 K/mm3 (0.00-0.031); Immature Granulocyte Percent A 0.4 % (0-0.5); Lymphocytes Absolute Auto 1.64 K/mm3 (0.9-3.2); Lymphocytes Percent Auto 31.5 % (18.3-44.2); Mean Corpuscular HGB Conc 30.8 g/dl (32-36); Mean Corpuscular Hemoglobin 29.7 pg (26-34); Mean Corpuscular Volume 96.4 fl (80-100); Mean Platelet Volume 12.1 fl (7.4-10.4); Monocytes Absolute Auto 0.4 K/mm3 (0.1-0.6); Monocytes Percent Auto 8.3 % (2.6-8.5); Neutrophils Percent Auto 57.5 % (45.5-73.1); Platelet Count Result 138 k/mm3 (150-375); Red Blood Count 3.94 M/mm3 (4.6-6.20); Red Cell Distribution Width 13.6 % (11.5-14.5); White Blood Count 5.2 K/mm3 (4.5-10.0)
--- NOTE | 2024-12-21 09:00 | PM.PNPUL ---
Progress Note: A&P Assessment and Plan (1) Obstructive sleep apnea: Code(s): G47.33 - Obstructive sleep apnea (adult) (pediatric) Status: Acute Assessment and Plan: Regarding his obstructive sleep apnea the patient tells me in the he had a sleep study and was prescribed a fullface mask CPAP machine and he were to few times and could not tolerate it and never had any follow-up. At that time he had witnessed apneas per his . Recently he does not know if he snores. He and his sleep in separate bedrooms and does not know if he has witnessed apneas, he has no morning headaches. He was on Ozempic and weight 385 lb and lost 100 lb to 285 lb. He has now gained considerable water weight over the last 3 weeks and now weighs 340 lb. TSH 12/09/2024 1.04. 12/19/24: Patient wore the auto PAP 5-15 1 L bleed in and said he got the best night of his sleep in the last 3 weeks. Patient had an ABG on auto PAP 5-15 1 L bleed in of 7.40/57/79. Plan: The patient has untreated obstructive sleep apnea for many years with evidence of right heart failure with a tricuspid peak gradient of 42 on 12/09/2024. he has hypercarbic respiratory failure but he was also fluid overloaded. After he has been aggressively diuresed and no longer fluid overloaded I will repeat daytime ABG off of positive airway pressure for 24 hours to reassess for chronic hypercarbic respiratory failure secondary to obesity hypoventilation syndrome. In the meantime his blood gas on auto PAP 5-15 shows chronic hypercarbic respiratory failure and I will switch him to noninvasive ventilation with the AVAPS mode rate of 14, tidal volume 500, EPAP 8, minimal inspiratory pressure 9, maximal inspiratory pressure 25 and FiO2 24%. I will check overnight oximetry in ABG prior to removal. 12/20/24: Patient tells me he is continuing to improve. States he has 50% back to his normal. He denies cough, phlegm or wheezing. He is afebrile. White blood cell count 6.6. Currently is on room air with saturations 95%. Last night patient wore hospital noninvasive ventilator with the AVAPS mode rate of 14, tidal volume 500, EPAP 8, minimal inspiratory pressure 9, maximal inspiratory pressure 25, inspiratory time 1.0, rise of 3 and 24% FiO2. Patient said he slept very well with the machine although it felt like the air was coming and too fast. On these settings patient had an overnight oximetry with a recording duration of 5 hours and 54 minutes. Average saturation 95%. Low saturation 75%. Time with saturation less than or equal to 88% was 0 minutes. Oxygen desaturation index 7.1. Patient had an ABG prior to removal of the mass with pH of 7.45/58/74. I decreased his rise to 5 and increased his inspiratory time to 1.2 and he said these settings were much more comfortable. Plan: continue noninvasive ventilation with the AVAPS mode rate of 14, tidal volume 500, EPAP 8, minimal inspiratory pressure 9, maximal inspiratory pressure 25, inspiratory time 1.2 and a rise of 5. Tonight I will place on room air and perform an overnight oximetry on room air. Once patient is closer to his baseline will leave off of noninvasive ventilation for 24 hours and repeat a blood gas to determine if he still has chronic hypercarbic respiratory failure and if he does will then initiate plans for home noninvasive ventilation. 12/21/24: Patient continues to improve. Tells me his 60-65% back to his normal. Denies fever, chills, cough or phlegm. Room air saturations 94%. Patient wore the hospital noninvasive ventilator with the AVAPS mode and room air last night. Overnight oximetry with recording duration 7 hours and 36 minutes. Average saturation 92%. Low saturation 85%. Time with saturation less than or equal to 88% was 2 minutes. Oxygen desaturation index 5.4. Patient diuresed yesterday 2.3 L. Cumulative diuresis since admission is 8.9 L. Weight today is 154. Plan: Patient continues to improve. Overnight on hospital AVAPS and room air with adequate ventilation and oxygenation. Tonight I will place the patient on room air and perform an overnight oximetry to assess oxygenation and an ABG at 8:00 a.m. to assess for chronic hypercarbic respiratory failure. Will follow with you. (2) Right heart failure: Code(s): I50.810 - Right heart failure, unspecified Status: Acute Assessment and Plan: 12/19/24: diuresed 1.9 L yesterday and cumulative diuresis is -2.9 L since admission on lasix 60 IV BID, Spironolactone 50 q.day. Chest x-ray shows minimal right pleural effusion with improved congestion. Patient states his edema and abdominal tightness are improved. BNP has improved from 3770 to 2660. Overall he says he feels better and he says he feels 30% back to his normal. his weight on admission was 158.6 kg and today he is 154.5 kg. Of note on 09/12/2024 he weighed 138.8 kg. Plan: recommend as aggressive diuresis as tolerated by his cardiac and renal systems per Cardiology and hospitalist teams. 12/20/24: creatinine 0.93. He is on Lasix 60 IV b.i.d. and diuresed 3.7 L yesterday cumulative since admission he is -5.7 L. His weight today is 154.5 with admission weight of 158.6. Plan: Agree with as aggressive diuresis as tolerated by his cardiac and renal systems per Cardiology and the hospitalist team. Patient is having some soft blood pressures would consider decreasing his antihypertensives to allow for continued aggressive diuresis. 12/21/24: Patient diuresed yesterday 2.3 L. Cumulative diuresis since admission is 8.9 L. Weight today is 154. Plan: Agree with continued aggressive diuresis with Lasix 60 IV b.i.d.. Clonidine has been decreased. Subjective Date/time seen: 12/21/24 09:00 Interval history: 12/19/2024: This is a new pulmonary consult for hypoxemic and hypercarbic respiratory failure, morbid obesity and congestive heart failure. 74-year-old with a history of CVA, CAD, AFib with RVR, diastolic dysfunction, hypertension, hyperlipidemia, diabetes, morbid obesity and untreated sleep apnea. Regarding his obstructive sleep apnea the patient tells me in the 1970s he had a sleep study and was prescribed a fullface mask CPAP machine and he were to few times and could not tolerate it and never had any follow-up. At that time he had witnessed apneas per his . Recently he does not know if he snores. He and his sleep in separate bedrooms and does not know if he has witnessed apneas, he has no morning headaches. He was on Ozempic and weight 385 lb and lost 100 lb to 285 lb. At baseline he says he could walk 1 block and this is unchanged over the last year. Over the last 3-4 weeks he can only walk room to room. He does not measure his oxygen. Patient smoked tobacco from [id number] at 1 pack per day for a total of 31 pack years. Approximately 3-4 weeks ago he has had Shortness of breath at rest, dyspnea on exertion, weight gain, tight abdomen and lower extremity edema. He was admitted to the hospital from 12/08/2024 through 12/14/24 with fluid overload with an admission BNP of 3540, TSH 12/09/2024 1.04. AFib with RVR and he was diuresed with IV Lasix. His weight on admission was 159.7 kg and on discharge was 161.2 kg. on 12/13/2024 his BNP was 4470. He was admitted on 20 mg of Lasix twice a day and discharged on 40 mg of Lasix twice a day. 12/17/2024 the patient presented back to the hospital with worsening shortness of breath and increased edema. Is BNP was 3770, chest x-ray showed congestion with small effusions, he had AFib with RVR and he was treated with IV Lasix. His room air blood gas was 7.42/46/63. On 12/18/2024 the patient was on 1 L and had a blood gas of 7.43/52/73 and was empirically placed on auto PAP 5-15. 12/19/24: The patient is awake and alert currently on auto PAP with 1 L bleed in with saturations 97%. I placed him on room air and his saturations were 93-94%. His white blood cell count 6.8, creatinine 1.09, diuresed 1.9 L yesterday and cumulative diuresis is -2.9 L. patient had an ABG on auto PAP 5-15 of 7.40/57/79. Chest x-ray shows minimal right pleural effusion with improved congestion. Patient states his edema and abdominal tightness are improved. Overall he says he feels better and he says he feels 30% back to his normal. He denies fever, chills, rigors. Remains with shortness of breath. Patient wore the auto PAP 5-15 and said he got the best night of his sleep in the last 3 weeks. 12/20/24: Patient tells me he is continuing to improve. States he has 50% back to his normal. He denies cough, phlegm or wheezing. He is afebrile. White blood cell count 6.6, creatinine 0.93. He is on Lasix 60 IV b.i.d. and diuresed 3.7 L yesterday cumulative since admission he is -5.7 L. His weight today is 154.5 with admission weight of 158.6. Currently is on room air with saturations 95%. Last night patient wore hospital noninvasive ventilator with the AVAPS mode rate of 14, tidal volume 500, EPAP 8, minimal inspiratory pressure 9, maximal inspiratory pressure 25, inspiratory time 1.0, rise of 3 and 24% FiO2. Patient said he slept very well with the machine although it felt like the air was coming and too fast. On these settings patient had an overnight oximetry with a recording duration of 5 hours and 54 minutes. Average saturation 95%. Low saturation 75%. Time with saturation less than or equal to 88% was 0 minutes. Oxygen desaturation index 7.1. Patient had an ABG prior to removal of the mass with pH of 7.45/58/74. I decreased his rise to 5 and increased his inspiratory time to 1.2 and he said these settings were much more comfortable. 12/21/24: Patient continues to improve. Tells me his 60-65% back to his normal. Denies fever, chills, cough or phlegm. Room air saturations 94%. Patient wore the hospital noninvasive ventilator with the AVAPS mode and room air last night. Overnight oximetry with recording duration 7 hours and 36 minutes. Average saturation 92%. Low saturation 85%. Time with saturation less than or equal to 88% was 2 minutes. Oxygen desaturation index 5.4. Patient diuresed yesterday 2.3 L. Cumulative diuresis since admission is 8.9 L. Weight today is 154. DATA: 12/17/24: CHEST RADIOGRAPH CLINICAL HISTORY: dyspnea/ chf . COMPARISON: 12/08/2024 TECHNIQUE: Single portable view of the chest. FINDINGS The cardiomediastinal silhouette is enlarged, unchanged. Calcified lymph nodes within the mediastinum suggesting prior granulomatous disease. Increased interstitial markings are identified bilaterally, findings suggesting mild pulmonary vascular congestion. Bilateral pleural effusions, right greater than left. The remainder of the lungs are clear. IMPRESSION: Bilateral pleural effusions, with mild pulmonary vascular congestion. 12/09/24: Echo Summary 1. Left ventricular chamber dimension is normal. 2. Left ventricular systolic function is normal, estimated at 50-55%. 3. There is moderately increased left ventricular wall thickness. 4. Right ventricular chamber dimension is mildly enlarged. 5. Right ventricular systolic function is reduced. 6. Left atrial chamber dimension is severely enlarged. 7. Right atrial chamber dimension is severely enlarged. 8. There is moderate tricuspid valve regurgitation. 9. There is trivial pericardial effusion. Right Ventricle Right ventricular chamber dimension is mildly enlarged. Right ventricular systolic function is reduced. Left Atria Left atrial chamber dimension is severely enlarged. Right Atria Right atrial chamber dimension is severely enlarged. Atrial Septum Intact interatrial septum visualized by color flow imaging. 09/23/2021: Echo Summary 1. Complete two-dimensional, color flow and Doppler transthoracic echocardiogram is performed. 2. Left ventricular chamber dimension is normal. 3. Left ventricular systolic function is normal, estimated at 60-65%. 4. There is moderately increased left ventricular wall thickness. 5. The left ventricular diastolic function is grade I diastolic dysfunction. 6. There is no aortic valve stenosis. 7. There is trace tricuspid valve regurgitation. 8. No pulmonary hypertension, estimated pulmonary arterial systolic pressure is 14 mmHg. 9. There is trace mitral valve regurgitation. Right Ventricle Right ventricular chamber dimension is normal. Right ventricular systolic function is normal. Left Atria Left atrial chamber dimension is mildly enlarged. Right Atria Right atrial chamber dimension is mildly enlarged. Review of Systems Constitutional: Constitutional: Reports no additional constitutional complaints Eyes: Eyes: Reports no additional eye complaints ENT: Reports system reviewed and no additional complaints, except as documented Cardiovascular: Cardiovascular: Reports no additional cardiovascular complaints Respiratory: Respiratory: Reports no additional respiratory complaints Gastrointestinal: Gastrointestinal: Reports no additional gastrointestinal complaints Musculoskeletal: Musculoskeletal: Reports no additional musculoskeletal complaints Neurologic: Reports system reviewed and no additional complaints, except as documented Psychiatric: Psychiatric: Reports no additional psychiatric complaints Endocrine: Endocrine: Reports no additional endocrine complaints Hematologic/Lymphatic: Hematologic/Lymphatic: Reports no additional hematologic/lymphatic complaints Allergic/Immunologic: Allergic/Immunologic: Reports no additional allergic/immunologic complaints Exam Const: General: cooperative and comfortable Orientation/consciousness: oriented to person, oriented to place and oriented to time Other: obese HENMT: Head: normal to inspection Ears: hearing grossly normal bilaterally Eyes: General: appearance normal, both eyes and all related structures Neck: Neck: normal visual inspection Chest: Chest palpation & inspection: normal inspection of the chest Resp: Effort & Inspection: normal respiratory effort and able to speak in complete sentences Auscultation: no crackles, no rales, no rhonchi, no wheezes and diminished lung sounds Other: obese Cardio: Jugular venous distension: no JVD GI: Inspection: distended Other: Less distended Skin: General skin exam: normal color Neuro: General: oriented to person, oriented to place and oriented to time Extrem: General: normal to inspection and edema Other: improved edema Psych: Appearance: grossly normal Objective Data Vital Signs Vital Signs: Vital Signs - 24 hr 12/20/24 09:15 12/20/24 10:00 12/20/24 11:17 Temperature 36.6 C Pulse Rate 90 103 H 80 Respiratory Rate 18 Blood Pressure 107/88 Pulse Oximetry 92 Oxygen Delivery 12/20/24 12:00 12/20/24 15:45 12/20/24 16:00 Temperature 36.7 C Pulse Rate 87 72 92 Respiratory Rate 18 Blood Pressure 124/72 Pulse Oximetry 93 Oxygen Delivery 12/20/24 20:00 12/20/24 20:00 12/20/24 20:49 Temperature 36.4 C L Pulse Rate 81 55 L Respiratory Rate 14 Blood Pressure 145/84 H Pulse Oximetry 94 Oxygen Delivery CPAP 12/20/24 21:54 12/20/24 21:55 12/21/24 00:00 Temperature Pulse Rate 74 80 Respiratory Rate 18 Blood Pressure Pulse Oximetry 93 93 Oxygen Delivery Room Air BiPAP 12/21/24 03:26 12/21/24 05:43 Temperature 36.2 C L Pulse Rate 80 82 Respiratory Rate 14 Blood Pressure 118/78 Pulse Oximetry 95 Oxygen Delivery Intake/Output Intake/Output: Intake & Output 12/18/24 12/19/24 12/20/24 12/21/24 23:59 23:59 23:59 23:59 Intake Total 715 1260 1260 500 Output Total 2650 4975 3600 1450 [facility] [place] [phone] Meds/Results Medications: Active Medications Generic Name Dose Route Start Last Admin Trade Name Freq PRN Reason Stop Dose Admin Acetaminophen 650 mg 12/18/24 09:32 Acetaminophen 325 Mg Tablet PO Q4H PRN Mild Pain (1-3) or Fever Hydrocodone Bitart/Acetaminophen 1 tab 12/18/24 04:56 12/20/24 18:46 Hydrocodone/Acetaminophen (*Crx) 7.5-325 Mg Tablet PO 1 tab Q4H PRN Administration Pain Rated 7-10 Apixaban 5 mg 12/18/24 09:00 12/20/24 20:12 Apixaban 5 Mg Tablet PO 5 mg Q12HR SHIRA Administration Aspirin 81 mg 12/18/24 09:00 12/20/24 09:15 Aspirin 81 Mg Enteric Tablet PO 81 mg DAILY SHIRA Administration Atorvastatin Calcium 20 mg 12/18/24 05:00 12/20/24 09:15 Atorvastatin 20 Mg Tablet PO 20 mg DAILY SHIRA Administration Clonidine HCl 0.1 mg 12/20/24 17:00 12/20/24 16:27 Clonidine Hcl 0.1 Mg Tablet PO 0.1 mg BID SHIRA Administration Cyanocobalamin 1,000 mcg 12/18/24 09:00 12/20/24 09:15 Cyanocobalamin 1,000 Mcg Tablet PO 1,000 mcg QAM SHIRA Administration Dextrose 12.5 gm 12/18/24 04:57 Dextrose 50% 25 Gm/50 Ml Syringe IV PUSH PRN PRN Hypoglycemia Protocol Diltiazem HCl 180 mg 12/18/24 09:00 12/20/24 09:16 Diltiazem Hcl Cd 180 Mg Cap.24hr PO 180 mg QAM SHIRA Administration Empagliflozin 10 mg 12/21/24 09:00 Empagliflozin 10 Mg Tablet PO DAILY SHIRA Furosemide 60 mg 12/19/24 06:45 12/20/24 16:08 Furosemide Inj 40 Mg/4 Ml Vial IV PUSH 60 mg BID SHIRA Administration Gabapentin 300 mg 12/18/24 06:00 12/21/24 06:25 Gabapentin 300 Mg Capsule PO 300 mg Q8HR SHIRA Administration Glucagon 1 mg 12/18/24 04:57 Glucagon For Inj 1 Mg Vial IM PRN PRN Hypoglycemia Protocol Glucose 15 gm 12/18/24 04:57 Glucose Oral Gel 15 Gm Of Glucse In 37.5 Gm Tube PO PRN PRN Hypoglycemia Protocol Dextrose 1,000 mls @ 100 mls/hr 12/18/24 04:57 Dextrose 5% 1,000 Ml IVPB PRN PRN Hypoglycemia Protocol Insulin Aspart 3 - 6 units 12/18/24 08:00 12/20/24 16:09 Insulin Aspart (*Bkc) 100 Units/Ml SUB-Q 3 units TIDWM SHIRA Administration Protocol Insulin Glargine 60 units 12/18/24 21:00 12/20/24 20:15 Insulin Glargine (*Bkc) 100 Units/Ml SUB-Q 60 units HS SHIRA Administration Levalbuterol HCl 1.25 mg 12/18/24 18:32 12/19/24 07:06 Levalbuterol Neb 1.25 Mg/3 Ml INHALATION 1.25 mg Q6HRT PRN Administration Shortness Of Breath Losartan Potassium 50 mg 12/19/24 09:00 12/20/24 09:15 Losartan Potassium 50 Mg Tablet PO 50 mg DAILY SHIRA Administration Metoprolol Tartrate 100 mg 12/18/24 05:00 12/20/24 20:12 Metoprolol Tartrate 50 Mg Tab PO 100 mg Q12HR SHIRA Administration Ondansetron HCl 4 mg 12/18/24 09:32 Ondansetron Inj 4 Mg/2 Ml Vial IV PUSH Q6H PRN Nausea And Vomiting Potassium Chloride 40 meq 12/18/24 15:45 12/20/24 09:16 Potassium Chloride 20 Meq Packet (For Liquid) PO 40 meq DAILY SHIRA Administration Spironolactone 50 mg 12/19/24 09:00 12/20/24 09:15 Spironolactone 50 Mg Tablet PO 50 mg QAM SHIRA Administration Trazodone HCl 25 mg 12/18/24 20:13 12/20/24 20:12 Trazodone Hcl 25 Mg Tablet PO 25 mg HS PRN Administration Insomnia Radiology Results: ITS Impressions Chest X-Ray 12/19/24 06:51 Impression: Minimal right pleural effusion. Stable cardiomegaly. Labs Labs: Laboratory Results - last 24 hr 12/20/24 12/20/24 12/20/24 11:21 15:48 19:53 WBC RBC Hgb Hct MCV MCH MCHC RDW Plt Count MPV Immature Gran % (Auto) Neut % (Auto) Lymph % (Auto) Lawrence % (Auto) Eos % (Auto) Baso % (Auto) Lymph # (Auto) Lawrence # (Auto) Eos # (Auto) Baso # (Auto) Abs Immat Gran (auto) Absolute Neuts (auto) Absolute Nucleated RBC Nucleated RBC % Sodium Potassium Chloride Carbon Dioxide Anion Gap BUN Creatinine Estim Creat Clear Calc Estimated GFR Glucose POC Capillary Glucose 111 H 204 H 202 H Calcium Total Bilirubin AST ALT Alkaline Phosphatase Total Protein Albumin 12/21/24 12/21/24 08:12 08:18 WBC 5.2 RBC 3.94 L Hgb 11.7 L Hct 38.0 L MCV 96.4 MCH 29.7 MCHC 30.8 L RDW 13.6 Plt Count 138 L MPV 12.1 H Immature Gran % (Auto) 0.4 Neut % (Auto) 57.5 Lymph % (Auto) 31.5 Lawrence % (Auto) 8.3 Eos % (Auto) 1.7 Baso % (Auto) 0.6 Lymph # (Auto) 1.64 Lawrence # (Auto) 0.4 Eos # (Auto) 0.1 Baso # (Auto) 0.0 Abs Immat Gran (auto) 0.02 Absolute Neuts (auto) 3.0 Absolute Nucleated RBC 0.000 Nucleated RBC % 0.0 Sodium 133 L Potassium 4.5 Chloride 92 L Carbon Dioxide 36 H Anion Gap 5 BUN 19 Creatinine 0.91 Estim Creat Clear Calc 92 Estimated GFR > 60 Glucose 96 POC Capillary Glucose 101 Calcium 9.1 Total Bilirubin 0.6 AST 26 ALT 20 Alkaline Phosphatase 102 Total Protein 7.0 Albumin 3.5
[2024-12-21] MEDS: SPIRONOLACTONE 50 MG TABLET PO (09:38)
[2024-12-21] MEDS: POTASSIUM CHLORIDE 20 MEQ PACKET (FOR LIQUID) 40 MEQ PO (09:38)
[2024-12-21] MEDS: FUROSEMIDE INJ 40 MG/4 ML VIAL 60 MG IV PUSH ×2 (09:38→17:13)
[2024-12-21] MEDS: ASPIRIN 81 MG ENTERIC TABLET PO (09:38)
[2024-12-21] MEDS: METOPROLOL TARTRATE 50 MG TAB 100 MG PO ×2 (09:38→20:51)
[2024-12-21] MEDS: HYDROcodone/acetaminophen (*CRX) 7.5-325 MG TABLET 1 TAB PO ×3 (09:42→20:52)
[2024-12-21] MEDS: dilTIAZem HCL CD 180 MG CAP.24HR PO (09:42)
[2024-12-21] MEDS: CYANOCOBALAMIN 1,000 MCG TABLET 1000 MCG PO (09:43)
[2024-12-21] MEDS: cloNIDine HCL 0.1 MG TABLET PO ×2 (09:43→17:13)
[2024-12-21] MEDS: ATORVASTATIN 20 MG TABLET PO (09:43)
[2024-12-21] MEDS: APIXABAN 5 MG TABLET PO ×2 (09:43→20:52)
[2024-12-21] MEDS: EMPAGLIFLOZIN 10 MG TABLET PO (09:43)
--- NOTE | 2024-12-21 11:57 | PM.PNCARD ---
Progress Note: A&P Assessment and Plan (1) Acute on chronic diastolic congestive heart failure: Code(s): I50.33 - Acute on chronic diastolic (congestive) heart failure Status: Acute (2) Atrial fibrillation: Code(s): I48.91 - Unspecified atrial fibrillation Status: Acute (3) CAD in [place] artery: Code(s): I25.10 - Atherosclerotic heart disease of [place] coronary artery without angina pectoris Status: Acute Plan 74-year-old man with chronic diastolic heart failure, persistent atrial fibrillation on Eliquis, coronary artery disease, diabetes, hypertension, hyperlipidemia, obesity, and sleep apnea requiring CPAP presented with shortness of breath and lower extremity swelling Acute on chronic diastolic heart failure -Continue Lasix 60 mg IV BID. Will give a dose of Metolazone today. -Continue Losartan 50 mg daily and Spironolactone 50 mg daily -Started Jardiance Persistent atrial fibrillation on Eliquis -Rate controlled -Continue Lopressor 100 mg BID and Diltiazem 180 mg daily -Continue Eliquis 5 mg BID Coronary artery disease -No angina at this time -Continue aspirin 81 mg daily and Atorvastatin 20 mg every evening Hypertension -Agree with weaning off Clonidine. Hyperlipidemia -Continue statin Subjective Date/time seen: 12/21/24 11:57 Interval history: Reason for visit: Acute on chronic CHF HPI: Patient is a 74-year-old male who was recently admitted to the hospital for atrial fibrillation heart failure. He has a history of CAD, hypertension hyperlipidemia, diabetes, untreated sleep apnea, obesity presented hospital with shortness of breath. He was discharged under is nursing facility in had progressive weight gain over the past couple of days since discharge. He was short of breath and has abdominal discomfort, worsening edema. He is brought back to hospital for further workup and evaluation. He was also had borderline control in heart rate Date of service 12/19: States that his shortness of breath has resolved. However still has abdominal distention as well as lower extremity swelling. Uses CPAP at night Date of service 12/20: Feeling better, diuresing well. Date of service 12/21: Continues to diurese well. Feels like his abdomen is less distended. Review of Systems Cardiovascular: Cardiovascular: Reports as per HPI Exam Const: General: no acute distress Other: Morbidly obese Eyes: General: appearance normal, both eyes and all related structures Sclera: sclerae normal Resp: Effort & Inspection: normal respiratory effort Auscultation: diminished lung sounds Cardio: Rhythm: abnormal rhythm irregularly irregular Other: + Bilateral lower extremity edema Skin: General skin exam: normal color Neuro: Speech: normal speech Psych: Mental Status: mental status grossly normal Affect: normal affect Objective Data Vital Signs Vital Signs: Vital Signs - 24 hr 12/20/24 12:00 12/20/24 15:45 12/20/24 16:00 Temperature 36.7 C Pulse Rate 87 72 92 Respiratory Rate 18 Blood Pressure 124/72 Pulse Oximetry 93 Oxygen Delivery 12/20/24 20:00 12/20/24 20:00 12/20/24 20:49 Temperature 36.4 C L Pulse Rate 81 55 L Respiratory Rate 14 Blood Pressure 145/84 H Pulse Oximetry 94 Oxygen Delivery CPAP 12/20/24 21:54 12/20/24 21:55 12/21/24 00:00 Temperature Pulse Rate 74 80 Respiratory Rate 18 Blood Pressure Pulse Oximetry 93 93 Oxygen Delivery Room Air BiPAP 12/21/24 03:26 12/21/24 05:43 12/21/24 08:00 Temperature 36.2 C L Pulse Rate 80 82 85 Respiratory Rate 14 Blood Pressure 118/78 Pulse Oximetry 95 Oxygen Delivery 12/21/24 09:38 Temperature Pulse Rate 78 Respiratory Rate Blood Pressure Pulse Oximetry Oxygen Delivery Intake/Output Intake/Output: Intake & Output 12/18/24 12/19/24 12/20/24 12/21/24 23:59 23:59 23:59 23:59 Intake Total 715 1260 1260 740 Output Total 2650 3055 3600 5110 [facility] [place] -[phone] Meds/Results Medications: Active Medications Generic Name Dose Route Start Last Admin Trade Name Freq PRN Reason Stop Dose Admin Acetaminophen 650 mg 12/18/24 09:32 Acetaminophen 325 Mg Tablet PO Q4H PRN Mild Pain (1-3) or Fever Hydrocodone Bitart/Acetaminophen 1 tab 12/18/24 04:56 12/21/24 09:42 Hydrocodone/Acetaminophen (*Crx) 7.5-325 Mg Tablet PO 1 tab Q4H PRN Administration Pain Rated 7-10 Apixaban 5 mg 12/18/24 09:00 12/21/24 09:43 Apixaban 5 Mg Tablet PO 5 mg Q12HR SHIRA Administration Aspirin 81 mg 12/18/24 09:00 12/21/24 09:38 Aspirin 81 Mg Enteric Tablet PO 81 mg DAILY SHIRA Administration Atorvastatin Calcium 20 mg 12/18/24 05:00 12/21/24 09:43 Atorvastatin 20 Mg Tablet PO 20 mg DAILY SHIRA Administration Clonidine HCl 0.1 mg 12/20/24 17:00 12/21/24 09:43 Clonidine Hcl 0.1 Mg Tablet PO 0.1 mg BID SHIRA Administration Cyanocobalamin 1,000 mcg 12/18/24 09:00 12/21/24 09:43 Cyanocobalamin 1,000 Mcg Tablet PO 1,000 mcg QAM SHIRA Administration Dextrose 12.5 gm 12/18/24 04:57 Dextrose 50% 25 Gm/50 Ml Syringe IV PUSH PRN PRN Hypoglycemia Protocol Diltiazem HCl 180 mg 12/18/24 09:00 12/21/24 09:42 Diltiazem Hcl Cd 180 Mg Cap.24hr PO 180 mg QAM SHIRA Administration Empagliflozin 10 mg 12/21/24 09:00 12/21/24 09:43 Empagliflozin 10 Mg Tablet PO 10 mg DAILY SHIRA Administration Furosemide 60 mg 12/19/24 06:45 12/21/24 09:38 Furosemide Inj 40 Mg/4 Ml Vial IV PUSH 60 mg BID SHIRA Administration Gabapentin 300 mg 12/18/24 06:00 12/21/24 06:25 Gabapentin 300 Mg Capsule PO 300 mg Q8HR SHIRA Administration Glucagon 1 mg 12/18/24 04:57 Glucagon For Inj 1 Mg Vial IM PRN PRN Hypoglycemia Protocol Glucose 15 gm 12/18/24 04:57 Glucose Oral Gel 15 Gm Of Glucse In 37.5 Gm Tube PO PRN PRN Hypoglycemia Protocol Dextrose 1,000 mls @ 100 mls/hr 12/18/24 04:57 Dextrose 5% 1,000 Ml IVPB PRN PRN Hypoglycemia Protocol Insulin Aspart 3 - 6 units 12/18/24 08:00 12/20/24 16:09 Insulin Aspart (*Bkc) 100 Units/Ml SUB-Q 3 units TIDWM SHIRA Administration Protocol Insulin Glargine 60 units 12/18/24 21:00 12/20/24 20:15 Insulin Glargine (*Bkc) 100 Units/Ml SUB-Q 60 units HS SHIRA Administration Levalbuterol HCl 1.25 mg 12/18/24 18:32 12/19/24 07:06 Levalbuterol Neb 1.25 Mg/3 Ml INHALATION 1.25 mg Q6HRT PRN Administration Shortness Of Breath Losartan Potassium 50 mg 12/19/24 09:00 12/20/24 09:15 Losartan Potassium 50 Mg Tablet PO 50 mg DAILY SHIRA Administration Metoprolol Tartrate 100 mg 12/18/24 05:00 12/21/24 09:38 Metoprolol Tartrate 50 Mg Tab PO 100 mg Q12HR SHIRA Administration Ondansetron HCl 4 mg 12/18/24 09:32 Ondansetron Inj 4 Mg/2 Ml Vial IV PUSH Q6H PRN Nausea And Vomiting Potassium Chloride 40 meq 12/18/24 15:45 12/21/24 09:38 Potassium Chloride 20 Meq Packet (For Liquid) PO 40 meq DAILY SHIRA Administration Spironolactone 50 mg 12/19/24 09:00 12/21/24 09:38 Spironolactone 50 Mg Tablet PO 50 mg QAM SHIRA Administration Trazodone HCl 25 mg 12/18/24 20:13 12/20/24 20:12 Trazodone Hcl 25 Mg Tablet PO 25 mg HS PRN Administration Insomnia Radiology Results: ITS Impressions Chest X-Ray 12/19/24 06:51 Impression: Minimal right pleural effusion. Stable cardiomegaly. Labs Labs: Laboratory Results - last 24 hr 12/20/24 12/20/24 12/21/24 15:48 19:53 08:12 WBC RBC Hgb Hct MCV MCH MCHC RDW Plt Count MPV Immature Gran % (Auto) Neut % (Auto) Lymph % (Auto) [place] % (Auto) Eos % (Auto) Baso % (Auto) Lymph # (Auto) [place] # (Auto) Eos # (Auto) Baso # (Auto) Abs Immat Gran (auto) Absolute Neuts (auto) Absolute Nucleated RBC Nucleated RBC % Sodium Potassium Chloride Carbon Dioxide Anion Gap BUN Creatinine Estim Creat Clear Calc Estimated GFR Glucose POC Capillary Glucose 204 H 202 H 101 Calcium Total Bilirubin AST ALT Alkaline Phosphatase Total Protein Albumin 12/21/24 08:18 WBC 5.2 RBC 3.94 L Hgb 11.7 L Hct 38.0 L MCV 96.4 MCH 29.7 MCHC 30.8 L RDW 13.6 Plt Count 138 L MPV 12.1 H Immature Gran % (Auto) 0.4 Neut % (Auto) 57.5 Lymph % (Auto) 31.5 [place] % (Auto) 8.3 Eos % (Auto) 1.7 Baso % (Auto) 0.6 Lymph # (Auto) 1.64 [place] # (Auto) 0.4 Eos # (Auto) 0.1 Baso # (Auto) 0.0 Abs Immat Gran (auto) 0.02 Absolute Neuts (auto) 3.0 Absolute Nucleated RBC 0.000 Nucleated RBC % 0.0 Sodium 133 L Potassium 4.5 Chloride 92 L Carbon Dioxide 36 H Anion Gap 5 BUN 19 Creatinine 0.91 Estim Creat Clear Calc 92 Estimated GFR > 60 Glucose 96 POC Capillary Glucose Calcium 9.1 Total Bilirubin 0.6 AST 26 ALT 20 Alkaline Phosphatase 102 Total Protein 7.0 Albumin 3.5
[2024-12-21 12:18] LABS: Glucose Point of Care 138 mg/dl (65-105)
[2024-12-21] MEDS: metOLazone 5 MG TABLET PO (13:00)
--- NOTE | 2024-12-21 14:16 | P.PNIM_ITS ---
Progress Note: A&P Assessment and Plan (1) Acute on chronic diastolic congestive heart failure: Code(s): I50.33 - Acute on chronic diastolic (congestive) heart failure Status: Acute Assessment and Plan: Patient just discharged 3 days ago after hospitalization for CHF exacerbation and AFib RVR. Severe anasarca currently patient is getting aggressive IV diuresis [id number] diastolic dysfunction with elevated BNP - plan for overnight pulse oximetry likely severe untreated RUSSELL and hypoventilation obesity syndrome. -continue Losartan clonidine decreased from 0.2 mg T.i.d. to 0.1 mg b.i.d. * IV Lasix b.i.d. 60mg continue * spironolactone * one dose Metolazone today * started Jardiance * monitor renal function during diuresis * chest x-ray: bilateral pleural effusions interstitial congestion * Daily weight. * Strict I&O's * fluid restriction (2) Hypoventilation associated with obesity syndrome: Code(s): E66.2 - Morbid (severe) obesity with alveolar hypoventilation Status: Acute Assessment and Plan: * SEE ABOVE * plan for Desat study tonight (3) Obstructive sleep apnea: Code(s): G47.33 - Obstructive sleep apnea (adult) (pediatric) Status: Acute Assessment and Plan: * patient does not currently wear a CPAP * cardiology has consulted pulmonology to assist with evaluation and possible set up for CPAP 12/19: * Tolerated CPAP at night 12/20: * See Above (4) Atrial fibrillation with rapid ventricular response: Code(s): I48.91 - Unspecified atrial fibrillation Status: Acute Assessment and Plan: * EKG showed 86 in atrial fibrillation * patient with episodes of RVR * resume patient's diltiazem, metoprolol, and Eliquis (5) Essential (primary) hypertension: Code(s): I10 - Essential (primary) hypertension Status: Acute Assessment and Plan: * reviewed * resume clonidine, diltiazem, metoprolol, losartan * discontinue patient's amlodipine due to bilateral leg edema * increased his losartan to 50 mg daily * BP per unit protocol (6) Insulin dependent type 2 diabetes mellitus: Code(s): E11.9 - Type 2 diabetes mellitus without complications; Z79.4 - senior care (current) use of insulin Status: Acute Assessment and Plan: * Accu-Cheks a.c. HS * sliding scale insulin * hold oral diabetic medications * patient's long-acting insulin not formulated * Lantus 60 units HS * Watch for hypoglycemia/hypoglycemic protocol ordered (7) Mixed hyperlipidemia: Code(s): E78.2 - Mixed hyperlipidemia Status: Acute Assessment and Plan: * Atorvastatin (8) Morbid obesity: Code(s): E66.01 - Morbid (severe) obesity due to excess calories Status: Acute Assessment and Plan: * Encouraged strict diet restrictions and weight loss * Encourage increased activity patient going to Rehab at discharge * likely contributing to some of his chronic problems Plan Code status: Full code per patient DVT prophylaxis: Eliquis Stress ulcer prophylaxis: Protonix 40 daily PT/OT notes: SNF Disposition: patient admitted to IMU for further evaluation and treatment acute on chronic exacerbation of CHF cardiology consulted for any further recommendations pulmonology also consulted to assist and possible sleep apnea needs Does not currently have a CPAP machine at home may need NIV if he continues to have hypercapnia. PT/OT ordered plan to return to [facility] facility for physical and occupational therapy when medically stable. Subjective Date/time seen: 12/21/24 14:16 Interval history: Reason for visit: Acute on chronic CHF per HPI: Patient is a 74-year-old male who was recently admitted to the hospital for atrial fibrillation heart failure. He has a history of CAD, hypertension hyperlipidemia, diabetes, untreated sleep apnea, obesity presented hospital with shortness of breath. He was discharged under nursing facility in had progressive weight gain over the past couple of days since discharge. He was short of breath and has abdominal discomfort, worsening edema. He is brought back to hospital for further workup and evaluation. He was also had borderline control in heart rate Date of service 12/19: States that his shortness of breath has resolved. However still has abdominal distention as well as lower extremity swelling. Uses CPAP at night Date of service 12/20: Feeling better, diuresing well. Date of service 12/21: Continues to diurese well. Feels like his abdomen is less distended. still has bilateral leg edema. pulmonary team on board plan for dest study tonight. cardiology team on board. Continue Lasix 60 mg IV BID. Will give a dose of Metolazone today. -Continue Losartan 50 mg daily and Spironolactone 50 mg daily. lopressor, Eliquis, ASA Statin -Started Jardianc Review of Systems Review of Systems: 12 systems were reviewed and are negativ e except for as per HPI. All systems reviewed & are unremarkable except as noted in HPI and below Exam Narrative: General: Pleasant chronically ill looking male in no acute distress HEENT: Oral mucosa moist. Respiratory: Lung sounds diminished, scattered crackles at the bases. Cardiovascular: Irregularly irregular Gastrointestinal: Abdomen is obese and nontender with normal bowel sounds. Skin: Warm and dry. Extremities: No cyanosis or clubbing. lower ext 2+ edema Neurological: Alert. No gross focal deficits to casual conversation. Objective Data Vital Signs Vital Signs: Vital Signs - 24 hr 12/20/24 15:45 12/20/24 16:00 12/20/24 20:00 Temperature 98.1 F Pulse Rate 72 92 Respiratory Rate 18 Blood Pressure 124/72 Pulse Oximetry 93 Oxygen Delivery CPAP 12/20/24 20:00 12/20/24 20:49 12/20/24 21:54 Temperature 97.5 F L Pulse Rate 81 55 L Respiratory Rate 14 Blood Pressure 145/84 H Pulse Oximetry 94 93 Oxygen Delivery Room Air 12/20/24 21:55 12/21/24 00:00 12/21/24 03:26 Temperature Pulse Rate 74 80 80 Respiratory Rate 18 Blood Pressure Pulse Oximetry 93 Oxygen Delivery BiPAP 12/21/24 05:43 12/21/24 08:00 12/21/24 09:38 Temperature 97.1 F L Pulse Rate 82 85 78 Respiratory Rate 14 Blood Pressure 118/78 Pulse Oximetry 95 Oxygen Delivery Intake/Output Intake/Output: Intake & Output 12/18/24 12/19/24 12/20/24 12/21/24 23:59 23:59 23:59 23:59 Intake Total 715 1260 1260 740 Output Total 4224 3111 8818 [id number] [facility] -[phone] Meds/Results Medications: Active Medications Generic Name Dose Route Start Last Admin Trade Name Freq PRN Reason Stop Dose Admin Acetaminophen 650 mg 12/18/24 09:32 Acetaminophen 325 Mg Tablet PO Q4H PRN Mild Pain (1-3) or Fever Hydrocodone Bitart/Acetaminophen 1 tab 12/18/24 04:56 12/21/24 13:00 Hydrocodone/Acetaminophen (*Crx) 7.5-325 Mg Tablet PO 1 tab Q4H PRN Administration Pain Rated 7-10 Apixaban 5 mg 12/18/24 09:00 12/21/24 09:43 Apixaban 5 Mg Tablet PO 5 mg Q12HR SHIRA Administration Aspirin 81 mg 12/18/24 09:00 12/21/24 09:38 Aspirin 81 Mg Enteric Tablet PO 81 mg DAILY SHIRA Administration Atorvastatin Calcium 20 mg 12/18/24 05:00 12/21/24 09:43 Atorvastatin 20 Mg Tablet PO 20 mg DAILY SHIRA Administration Clonidine HCl 0.1 mg 12/20/24 17:00 12/21/24 09:43 Clonidine Hcl 0.1 Mg Tablet PO 0.1 mg BID SHIRA Administration Cyanocobalamin 1,000 mcg 12/18/24 09:00 12/21/24 09:43 Cyanocobalamin 1,000 Mcg Tablet PO 1,000 mcg QAM SHIRA Administration Dextrose 12.5 gm 12/18/24 04:57 Dextrose 50% 25 Gm/50 Ml Syringe IV PUSH PRN PRN Hypoglycemia Protocol Diltiazem HCl 180 mg 12/18/24 09:00 12/21/24 09:42 Diltiazem Hcl Cd 180 Mg Cap.24hr PO 180 mg QAM SHIRA Administration Empagliflozin 10 mg 12/21/24 09:00 12/21/24 09:43 Empagliflozin 10 Mg Tablet PO 10 mg DAILY SHIRA Administration Furosemide 60 mg 12/19/24 06:45 12/21/24 09:38 Furosemide Inj 40 Mg/4 Ml Vial IV PUSH 60 mg BID SHIRA Administration Gabapentin 300 mg 12/18/24 06:00 12/21/24 13:02 Gabapentin 300 Mg Capsule PO 300 mg Q8HR SHIRA Administration Glucagon 1 mg 12/18/24 04:57 Glucagon For Inj 1 Mg Vial IM PRN PRN Hypoglycemia Protocol Glucose 15 gm 12/18/24 04:57 Glucose Oral Gel 15 Gm Of Glucse In 37.5 Gm Tube PO PRN PRN Hypoglycemia Protocol Dextrose 1,000 mls @ 100 mls/hr 12/18/24 04:57 Dextrose 5% 1,000 Ml IVPB PRN PRN Hypoglycemia Protocol Insulin Aspart 3 - 6 units 12/18/24 08:00 12/20/24 16:09 Insulin Aspart (*Bkc) 100 Units/Ml SUB-Q 3 units TIDWM SHIRA Administration Protocol Insulin Glargine 60 units 12/18/24 21:00 12/20/24 20:15 Insulin Glargine (*Bkc) 100 Units/Ml SUB-Q 60 units HS SHIRA Administration Levalbuterol HCl 1.25 mg 12/18/24 18:32 12/19/24 07:06 Levalbuterol Neb 1.25 Mg/3 Ml INHALATION 1.25 mg Q6HRT PRN Administration Shortness Of Breath Losartan Potassium 50 mg 12/19/24 09:00 12/20/24 09:15 Losartan Potassium 50 Mg Tablet PO 50 mg DAILY SHIRA Administration Metoprolol Tartrate 100 mg 12/18/24 05:00 12/21/24 09:38 Metoprolol Tartrate 50 Mg Tab PO 100 mg Q12HR SHIRA Administration Ondansetron HCl 4 mg 12/18/24 09:32 Ondansetron Inj 4 Mg/2 Ml Vial IV PUSH Q6H PRN Nausea And Vomiting Potassium Chloride 40 meq 12/18/24 15:45 12/21/24 09:38 Potassium Chloride 20 Meq Packet (For Liquid) PO 40 meq DAILY SHIRA Administration Spironolactone 50 mg 12/19/24 09:00 12/21/24 09:38 Spironolactone 50 Mg Tablet PO 50 mg QAM SHIRA Administration Trazodone HCl 25 mg 12/18/24 20:13 12/20/24 20:12 Trazodone Hcl 25 Mg Tablet PO 25 mg HS PRN Administration Insomnia Radiology Results: ITS Impressions Chest X-Ray 12/19/24 06:51 Impression: Minimal right pleural effusion. Stable cardiomegaly. Labs Labs: Laboratory Results - last 24 hr 12/20/24 12/20/2425 15:48 19:53 08:12 WBC RBC Hgb Hct MCV MCH MCHC RDW Plt Count MPV Immature Gran % (Auto) Neut % (Auto) Lymph % (Auto) [place] % (Auto) Eos % (Auto) Baso % (Auto) Lymph # (Auto) [place] # (Auto) Eos # (Auto) Baso # (Auto) Abs Immat Gran (auto) Absolute Neuts (auto) Absolute Nucleated RBC Nucleated RBC % Sodium Potassium Chloride Carbon Dioxide Anion Gap BUN Creatinine Estim Creat Clear Calc Estimated GFR Glucose POC Capillary Glucose 204 H 202 H 101 Calcium Total Bilirubin AST ALT Alkaline Phosphatase Total Protein Albumin 12/21/24 12/21/24 08:18 12:10 WBC 5.2 RBC 3.94 L Hgb 11.7 L Hct 38.0 L MCV 96.4 MCH 29.7 MCHC 30.8 L RDW 13.6 Plt Count 138 L MPV 12.1 H Immature Gran % (Auto) 0.4 Neut % (Auto) 57.5 Lymph % (Auto) 31.5 [place] % (Auto) 8.3 Eos % (Auto) 1.7 Baso % (Auto) 0.6 Lymph # (Auto) 1.64 [place] # (Auto) 0.4 Eos # (Auto) 0.1 Baso # (Auto) 0.0 Abs Immat Gran (auto) 0.02 Absolute Neuts (auto) 3.0 Absolute Nucleated RBC 0.000 Nucleated RBC % 0.0 Sodium 133 L Potassium 4.5 Chloride 92 L Carbon Dioxide 36 H Anion Gap 5 BUN 19 Creatinine 0.91 Estim Creat Clear Calc 92 Estimated GFR > 60 Glucose 96 POC Capillary Glucose 138 H Calcium 9.1 Total Bilirubin 0.6 AST 26 ALT 20 Alkaline Phosphatase 102 Total Protein 7.0 Albumin 3.5 Quality VTE Prophylaxis VTE prophylaxis: pharmacologic ordered
[2024-12-21 16:49] LABS: Glucose Point of Care 244 mg/dl (65-105)
[2024-12-21] MEDS: INSULIN ASPART (*BKC) 100 UNITS/ML SUB-Q (17:16)
[2024-12-21 20:22] LABS: Glucose Point of Care 311 mg/dl (65-105)
[2024-12-21] MEDS: traZODone HCL 25 MG TABLET PO (20:52)
[2024-12-21] MEDS: INSULIN GLARGINE (*BKC) 100 UNITS/ML 60 UNITS SUB-Q (20:53)
[2024-12-21] MEDS: ONDANSETRON INJ 4 MG/2 ML VIAL IV PUSH (21:03)
[2024-12-22] VITALS (12 sets, daily range): BP systolic 100–116; BP diastolic 49–80; PULSE 64–113; RESP 16–20; TEMP 36.2–36.6; O2SAT 92–97
[2024-12-22] MEDS: GABAPENTIN 300 MG CAPSULE PO ×3 (05:07→20:20)
[2024-12-22] MEDS: HYDROcodone/acetaminophen (*CRX) 7.5-325 MG TABLET 1 TAB PO (05:07)
[2024-12-22 06:18] LABS: Basophils Percent Auto 0.6 % (0.2-1.2); Eosinophils Absolute Auto 0.1 K/mm3 (0-0.3); Eosinophils Percent Auto 1.3 % (0-4.4); Hematocrit 39.4 % (42.0-52.0); Hemoglobin 12.1 g/dL (14.0-18.0); Immature Granulocyte Absolute 0.03 K/mm3 (0.00-0.031); Immature Granulocyte Percent A 0.4 % (0-0.5); Lymphocytes Absolute Auto 1.78 K/mm3 (0.9-3.2); Mean Corpuscular HGB Conc 30.7 g/dl (32-36); Mean Corpuscular Hemoglobin 29.4 pg (26-34); Mean Corpuscular Volume 95.9 fl (80-100); Mean Platelet Volume 11.8 fl (7.4-10.4); Monocytes Absolute Auto 0.7 K/mm3 (0.1-0.6); Monocytes Percent Auto 9.7 % (2.6-8.5); Neutrophils Absolute Auto 4.5 K/mm3 (1.3-6.7); Platelet Count Result 166 k/mm3 (150-375); Red Blood Count 4.11 M/mm3 (4.6-6.20); Red Cell Distribution Width 13.7 % (11.5-14.5); White Blood Count 7.1 K/mm3 (4.5-10.0)
[2024-12-22 06:39] LABS: Alveolar/Arterial O2 Gradient 13.5 mmHg; Base Excess ABG 14.2 mEq/l (+/-2.0); Fractional Inspired Oxygen 21 %; HCO3 ABG 41.2 mEq/l (22.0-26.0); Oxygen Content ABG 16.3 %vol (16.0-22.0); Oxygen Saturation ABG 91.4 % (95.0-100.0); Oxyhemoglobin 89.7 % THb (90.0-100.0); PO2 ABG 61.1 mmHg (80.0-100.0); PO2 FiO2 Ratio Arterial Blood 2.91 %; Total Hemoglobin 12.9 g/dL (12.0-18.0); pH ABG 7.436 (7.350-7.450)
[2024-12-22 06:40] LABS: Alanine Aminotransferase 25 U/L (6-50); Albumin Level 3.8 g/dL (3.5-5.1); Alkaline Phosphatase 110 U/L (38-126); Aspartate Amino Transferase 27 U/L (17-59); Bilirubin,Total 0.4 mg/dL (0.2-1.3); Blood Urea Nitrogen 26 mg/dL (9-20); Calcium 9.5 mg/dL (8.4-10.2); Carbon Dioxide > 40 mmol/L (22-30); Chloride 88 mmol/L (98-107); Estimated CRCL calculation 75 ml/min; Estimated Glomerular Filt Rate 56; Glucose 149 mg/dL (65-110); Potassium 4.4 mmol/L (3.4-5.0); Sodium 136 mmol/L (137-145)
[2024-12-22 06:41] LABS: Modified Allen's Test Pass; PCO2 ABG 62.7 mmHg (35.0-45.0); Site Drawn RIGHT RADIAL
[2024-12-22 07:37] LABS: Glucose Point of Care 140 mg/dl (65-105)
[2024-12-22 08:30] LABS: NT Pro B Type Natriuretic Pept 3300 pg/mL (19.9-100)
[2024-12-22] MEDS: FUROSEMIDE INJ 40 MG/4 ML VIAL 60 MG IV PUSH ×2 (09:32→16:16)
[2024-12-22] MEDS: SPIRONOLACTONE 50 MG TABLET PO (09:32)
[2024-12-22] MEDS: cloNIDine HCL 0.1 MG TABLET PO ×2 (09:32→16:16)
[2024-12-22] MEDS: EMPAGLIFLOZIN 10 MG TABLET PO (09:33)
[2024-12-22] MEDS: POTASSIUM CHLORIDE 20 MEQ PACKET (FOR LIQUID) 40 MEQ PO (09:33)
[2024-12-22] MEDS: ATORVASTATIN 20 MG TABLET PO (09:33)
[2024-12-22] MEDS: APIXABAN 5 MG TABLET PO ×2 (09:33→20:20)
[2024-12-22] MEDS: METOPROLOL TARTRATE 50 MG TAB 100 MG PO (09:33)
[2024-12-22] MEDS: ASPIRIN 81 MG ENTERIC TABLET PO (09:33)
[2024-12-22] MEDS: CYANOCOBALAMIN 1,000 MCG TABLET 1000 MCG PO (09:33)
[2024-12-22] MEDS: dilTIAZem HCL CD 180 MG CAP.24HR PO (09:33)
--- NOTE | 2024-12-22 09:58 | P.PNPL_ITS ---
Progress Note: A&P Assessment and Plan (1) Hypoventilation associated with obesity syndrome: Code(s): E66.2 - Morbid (severe) obesity with alveolar hypoventilation Status: Acute Assessment and Plan: Patient admitted with BMI 62.5, hypercarbic respiratory failure and fluid overload from right heart failure. He has been diuresed and now is breathing back to near normal. Patient had an ABG on room air off of BiPAP for 24 hours with a pH of 7.44/63/61 indicating chronic hypercarbic respiratory failure from his obesity. TSH on 12/09/2024 1.04. patient has obesity hypoventilation syndrome and would benefit from noninvasive ventilation to prevent further hospitalizations and disease progression. He was initially tried on BiPAP but this was uncomfortable for him and he could not tolerate this. I have initiated noninvasive ventilation with the AVAPS mode. 12/20/24: Patient tells me he is continuing to improve. States he has 50% back to his normal. He denies cough, phlegm or wheezing. He is afebrile. White blood cell count 6.6. Currently is on room air with saturations 95%. Last night patient wore hospital noninvasive ventilator with the AVAPS mode rate of 14, tidal volume 500, EPAP 8, minimal inspiratory pressure 9, maximal inspiratory pressure 25, inspiratory time 1.0, rise of 3 and 24% FiO2. Patient said he slept very well with the machine although it felt like the air was coming and too fast. On these settings patient had an overnight oximetry with a recording duration of 5 hours and 54 minutes. Average saturation 95%. Low saturation 75%. Time with saturation less than or equal to 88% was 0 minutes. Oxygen desaturation index 7.1. Patient had an ABG prior to removal of the mass with pH of 7.45/58/74. I decreased his rise to 5 and increased his inspiratory time to 1.2 and he said these settings were much more comfortable. Plan: continue noninvasive ventilation with the AVAPS mode rate of 14, tidal volume 500, EPAP 8, minimal inspiratory pressure 9, maximal inspiratory pressure 25, inspiratory time 1.2 and a rise of 5 as this provides adequate ventilation.. Tonight I will place on room air and perform an overnight oximetry on room air. Once patient is closer to his baseline will leave off of noninvasive ventilation for 24 hours and repeat a blood gas to determine if he still has chronic hypercarbic respiratory failure and if he does will then initiate plans for home noninvasive ventilation. 12/21/24: Patient continues to improve. Tells me his 60-65% back to his normal. Denies fever, chills, cough or phlegm. Room air saturations 94%. Patient wore the hospital noninvasive ventilator with the AVAPS mode and room air last night. Overnight oximetry with recording duration 7 hours and 36 minutes. Average saturation 92%. Low saturation 85%. Time with saturation less than or equal to 88% was 2 minutes. Oxygen desaturation index 5.4. Patient diuresed yesterday 2.3 L. Cumulative diuresis since admission is 8.9 L. Weight today is 154. Plan: Patient continues to improve. Overnight on hospital AVAPS and room air with adequate ventilation and oxygenation. Tonight I will place the patient on room air and perform an overnight oximetry to assess oxygenation and an ABG at 8:00 a.m. to assess for chronic hypercarbic respiratory failure. 12/22/2024: Patient continues to improve. Tells me is 75-80% back to his normal. He has no cough or phlegm. Patient wore room air last night and said he slept poorly and had desaturations and was increased to 1.5 L. He had an overnight oximetry started on room air and then increase to 1.5 L with recording duration 8 hours and 36 minutes. Average saturation 83%. Low saturation 40%. Time with saturation less than or equal to 88% was 392 minutes. Oxygen desatura tion index 41.8. Patient had an ABG on room air off of BiPAP for 24 hours with a pH of 7.44/63/61. BNP has increased from 2660 on 12/18 to 3300 today. Patient diuresed 3.1 L yesterday cumulative diuresis from admission is 13.3 L. His weight today is an error at 181. Plan: I will initiate home noninvasive ventilation. AVAPS AE with rate of 14, tidal volume 500, Minimum EPAP 5, maximum EPAP 15, minimal inspiratory pressure 6, maximal inspiratory pressure 25, inspiratory time 1.2 and a rise of 5. patient requires room air with these settings. Discussed with Dr. Leonard. Will follow with you. (2) Right heart failure: Code(s): I50.810 - Right heart failure, unspecified Status: Acute Assessment and Plan: 12/19/24: diuresed 1.9 L yesterday and cumulative diuresis is -2.9 L since admission on lasix 60 IV BID, Spironolactone 50 q.day. Chest x-ray shows minimal right pleural effusion with improved congestion. Patient states his edema and abdominal tightness are improved. BNP has improved from 3770 to 2660. Overall he says he feels better and he says he feels 30% back to his normal. his weight on admission was 158.6 kg and today he is 154.5 kg. Of note on 09/12/2024 he weighed 138.8 kg. Plan: recommend as aggressive diuresis as tolerated by his cardiac and renal systems per Cardiology and hospitalist teams. 12/20/24: creatinine 0.93. He is on Lasix 60 IV b.i.d. and diuresed 3.7 L yesterday cumulative since admission he is -5.7 L. His weight today is 154.5 with admission weight of 158.6. Plan: Agree with as aggressive diuresis as tolerated by his cardiac and renal systems per Cardiology and the hospitalist team. Patient is having some soft blood pressures would consider decreasing his antihypertensives to allow for continued aggressive diuresis. 12/21/24: Patient diuresed yesterday 2.3 L. Cumulative diuresis since admission is 8.9 L. Weight today is 154. Plan: Agree with continued aggressive diuresis with Lasix 60 IV b.i.d.. Clonidine has been decreased. 12/22/24: BNP has increased from 2660 on 12/18 to 3300 today. Patient diuresed 3.1 L yesterday cumulative diuresis from admission is 13.3 L. His weight today is an error at 181. Plan: Agree with continued aggressive diuresis with Lasix 60 IV b.i.d.. Would continue to decrease his antihypertensives. Subjective Date/time seen: 12/22/24 09:58 Interval history: 12/19/2024: This is a new pulmonary consult for hypoxemic and hypercarbic respiratory failure, morbid obesity and congestive heart failure. 74-year-old with a history of CVA, CAD, AFib with RVR, diastolic dysfunction, hypertension, hyperlipidemia, diabetes, morbid obesity and untreated sleep apnea. Regarding his obstructive sleep apnea the patient tells me in the 1970s he had a sleep study and was prescribed a fullface mask CPAP machine and he were to few times and could not tolerate it and never had any follow-up. At that time he had witnessed apneas per his . Recently he does not know if he snores. He and his sleep in separate bedrooms and does not know if he has witnessed apneas, he has no morning headaches. He was on Ozempic and weight 385 lb and lost 100 lb to 285 lb. At baseline he says he could walk 1 block and this is unchanged over the last year. Over the last 3-4 weeks he can only walk room to room. He does not measure his oxygen. Patient smoked tobacco from 4833-7522 at 1 pack per day for a total of 31 pack years. Approximately 3-4 weeks ago he has had Shortness of breath at rest, dyspnea on exertion, weight gain, tight abdomen and lower extremity edema. He was admitted to the hospital from 12/08/2024 through 12/14/24 with fluid overload with an admission BNP of 3540, TSH 12/09/2024 1.04. AFib with RVR and he was diuresed with IV Lasix. His weight on admission was 159.7 kg and on discharge was 161.2 kg. on 12/13/2024 his BNP was 4470. He was admitted on 20 mg of Lasix twice a day and discharged on 40 mg of Lasix twice a day. 12/17/2024 the patient presented back to the hospital with worsening shortness of breath and increased edema. Is BNP was 3770, chest x-ray showed congestion with small effusions, he had AFib with RVR and he was treated with IV Lasix. His room air blood gas was 7.42/46/63. On 12/18/2024 the patient was on 1 L and had a blood gas of 7.43/52/73 and was empirically placed on auto PAP 5-15. 12/19/24: The patient is awake and alert currently on auto PAP with 1 L bleed in with saturations 97%. I placed him on room air and his saturations were 93- 94%. His white blood cell count 6.8, creatinine 1.09, diuresed 1.9 L yesterday and cumulative diuresis is -2.9 L. patient had an ABG on auto PAP 5-15 of 7.40/57/79. Chest x-ray shows minimal right pleural effusion with improved congestion. Patient states his edema and abdominal tightness are improved. Overall he says he feels better and he says he feels 30% back to his normal. He denies fever, chills, rigors. Remains with shortness of breath. Patient wore the auto PAP 5-15 and said he got the best night of his sleep in the last 3 weeks. 12/20/24: Patient tells me he is continuing to improve. States he has 50% back to his normal. He denies cough, phlegm or wheezing. He is afebrile. White blood cell count 6.6, creatinine 0.93. He is on Lasix 60 IV b.i.d. and diuresed 3.7 L yesterday cumulative since admission he is -5.7 L. His weight today is 154.5 with admission weight of 158.6. Currently is on room air with saturations 95%. Last night patient wore [facility] noninvasive ventilator with the AVAPS mode rate of 14, tidal volume 500, EPAP 8, minimal inspiratory pressure 9, maximal inspiratory pressure 25, inspiratory time 1.0, rise of 3 and 24% FiO2. Patient said he slept very well with the machine although it felt like the air was coming and too fast. On these settings patient had an overnight oximetry with a recording duration of 5 hours and 54 minutes. Average saturation 95%. Low saturation 75%. Time with saturation less than or equal to 88% was 0 minutes. Oxygen desaturation index 7.1. Patient had an ABG prior to removal of the mass with pH of 7.45/58/74. I decreased his rise to 5 and increased his inspiratory time to 1.2 and he said these settings were much more comfortable. 12/21/24: Patient continues to improve. Tells me his 60-65% back to his normal. Denies fever, chills, cough or phlegm. Room air saturations 94%. Patient wore the [facility] noninvasive ventilator with the AVAPS mode and room air last night. Overnight oximetry with recording duration 7 hours and 36 minutes. Average saturation 92%. Low saturation 85%. Time with saturation less than or equal to 88% was 2 minutes. Oxygen desaturation index 5.4. Patient diuresed yesterday 2.3 L. Cumulative diuresis since admission is 8.9 L. Weight today is 154. 12/22/2024: Patient continues to improve. Tells me is 75-80% back to his normal. He has no cough or phlegm. Patient wore room air last night and said he slept poorly and had desaturations and was increased to 1.5 L. He had an overnight oximetry started on room air and then increase to 1.5 L with recording duration 8 hours and 36 minutes. Average saturation 83%. Low saturation 40%. Time with saturation less than or equal to 88% was 392 minutes. Oxygen desaturation index 41.8. Patient had an ABG on room air off of BiPAP for 24 hours with a pH of 7.44/63/61. BNP has increased from 2660 on 12/18 1-3300 today. Patient diuresed 3.1 L yesterday cumulative diuresis from admission is 13.3 L. His weight today is an error at 181. DATA: 12/17/24: CHEST RADIOGRAPH CLINICAL HISTORY: dyspnea/ chf . COMPARISON: 12/08/2024 TECHNIQUE: Single portable view of the chest. FINDINGS The cardiomediastinal silhouette is enlarged, unchanged. Calcified lymph nodes within the mediastinum suggesting prior granulomatous disease. Increased interstitial markings are identified bilaterally, findings suggesting mild pulmonary vascular congestion. Bilateral pleural effusions, right greater than left. The remainder of the lungs are clear. IMPRESSION: Bilateral pleural effusions, with mild pulmonary vascular congestion. 12/09/24: Echo Summary 1. Left ventricular chamber dimension is normal. 2. Left ventricular systolic function is normal, estimated at 50-55%. 3. There is moderately increased left ventricular wall thickness. 4. Right ventricular chamber dimension is mildly enlarged. 5. Right ventricular systolic function is reduced. 6. Left atrial chamber dimension is severely enlarged. 7. Right atrial chamber dimension is severely enlarged. 8. There is moderate tricuspid valve regurgitation. 9. There is trivial pericardial effusion. Right Ventricle Right ventricular chamber dimension is mildly enlarged. Right ventricular systolic function is reduced. Left Atria Left atrial chamber dimension is severely enlarged. Right Atria Right atrial chamber dimension is severely enlarged. Atrial Septum Intact interatrial septum visualized by color flow imaging. 09/23/2021: Echo Summary 1. Complete two-dimensional, color flow and Doppler transthoracic echocardiogram is performed. 2. Left ventricular chamber dimension is normal. 3. Left ventricular systolic function is normal, estimated at 60-65%. 4. There is moderately increased left ventricular wall thickness. 5. The left ventricular diastolic function is grade I diastolic dysfunction. 6. There is no aortic valve stenosis. 7. There is trace tricuspid valve regurgitation. 8. No pulmonary hypertension, estimated pulmonary arterial systolic pressure is 14 mmHg. 9. There is trace mitral valve regurgitation. Right Ventricle Right ventricular chamber dimension is normal. Right ventricular systolic function is normal. Left Atria Left atrial chamber dimension is mildly enlarged. Right Atria Right atrial chamber dimension is mildly enlarged. Review of Systems Constitutional: Constitutional: Reports no additional constitutional complaints Eyes: Eyes: Reports no additional eye complaints ENT: Reports system reviewed and no additional complaints, except as documented Cardiovascular: Cardiovascular: Reports no additional cardiovascular complain ts Respiratory: Respiratory: Reports no additional respiratory complaints Gastrointestinal: Gastrointestinal: Reports no additional gastrointestinal complaints Musculoskeletal: Musculoskeletal: Reports no additional musculoskeletal compla ints Neurologic: Reports system reviewed and no additional complaints, except as documented Psychiatric: Psychiatric: Reports no additional psychiatric complaints Endocrine: Endocrine: Reports no additional endocrine complaints Hematologic/Lymphatic: Hematologic/Lymphatic: Reports no additional hematologic/lymphatic complaints Allergic/Immunologic: Allergic/Immunologic: Reports no additional allergic/immunologic complaints Exam Const: General: cooperative and comfortable Orientation/consciousness: oriented to person, oriented to place and oriented to time Other: obese HENMT: Head: normal to inspection Ears: hearing grossly normal bilaterally Eyes: General: appearance normal, both eyes and all related structures Neck: Neck: normal visual inspection Chest: Chest palpation & inspection: normal inspection of the chest Resp: Effort & Inspection: normal respiratory effort and able to speak in complete sentences Auscultation: no crackles, no rales, no rhonchi, no wheezes and diminished lung sounds Other: obese Cardio: Jugular venous distension: no JVD GI: Inspection: distended Other: Less distended Skin: General skin exam: normal color Neuro: General: oriented to person, oriented to place and oriented to time Extrem: General: normal to inspection and edema Other: improved edema Psych: Appearance: grossly normal Objective Data Vital Signs Vital Signs: Vital Signs - 24 hr 12/21/24 12:00 12/21/24 14:00 12/21/24 16:00 Temperature 36.2 C L Pulse Rate 94 68 85 Respiratory Rate 18 Blood Pressure 103/65 Pulse Oximetry 96 Oxygen Delivery Oxygen Flow Rate 12/21/24 20:00 12/21/24 20:00 12/21/24 20:51 Temperature Pulse Rate 115 H 113 H Respiratory Rate Blood Pressure Pulse Oximetry Oxygen Delivery Room Air Oxygen Flow Rate 12/21/24 21:15 12/22/24 00:00 12/22/24 04:00 Temperature 36.9 C Pulse Rate 113 H 103 H Respiratory Rate 16 Blood Pressure 109/60 Pulse Oximetry 92 97 Oxygen Delivery Nasal Cannula Oxygen Flow Rate 1.5 12/22/24 04:00 12/22/24 05:41 12/22/24 09:33 Temperature 36.2 C L Pulse Rate 84 64 64 Respiratory Rate 16 Blood Pressure 116/80 Pulse Oximetry 97 Oxygen Delivery Oxygen Flow Rate Intake/Output Intake/Output: Intake & Output 12/19/24 12/20/24 12/21/24 12/22/24 23:59 23:59 23:59 23:59 Intake Total 1260 1260 1217 400 Output Total 9033 8751 2238 3128 [place] -3715 -2340 -3108 -2200 Meds/Results Medications: Active Medications Generic Name Dose Route Start Last Admin Trade Name Freq PRN Reason Stop Dose Admin Acetaminophen 650 mg 12/18/24 09:32 Acetaminophen 325 Mg Tablet PO Q4H PRN Mild Pain (1-3) or Fever Hydrocodone Bitart/Acetaminophen 1 tab 12/18/24 04:56 12/22/24 05:07 Hydrocodone/Acetaminophen (*Crx) 7.5-325 Mg Tablet PO 1 tab Q4H PRN Administration Pain Rated 7-10 Apixaban 5 mg 12/18/24 09:00 12/22/24 09:33 Apixaban 5 Mg Tablet PO 5 mg Q12HR SHIRA Administration Aspirin 81 mg 12/18/24 09:00 12/22/24 09:33 Aspirin 81 Mg Enteric Tablet PO 81 mg DAILY SHIRA Administration Atorvastatin Calcium 20 mg 12/18/24 05:00 12/22/24 09:33 Atorvastatin 20 Mg Tablet PO 20 mg DAILY SHIRA Administration Clonidine HCl 0.1 mg 12/20/24 17:00 12/22/24 09:32 Clonidine Hcl 0.1 Mg Tablet PO 0.1 mg BID SHIRA Administration Cyanocobalamin 1,000 mcg 12/18/24 09:00 12/22/24 09:33 Cyanocobalamin 1,000 Mcg Tablet PO 1,000 mcg QAM SHIRA Administration Dextrose 12.5 gm 12/18/24 04:57 Dextrose 50% 25 Gm/50 Ml Syringe IV PUSH PRN PRN Hypoglycemia Protocol Diltiazem HCl 180 mg 12/18/24 09:00 12/22/24 09:33 Diltiazem Hcl Cd 180 Mg Cap.24hr PO 180 mg QAM SHIRA Administration Empagliflozin 10 mg 12/21/24 09:00 12/22/24 09:33 Empagliflozin 10 Mg Tablet PO 10 mg DAILY SHIRA Administration Furosemide 60 mg 12/19/24 06:45 12/22/24 09:32 Furosemide Inj 40 Mg/4 Ml Vial IV PUSH 60 mg BID SHIRA Administration Gabapentin 300 mg 12/18/24 06:00 12/22/24 05:07 Gabapentin 300 Mg Capsule PO 300 mg Q8HR SHIRA Administration Glucagon 1 mg 12/18/24 04:57 Glucagon For Inj 1 Mg Vial IM PRN PRN Hypoglycemia Protocol Glucose 15 gm 12/18/24 04:57 Glucose Oral Gel 15 Gm Of Glucse In 37.5 Gm Tube PO PRN PRN Hypoglycemia Protocol Dextrose 1,000 mls @ 100 mls/hr 12/18/24 04:57 Dextrose 5% 1,000 Ml IVPB PRN PRN Hypoglycemia Protocol Insulin Aspart 3 - 6 units 12/18/24 08:00 12/22/24 07:39 Insulin Aspart (*Bkc) 100 Units/Ml SUB-Q Not Given TIDWM SHIRA Protocol Insulin Glargine 60 units 12/18/24 21:00 12/21/24 20:53 Insulin Glargine (*Bkc) 100 Units/Ml SUB-Q 60 units HS SHIRA Administration Levalbuterol HCl 1.25 mg 12/18/24 18:32 12/19/24 07:06 Levalbuterol Neb 1.25 Mg/3 Ml INHALATION 1.25 mg Q6HRT PRN Administration Shortness Of Breath Losartan Potassium 50 mg 12/19/24 09:00 12/20/24 09:15 Losartan Potassium 50 Mg Tablet PO 50 mg DAILY SHIRA Administration Metoprolol Tartrate 100 mg 12/18/24 05:00 12/22/24 09:33 Metoprolol Tartrate 50 Mg Tab PO 100 mg Q12HR SHIRA Administration Ondansetron HCl 4 mg 12/18/24 09:32 12/21/24 21:03 Ondansetron Inj 4 Mg/2 Ml Vial IV PUSH 4 mg Q6H PRN Administration Nausea And Vomiting Potassium Chloride 40 meq 12/18/24 15:45 12/22/24 09:33 Potassium Chloride 20 Meq Packet (For Liquid) PO 40 meq DAILY SHIRA Administration Spironolactone 50 mg 12/19/24 09:00 12/22/24 09:32 Spironolactone 50 Mg Tablet PO 50 mg QAM SHIRA Administration Trazodone HCl 25 mg 12/18/24 20:13 12/21/24 20:52 Trazodone Hcl 25 Mg Tablet PO 25 mg HS PRN Administration Insomnia Radiology Results: ITS Impressions Chest X-Ray 12/19/24 06:51 Impression: Minimal right pleural effusion. Stable cardiomegaly. Labs Labs: Laboratory Results - last 24 hr 12/21/24 12/21/24 12/21/24 12:10 16:43 19:36 WBC RBC Hgb Hct MCV MCH MCHC RDW Plt Count MPV Immature Gran % (Auto) Neut % (Auto) Lymph % (Auto) [place] % (Auto) Eos % (Auto) Baso % (Auto) Lymph # (Auto) [place] # (Auto) Eos # (Auto) Baso # (Auto) Abs Immat Gran (auto) Absolute Neuts (auto) Absolute Nucleated RBC Nucleated RBC % Puncture Site ABG pH ABG pCO2 ABG pO2 ABG PO2/FiO2 Ratio ABG HCO3 ABG O2 Saturation ABG O2 Content ABG Base Excess A-a Gradient Oxyhemoglobin Total Hemoglobin O2 Delivery Device O2 Liters/Min FiO2 Sodium Potassium Chloride Carbon Dioxide Anion Gap BUN Creatinine Estim Creat Clear Calc Estimated GFR Glucose POC Capillary Glucose 138 H 244 H 311 H Calcium Total Bilirubin AST ALT Alkaline Phosphatase NT-Pro-B Natriuret Pep Total Protein Albumin 12/22/24 12/22/24 12/22/24 05:12 06:24 07:26 WBC 7.1 RBC 4.11 L Hgb 12.1 L Hct 39.4 L MCV 95.9 MCH 29.4 MCHC 30.7 L RDW 13.7 Plt Count 166 MPV 11.8 H Immature Gran % (Auto) 0.4 Neut % (Auto) 63.0 Lymph % (Auto) 25.0 [place] % (Auto) 9.7 H Eos % (Auto) 1.3 Baso % (Auto) 0.6 Lymph # (Auto) 1.78 [place] # (Auto) 0.7 H Eos # (Auto) 0.1 Baso # (Auto) 0.0 Abs Immat Gran (auto) 0.03 Absolute Neuts (auto) 4.5 Absolute Nucleated RBC 0.000 Nucleated RBC % 0.0 Puncture Site Right radial ABG pH 7.436 ABG pCO2 62.7 H* ABG pO2 61.1 L ABG PO2/FiO2 Ratio 2.91 ABG HCO3 41.2 H ABG O2 Saturation 91.4 L ABG O2 Content 16.3 ABG Base Excess 14.2 A-a Gradient 13.5 Oxyhemoglobin 89.7 L Total Hemoglobin 12.9 O2 Delivery Device Not Reportable O2 Liters/Min Not Reportable FiO2 21 Sodium 136 L Potassium 4.4 Chloride 88 L Carbon Dioxide > 40 H Anion Gap BUN 26 H Creatinine 1.27 Estim Creat Clear Calc 75 Estimated GFR 56 L Glucose 149 H POC Capillary Glucose 140 H Calcium 9.5 Total Bilirubin 0.4 AST 27 ALT 25 Alkaline Phosphatase 110 NT-Pro-B Natriuret Pep 3300 H Total Protein 7.0 Albumin 3.8
[2024-12-22 11:58] LABS: Glucose Point of Care 156 mg/dl (65-105)
--- NOTE | 2024-12-22 12:19 | P.PNIM_ITS ---
Progress Note: A&P Assessment and Plan (1) Acute on chronic diastolic congestive heart failure: Code(s): I50.33 - Acute on chronic diastolic (congestive) heart failure Status: Acute Assessment and Plan: Patient just discharged 3 days ago after hospitalization for CHF exacerbation and AFib RVR. Severe anasarca currently patient is getting aggressive IV diuresis [id number] diastolic dysfunction with elevated BNP - plan for overnight pulse oximetry likely severe untreated RUSSELL and hypoventilation obesity syndrome. -continue Losartan clonidine decreased from 0.2 mg T.i.d. to 0.1 mg b.i.d. * IV Lasix b.i.d. 60mg continue * spironolactone * one dose Metolazone today * Jardiance * monitor renal function during diuresis * chest x-ray: bilateral pleural effusions interstitial congestion * Daily weight. * Strict I&O's * fluid restriction (2) Hypoventilation associated with obesity syndrome: Code(s): E66.2 - Morbid (severe) obesity with alveolar hypoventilation Status: Acute Assessment and Plan: * SEE ABOVE (3) Obstructive sleep apnea: Code(s): G47.33 - Obstructive sleep apnea (adult) (pediatric) Status: Acute Assessment and Plan: * patient does not currently wear a CPAP * cardiology has consulted pulmonology to assist with evaluation and possible set up for CPAP 12/19: * Tolerated CPAP at night 12/20: * See Above (4) Atrial fibrillation with rapid ventricular response: Code(s): I48.91 - Unspecified atrial fibrillation Status: Acute Assessment and Plan: * EKG showed 86 in atrial fibrillation * patient with episodes of RVR * resume patient's diltiazem, metoprolol, and Eliquis (5) Essential (primary) hypertension: Code(s): I10 - Essential (primary) hypertension Status: Acute Assessment and Plan: * reviewed * diltiazem, metoprolol, losartan * discontinue patient's amlodipine due to bilateral leg edema * increased his losartan to 50 mg daily * BP per unit protocol (6) Insulin dependent type 2 diabetes mellitus: Code(s): E11.9 - Type 2 diabetes mellitus without complications; Z79.4 - intermediate (current) use of insulin Status: Acute Assessment and Plan: * Accu-Cheks a.c. HS * sliding scale insulin * hold oral diabetic medications * patient's long-acting insulin not formulated * Lantus 60 units HS * Watch for hypoglycemia/hypoglycemic protocol ordered (7) Mixed hyperlipidemia: Code(s): E78.2 - Mixed hyperlipidemia Status: Acute Assessment and Plan: * Atorvastatin (8) Morbid obesity: Code(s): E66.01 - Morbid (severe) obesity due to excess calories Status: Acute Assessment and Plan: * Encouraged strict diet restrictions and weight loss * Encourage increased activity patient going to Rehab at discharge * likely contributing to some of his chronic problems Plan Code status: Full code per patient DVT prophylaxis: Eliquis Stress ulcer prophylaxis: Protonix 40 daily PT/OT notes: SNF Disposition: Continue with IV diuretics. PT/OT ordered plan to return to [facility] facility for physical and occupational therapy when medically stable. Subjective Date/time seen: 12/22/24 12:19 Interval history: Reason for visit: Acute on chronic CHF per HPI: Patient is a 74-year-old male who was recently admitted to the hospital for atrial fibrillation heart failure. He has a history of CAD, hypertension hyperlipidemia, diabetes, untreated sleep apnea, obesity presented hospital with shortness of breath. He was discharged under is nursing facility in had progressive weight gain over the past couple of days since discharge. He was short of breath and has abdominal discomfort, worsening edema. He is brought back to hospital for further workup and evaluation. He was also had borderline control in heart rate Date of service 12/19: States that his shortness of breath has resolved. However still has abdominal distention as well as lower extremity swelling. Uses CPAP at night Date of service 12/20: Feeling better, diuresing well. Date of service 4/2: Continues to diurese well. Feels like his abdomen is less distended. still has bilateral leg edema. pulmonary team on board plan for dest study tonight. cardiology team on board. Continue Lasix 60 mg IV BID. Will give a dose of Metolazone today. -Continue Losartan 50 mg daily and Spironolactone 50 mg daily. lopressor, Eliquis, ASA Statin -Started Jardianc 12/22/24 Patient was seen and examined at bedside. He is feeling better. Breathing improving. Continue with Lasix. Denies any chest pain, abdominal pain, nausea vomiting, bilateral leg swelling improving Review of Systems Review of Systems: 12 systems were reviewed and are negativ e except for as per HPI. All systems reviewed & are unremarkable except as noted in HPI and below Exam Narrative: General: Pleasant chronically ill looking male in no acute distress HEENT: Oral mucosa moist. Respiratory: Lung sounds diminished,at the bases. Cardiovascular: Irregularly irregular Gastrointestinal: Abdomen is obese and nontender with normal bowel sounds. Skin: Warm and dry. Extremities: No cyanosis or clubbing. lower ext 2+ edema Neurological: Alert. No gross focal deficits to casual conversation. Objective Data Vital Signs Vital Signs: Vital Signs - 24 hr 12/21/24 14:00 12/21/24 16:00 12/21/24 20:00 Temperature 97.2 F L Pulse Rate 68 85 Respiratory Rate 18 Blood Pressure 103/65 Pulse Oximetry 96 Oxygen Delivery Room Air Oxygen Flow Rate 12/21/24 20:00 12/21/24 20:51 12/21/24 21:15 Temperature 98.4 F Pulse Rate 115 H 113 H 113 H Respiratory Rate 16 Blood Pressure 109/60 Pulse Oximetry 92 Oxygen Delivery Oxygen Flow Rate 12/22/24 00:00 12/22/24 04:00 12/22/24 04:00 Temperature Pulse Rate 103 H 84 Respiratory Rate Blood Pressure Pulse Oximetry 97 Oxygen Delivery Nasal Cannula Oxygen Flow Rate 1.5 12/22/24 05:41 12/22/24 08:01 12/22/24 08:01 Temperature 97.1 F L Pulse Rate 64 100 Respiratory Rate 16 16 Blood Pressure 116/80 Pulse Oximetry 97 97 Oxygen Delivery Nasal Cannula Oxygen Flow Rate 2 12/22/24 09:33 Temperature Pulse Rate 64 Respiratory Rate Blood Pressure Pulse Oximetry Oxygen Delivery Oxygen Flow Rate Intake/Output Intake/Output: Intake & Output 12/19/24 12/20/24 12/21/24 12/22/24 23:59 23:59 23:59 23:59 Intake Total 1260 1260 1217 400 Output Total 6655 6122 8555 0398 Balance -3935 -5380 -3108 -5000 Meds/Results Medications: Active Medications Generic Name Dose Route Start Last Admin Trade Name Freq PRN Reason Stop Dose Admin Acetaminophen 650 mg 12/18/24 09:32 Acetaminophen 325 Mg Tablet PO Q4H PRN Mild Pain (1-3) or Fever Hydrocodone Bitart/Acetaminophen 1 tab 12/18/24 04:56 12/22/24 05:07 Hydrocodone/Acetaminophen (*Crx) 7.5-325 Mg Tablet PO 1 tab Q4H PRN Administration Pain Rated 7-10 Apixaban 5 mg 12/18/24 09:00 12/22/24 09:33 Apixaban 5 Mg Tablet PO 5 mg Q12HR SHIRA Administration Aspirin 81 mg 12/18/24 09:00 12/22/24 09:33 Aspirin 81 Mg Enteric Tablet PO 81 mg DAILY SHIRA Administration Atorvastatin Calcium 20 mg 12/18/24 05:00 12/22/24 09:33 Atorvastatin 20 Mg Tablet PO 20 mg DAILY SHIRA Administration Clonidine HCl 0.1 mg 12/20/24 17:00 12/22/24 09:32 Clonidine Hcl 0.1 Mg Tablet PO 0.1 mg BID SHIRA Administration Cyanocobalamin 1,000 mcg 12/18/24 09:00 12/22/24 09:33 Cyanocobalamin 1,000 Mcg Tablet PO 1,000 mcg QAM SHIRA Administration Dextrose 12.5 gm 12/18/24 04:57 Dextrose 50% 25 Gm/50 Ml Syringe IV PUSH PRN PRN Hypoglycemia Protocol Diltiazem HCl 180 mg 12/18/24 09:00 12/22/24 09:33 Diltiazem Hcl Cd 180 Mg Cap.24hr PO 180 mg QAM SHIRA Administration Empagliflozin 10 mg 12/21/24 09:00 12/22/24 09:33 Empagliflozin 10 Mg Tablet PO 10 mg DAILY SHIRA Administration Furosemide 60 mg 12/19/24 06:45 12/22/24 09:32 Furosemide Inj 40 Mg/4 Ml Vial IV PUSH 60 mg BID SHIRA Administration Gabapentin 300 mg 12/18/24 06:00 12/22/24 05:07 Gabapentin 300 Mg Capsule PO 300 mg Q8HR SHIRA Administration Glucagon 1 mg 12/18/24 04:57 Glucagon For Inj 1 Mg Vial IM PRN PRN Hypoglycemia Protocol Glucose 15 gm 12/18/24 04:57 Glucose Oral Gel 15 Gm Of Glucse In 37.5 Gm Tube PO PRN PRN Hypoglycemia Protocol Dextrose 1,000 mls @ 100 mls/hr 12/18/24 04:57 Dextrose 5% 1,000 Ml IVPB PRN PRN Hypoglycemia Protocol Insulin Aspart 3 - 6 units 12/18/24 08:00 12/22/24 12:01 Insulin Aspart (*Bkc) 100 Units/Ml SUB-Q Not Given TIDWM SHIRA Protocol Insulin Glargine 60 units 12/18/24 21:00 12/21/24 20:53 Insulin Glargine (*Bkc) 100 Units/Ml SUB-Q 60 units HS SHIRA Administration Levalbuterol HCl 1.25 mg 12/18/24 18:32 12/19/24 07:06 Levalbuterol Neb 1.25 Mg/3 Ml INHALATION 1.25 mg Q6HRT PRN Administration Shortness Of Breath Losartan Potassium 50 mg 12/19/24 09:00 12/20/24 09:15 Losartan Potassium 50 Mg Tablet PO 50 mg DAILY SHIRA Administration Metoprolol Tartrate 100 mg 12/18/24 05:00 12/22/24 09:33 Metoprolol Tartrate 50 Mg Tab PO 100 mg Q12HR SHIRA Administration Ondansetron HCl 4 mg 12/18/24 09:32 12/21/24 21:03 Ondansetron Inj 4 Mg/2 Ml Vial IV PUSH 4 mg Q6H PRN Administration Nausea And Vomiting Potassium Chloride 40 meq 12/18/24 15:45 12/22/24 09:33 Potassium Chloride 20 Meq Packet (For Liquid) PO 40 meq DAILY SHIRA Administration Spironolactone 50 mg 12/19/24 09:00 12/22/24 09:32 Spironolactone 50 Mg Tablet PO 50 mg QAM SHIRA Administration Trazodone HCl 25 mg 12/18/24 20:13 12/21/24 20:52 Trazodone Hcl 25 Mg Tablet PO 25 mg HS PRN Administration Insomnia Radiology Results: ITS Impressions Chest X-Ray 12/19/24 06:51 Impression: Minimal right pleural effusion. Stable cardiomegaly. Labs Labs: Laboratory Results - last 24 hr 12/21/24 12/21/24 12/22/24 16:43 19:36 05:12 WBC 7.1 RBC 4.11 L Hgb 12.1 L Hct 39.4 L MCV 95.9 MCH 29.4 MCHC 30.7 L RDW 13.7 Plt Count 166 MPV 11.8 H Immature Gran % (Auto) 0.4 Neut % (Auto) 63.0 Lymph % (Auto) 25.0 Stone % (Auto) 9.7 H Eos % (Auto) 1.3 Baso % (Auto) 0.6 Lymph # (Auto) 1.78 Stone # (Auto) 0.7 H Eos # (Auto) 0.1 Baso # (Auto) 0.0 Abs Immat Gran (auto) 0.03 Absolute Neuts (auto) 4.5 Absolute Nucleated RBC 0.000 Nucleated RBC % 0.0 Puncture Site ABG pH ABG pCO2 ABG pO2 ABG PO2/FiO2 Ratio ABG HCO3 ABG O2 Saturation ABG O2 Content ABG Base Excess A-a Gradient Oxyhemoglobin Total Hemoglobin O2 Delivery Device O2 Liters/Min FiO2 Sodium 136 L Potassium 4.4 Chloride 88 L Carbon Dioxide > 40 H Anion Gap BUN 26 H Creatinine 1.27 Estim Creat Clear Calc 75 Estimated GFR 56 L Glucose 149 H POC Capillary Glucose 244 H 311 H Calcium 9.5 Total Bilirubin 0.4 AST 27 ALT 25 Alkaline Phosphatase 110 NT-Pro-B Natriuret Pep 3300 H Total Protein 7.0 Albumin 3.8 12/22/24 12/22/24 12/22/24 06:24 07:26 11:52 WBC RBC Hgb Hct MCV MCH MCHC RDW Plt Count MPV Immature Gran % (Auto) Neut % (Auto) Lymph % (Auto) Stone % (Auto) Eos % (Auto) Baso % (Auto) Lymph # (Auto) Stone # (Auto) Eos # (Auto) Baso # (Auto) Abs Immat Gran (auto) Absolute Neuts (auto) Absolute Nucleated RBC Nucleated RBC % Puncture Site Right radial ABG pH 7.436 ABG pCO2 62.7 H* ABG pO2 61.1 L ABG PO2/FiO2 Ratio 2.91 ABG HCO3 41.2 H ABG O2 Saturation 91.4 L ABG O2 Content 16.3 ABG Base Excess 14.2 A-a Gradient 13.5 Oxyhemoglobin 89.7 L Total Hemoglobin 12.9 O2 Delivery Device Not Reportable O2 Liters/Min Not Reportable FiO2 21 Sodium Potassium Chloride Carbon Dioxide Anion Gap BUN Creatinine Estim Creat Clear Calc Estimated GFR Glucose POC Capillary Glucose 140 H 156 H Calcium Total Bilirubin AST ALT Alkaline Phosphatase NT-Pro-B Natriuret Pep Total Protein Albumin Quality VTE Prophylaxis VTE prophylaxis: pharmacologic ordered
[2024-12-22] MEDS: metOLazone 5 MG TABLET PO (12:43)
--- NOTE | 2024-12-22 13:55 | PM.PNCARD ---
Progress Note: A&P Assessment and Plan (1) Acute on chronic diastolic congestive heart failure: Code(s): I50.33 - Acute on chronic diastolic (congestive) heart failure Status: Acute (2) Atrial fibrillation: Code(s): I48.91 - Unspecified atrial fibrillation Status: Acute (3) CAD in [place] artery: Code(s): I25.10 - Atherosclerotic heart disease of [place] coronary artery without angina pectoris Status: Acute Plan 74-year-old man with chronic diastolic heart failure, persistent atrial fibrillation on Eliquis, coronary artery disease, diabetes, hypertension, hyperlipidemia, obesity, and sleep apnea requiring CPAP presented with shortness of breath and lower extremity swelling Acute on chronic diastolic heart failure -Continue Lasix 60 mg IV BID. Will give another one time dose of metolazone today. -Continue Losartan 50 mg daily and Spironolactone 50 mg daily -Started Jardiance Persistent atrial fibrillation on Eliquis -Rate controlled -Continue Lopressor 100 mg BID and Diltiazem 180 mg daily -Continue Eliquis 5 mg BID Coronary artery disease -No angina at this time -Continue aspirin 81 mg daily and Atorvastatin 20 mg every evening Hypertension -Agree with weaning off Clonidine. Hyperlipidemia -Continue statin Subjective Date/time seen: 12/22/24 13:55 Interval history: Reason for visit: Acute on chronic CHF HPI: Patient is a 74-year-old male who was recently admitted to the hospital for atrial fibrillation heart failure. He has a history of CAD, hypertension hyperlipidemia, diabetes, untreated sleep apnea, obesity presented hospital with shortness of breath. He was discharged under is nursing facility in had progressive weight gain over the past couple of days since discharge. He was short of breath and has abdominal discomfort, worsening edema. He is brought back to hospital for further workup and evaluation. He was also had borderline control in heart rate Date of service 12/19: States that his shortness of breath has resolved. However still has abdominal distention as well as lower extremity swelling. Uses CPAP at night Date of service 12/20: Feeling better, diuresing well. Date of service 12/21: Continues to diurese well. Feels like his abdomen is less distended. Date of service 12/22/2024: Complaining of pain on his back and buttocks. Wants to get out of bed. Breathing is better and swelling is improving as well. Review of Systems Review of Systems: All systems reviewed & are unremarkable except as noted in HPI and below (HPI) Constitutional: Constitutional: Denies body ache(s) and Denies excessive sweating Eyes: Eyes: Denies blurry vision ENT: Reports Normal hearing present Cardiovascular: Cardiovascular: Reports as per HPI, Reports chest pain, Reports pedal edema and Reports dyspnea Respiratory: Respiratory: Reports as per HPI and Reports dyspnea Gastrointestinal: Gastrointestinal: Reports abdominal pain Genitourinary: Genitourinary: Denies hematuria Musculoskeletal: Musculoskeletal: Denies myalgias Integumentary/Breasts: Skin/Breast: Denies skin pain Neurologic: Reports Normal hearing present, Denies Abnormal speech present and Denies behavioral changes Psychiatric: Psychiatric: Denies behavioral changes Endocrine: Endocrine: Denies excessive sweating Hematologic/Lymphatic: Hematologic/Lymphatic: Denies easy bleeding Allergic/Immunologic: Allergic/Immunologic: Denies GI upset with certain foods Exam Narrative: Awake alert oriented appears stated age Const: General: comfortable and no acute distress Other: Morbidly obese HENMT: Face/Nose/Sinus: Normal nares present Mouth: Yes moist mucous membranes Eyes: General: appearance normal, both eyes and all related structures Sclera: sclerae normal EOM: EOMs intact bilaterally Neck: Neck: supple and no JVD Carotids: no bruits Chest: Other: No reproducible chest wall pain to palpation Resp: Effort & Inspection: normal respiratory effort Auscultation: rales and diminished lung sounds Cardio: Rate: regular rate Rhythm: abnormal rhythm irregularly irregular Other: + Bilateral lower extremity edema GI: Inspection: distended Auscultation: normal bowel sounds Skin: General skin exam: normal color Neuro: Cranial nerves: Yes Normal hearing present Speech: normal speech and No Abnormal speech present Sensory Exam: normal sensation Extrem: General: edema and pedal edema Psych: Mental Status: mental status grossly normal Affect: normal affect Objective Data Vital Signs Vital Signs: Vital Signs - 24 hr 12/21/24 14:00 12/21/24 16:00 12/21/24 20:00 Temperature 36.2 C L Pulse Rate 68 85 Respiratory Rate 18 Blood Pressure 103/65 Pulse Oximetry 96 Oxygen Delivery Room Air Oxygen Flow Rate 12/21/24 20:00 12/21/24 20:51 12/21/24 21:15 Temperature 36.9 C Pulse Rate 115 H 113 H 113 H Respiratory Rate 16 Blood Pressure 109/60 Pulse Oximetry 92 Oxygen Delivery Oxygen Flow Rate 12/22/24 00:00 12/22/24 04:00 12/22/24 04:00 Temperature Pulse Rate 103 H 84 Respiratory Rate Blood Pressure Pulse Oximetry 97 Oxygen Delivery Nasal Cannula Oxygen Flow Rate 1.5 12/22/24 05:41 12/22/24 08:01 12/22/24 08:01 Temperature 36.2 C L Pulse Rate 64 100 Respiratory Rate 16 16 Blood Pressure 116/80 Pulse Oximetry 97 97 Oxygen Delivery Nasal Cannula Oxygen Flow Rate 2 12/22/24 09:33 12/22/24 12:02 Temperature Pulse Rate 64 102 H Respiratory Rate Blood Pressure Pulse Oximetry Oxygen Delivery Oxygen Flow Rate Intake/Output Intake/Output: Intake & Output 12/19/24 12/20/24 12/21/24 12/22/24 23:59 23:59 23:59 23:59 Intake Total 1260 1260 1217 640 Output Total 4975 3600 4325 2600 [facility] -3715 -2340 -3108 -1960 Meds/Results Medications: Active Medications Generic Name Dose Route Start Last Admin Trade Name Freq PRN Reason Stop Dose Admin Acetaminophen 650 mg 12/18/24 09:32 Acetaminophen 325 Mg Tablet PO Q4H PRN Mild Pain (1-3) or Fever Hydrocodone Bitart/Acetaminophen 1 tab 12/18/24 04:56 12/22/24 05:07 Hydrocodone/Acetaminophen (*Crx) 7.5-325 Mg Tablet PO 1 tab Q4H PRN Administration Pain Rated 7-10 Apixaban 5 mg 12/18/24 09:00 12/22/24 09:33 Apixaban 5 Mg Tablet PO 5 mg Q12HR SHIRA Administration Aspirin 81 mg 12/18/24 09:00 12/22/24 09:33 Aspirin 81 Mg Enteric Tablet PO 81 mg DAILY SHIRA Administration Atorvastatin Calcium 20 mg 12/18/24 05:00 12/22/24 09:33 Atorvastatin 20 Mg Tablet PO 20 mg DAILY SHIRA Administration Clonidine HCl 0.1 mg 12/20/24 17:00 12/22/24 09:32 Clonidine Hcl 0.1 Mg Tablet PO 0.1 mg BID SHIRA Administration Cyanocobalamin 1,000 mcg 12/18/24 09:00 12/22/24 09:33 Cyanocobalamin 1,000 Mcg Tablet PO 1,000 mcg QAM SHIRA Administration Dextrose 12.5 gm 12/18/24 04:57 Dextrose 50% 25 Gm/50 Ml Syringe IV PUSH PRN PRN Hypoglycemia Protocol Diltiazem HCl 180 mg 12/18/24 09:00 12/22/24 09:33 Diltiazem Hcl Cd 180 Mg Cap.24hr PO 180 mg QAM SHIRA Administration Empagliflozin 10 mg 12/21/24 09:00 12/22/24 09:33 Empagliflozin 10 Mg Tablet PO 10 mg DAILY SHIRA Administration Furosemide 60 mg 12/19/24 06:45 12/22/24 09:32 Furosemide Inj 40 Mg/4 Ml Vial IV PUSH 60 mg BID SHIRA Administration Gabapentin 300 mg 12/18/24 06:00 12/22/24 13:17 Gabapentin 300 Mg Capsule PO 300 mg Q8HR SHIRA Administration Glucagon 1 mg 12/18/24 04:57 Glucagon For Inj 1 Mg Vial IM PRN PRN Hypoglycemia Protocol Glucose 15 gm 12/18/24 04:57 Glucose Oral Gel 15 Gm Of Glucse In 37.5 Gm Tube PO PRN PRN Hypoglycemia Protocol Dextrose 1,000 mls @ 100 mls/hr 12/18/24 04:57 Dextrose 5% 1,000 Ml IVPB PRN PRN Hypoglycemia Protocol Insulin Aspart 3 - 6 units 12/18/24 08:00 12/22/24 12:01 Insulin Aspart (*Bkc) 100 Units/Ml SUB-Q Not Given TIDWM SHIRA Protocol Insulin Glargine 60 units 12/18/24 21:00 12/21/24 20:53 Insulin Glargine (*Bkc) 100 Units/Ml SUB-Q 60 units HS SHIRA Administration Levalbuterol HCl 1.25 mg 12/18/24 18:32 12/19/24 07:06 Levalbuterol Neb 1.25 Mg/3 Ml INHALATION 1.25 mg Q6HRT PRN Administration Shortness Of Breath Losartan Potassium 50 mg 12/19/24 09:00 12/20/24 09:15 Losartan Potassium 50 Mg Tablet PO 50 mg DAILY SHIRA Administration Metoprolol Tartrate 100 mg 12/18/24 05:00 12/22/24 09:33 Metoprolol Tartrate 50 Mg Tab PO 100 mg Q12HR SHIRA Administration Ondansetron HCl 4 mg 12/18/24 09:32 12/21/24 21:03 Ondansetron Inj 4 Mg/2 Ml Vial IV PUSH 4 mg Q6H PRN Administration Nausea And Vomiting Potassium Chloride 40 meq 12/18/24 15:45 12/22/24 09:33 Potassium Chloride 20 Meq Packet (For Liquid) PO 40 meq DAILY SHIRA Administration Spironolactone 50 mg 12/19/24 09:00 12/22/24 09:32 Spironolactone 50 Mg Tablet PO 50 mg QAM SHIRA Administration Trazodone HCl 25 mg 12/18/24 20:13 12/21/24 20:52 Trazodone Hcl 25 Mg Tablet PO 25 mg HS PRN Administration Insomnia Radiology Results: ITS Impressions Chest X-Ray 12/19/24 06:51 Impression: Minimal right pleural effusion. Stable cardiomegaly. Labs Labs: Laboratory Results - last 24 hr 12/21/24 12/21/24 12/22/24 16:43 19:36 05:12 WBC 7.1 RBC 4.11 L Hgb 12.1 L Hct 39.4 L MCV 95.9 MCH 29.4 MCHC 30.7 L RDW 13.7 Plt Count 166 MPV 11.8 H Immature Gran % (Auto) 0.4 Neut % (Auto) 63.0 Lymph % (Auto) 25.0 Ward % (Auto) 9.7 H Eos % (Auto) 1.3 Baso % (Auto) 0.6 Lymph # (Auto) 1.78 Ward # (Auto) 0.7 H Eos # (Auto) 0.1 Baso # (Auto) 0.0 Abs Immat Gran (auto) 0.03 Absolute Neuts (auto) 4.5 Absolute Nucleated RBC 0.000 Nucleated RBC % 0.0 Puncture Site ABG pH ABG pCO2 ABG pO2 ABG PO2/FiO2 Ratio ABG HCO3 ABG O2 Saturation ABG O2 Content ABG Base Excess A-a Gradient Oxyhemoglobin Total Hemoglobin O2 Delivery Device O2 Liters/Min FiO2 Sodium 136 L Potassium 4.4 Chloride 88 L Carbon Dioxide > 40 H Anion Gap BUN 26 H Creatinine 1.27 Estim Creat Clear Calc 75 Estimated GFR 56 L Glucose 149 H POC Capillary Glucose 244 H 311 H Calcium 9.5 Total Bilirubin 0.4 AST 27 ALT 25 Alkaline Phosphatase 110 NT-Pro-B Natriuret Pep 3300 H Total Protein 7.0 Albumin 3.8 12/22/24 12/22/24 12/22/24 06:24 07:26 11:52 WBC RBC Hgb Hct MCV MCH MCHC RDW Plt Count MPV Immature Gran % (Auto) Neut % (Auto) Lymph % (Auto) Ward % (Auto) Eos % (Auto) Baso % (Auto) Lymph # (Auto) Ward # (Auto) Eos # (Auto) Baso # (Auto) Abs Immat Gran (auto) Absolute Neuts (auto) Absolute Nucleated RBC Nucleated RBC % Puncture Site Right radial ABG pH 7.436 ABG pCO2 62.7 H* ABG pO2 61.1 L ABG PO2/FiO2 Ratio 2.91 ABG HCO3 41.2 H ABG O2 Saturation 91.4 L ABG O2 Content 16.3 ABG Base Excess 14.2 A-a Gradient 13.5 Oxyhemoglobin 89.7 L Total Hemoglobin 12.9 O2 Delivery Device Not Reportable O2 Liters/Min Not Reportable FiO2 21 Sodium Potassium Chloride Carbon Dioxide Anion Gap BUN Creatinine Estim Creat Clear Calc Estimated GFR Glucose POC Capillary Glucose 140 H 156 H Calcium Total Bilirubin AST ALT Alkaline Phosphatase NT-Pro-B Natriuret Pep Total Protein Albumin Quality VTE Prophylaxis VTE prophylaxis: pharmacologic ordered
[2024-12-22 17:16] LABS: Glucose Point of Care 176 mg/dl (65-105)
[2024-12-22] MEDS: traZODone HCL 25 MG TABLET PO (20:20)
[2024-12-22] MEDS: INSULIN GLARGINE (*BKC) 100 UNITS/ML 60 UNITS SUB-Q (20:21)
[2024-12-22 20:54] LABS: Glucose Point of Care 207 mg/dl (65-105)
[2024-12-23] VITALS (15 sets, daily range): BP systolic 109–124; BP diastolic 65–93; PULSE 71–123; RESP 16–20; TEMP 35.9–36.5; O2SAT 90–94
[2024-12-23] MEDS: HYDROcodone/acetaminophen (*CRX) 7.5-325 MG TABLET 1 TAB PO ×4 (04:43→20:31)
[2024-12-23] MEDS: METOPROLOL TARTRATE 50 MG TAB 100 MG PO ×2 (04:43→20:32)
[2024-12-23] MEDS: GABAPENTIN 300 MG CAPSULE PO ×3 (04:43→20:31)
[2024-12-23 05:32] LABS: Alveolar/Arterial O2 Gradient 27.6 mmHg; Base Excess ABG 15.4 mEq/l (+/-2.0); Fractional Inspired Oxygen 21 %; HCO3 ABG 41.9 mEq/l (22.0-26.0); Oxygen Content ABG 15.2 %vol (16.0-22.0); PCO2 ABG 59.9 mmHg (35.0-45.0); PO2 ABG 50.4 mmHg (80.0-100.0); pH ABG 7.463 (7.350-7.450)
[2024-12-23 05:46] LABS: Basophils Percent Auto 0.5 % (0.2-1.2); Eosinophils Absolute Auto 0.1 K/mm3 (0-0.3); Eosinophils Percent Auto 1.4 % (0-4.4); Hematocrit 39.3 % (42.0-52.0); Hemoglobin 12.2 g/dL (14.0-18.0); Immature Granulocyte Absolute 0.02 K/mm3 (0.00-0.031); Immature Granulocyte Percent A 0.3 % (0-0.5); Lymphocytes Absolute Auto 1.58 K/mm3 (0.9-3.2); Lymphocytes Percent Auto 21.6 % (18.3-44.2); Mean Corpuscular Hemoglobin 29.5 pg (26-34); Mean Corpuscular Volume 95.2 fl (80-100); Mean Platelet Volume 11.6 fl (7.4-10.4); Monocytes Absolute Auto 0.6 K/mm3 (0.1-0.6); Monocytes Percent Auto 8.3 % (2.6-8.5); Neutrophils Percent Auto 67.9 % (45.5-73.1); Platelet Count Result 167 k/mm3 (150-375); Red Blood Count 4.13 M/mm3 (4.6-6.20); Red Cell Distribution Width 13.5 % (11.5-14.5); White Blood Count 7.3 K/mm3 (4.5-10.0)
[2024-12-23 05:53] LABS: Oxygen Saturation ABG 86.6 % (95.0-100.0); Oxyhemoglobin 83.4 % THb (90.0-100.0)
[2024-12-23 05:54] LABS: Device NON-INVASIVE VENT; Modified Allen's Test Pass; Non-Invasive Expiratory Pressure 8 CMH2O; Non-Invasive Inspiratory Pressure 18 CMH2O; Non-Invasive Vent Rate 14 /MIN; Site Drawn RIGHT RADIAL
[2024-12-23 06:34] LABS: Alanine Aminotransferase 24 U/L (6-50); Albumin Level 3.8 g/dL (3.5-5.1); Alkaline Phosphatase 122 U/L (38-126); Aspartate Amino Transferase 27 U/L (17-59); Bilirubin,Total 0.8 mg/dL (0.2-1.3); Blood Urea Nitrogen 27 mg/dL (9-20); Calcium 9.4 mg/dL (8.4-10.2); Carbon Dioxide > 40 mmol/L (22-30); Chloride 84 mmol/L (98-107); Estimated CRCL calculation 71 ml/min; Estimated Glomerular Filt Rate 53; Glucose 121 mg/dL (65-110); Potassium 3.7 mmol/L (3.4-5.0); Sodium 135 mmol/L (137-145)
[2024-12-23 07:44] LABS: Glucose Point of Care 100 mg/dl (65-105)
[2024-12-23] MEDS: POTASSIUM CHLORIDE 20 MEQ PACKET (FOR LIQUID) 40 MEQ PO (08:13)
[2024-12-23] MEDS: APIXABAN 5 MG TABLET PO ×2 (08:14→20:31)
[2024-12-23] MEDS: ASPIRIN 81 MG ENTERIC TABLET PO (08:14)
[2024-12-23] MEDS: SPIRONOLACTONE 50 MG TABLET PO (08:14)
[2024-12-23] MEDS: dilTIAZem HCL CD 180 MG CAP.24HR PO (08:14)
[2024-12-23] MEDS: CYANOCOBALAMIN 1,000 MCG TABLET 1000 MCG PO (08:14)
[2024-12-23] MEDS: ATORVASTATIN 20 MG TABLET PO (08:14)
[2024-12-23] MEDS: EMPAGLIFLOZIN 10 MG TABLET PO (08:14)
[2024-12-23] MEDS: FUROSEMIDE INJ 40 MG/4 ML VIAL 60 MG IV PUSH (08:15)
--- NOTE | 2024-12-23 10:49 | P.PNCA_ITS ---
Progress Note: A&P Assessment and Plan (1) Acute on chronic diastolic congestive heart failure: Code(s): I50.33 - Acute on chronic diastolic (congestive) heart failure Status: Acute (2) Atrial fibrillation: Code(s): I48.91 - Unspecified atrial fibrillation Status: Acute (3) CAD in [place] artery: Code(s): I25.10 - Atherosclerotic heart disease of [place] coronary artery without angina pectoris Status: Acute Plan 74-year-old man with chronic diastolic heart failure, persistent atrial fibrillation on Eliquis, coronary artery disease, diabetes, hypertension, hyperlipidemia, obesity, and sleep apnea requiring CPAP presented with shortness of breath and lower extremity swelling Acute on chronic diastolic heart failure -Improving. Has diuresed 17L this admission. Continue Lasix 60 mg IV BID today. -Slight bump in BUN/SCr today. Daily BMP while diuresing. -Continue Losartan 50 mg daily and Spironolactone 50 mg daily -Started Jardiance Persistent atrial fibrillation on Eliquis -Rate controlled -Continue Lopressor 100 mg BID and Diltiazem 180 mg daily -Continue Eliquis 5 mg BID Coronary artery disease -No angina at this time -Continue aspirin 81 mg daily and Atorvastatin 20 mg every evening Hypertension -Agree with weaning off Clonidine. Hyperlipidemia -Continue statin Subjective Date/time seen: 12/23/24 10:49 Interval history: Reason for visit: Acute on chronic CHF HPI: Patient is a 74-year-old male who was recently admitted to the hospital for atrial fibrillation heart failure. He has a history of CAD, hypertension hyperlipidemia, diabetes, untreated sleep apnea, obesity presented hospital with shortness of breath. He was discharged under is nursing facility in had progressive weight gain over the past couple of days since discharge. He was short of breath and has abdominal discomfort, worsening edema. He is brought back to hospital for further workup and evaluation. He was also had borderline control in heart rate Date of service 12/19: States that his shortness of breath has resolved. However still has abdominal distention as well as lower extremity swelling. Uses CPAP at night Date of service 12/20: Feeling better, diuresing well. Date of service 12/21: Continues to diurese well. Feels like his abdomen is less distended. Date of service 12/22/2024: Complaining of pain on his back and buttocks. Wants to get out of bed. Breathing is better and swelling is improving as well. Date of service 12/23/2024: Feeling better today. No shortness of breath at rest but does still have dyspnea with activity. Complained of a short left pectoral pain that radiated to his back while getting up to the chair but no pain now. Review of Systems Review of Systems: All systems reviewed & are unremarkable except as noted in HPI and below (HPI) Constitutional: Constitutional: Denies body ache(s) and Denies excessive sweating Eyes: Eyes: Denies blurry vision ENT: Reports Normal hearing present Cardiovascular: Cardiovascular: Reports as per HPI, Reports chest pain, Reports pedal edema and Reports dyspnea Respiratory: Respiratory: Reports as per HPI and Reports dyspnea Gastrointestinal: Gastrointestinal: Reports abdominal pain Genitourinary: Genitourinary: Denies hematuria Musculoskeletal: Musculoskeletal: Denies myalgias Integumentary/Breasts: Skin/Breast: Denies skin pain Neurologic: Reports Normal hearing present, Denies Abnormal speech present and Denies behavioral changes Psychiatric: Psychiatric: Denies behavioral changes Endocrine: Endocrine: Denies excessive sweating Hematologic/Lymphatic: Hematologic/Lymphatic: Denies easy bleeding Allergic/Immunologic: Allergic/Immunologic: Denies GI upset with certain foods Exam Narrative: Awake alert oriented appears stated age Const: General: comfortable and no acute distress Other: Morbidly obese HENMT: Face/Nose/Sinus: Normal nares present Mouth: Yes moist mucous membranes Eyes: General: appearance normal, both eyes and all related structures Sclera: sclerae normal EOM: EOMs intact bilaterally Neck: Neck: supple and no JVD Carotids: no bruits Chest: Other: No reproducible chest wall pain to palpation Resp: Effort & Inspection: normal respiratory effort Auscultation: rales and diminished lung sounds Cardio: Rate: regular rate Rhythm: abnormal rhythm irregularly irregular Other: + Bilateral lower extremity edema GI: Inspection: distended Auscultation: normal bowel sounds Skin: General skin exam: normal color Neuro: Cranial nerves: Yes Normal hearing present Speech: normal speech and No Abnormal speech present Sensory Exam: normal sensation Extrem: General: edema and pedal edema Psych: Mental Status: mental status grossly normal Affect: normal affect Objective Data Vital Signs Vital Signs: Vital Signs - 24 hr 12/22/24 12:02 12/22/24 14:57 12/22/24 16:00 Temperature 36.6 C Pulse Rate 102 H 84 113 H Respiratory Rate 16 Blood Pressure 115/73 Pulse Oximetry 96 Oxygen Delivery Oxygen Flow Rate 12/22/24 20:00 12/22/24 20:00 12/22/24 20:10 Temperature 36.4 C Pulse Rate 97 92 Respiratory Rate 20 Blood Pressure 100/49 L Pulse Oximetry 92 92 Oxygen Delivery Nasal Cannula Oxygen Flow Rate 1.5 12/22/24 21:23 12/22/24 21:45 12/22/24 21:45 Temperature Pulse Rate 75 Respiratory Rate 16 Blood Pressure Pulse Oximetry 92 92 Oxygen Delivery BiPAP BiPAP Room Air Oxygen Flow Rate 12/23/24 00:00 12/23/24 01:50 12/23/24 04:00 Temperature 35.9 C L Pulse Rate 112 H 72 122 H Respiratory Rate 17 18 Blood Pressure 124/93 H Pulse Oximetry 90 91 Oxygen Delivery BiPAP Oxygen Flow Rate 12/23/24 04:00 12/23/24 04:43 12/23/24 05:25 Temperature Pulse Rate 116 H 123 H 71 Respiratory Rate 19 Blood Pressure Pulse Oximetry 90 Oxygen Delivery BiPAP Oxygen Flow Rate 12/23/24 08:00 12/23/24 08:17 12/23/24 09:58 Temperature Pulse Rate 115 H Respiratory Rate Blood Pressure 115/74 Pulse Oximetry 94 Oxygen Delivery Room Air Oxygen Flow Rate Intake/Output Intake/Output: Intake & Output 12/20/24 12/21/24 12/22/24 12/23/24 23:59 23:59 23:59 23:59 Intake Total 1260 1217 880 459 Output Total 3607 7282 6350 1175 [facility] -[phone] Meds/Results Medications: Active Medications Generic Name Dose Route Start Last Admin Trade Name Freq PRN Reason Stop Dose Admin Acetaminophen 650 mg 12/18/24 09:32 Acetaminophen 325 Mg Tablet PO Q4H PRN Mild Pain (1-3) or Fever Hydrocodone Bitart/Acetaminophen 1 tab 12/18/24 04:56 12/23/24 08:14 Hydrocodone/Acetaminophen (*Crx) 7.5-325 Mg Tablet PO 1 tab Q4H PRN Administration Pain Rated 7-10 Apixaban 5 mg 12/18/24 09:00 12/23/24 08:14 Apixaban 5 Mg Tablet PO 5 mg Q12HR SHIRA Administration Aspirin 81 mg 12/18/24 09:00 12/23/24 08:14 Aspirin 81 Mg Enteric Tablet PO 81 mg DAILY SHIRA Administration Atorvastatin Calcium 20 mg 12/18/24 05:00 12/23/24 08:14 Atorvastatin 20 Mg Tablet PO 20 mg DAILY SHIRA Administration Clonidine HCl 0.1 mg 12/20/24 17:00 12/22/24 16:16 Clonidine Hcl 0.1 Mg Tablet PO 0.1 mg BID SHIRA Administration Cyanocobalamin 1,000 mcg 12/18/24 09:00 12/23/24 08:14 Cyanocobalamin 1,000 Mcg Tablet PO 1,000 mcg QAM SHIRA Administration Dextrose 12.5 gm 12/18/24 04:57 Dextrose 50% 25 Gm/50 Ml Syringe IV PUSH PRN PRN Hypoglycemia Protocol Diltiazem HCl 180 mg 12/18/24 09:00 12/23/24 08:14 Diltiazem Hcl Cd 180 Mg Cap.24hr PO 180 mg QAM SHIRA Administration Empagliflozin 10 mg 12/21/24 09:00 12/23/24 08:14 Empagliflozin 10 Mg Tablet PO 10 mg DAILY SHIRA Administration Furosemide 60 mg 12/19/24 06:45 12/23/24 08:15 Furosemide Inj 40 Mg/4 Ml Vial IV PUSH 60 mg BID SHIRA Administration Gabapentin 300 mg 12/18/24 06:00 12/23/24 04:43 Gabapentin 300 Mg Capsule PO 300 mg Q8HR SHIRA Administration Glucagon 1 mg 12/18/24 04:57 Glucagon For Inj 1 Mg Vial IM PRN PRN Hypoglycemia Protocol Glucose 15 gm 12/18/24 04:57 Glucose Oral Gel 15 Gm Of Glucse In 37.5 Gm Tube PO PRN PRN Hypoglycemia Protocol Dextrose 1,000 mls @ 100 mls/hr 12/18/24 04:57 Dextrose 5% 1,000 Ml IVPB PRN PRN Hypoglycemia Protocol Insulin Aspart 3 - 6 units 12/18/24 08:00 12/23/24 10:02 Insulin Aspart (*Bkc) 100 Units/Ml SUB-Q Not Given TIDWM SHIRA Protocol Insulin Glargine 60 units 12/18/24 21:00 12/22/24 20:21 Insulin Glargine (*Bkc) 100 Units/Ml SUB-Q 60 units HS SHIRA Administration Levalbuterol HCl 1.25 mg 12/18/24 18:32 12/19/24 07:06 Levalbuterol Neb 1.25 Mg/3 Ml INHALATION 1.25 mg Q6HRT PRN Administration Shortness Of Breath Losartan Potassium 50 mg 12/19/24 09:00 12/20/24 09:15 Losartan Potassium 50 Mg Tablet PO 50 mg DAILY SHIRA Administration Metoprolol Tartrate 100 mg 12/18/24 05:00 12/23/24 04:43 Metoprolol Tartrate 50 Mg Tab PO 100 mg Q12HR SHIRA Administration Ondansetron HCl 4 mg 12/18/24 09:32 12/21/24 21:03 Ondansetron Inj 4 Mg/2 Ml Vial IV PUSH 4 mg Q6H PRN Administration Nausea And Vomiting Potassium Chloride 40 meq 12/18/24 15:45 12/23/24 08:13 Potassium Chloride 20 Meq Packet (For Liquid) PO 40 meq DAILY SHIRA Administration Spironolactone 50 mg 12/19/24 09:00 12/23/24 08:14 Spironolactone 50 Mg Tablet PO 50 mg QAM SHIRA Administration Trazodone HCl 25 mg 12/18/24 20:13 12/22/24 20:20 Trazodone Hcl 25 Mg Tablet PO 25 mg HS PRN Administration Insomnia Radiology Results: ITS Impressions Chest X-Ray 12/19/24 06:51 Impression: Minimal right pleural effusion. Stable cardiomegaly. Labs Labs: Laboratory Results - last 24 hr 12/22/24 12/22/24 12/22/24 11:52 17:09 20:14 WBC RBC Hgb Hct MCV MCH MCHC RDW Plt Count MPV Immature Gran % (Auto) Neut % (Auto) Lymph % (Auto) [place] % (Auto) Eos % (Auto) Baso % (Auto) Lymph # (Auto) [place] # (Auto) Eos # (Auto) Baso # (Auto) Abs Immat Gran (auto) Absolute Neuts (auto) Absolute Nucleated RBC Nucleated RBC % Puncture Site ABG pH ABG pCO2 ABG pO2 ABG PO2/FiO2 Ratio ABG HCO3 ABG O2 Saturation ABG O2 Content ABG Base Excess A-a Gradient Oxyhemoglobin Total Hemoglobin O2 Delivery Device O2 Liters/Min Vent Rate FiO2 Expiratory Pressure Inspiratory Pressure Sodium Potassium Chloride Carbon Dioxide Anion Gap BUN Creatinine Estim Creat Clear Calc Estimated GFR Glucose POC Capillary Glucose 156 H 176 H 207 H Calcium Total Bilirubin AST ALT Alkaline Phosphatase Total Protein Albumin 12/23/24 12/23/24 12/23/24 04:18 05:09 07:26 WBC 7.3 RBC 4.13 L Hgb 12.2 L Hct 39.3 L MCV 95.2 MCH 29.5 MCHC 31.0 L RDW 13.5 Plt Count 167 MPV 11.6 H Immature Gran % (Auto) 0.3 Neut % (Auto) 67.9 Lymph % (Auto) 21.6 [place] % (Auto) 8.3 Eos % (Auto) 1.4 Baso % (Auto) 0.5 Lymph # (Auto) 1.58 [place] # (Auto) 0.6 Eos # (Auto) 0.1 Baso # (Auto) 0.0 Abs Immat Gran (auto) 0.02 Absolute Neuts (auto) 5.0 Absolute Nucleated RBC 0.000 Nucleated RBC % 0.0 Puncture Site Right radial ABG pH 7.463 H ABG pCO2 59.9 H ABG pO2 50.4 L ABG PO2/FiO2 Ratio 2.40 ABG HCO3 41.9 H ABG O2 Saturation 86.6 L* ABG O2 Content 15.2 L ABG Base Excess 15.4 A-a Gradient 27.6 Oxyhemoglobin 83.4 L* Total Hemoglobin 13.0 O2 Delivery Device Non-invasive vent O2 Liters/Min Not Reportable Vent Rate 14 FiO2 21 Expiratory Pressure 8 Inspiratory Pressure 18 Sodium 135 L Potassium 3.7 Chloride 84 L Carbon Dioxide > 40 H Anion Gap BUN 27 H Creatinine 1.33 H Estim Creat Clear Calc 71 Estimated GFR 53 L Glucose 121 H POC Capillary Glucose 100 Calcium 9.4 Total Bilirubin 0.8 AST 27 ALT 24 Alkaline Phosphatase 122 Total Protein 7.0 Albumin 3.8 Quality VTE Prophylaxis VTE prophylaxis: pharmacologic ordered
--- NOTE | 2024-12-23 11:22 | PC.NURSE ---
Abril Tenorio RESPIRATORY THERAPY DIRECTOR notified that patient had sharp chest pain when walking and then it went right away. Also notified of holding clonidine due to decreased bp.
--- NOTE | 2024-12-23 11:24 | P.PNPL_ITS ---
Progress Note: A&P Assessment and Plan (1) Hypoventilation associated with obesity syndrome: Code(s): E66.2 - Morbid (severe) obesity with alveolar hypoventilation Status: Acute Assessment and Plan: Patient admitted with BMI 62.5, hypercarbic respiratory failure and fluid overload from right heart failure. He has been diuresed and now is breathing back to near normal. Patient had an ABG on room air off of BiPAP for 24 hours with a pH of 7.44/63/61 indicating chronic hypercarbic respiratory failure from his obesity. TSH on 12/09/2024 1.04. patient has obesity hypoventilation syndrome and would benefit from noninvasive ventilation to prevent further hospitalizations and disease progression. He was initially tried on BiPAP but this was uncomfortable for him and he could not tolerate this. I have initiated noninvasive ventilation with the AVAPS mode. 12/20/24: Patient tells me he is continuing to improve. States he has 50% back to his normal. He denies cough, phlegm or wheezing. He is afebrile. White blood cell count 6.6. Currently is on room air with saturations 95%. Last night patient wore hospital noninvasive ventilator with the AVAPS mode rate of 14, tidal volume 500, EPAP 8, minimal inspiratory pressure 9, maximal inspiratory pressure 25, inspiratory time 1.0, rise of 3 and 24% FiO2. Patient said he slept very well with the machine although it felt like the air was coming and too fast. On these settings patient had an overnight oximetry with a recording duration of 5 hours and 54 minutes. Average saturation 95%. Low saturation 75%. Time with saturation less than or equal to 88% was 0 minutes. Oxygen desaturation index 7.1. Patient had an ABG prior to removal of the mass with pH of 7.45/58/74. I decreased his rise to 5 and increased his inspiratory time to 1.2 and he said these settings were much more comfortable. Plan: continue noninvasive ventilation with the AVAPS mode rate of 14, tidal volume 500, EPAP 8, minimal inspiratory pressure 9, maximal inspiratory pressure 25, inspiratory time 1.2 and a rise of 5 as this provides adequate ventilation.. Tonight I will place on room air and perform an overnight oximetry on room air. Once patient is closer to his baseline will leave off of noninvasive ventilation for 24 hours and repeat a blood gas to determine if he still has chronic hypercarbic respiratory failure and if he does will then initiate plans for home noninvasive ventilation. 12/21/24: Patient continues to improve. Tells me his 60-65% back to his normal. Denies fever, chills, cough or phlegm. Room air saturations 94%. Patient wore the hospital noninvasive ventilator with the AVAPS mode and room air last night. Overnight oximetry with recording duration 7 hours and 36 minutes. Average saturation 92%. Low saturation 85%. Time with saturation less than or equal to 88% was 2 minutes. Oxygen desaturation index 5.4. Patient diuresed yesterday 2.3 L. Cumulative diuresis since admission is 8.9 L. Weight today is 154. Plan: Patient continues to improve. Overnight on hospital AVAPS and room air with adequate ventilation and oxygenation. Tonight I will place the patient on room air and perform an overnight oximetry to assess oxygenation and an ABG at 8:00 a.m. to assess for chronic hypercarbic respiratory failure. 12/22/2024: Patient continues to improve. Tells me is 75-80% back to his normal. He has no cough or phlegm. Patient wore room air last night and said he slept poorly and had desaturations and was increased to 1.5 L. He had an overnight oximetry started on room air and then increase to 1.5 L with recording duration 8 hours and 36 minutes. Average saturation 83%. Low saturation 40%. Time with saturation less than or equal to 88% was 392 minutes. Oxygen desatura tion index 41.8. Patient had an ABG on room air off of BiPAP for 24 hours with a pH of 7.44/63/61. BNP has increased from 2660 on 12/18 to 3300 today. Patient diuresed 3.1 L yesterday cumulative diuresis from admission is 13.3 L. His weight today is an error at 181. Plan: I will initiate home noninvasive ventilation. AVAPS AE with rate of 14, tidal volume 500, Minimum EPAP 5, maximum EPAP 15, minimal inspiratory pressure 6, maximal inspiratory pressure 25, inspiratory time 1.2 and a rise of 5. patient requires room air with these settings. Later in the day, I completed a home noninvasive ventilator order form through via [employer] for TT V-Paps AE: Rate 14, tidal volume 500, EPAP minimum 5, EPAP maximum 15, minimum pressure support 6, maximum pressure support 25 with no oxygen bleed in. I was informed by the shutdown coordinator that the patient will be discharged to SNF facility that is unable to provide noninvasive with the AVAPS but can provide BiPAP. 12/23/2024: Patient tells me he is having a bad day. He complains of his usual pain in his feet, knees, hands, arms and shoulders he has good days and bad days at home. Overall the pain is affecting his breathing. The patient wore BiPAP rate of 14, pressures 18/8 and room air last night and said that he slept okay. Currently says he is breathing 60-65% of his normal, he has a n ormal cough with a little bit of phlegm. His edema has improved but is still present. His white blood cell count is 7.7, creatinine is 1.33. He diuresed 5.4 L yesterday. His weight is 181.1 kg today. Currently on room air with saturations 94%. Patient had an overnight oximetry on these BiPAP settings and room air with recording duration of 6 hours and 40 minutes, average saturation 84%, low saturation 75%. Time with saturation less than or equal to 88% was 370 mL, oxygen desaturation index 17.7. ABG prior to removal was 7.46/60/50. Plan: Current BiPAP settings provide adequate ventilation. He was hypoxemic on room air on these BiPAP settings. Will repeat overnight oximetry tonight on BiPAP 14, pressures 18/8 and 28% FIO2. The current plan will be for the patient to be discharged to his SNF on BiPAP and once he is discharged home from SNF he will use the noninvasive ventilator through via [employer] with the TT V-Paps AE: Rate 14, tidal volume 500, EPAP minimum 5, EPAP maximum 15, minimum pressure support 6, maximum pressure support 25 with no oxygen bleed in as these settings provided adequate ventilation and oxygenation. Discussed with Dr. Leonard. Will follow with you. (2) Right heart failure: Code(s): I50.810 - Right heart failure, unspecified Status: Acute Assessment and Plan: 12/19/24: diuresed 1.9 L yesterday and cumulative diuresis is -2.9 L since admission on lasix 60 IV BID, Spironolactone 50 q.day. Chest x-ray shows minimal right pleural effusion with improved congestion. Patient states his edema and abdominal tightness are improved. BNP has improved from 3770 to 2660. Overall he says he feels better and he says he feels 30% back to his normal. his weight on admission was 158.6 kg and today he is 154.5 kg. Of note on 09/12/2024 he weighed 138.8 kg. Plan: recommend as aggressive diuresis as tolerated by his cardiac and renal systems per Cardiology and hospitalist teams. 12/20/24: creatinine 0.93. He is on Lasix 60 IV b.i.d. and diuresed 3.7 L yesterday cumulative since admission he is -5.7 L. His weight today is 154.5 with admission weight of 158.6. Plan: Agree with as aggressive diuresis as tolerated by his cardiac and renal systems per Cardiology and the hospitalist team. Patient is having some soft blood pressures would consider decreasing his antihypertensives to allow for continued aggressive diuresis. 12/21/24: Patient diuresed yesterday 2.3 L. creatinine 0.91 Cumulative diuresis since admission is 8.9 L. Weight today is 154. Plan: Agree with continued aggressive diuresis with Lasix 60 IV b.i.d.. Clonidine has been decreased. 12/22/24: BNP has increased from 2660 on 12/18 to 3300 today. creatinine 1.27. Patient diuresed 3.1 L yesterday cumulative diuresis from admission is 13.3 L. His weight today is an error at 181. Plan: Agree with continued aggressive diuresis with Lasix 60 IV b.i.d.. Would continue to decrease his antihypertensives. 12/23/24: His edema has improved but is still present. His creatinine is 1.33. He diuresed 5.4 L yesterday. His weight is 181.1 kg today. cumulative diuresis since admission is 17.5 L Plan: creatinine increased to 1.33, need to be cautious of over-diuresis and would consider cutting back on his antihypertensives. Subjective Date/time seen: 12/23/24 11:24 Interval history: 12/19/2024: This is a new pulmonary consult for hypoxemic and hypercarbic respiratory failure, morbid obesity and congestive heart failure. 74-year-old with a history of CVA, CAD, AFib with RVR, diastolic dysfunction, hypertension, hyperlipidemia, diabetes, morbid obesity and untreated sleep apnea. Regarding his obstructive sleep apnea the patient tells me in the 1970s he had a sleep study and was prescribed a fullface mask CPAP machine and he were to few times and could not tolerate it and never had any follow-up. At that time he had witnessed apneas per his . Recently he does not know if he snores. He and his sleep in separate bedrooms and does not know if he has witnessed apneas, he has no morning headaches. He was on Ozempic and weight 385 lb and l ost 100 lb to 285 lb. At baseline he says he could walk 1 block and this is unchanged over the last year. Over the last 3-4 weeks he can only walk room to room. He does not measure his oxygen. Patient smoked tobacco from 3534-5802 at 1 pack per day for a total of 31 pack years. Approximately 3-4 weeks ago he has had Shortness of breath at rest, dyspnea on exertion, weight gain, tight abdomen and lower extremity edema. He was admitted to the hospital from 12/08/2024 through 12/14/24 with fluid overload with an admission BNP of 3540, TSH 12/09/2024 1.04. AFib with RVR and he was diuresed with IV Lasix. His weight on admission was 159.7 kg and on discharge was 161.2 kg. on 12/13/2024 his BNP was 4470. He was admitted on 20 mg of Lasix twice a day and discharged on 40 mg of Lasix twice a day. 12/17/2024 the patient presented back to the hospital with worsening shortness of breath and increased edema. Is BNP was 3770, chest x-ray showed congestion with small effusions, he had AFib with RVR and he was treated with IV Lasix. His room air blood gas was 7.42/46/63. On 12/18/2024 the patient was on 1 L and had a blood gas of 7.43/52/73 and was empirically placed on auto PAP 5-15. 12/19/24: The patient is awake and alert currently on auto PAP with 1 L bleed in with saturations 97%. I placed him on room air and his saturations were 93- 94%. His white blood cell count 6.8, creatinine 1.09, diuresed 1.9 L yesterday and cumulative diuresis is -2.9 L. patient had an ABG on auto PAP 5-15 of 7.40/57/79. Chest x-ray shows minimal right pleural effusion with improved congestion. Patient states his edema and abdominal tightness are improved. Overall he says he feels better and he says he feels 30% back to his normal. He denies fever, chills, rigors. Remains with shortness of breath. Patient wore the auto PAP 5-15 and said he got the best night of his sleep in the last 3 weeks. 12/20/24: Patient tells me he is continuing to improve. States he has 50% back to his normal. He denies cough, phlegm or wheezing. He is afebrile. White blood cell count 6.6, creatinine 0.93. He is on Lasix 60 IV b.i.d. and diuresed 3.7 L yesterday cumulative since admission he is -5.7 L. His weight today is 154.5 with admission weight of 158.6. Currently is on room air with saturations 95%. Last night patient wore hospital noninvasive ventilator with the AVAPS mode rate of 14, tidal volume 500, EPAP 8, minimal inspiratory pressure 9, maximal inspiratory pressure 25, inspiratory time 1.0, rise of 3 and 24% FiO2. Patient said he slept very well with the machine although it felt like the air was coming and too fast. On these settings patient had an overnight oximetry with a recording duration of 5 hours and 54 minutes. Average saturation 95%. Low saturation 75%. Time with saturation less than or equal to 88% was 0 minutes. Oxygen desaturation index 7.1. Patient had an ABG prior to removal of the mass with pH of 7.45/58/74. I decreased his rise to 5 and increased his inspiratory time to 1.2 and he said these settings were much more comfortable. 12/21/24: Patient continues to improve. Tells me his 60-65% back to his normal. Denies fever, chills, cough or phlegm. Room air saturations 94%. Patient wore the hospital noninvasive ventilator with the AVAPS mode and room air last night. Overnight oximetry with recording duration 7 hours and 36 minutes. Average saturation 92%. Low saturation 85%. Time with saturation less than or equal to 88% was 2 minutes. Oxygen desaturation index 5.4. Patient diuresed yesterday 2.3 L. Cumulative diuresis since admission is 8.9 L. Weight today is 154. 12/22/2024: Patient continues to improve. Tells me is 75-80% back to his normal. He has no cough or phlegm. Patient wore room air last night and said he slept poorly and had desaturations and was increased to 1.5 L. He had an overnight oximetry started on room air and then increase to 1.5 L with recording duration 8 hours and 36 minutes. Average saturation 83%. Low saturation 40%. Time with saturation less than or equal to 88% was 392 minutes. Oxygen desaturation index 41.8. Patient had an ABG on room air off of BiPAP for 24 hours with a pH of 7.44/63/61. BNP has increased from 2660 on 12/18 1-3300 today. Patient diuresed 3.1 L yesterday cumulative diuresis from admission is 13.3 L. His weight today is an error at 181. Later in the day, I completed a home noninvasive ventilator order form through via [employer] for TT V-Paps AE: Rate 14, tidal volume 500, EPAP minimum 5, EPAP maximum 15, minimum pressure support 6, maximum pressure support 25 with no oxygen bleed in. I was informed by the shutdown coordinator that the patient will be discharged to SNF facility that is unable to provide noninvasive with the AVAPS but can provide BiPAP. 12/23/2024: Patient tells me he is having a bad day. He complains of his usual pain in his feet, knees, hands, arms and shoulders he has good days and bad days at home. Overall the pain is affecting his breathing. The patient wore BiPAP rate of 14, pressures 18/8 and room air last night and said that he slept okay. Currently says he is breathing 60-65% of his normal, he has a normal cough with a little bit of phlegm. His edema has improved but is still present. His white blood cell count is 7.7, creatinine is 1.33. Currently on room air with saturations 94%. Patient had an overnight oximetry on these BiPAP settings and room air with recording duration of 6 hours and 40 minutes, average saturation 84%, low saturation 75%. Time with saturation less than or equal to 88% was 370 mL, oxygen desaturation index 17.7. ABG prior to removal was 7.46/60/50. DATA: 12/17/24: CHEST RADIOGRAPH CLINICAL HISTORY: dyspnea/ chf . COMPARISON: 12/08/2024 TECHNIQUE: Single portable view of the chest. FINDINGS The cardiomediastinal silhouette is enlarged, unchanged. Calcified lymph nodes within the mediastinum suggesting prior granulomatous disease. Increased interstitial markings are identified bilaterally, findings suggesting mild pulmonary vascular congestion. Bilateral pleural effusions, right greater than left. The remainder of the lungs are clear. IMPRESSION: Bilateral pleural effusions, with mild pulmonary vascular congestion. 12/09/24: Echo Summary 1. Left ventricular chamber dimension is normal. 2. Left ventricular systolic function is normal, estimated at 50-55%. 3. There is moderately increased left ventricular wall thickness. 4. Right ventricular chamber dimension is mildly enlarged. 5. Right ventricular systolic function is reduced. 6. Left atrial chamber dimension is severely enlarged. 7. Right atrial chamber dimension is severely enlarged. 8. There is moderate tricuspid valve regurgitation. 9. There is trivial pericardial effusion. Right Ventricle Right ventricular chamber dimension is mildly enlarged. Right ventricular systolic function is reduced. Left Atria Left atrial chamber dimension is severely enlarged. Right Atria Right atrial chamber dimension is severely enlarged. Atrial Septum Intact interatrial septum visualized by color flow imaging. 09/23/2021: Echo Summary 1. Complete two-dimensional, color flow and Doppler transthoracic echocardiogram is performed. 2. Left ventricular chamber dimension is normal. 3. Left ventricular systolic function is normal, estimated at 60-65%. 4. There is moderately increased left ventricular wall thickness. 5. The left ventricular diastolic function is grade I diastolic dysfunction. 6. There is no aortic valve stenosis. 7. There is trace tricuspid valve regurgitation. 8. No pulmonary hypertension, estimated pulmonary arterial systolic pressure is 14 mmHg. 9. There is trace mitral valve regurgitation. Right Ventricle Right ventricular chamber dimension is normal. Right ventricular systolic function is normal. Left Atria Left atrial chamber dimension is mildly enlarged. Right Atria Right atrial chamber dimension is mildly enlarged. Review of Systems Constitutional: Constitutional: Reports no additional constitutional complaints Eyes: Eyes: Reports no additional eye complaints ENT: Reports system reviewed and no additional complaints, except as documented Cardiovascular: Cardiovascular: Reports no additional cardiovascular complaints Respiratory: Respiratory: Reports no additional respiratory complaints Gastrointestinal: Gastrointestinal: Reports no additional gastrointestinal complaints Musculoskeletal: Musculoskeletal: Reports no additional musculoskeletal complaints Neurologic: Reports system reviewed and no additional complaints, except as documented Psychiatric: Psychiatric: Reports no additional psychiatric complaints Endocrine: Endocrine: Reports no additional endocrine complaints Hematologic/Lymphatic: Hematologic/Lymphatic: Reports no additional hematologic/lymphatic complaints Allergic/Immunologic: Allergic/Immunologic: Reports no additional allergic/immunologic complaints Exam Const: General: cooperative and comfortable Orientation/consciousness: oriented to person, oriented to place and oriented to time Other: obese HENMT: Head: normal to inspection Ears: hearing grossly normal bilaterally Eyes: General: appearance normal, both eyes and all related structures Neck: Neck: normal visual inspection Chest: Chest palpation & inspection: normal inspection of the chest Resp: Effort & Inspection: normal respiratory effort and able to speak in complete sentences Auscultation: no crackles, no rales, no rhonchi, no wheezes and diminished lung sounds Other: obese Cardio: Jugular venous distension: no JVD GI: Inspection: distended Other: Less distended Skin: General skin exam: normal color Neuro: General: oriented to person, oriented to place and oriented to time Extrem: General: normal to inspection and edema Other: improved edema Psych: Appearance: grossly normal Objective Data Vital Signs Vital Signs: Vital Signs - 24 hr 12/22/24 12:02 12/22/24 14:57 12/22/24 16:00 Temperature 36.6 C Pulse Rate 102 H 84 113 H Respiratory Rate 16 Blood Pressure 115/73 Pulse Oximetry 96 Oxygen Delivery Oxygen Flow Rate 12/22/24 20:00 12/22/24 20:00 12/22/24 20:10 Temperature 36.4 C Pulse Rate 97 92 Respiratory Rate 20 Blood Pressure 100/49 L Pulse Oximetry 92 92 Oxygen Delivery Nasal Cannula Oxygen Flow Rate 1.5 12/22/24 21:23 12/22/24 21:45 12/22/24 21:45 Temperature Pulse Rate 75 Respiratory Rate 16 Blood Pressure Pulse Oximetry 92 92 Oxygen Delivery BiPAP BiPAP Room Air Oxygen Flow Rate 12/23/24 00:00 12/23/24 01:50 12/23/24 04:00 Temperature 35.9 C L Pulse Rate 112 H 72 122 H Respiratory Rate 17 18 Blood Pressure 124/93 H Pulse Oximetry 90 91 Oxygen Delivery BiPAP Oxygen Flow Rate 12/23/24 04:00 12/23/24 04:43 12/23/24 05:25 Temperature Pulse Rate 116 H 123 H 71 Respiratory Rate 19 Blood Pressure Pulse Oximetry 90 Oxygen Delivery BiPAP Oxygen Flow Rate 12/23/24 08:00 12/23/24 08:17 12/23/24 09:58 Temperature Pulse Rate 115 H Respiratory Rate Blood Pressure 115/74 Pulse Oximetry 94 Oxygen Delivery Room Air Oxygen Flow Rate Intake/Output Intake/Output: Intake & Output 12/20/24 12/21/24 12/22/24 12/23/24 23:59 23:59 23:59 23:59 Intake Total 1260 1217 880 459 Output Total 3600 4325 6350 1175 [facility] -[phone] Meds/Results Medications: Active Medications Generic Name Dose Route Start Last Admin Trade Name Freq PRN Reason Stop Dose Admin Acetaminophen 650 mg 12/18/24 09:32 Acetaminophen 325 Mg Tablet PO Q4H PRN Mild Pain (1-3) or Fever Hydrocodone Bitart/Acetaminophen 1 tab 12/18/24 04:56 12/23/24 08:14 Hydrocodone/Acetaminophen (*Crx) 7.5-325 Mg Tablet PO 1 tab Q4H PRN Administration Pain Rated 7-10 Apixaban 5 mg 12/18/24 09:00 12/23/24 08:14 Apixaban 5 Mg Tablet PO 5 mg Q12HR SHIRA Administration Aspirin 81 mg 12/18/24 09:00 12/23/24 08:14 Aspirin 81 Mg Enteric Tablet PO 81 mg DAILY SHIRA Administration Atorvastatin Calcium 20 mg 12/18/24 05:00 12/23/24 08:14 Atorvastatin 20 Mg Tablet PO 20 mg DAILY SHIRA Administration Clonidine HCl 0.1 mg 12/20/24 17:00 12/23/24 11:23 Clonidine Hcl 0.1 Mg Tablet PO Not Given BID SHIRA Cyanocobalamin 1,000 mcg 12/18/24 09:00 12/23/24 08:14 Cyanocobalamin 1,000 Mcg Tablet PO 1,000 mcg QAM SHIRA Administration Dextrose 12.5 gm 12/18/24 04:57 Dextrose 50% 25 Gm/50 Ml Syringe IV PUSH PRN PRN Hypoglycemia Protocol Diltiazem HCl 180 mg 12/18/24 09:00 12/23/24 08:14 Diltiazem Hcl Cd 180 Mg Cap.24hr PO 180 mg QAM SHIRA Administration Empagliflozin 10 mg 12/21/24 09:00 12/23/24 08:14 Empagliflozin 10 Mg Tablet PO 10 mg DAILY SHIRA Administration Furosemide 60 mg 12/19/24 06:45 12/23/24 08:15 Furosemide Inj 40 Mg/4 Ml Vial IV PUSH 60 mg BID SHIRA Administration Gabapentin 300 mg 12/18/24 06:00 12/23/24 04:43 Gabapentin 300 Mg Capsule PO 300 mg Q8HR SHIRA Administration Glucagon 1 mg 12/18/24 04:57 Glucagon For Inj 1 Mg Vial IM PRN PRN Hypoglycemia Protocol Glucose 15 gm 12/18/24 04:57 Glucose Oral Gel 15 Gm Of Glucse In 37.5 Gm Tube PO PRN PRN Hypoglycemia Protocol Dextrose 1,000 mls @ 100 mls/hr 12/18/24 04:57 Dextrose 5% 1,000 Ml IVPB PRN PRN Hypoglycemia Protocol Insulin Aspart 3 - 6 units 12/18/24 08:00 12/23/24 10:02 Insulin Aspart (*Bkc) 100 Units/Ml SUB-Q Not Given TIDWM SHIRA Protocol Insulin Glargine 60 units 12/18/24 21:00 12/22/24 20:21 Insulin Glargine (*Bkc) 100 Units/Ml SUB-Q 60 units HS SHIRA Administration Levalbuterol HCl 1.25 mg 12/18/24 18:32 12/19/24 07:06 Levalbuterol Neb 1.25 Mg/3 Ml INHALATION 1.25 mg Q6HRT PRN Administration Shortness Of Breath Losartan Potassium 50 mg 12/19/24 09:00 12/20/24 09:15 Losartan Potassium 50 Mg Tablet PO 50 mg DAILY SHIRA Administration Metoprolol Tartrate 100 mg 12/18/24 05:00 12/23/24 04:43 Metoprolol Tartrate 50 Mg Tab PO 100 mg Q12HR SHIRA Administration Ondansetron HCl 4 mg 12/18/24 09:32 12/21/24 21:03 Ondansetron Inj 4 Mg/2 Ml Vial IV PUSH 4 mg Q6H PRN Administration Nausea And Vomiting Potassium Chloride 40 meq 12/18/24 15:45 12/23/24 08:13 Potassium Chloride 20 Meq Packet (For Liquid) PO 40 meq DAILY SHIRA Administration Spironolactone 50 mg 12/19/24 09:00 12/23/24 08:14 Spironolactone 50 Mg Tablet PO 50 mg QAM SHIRA Administration Trazodone HCl 25 mg 12/18/24 20:13 12/22/24 20:20 Trazodone Hcl 25 Mg Tablet PO 25 mg HS PRN Administration Insomnia Radiology Results: ITS Impressions Chest X-Ray 12/19/24 06:51 Impression: Minimal right pleural effusion. Stable cardiomegaly. Labs Labs: Laboratory Results - last 24 hr 12/22/24 12/22/24 12/22/24 11:52 17:09 20:14 WBC RBC Hgb Hct MCV MCH MCHC RDW Plt Count MPV Immature Gran % (Auto) Neut % (Auto) Lymph % (Auto) [place] % (Auto) Eos % (Auto) Baso % (Auto) Lymph # (Auto) [place] # (Auto) Eos # (Auto) Baso # (Auto) Abs Immat Gran (auto) Absolute Neuts (auto) Absolute Nucleated RBC Nucleated RBC % Puncture Site ABG pH ABG pCO2 ABG pO2 ABG PO2/FiO2 Ratio ABG HCO3 ABG O2 Saturation ABG O2 Content ABG Base Excess A-a Gradient Oxyhemoglobin Total Hemoglobin O2 Delivery Device O2 Liters/Min Vent Rate FiO2 Expiratory Pressure Inspiratory Pressure Sodium Potassium Chloride Carbon Dioxide Anion Gap BUN Creatinine Estim Creat Clear Calc Estimated GFR Glucose POC Capillary Glucose 156 H 176 H 207 H Calcium Total Bilirubin AST ALT Alkaline Phosphatase Total Protein Albumin 12/23/24 12/23/24 12/23/24 04:18 05:09 07:26 WBC 7.3 RBC 4.13 L Hgb 12.2 L Hct 39.3 L MCV 95.2 MCH 29.5 MCHC 31.0 L RDW 13.5 Plt Count 167 MPV 11.6 H Immature Gran % (Auto) 0.3 Neut % (Auto) 67.9 Lymph % (Auto) 21.6 [place] % (Auto) 8.3 Eos % (Auto) 1.4 Baso % (Auto) 0.5 Lymph # (Auto) 1.58 [place] # (Auto) 0.6 Eos # (Auto) 0.1 Baso # (Auto) 0.0 Abs Immat Gran (auto) 0.02 Absolute Neuts (auto) 5.0 Absolute Nucleated RBC 0.000 Nucleated RBC % 0.0 Puncture Site Right radial ABG pH 7.463 H ABG pCO2 59.9 H ABG pO2 50.4 L ABG PO2/FiO2 Ratio 2.40 ABG HCO3 41.9 H ABG O2 Saturation 86.6 L* ABG O2 Content 15.2 L ABG Base Excess 15.4 A-a Gradient 27.6 Oxyhemoglobin 83.4 L* Total Hemoglobin 13.0 O2 Delivery Device Non-invasive vent O2 Liters/Min Not Reportable Vent Rate 14 FiO2 21 Expiratory Pressure 8 Inspiratory Pressure 18 Sodium 135 L Potassium 3.7 Chloride 84 L Carbon Dioxide > 40 H Anion Gap BUN 27 H Creatinine 1.33 H Estim Creat Clear Calc 71 Estimated GFR 53 L Glucose 121 H POC Capillary Glucose 100 Calcium 9.4 Total Bilirubin 0.8 AST 27 ALT 24 Alkaline Phosphatase 122 Total Protein 7.0 Albumin 3.8
[2024-12-23 11:48] LABS: Glucose Point of Care 127 mg/dl (65-105)
--- NOTE | 2024-12-23 11:58 | P.PNIM_ITS ---
Progress Note: A&P Assessment and Plan (1) Acute on chronic diastolic congestive heart failure: Code(s): I50.33 - Acute on chronic diastolic (congestive) heart failure Status: Acute Assessment and Plan: Patient just discharged 3 days ago after hospitalization for CHF exacerbation and AFib RVR. Severe anasarca currently patient is getting aggressive IV diuresis [id number]% diastolic dysfunction with elevated BNP - plan for overnight pulse oximetry likely severe untreated RUSSELL and hypoventilation obesity syndrome. -continue Losartan will dc clondin * IV Lasix b.i.d. 60mg continue * spironolactone * one dose Metolazone today * Jardiance * monitor renal function during diuresis * chest x-ray: bilateral pleural effusions interstitial congestion * Daily weight. * Strict I&O's * fluid restriction (2) Hypoventilation associated with obesity syndrome: Code(s): E66.2 - Morbid (severe) obesity with alveolar hypoventilation Status: Acute Assessment and Plan: * SEE ABOVE (3) Obstructive sleep apnea: Code(s): G47.33 - Obstructive sleep apnea (adult) (pediatric) Status: Acute Assessment and Plan: * patient does not currently wear a CPAP * cardiology has consulted pulmonology to assist with evaluation and possible set up for CPAP 12/19: * Tolerated CPAP at night 12/20: * See Above 12/23/24 Plan for desat study on BiPAP tonight. pulmonary team on board (4) Atrial fibrillation with rapid ventricular response: Code(s): I48.91 - Unspecified atrial fibrillation Status: Acute Assessment and Plan: * EKG showed 86 in atrial fibrillation * patient with episodes of RVR * resume patient's diltiazem, metoprolol, and Eliquis (5) Essential (primary) hypertension: Code(s): I10 - Essential (primary) hypertension Status: Acute Assessment and Plan: * reviewed * diltiazem, metoprolol, losartan * discontinue patient's amlodipine due to bilateral leg edema * losartan to 50 mg daily * BP per unit protocol (6) Insulin dependent type 2 diabetes mellitus: Code(s): E11.9 - Type 2 diabetes mellitus without complications; Z79.4 - oil heaterman (current) use of insulin Status: Acute Assessment and Plan: * Accu-Cheks a.c. HS * sliding scale insulin * hold oral diabetic medications * patient's long-acting insulin not formulated * Lantus 60 units HS * Watch for hypoglycemia/hypoglycemic protocol ordered (7) Mixed hyperlipidemia: Code(s): E78.2 - Mixed hyperlipidemia Status: Acute Assessment and Plan: * Atorvastatin (8) Morbid obesity: Code(s): E66.01 - Morbid (severe) obesity due to excess calories Status: Acute Assessment and Plan: * Encouraged strict diet restrictions and weight loss * Encourage increased activity patient going to Rehab at discharge * likely contributing to some of his chronic problems Plan Code status: Full code per patient DVT prophylaxis: Eliquis Stress ulcer prophylaxis: does not need PT/OT notes: SNF Disposition: Continue with IV diuretics. PT/OT ordered plan to return to residential facility for physical and occupational therapy when medically stable. Subjective Date/time seen: 12/23/24 11:58 Interval history: Reason for visit: Acute on chronic CHF per HPI: Patient is a 74-year-old male who was recently admitted to the hospital for atrial fibrillation heart failure. He has a history of CAD, hypertension hyperlipidemia, diabetes, untreated sleep apnea, obesity presented hospital with shortness of breath. He was discharged under is nursing facility in had progressive weight gain over the past couple of days since discharge. He was short of breath and has abdominal discomfort, worsening edema. He is brought back to hospital for further workup and evaluation. He was also had borderline control in heart rate Date of service 12/19: States that his shortness of breath has resolved. However still has abdominal distention as well as lower extremity swelling. Uses CPAP at night Date of service 12/20: Feeling better, diuresing well. Date of service 12/21: Continues to diurese well. Feels like his abdomen is less distended. still has bilateral leg edema. pulmonary team on board plan for dest study tonight. cardiology team on board. Continue Lasix 60 mg IV BID. Will give a dose of Metolazone today. -Continue Losartan 50 mg daily and Spironolactone 50 mg daily. lopressor, Eliquis, ASA Statin -Started Jardianc 12/22/24 Patient was seen and examined at bedside. He is feeling better. Breathing improving. Continue with Lasix. Denies any chest pain, abdominal pain, nausea vomiting, bilateral leg swelling improving 12/23/24 Patient with an exam at bedside. He is doing fine. Denies any chest pain optimum pain, nausea vomiting. Breathing and bilateral leg swelling improving. Continue with Lasix losartan, spironolactone. Reviewed pulmonary notes. Plan for desat study on BiPAP tonight. Possible Discharge tomorrow to rehab Review of Systems Review of Systems: 12 systems were reviewed and are negativ e except for as per HPI. All systems reviewed & are unremarkable except as noted in HPI and below Exam Narrative: General: Pleasant chronically ill looking male in no acute distress HEENT: Oral mucosa moist. Respiratory: Lung sounds diminished,at the bases. Cardiovascular: Irregularly irregular Gastrointestinal: Abdomen is obese and nontender with normal bowel sounds. Skin: Warm and dry. Extremities: No cyanosis or clubbing. lower ext 2+ edema Neurological: Alert. No gross focal deficits to casual conversation. Objective Data Vital Signs Vital Signs: Vital Signs - 24 hr 12/22/24 12:02 12/22/24 14:57 12/22/24 16:00 Temperature 97.9 F Pulse Rate 102 H 84 113 H Respiratory Rate 16 Blood Pressure 115/73 Pulse Oximetry 96 Oxygen Delivery Oxygen Flow Rate 12/22/24 20:00 12/22/24 20:00 12/22/24 20:10 Temperature 97.6 F Pulse Rate 97 92 Respiratory Rate 20 Blood Pressure 100/49 L Pulse Oximetry 92 92 Oxygen Delivery Nasal Cannula Oxygen Flow Rate 1.5 12/22/24 21:23 12/22/24 21:45 12/22/24 21:45 Temperature Pulse Rate 75 Respiratory Rate 16 Blood Pressure Pulse Oximetry 92 92 Oxygen Delivery BiPAP BiPAP Room Air Oxygen Flow Rate 12/23/24 00:00 12/23/24 01:50 12/23/24 04:00 Temperature 96.6 F L Pulse Rate 112 H 72 122 H Respiratory Rate 17 18 Blood Pressure 124/93 H Pulse Oximetry 90 91 Oxygen Delivery BiPAP Oxygen Flow Rate 12/23/24 04:00 12/23/24 04:43 12/23/24 05:25 Temperature Pulse Rate 116 H 123 H 71 Respiratory Rate 19 Blood Pressure Pulse Oximetry 90 Oxygen Delivery BiPAP Oxygen Flow Rate 12/23/24 08:00 12/23/24 08:17 12/23/24 09:58 Temperature Pulse Rate 115 H Respiratory Rate Blood Pressure 115/74 Pulse Oximetry 94 Oxygen Delivery Room Air Oxygen Flow Rate Intake/Output Intake/Output: Intake & Output 12/20/24 12/21/24 12/22/24 12/23/24 23:59 23:59 23:59 23:59 Intake Total 1260 1217 880 459 Output Total 3600 4325 6350 2625 Balance -2340 -3108 -5470 -2166 Meds/Results Medications: Active Medications Generic Name Dose Route Start Last Admin Trade Name Freq PRN Reason Stop Dose Admin Acetaminophen 650 mg 12/18/24 09:32 Acetaminophen 325 Mg Tablet PO Q4H PRN Mild Pain (1-3) or Fever Hydrocodone Bitart/Acetaminophen 1 tab 12/18/24 04:56 12/23/24 08:14 Hydrocodone/Acetaminophen (*Crx) 7.5-325 Mg Tablet PO 1 tab Q4H PRN Administration Pain Rated 7-10 Apixaban 5 mg 12/18/24 09:00 12/23/24 08:14 Apixaban 5 Mg Tablet PO 5 mg Q12HR SHIRA Administration Aspirin 81 mg 12/18/24 09:00 12/23/24 08:14 Aspirin 81 Mg Enteric Tablet PO 81 mg DAILY SHIRA Administration Atorvastatin Calcium 20 mg 12/18/24 05:00 12/23/24 08:14 Atorvastatin 20 Mg Tablet PO 20 mg DAILY SHIRA Administration Clonidine HCl 0.1 mg 12/20/24 17:00 12/23/24 11:23 Clonidine Hcl 0.1 Mg Tablet PO Not Given BID SHIRA Cyanocobalamin 1,000 mcg 12/18/24 09:00 12/23/24 08:14 Cyanocobalamin 1,000 Mcg Tablet PO 1,000 mcg QAM SHIRA Administration Dextrose 12.5 gm 12/18/24 04:57 Dextrose 50% 25 Gm/50 Ml Syringe IV PUSH PRN PRN Hypoglycemia Protocol Diltiazem HCl 180 mg 12/18/24 09:00 12/23/24 08:14 Diltiazem Hcl Cd 180 Mg Cap.24hr PO 180 mg QAM SHIRA Administration Empagliflozin 10 mg 12/21/24 09:00 12/23/24 08:14 Empagliflozin 10 Mg Tablet PO 10 mg DAILY SHIRA Administration Furosemide 60 mg 12/19/24 06:45 12/23/24 08:15 Furosemide Inj 40 Mg/4 Ml Vial IV PUSH 60 mg BID SHIRA Administration Gabapentin 300 mg 12/18/24 06:00 12/23/24 04:43 Gabapentin 300 Mg Capsule PO 300 mg Q8HR SHIRA Administration Glucagon 1 mg 12/18/24 04:57 Glucagon For Inj 1 Mg Vial IM PRN PRN Hypoglycemia Protocol Glucose 15 gm 12/18/24 04:57 Glucose Oral Gel 15 Gm Of Glucse In 37.5 Gm Tube PO PRN PRN Hypoglycemia Protocol Dextrose 1,000 mls @ 100 mls/hr 12/18/24 04:57 Dextrose 5% 1,000 Ml IVPB PRN PRN Hypoglycemia Protocol Insulin Aspart 3 - 6 units 12/18/24 08:00 12/23/24 10:02 Insulin Aspart (*Bkc) 100 Units/Ml SUB-Q Not Given TIDWM SHIRA Protocol Insulin Glargine 60 units 12/18/24 21:00 12/22/24 20:21 Insulin Glargine (*Bkc) 100 Units/Ml SUB-Q 60 units HS SHIRA Administration Levalbuterol HCl 1.25 mg 12/18/24 18:32 12/19/24 07:06 Levalbuterol Neb 1.25 Mg/3 Ml INHALATION 1.25 mg Q6HRT PRN Administration Shortness Of Breath Losartan Potassium 50 mg 12/19/24 09:00 12/20/24 09:15 Losartan Potassium 50 Mg Tablet PO 50 mg DAILY HSIRA Administration Metoprolol Tartrate 100 mg 12/18/24 05:00 12/23/24 04:43 Metoprolol Tartrate 50 Mg Tab PO 100 mg Q12HR SHIRA Administration Ondansetron HCl 4 mg 12/18/24 09:32 12/21/24 21:03 Ondansetron Inj 4 Mg/2 Ml Vial IV PUSH 4 mg Q6H PRN Administration Nausea And Vomiting Potassium Chloride 40 meq 12/18/24 15:45 12/23/24 08:13 Potassium Chloride 20 Meq Packet (For Liquid) PO 40 meq DAILY SHIRA Administration Spironolactone 50 mg 12/19/24 09:00 12/23/24 08:14 Spironolactone 50 Mg Tablet PO 50 mg QAM SHIRA Administration Trazodone HCl 25 mg 12/18/24 20:13 12/22/24 20:20 Trazodone Hcl 25 Mg Tablet PO 25 mg HS PRN Administration Insomnia Radiology Results: ITS Impressions Chest X-Ray 12/19/24 06:51 Impression: Minimal right pleural effusion. Stable cardiomegaly. Labs Labs: Laboratory Results - last 24 hr 12/22/24 12/22/24 12/22/24 11:52 17:09 20:14 WBC RBC Hgb Hct MCV MCH MCHC RDW Plt Count MPV Immature Gran % (Auto) Neut % (Auto) Lymph % (Auto) [place] % (Auto) Eos % (Auto) Baso % (Auto) Lymph # (Auto) [place] # (Auto) Eos # (Auto) Baso # (Auto) Abs Immat Gran (auto) Absolute Neuts (auto) Absolute Nucleated RBC Nucleated RBC % Puncture Site ABG pH ABG pCO2 ABG pO2 ABG PO2/FiO2 Ratio ABG HCO3 ABG O2 Saturation ABG O2 Content ABG Base Excess A-a Gradient Oxyhemoglobin Total Hemoglobin O2 Delivery Device O2 Liters/Min Vent Rate FiO2 Expiratory Pressure Inspiratory Pressure Sodium Potassium Chloride Carbon Dioxide Anion Gap BUN Creatinine Estim Creat Clear Calc Estimated GFR Glucose POC Capillary Glucose 156 H 176 H 207 H Calcium Total Bilirubin AST ALT Alkaline Phosphatase Total Protein Albumin 12/23/24 12/23/24 12/23/24 04:18 05:09 07:26 WBC 7.3 RBC 4.13 L Hgb 12.2 L Hct 39.3 L MCV 95.2 MCH 29.5 MCHC 31.0 L RDW 13.5 Plt Count 167 MPV 11.6 H Immature Gran % (Auto) 0.3 Neut % (Auto) 67.9 Lymph % (Auto) 21.6 [place] % (Auto) 8.3 Eos % (Auto) 1.4 Baso % (Auto) 0.5 Lymph # (Auto) 1.58 [place] # (Auto) 0.6 Eos # (Auto) 0.1 Baso # (Auto) 0.0 Abs Immat Gran (auto) 0.02 Absolute Neuts (auto) 5.0 Absolute Nucleated RBC 0.000 Nucleated RBC % 0.0 Puncture Site Right radial ABG pH 7.463 H ABG pCO2 59.9 H ABG pO2 50.4 L ABG PO2/FiO2 Ratio 2.40 ABG HCO3 41.9 H ABG O2 Saturation 86.6 L* ABG O2 Content 15.2 L ABG Base Excess 15.4 A-a Gradient 27.6 Oxyhemoglobin 83.4 L* Total Hemoglobin 13.0 O2 Delivery Device Non-invasive vent O2 Liters/Min Not Reportable Vent Rate 14 FiO2 21 Expiratory Pressure 8 Inspiratory Pressure 18 Sodium 135 L Potassium 3.7 Chloride 84 L Carbon Dioxide > 40 H Anion Gap BUN 27 H Creatinine 1.33 H Estim Creat Clear Calc 71 Estimated GFR 53 L Glucose 121 H POC Capillary Glucose 100 Calcium 9.4 Total Bilirubin 0.8 AST 27 ALT 24 Alkaline Phosphatase 122 Total Protein 7.0 Albumin 3.8 12/23/24 11:34 WBC RBC Hgb Hct MCV MCH MCHC RDW Plt Count MPV Immature Gran % (Auto) Neut % (Auto) Lymph % (Auto) [place] % (Auto) Eos % (Auto) Baso % (Auto) Lymph # (Auto) [place] # (Auto) Eos # (Auto) Baso # (Auto) Abs Immat Gran (auto) Absolute Neuts (auto) Absolute Nucleated RBC Nucleated RBC % Puncture Site ABG pH ABG pCO2 ABG pO2 ABG PO2/FiO2 Ratio ABG HCO3 ABG O2 Saturation ABG O2 Content ABG Base Excess A-a Gradient Oxyhemoglobin Total Hemoglobin O2 Delivery Device O2 Liters/Min Vent Rate FiO2 Expiratory Pressure Inspiratory Pressure Sodium Potassium Chloride Carbon Dioxide Anion Gap BUN Creatinine Estim Creat Clear Calc Estimated GFR Glucose POC Capillary Glucose 127 H Calcium Total Bilirubin AST ALT Alkaline Phosphatase Total Protein Albumin Quality VTE Prophylaxis VTE prophylaxis: pharmacologic ordered
[2024-12-23] MEDS: METOPROLOL TARTRATE 50 MG TAB PO (14:55)
[2024-12-23 16:39] LABS: Glucose Point of Care 276 mg/dl (65-105)
[2024-12-23] MEDS: INSULIN ASPART (*BKC) 100 UNITS/ML SUB-Q (17:36)
[2024-12-23 20:19] LABS: Glucose Point of Care 297 mg/dl (65-105)
[2024-12-23] MEDS: INSULIN GLARGINE (*BKC) 100 UNITS/ML 60 UNITS SUB-Q (20:32)
[2024-12-23] MEDS: traZODone HCL 25 MG TABLET PO (20:32)
[2024-12-24] VITALS (15 sets, daily range): BP systolic 133–152; BP diastolic 74–91; PULSE 62–118; RESP 14–20; TEMP 35.8–36.6; O2SAT 93–100
[2024-12-24 05:54] LABS: Basophils Percent Auto 0.6 % (0.2-1.2); Eosinophils Absolute Auto 0.1 K/mm3 (0-0.3); Hematocrit 37.5 % (42.0-52.0); Hemoglobin 11.8 g/dL (14.0-18.0); Immature Granulocyte Absolute 0.03 K/mm3 (0.00-0.031); Immature Granulocyte Percent A 0.5 % (0-0.5); Lymphocytes Percent Auto 31.1 % (18.3-44.2); Mean Corpuscular HGB Conc 31.5 g/dl (32-36); Mean Corpuscular Hemoglobin 29.7 pg (26-34); Mean Corpuscular Volume 94.5 fl (80-100); Mean Platelet Volume 11.2 fl (7.4-10.4); Monocytes Absolute Auto 0.7 K/mm3 (0.1-0.6); Monocytes Percent Auto 10.1 % (2.6-8.5); Neutrophils Absolute Auto 3.6 K/mm3 (1.3-6.7); Neutrophils Percent Auto 55.7 % (45.5-73.1); Platelet Count Result 166 k/mm3 (150-375); Red Blood Count 3.97 M/mm3 (4.6-6.20); Red Cell Distribution Width 13.5 % (11.5-14.5); White Blood Count 6.4 K/mm3 (4.5-10.0)
[2024-12-24 06:07] LABS: Alanine Aminotransferase 25 U/L (6-50); Albumin Level 3.8 g/dL (3.5-5.1); Alkaline Phosphatase 115 U/L (38-126); Aspartate Amino Transferase 27 U/L (17-59); Bilirubin,Total 0.6 mg/dL (0.2-1.3); Blood Urea Nitrogen 28 mg/dL (9-20); Calcium 9.1 mg/dL (8.4-10.2); Carbon Dioxide > 40 mmol/L (22-30); Chloride 85 mmol/L (98-107); Estimated CRCL calculation 67 ml/min; Estimated Glomerular Filt Rate 49; Glucose 137 mg/dL (65-110); Potassium 3.7 mmol/L (3.4-5.0); Sodium 136 mmol/L (137-145)
[2024-12-24 07:19] LABS: Add Urine Microscopic? YES; Appearance Urine Turbid (Clear); Bacteria Urine 4+ /hpf; Bilirubin Urine Negative (Negative); Blood Urine Negative (Negative); Color Urine Yellow (Yellow); Glucose Urine UA 2+ mg/dL (Negative); Ketones Urine Negative (Negative); Leukocyte Esterase Ur 2+ LEU/UL (Negative); Nitrate Urine Negative (Negative); Non Pathogenic Casts 0-2; Protein Urine 1+ mg/dL (Negative); RBC Urine 0-2 /hpf (0-2); Specific Grav Ur 1.019 (1.001-1.035); Squamous Epithelial Cell Urine None Seen /hpf (Few); pH Urine >=9.0 (5.0-9.0)
--- NOTE | 2024-12-24 07:44 | P.PNIM_ITS ---
Progress Note: A&P Assessment and Plan (1) Acute on chronic diastolic congestive heart failure: Code(s): I50.33 - Acute on chronic diastolic (congestive) heart failure Status: Acute Assessment and Plan: Patient just discharged 3 days ago after hospitalization for CHF exacerbation and AFib RVR. Severe anasarca currently patient is getting aggressive IV diuresis [id number] diastolic dysfunction with elevated BNP - plan for overnight pulse oximetry likely severe untreated RUSSELL and hypoventilation obesity syndrome. -continue Losartan will dc clondin * IV Lasix b.i.d.80 mg tomorrow * spironolactone * one dose Metolazone today * Jardiance * monitor renal function during diuresis * chest x-ray: bilateral pleural effusions interstitial congestion * Daily weight. * Strict I&O's * fluid restriction (2) Hypoventilation associated with obesity syndrome: Code(s): E66.2 - Morbid (severe) obesity with alveolar hypoventilation Status: Acute Assessment and Plan: * SEE ABOVE (3) Obstructive sleep apnea: Code(s): G47.33 - Obstructive sleep apnea (adult) (pediatric) Status: Acute Assessment and Plan: * patient does not currently wear a CPAP * cardiology has consulted pulmonology to assist with evaluation and possible set up for CPAP 12/19: * Tolerated CPAP at night 12/20: * See Above 12/23/24 on bipap. pulmonary team on board (4) Atrial fibrillation with rapid ventricular response: Code(s): I48.91 - Unspecified atrial fibrillation Status: Acute Assessment and Plan: * EKG showed 86 in atrial fibrillation * patient with episodes of RVR * on diltiazem, metoprolol, and Eliquis (5) Essential (primary) hypertension: Code(s): I10 - Essential (primary) hypertension Status: Acute Assessment and Plan: * reviewed * diltiazem, metoprolol, losartan * discontinue patient's amlodipine due to bilateral leg edema * losartan to 50 mg daily * BP per unit protocol (6) Insulin dependent type 2 diabetes mellitus: Code(s): E11.9 - Type 2 diabetes mellitus without complications; Z79.4 - long term care administrator (current) use of insulin Status: Acute Assessment and Plan: * Accu-Cheks a.c. HS * sliding scale insulin * hold oral diabetic medications * patient's long-acting insulin not formulated * Lantus 60 units HS * Watch for hypoglycemia/hypoglycemic protocol ordered (7) Mixed hyperlipidemia: Code(s): E78.2 - Mixed hyperlipidemia Status: Acute Assessment and Plan: * Atorvastatin (8) Morbid obesity: Code(s): E66.01 - Morbid (severe) obesity due to excess calories Status: Acute Assessment and Plan: * Encouraged strict diet restrictions and weight loss * Encourage increased activity patient going to Rehab at discharge * likely contributing to some of his chronic problems Plan Code status: Full code per patient DVT prophylaxis: Eliquis Stress ulcer prophylaxis: does not need PT/OT notes: SNF Disposition: Continue with IV diuretics. PT/OT ordered plan to return to senior living facility for physical and occupational therapy when medically stable. Possible discharge tomorrow Subjective Date/time seen: 12/24/24 07:44 Interval history: Reason for visit: Acute on chronic CHF per HPI: Patient is a 74-year-old male who was recently admitted to the hospital for atrial fibrillation heart failure. He has a history of CAD, hypertension hyperlipidemia, diabetes, untreated sleep apnea, obesity presented hospital with shortness of breath. He was discharged under nursing facility in had progressive weight gain over the past couple of days since discharge. He was short of breath and has abdominal discomfort, worsening edema. He is brought back to hospital for further workup and evaluation. He was also had borderline control in heart rate Date of service 12/19: States that his shortness of breath has resolved. However still has abdominal distention as well as lower extremity swelling. Uses CPAP at night Date of service 12/20: Feeling better, diuresing well. Date of service 12/21: Continues to diurese well. Feels like his abdomen is less distended. still has bilateral leg edema. pulmonary team on board plan for dest study tonight. cardiology team on board. Continue Lasix 60 mg IV BID. Will give a dose of Metolazone today. -Continue Losartan 50 mg daily and Spironolactone 50 mg daily. lopressor, Eliquis, ASA Statin -Started Jardianc 12/22/24 Patient was seen and examined at bedside. He is feeling better. Breathing improving. Continue with Lasix. Denies any chest pain, abdominal pain, nausea vomiting, bilateral leg swelling improving 12/23/24 Patient with an exam at bedside. He is doing fine. Denies any chest pain optimum pain, nausea vomiting. Breathing and bilateral leg swelling improving. Continue with Lasix losartan, spironolactone. Reviewed pulmonary notes. Plan for desat study on BiPAP tonight. Possible Discharge tomorrow to rehab 12/24/24 Patient was seen and examined at bedside Blood pressure 142/91. Using BiPAP at night WBC 6.4, hemoglobin 11.8, sodium 136, potassium 3.7, creatinine 1.41. UA concerning for UTI Lasix on hold with creatinin 1.41 Reviewed pulmonary note: BiPAP 14, pressures 18/8 and 28% FIO2. The current plan will be for the patient to be discharged to his SNF on BiPAP and once he is discharged home from SNF he will use the noninvasive ventilator through via med with the TT V-Paps AE: Rate 14, tidal volume 500, EPAP minimum 5, EPAP maximum 15, minimum pressure support 6, maximum pressure support 25 with no oxygen bleed in Have reviewed cardiology team. Patient needs to be on Lasix, losartan, Jardiance, Lopressor, details, Eliquis, aspirin and Lipitor. Will start Lasix tomorrow 80 mg Review of Systems Review of Systems: 12 systems were reviewed and are negativ e except for as per HPI. All systems reviewed & are unremarkable except as noted in HPI and below Exam Narrative: General: Pleasant chronically ill looking male in no acute distress HEENT: Oral mucosa moist. Respiratory: Lung sounds diminished,at the bases. Cardiovascular: Irregularly irregular Gastrointestinal: Abdomen is obese and nontender with normal bowel sounds. Skin: Warm and dry. Extremities: No cyanosis or clubbing. lower ext 2+ edema Neurological: Alert. No gross focal deficits to casual conversation. Objective Data Vital Signs Vital Signs: Vital Signs - 24 hr 12/23/24 08:00 12/23/24 08:17 12/23/24 09:58 Temperature Pulse Rate 115 H Respiratory Rate Blood Pressure 115/74 Pulse Oximetry 94 Oxygen Delivery Room Air Fraction of Inspired Oxygen 12/23/24 12:00 12/23/24 14:00 12/23/24 14:55 Temperature 97.6 F Pulse Rate 105 H 90 110 H Respiratory Rate 16 Blood Pressure 113/65 Pulse Oximetry 93 Oxygen Delivery Fraction of Inspired Oxygen 12/23/24 16:00 12/23/24 20:00 12/23/24 20:25 Temperature 97.7 F Pulse Rate 100 91 Respiratory Rate 20 Blood Pressure 109/69 Pulse Oximetry 94 Oxygen Delivery Room Air Fraction of Inspired Oxygen 12/23/24 20:32 12/23/24 22:05 12/23/24 22:30 Temperature Pulse Rate 107 H 91 Respiratory Rate 17 Blood Pressure Pulse Oximetry 94 Oxygen Delivery BiPAP BiPAP Fraction of Inspired Oxygen 12/23/24 22:30 12/24/24 00:00 12/24/24 02:00 Temperature Pulse Rate 87 89 Respiratory Rate 14 Blood Pressure Pulse Oximetry 94 93 Oxygen Delivery BiPAP BiPAP Fraction of Inspired Oxygen 28 12/24/24 04:00 12/24/24 05:30 12/24/24 05:59 Temperature 97.1 F L Pulse Rate 92 71 94 Respiratory Rate 20 15 Blood Pressure 142/91 H Pulse Oximetry 100 93 Oxygen Delivery BiPAP Fraction of Inspired Oxygen Intake/Output Intake/Output: Intake & Output 12/21/24 12/22/24 12/23/24 12/24/24 23:59 23:59 23:59 23:59 Intake Total 1217 880 936 150 Output Total 4325 6350 3775 1125 [facility] -[phone] -[phone] -975 Meds/Results Medications: Active Medications Generic Name Dose Route Start Last Admin Trade Name Freq PRN Reason Stop Dose Admin Acetaminophen 650 mg 12/18/24 09:32 Acetaminophen 325 Mg Tablet PO Q4H PRN Mild Pain (1-3) or Fever Hydrocodone Bitart/Acetaminophen 1 tab 12/18/24 04:56 12/23/24 20:31 Hydrocodone/Acetaminophen (*Crx) 7.5-325 Mg Tablet PO 1 tab Q4H PRN Administration Pain Rated 7-10 Apixaban 5 mg 12/18/24 09:00 12/23/24 20:31 Apixaban 5 Mg Tablet PO 5 mg Q12HR SHIRA Administration Aspirin 81 mg 12/18/24 09:00 12/23/24 08:14 Aspirin 81 Mg Enteric Tablet PO 81 mg DAILY SHIRA Administration Atorvastatin Calcium 20 mg 12/18/24 05:00 12/23/24 08:14 Atorvastatin 20 Mg Tablet PO 20 mg DAILY SHIRA Administration Cyanocobalamin 1,000 mcg 12/18/24 09:00 12/23/24 08:14 Cyanocobalamin 1,000 Mcg Tablet PO 1,000 mcg QAM SHIRA Administration Dextrose 12.5 gm 12/18/24 04:57 Dextrose 50% 25 Gm/50 Ml Syringe IV PUSH PRN PRN Hypoglycemia Protocol Diltiazem HCl 180 mg 12/18/24 09:00 12/23/24 08:14 Diltiazem Hcl Cd 180 Mg Cap.24hr PO 180 mg QAM SHIRA Administration Empagliflozin 10 mg 12/21/24 09:00 12/23/24 08:14 Empagliflozin 10 Mg Tablet PO 10 mg DAILY SHIRA Administration Furosemide 60 mg 12/19/24 06:45 12/23/24 08:15 Furosemide Inj 40 Mg/4 Ml Vial IV PUSH 60 mg BID SHIRA Administration Gabapentin 300 mg 12/18/24 06:00 12/24/24 06:38 Gabapentin 300 Mg Capsule PO Not Given Q8HR SHIRA Glucagon 1 mg 12/18/24 04:57 Glucagon For Inj 1 Mg Vial IM PRN PRN Hypoglycemia Protocol Glucose 15 gm 12/18/24 04:57 Glucose Oral Gel 15 Gm Of Glucse In 37.5 Gm Tube PO PRN PRN Hypoglycemia Protocol Dextrose 1,000 mls @ 100 mls/hr 12/18/24 04:57 Dextrose 5% 1,000 Ml IVPB PRN PRN Hypoglycemia Protocol Insulin Aspart 3 - 6 units 12/18/24 08:00 12/23/24 17:36 Insulin Aspart (*Bkc) 100 Units/Ml SUB-Q 4 units TIDWM SHIRA Administration Protocol Insulin Glargine 60 units 12/18/24 21:00 12/23/24 20:32 Insulin Glargine (*Bkc) 100 Units/Ml SUB-Q 60 units HS SHIRA Administration Levalbuterol HCl 1.25 mg 12/18/24 18:32 12/19/24 07:06 Levalbuterol Neb 1.25 Mg/3 Ml INHALATION 1.25 mg Q6HRT PRN Administration Shortness Of Breath Losartan Potassium 50 mg 12/19/24 09:00 12/20/24 09:15 Losartan Potassium 50 Mg Tablet PO 50 mg DAILY SHIRA Administration Metoprolol Tartrate 100 mg 12/18/24 05:00 12/23/24 20:32 Metoprolol Tartrate 50 Mg Tab PO 100 mg Q12HR SHIRA Administration Ondansetron HCl 4 mg 12/18/24 09:32 12/21/24 21:03 Ondansetron Inj 4 Mg/2 Ml Vial IV PUSH 4 mg Q6H PRN Administration Nausea And Vomiting Potassium Chloride 40 meq 12/18/24 15:45 12/23/24 08:13 Potassium Chloride 20 Meq Packet (For Liquid) PO 40 meq DAILY SHIRA Administration Spironolactone 50 mg 12/19/24 09:00 12/23/24 08:14 Spironolactone 50 Mg Tablet PO 50 mg QAM SHIRA Administration Trazodone HCl 25 mg 12/18/24 20:13 12/23/24 20:32 Trazodone Hcl 25 Mg Tablet PO 25 mg HS PRN Administration Insomnia Radiology Results: ITS Impressions Chest X-Ray 12/19/24 06:51 Impression: Minimal right pleural effusion. Stable cardiomegaly. Labs Labs: Laboratory Results - last 24 hr 12/23/24 12/23/24 12/23/24 07:26 11:34 16:33 WBC RBC Hgb Hct MCV MCH MCHC RDW Plt Count MPV Immature Gran % (Auto) Neut % (Auto) Lymph % (Auto) [place] % (Auto) Eos % (Auto) Baso % (Auto) Lymph # (Auto) [place] # (Auto) Eos # (Auto) Baso # (Auto) Abs Immat Gran (auto) Absolute Neuts (auto) Absolute Nucleated RBC Nucleated RBC % Sodium Potassium Chloride Carbon Dioxide Anion Gap BUN Creatinine Estim Creat Clear Calc Estimated GFR Glucose POC Capillary Glucose 100 127 H 276 H Calcium Total Bilirubin AST ALT Alkaline Phosphatase Total Protein Albumin Urine Color Urine Appearance Urine pH Ur Specific [place] Urine Protein Urine Glucose (UA) Urine Ketones Ur Blood (Man) Urine Nitrate Urine Bilirubin Urine Urobilinogen Leukocyte Esterase Rfl Urine RBC Urine WBC Ur Squamous Epith Cells Urine Bacteria Urine Casts 12/23/24 12/24/24 12/24/24 19:44 05:35 06:58 WBC 6.4 RBC 3.97 L Hgb 11.8 L Hct 37.5 L MCV 94.5 MCH 29.7 MCHC 31.5 L RDW 13.5 Plt Count 166 MPV 11.2 H Immature Gran % (Auto) 0.5 Neut % (Auto) 55.7 Lymph % (Auto) 31.1 [place] % (Auto) 10.1 H Eos % (Auto) 2.0 Baso % (Auto) 0.6 Lymph # (Auto) 2.00 [place] # (Auto) 0.7 H Eos # (Auto) 0.1 Baso # (Auto) 0.0 Abs Immat Gran (auto) 0.03 Absolute Neuts (auto) 3.6 Absolute Nucleated RBC 0.000 Nucleated RBC % 0.0 Sodium 136 L Potassium 3.7 Chloride 85 L Carbon Dioxide > 40 H Anion Gap BUN 28 H Creatinine 1.41 H Estim Creat Clear Calc 67 Estimated GFR 49 L Glucose 137 H POC Capillary Glucose 297 H Calcium 9.1 Total Bilirubin 0.6 AST 27 ALT 25 Alkaline Phosphatase 115 Total Protein 7.0 Albumin 3.8 Urine Color Yellow Urine Appearance Turbid H Urine pH >=9.0 H Ur Specific [place] 1.019 Urine Protein 1+ H Urine Glucose (UA) 2+ H Urine Ketones Negative Ur Blood (Man) Negative Urine Nitrate Negative Urine Bilirubin Negative Urine Urobilinogen 1.0 Leukocyte Esterase Rfl 2+ H Urine RBC 0-2 Urine WBC 11-20 H Ur Squamous Epith Cells None seen Urine Bacteria 4+ Urine Casts 0-2 Quality VTE Prophylaxis VTE prophylaxis: pharmacologic ordered
[2024-12-24 08:12] LABS: Glucose Point of Care 145 mg/dl (65-105)
[2024-12-24] MEDS: HYDROcodone/acetaminophen (*CRX) 7.5-325 MG TABLET 1 TAB PO ×3 (08:48→20:15)
[2024-12-24] MEDS: dilTIAZem HCL CD 180 MG CAP.24HR PO (08:50)
[2024-12-24] MEDS: APIXABAN 5 MG TABLET PO ×2 (08:50→20:15)
[2024-12-24] MEDS: CYANOCOBALAMIN 1,000 MCG TABLET 1000 MCG PO (08:50)
[2024-12-24] MEDS: ASPIRIN 81 MG ENTERIC TABLET PO (08:50)
[2024-12-24] MEDS: SPIRONOLACTONE 50 MG TABLET PO (08:50)
[2024-12-24] MEDS: METOPROLOL TARTRATE 50 MG TAB 100 MG PO ×2 (08:50→20:15)
[2024-12-24] MEDS: ATORVASTATIN 20 MG TABLET PO (08:50)
[2024-12-24] MEDS: EMPAGLIFLOZIN 10 MG TABLET PO (08:50)
[2024-12-24 12:03] LABS: Glucose Point of Care 167 mg/dl (65-105)
--- NOTE | 2024-12-24 12:36 | PM.PNCARD ---
Progress Note: A&P Assessment and Plan (1) Atrial fibrillation: Code(s): I48.91 - Unspecified atrial fibrillation Status: Acute (2) Acute on chronic diastolic congestive heart failure: Code(s): I50.33 - Acute on chronic diastolic (congestive) heart failure Status: Acute (3) Morbid obesity: Code(s): E66.01 - Morbid (severe) obesity due to excess calories Status: Acute (4) Obstructive sleep apnea (adult) (pediatric): Code(s): G47.33 - Obstructive sleep apnea (adult) (pediatric) Status: Acute Plan 74-year-old man with volume overload because of multifactorial issues. He has chronic atrial fibrillation, obstructive sleep apnea as well as morbid obesity. He has probably achieved maximal hospital benefit regarding his diuresis. I will see transition him to an oral Lasix regimen 80 mg daily starting tomorrow. He will not do well with no furosemide at all. Continue to follow with you while he is in the hospital. He is understandably concerned about discharge given his short interval returned to the hospital. Obviously he however cannot be kept in the hospital for the long-term Nawaf Garzon MD [facility] Subjective Date/time seen: Date of service: 12/24/24 12:36 Interval history: Reason for visit: Acute on chronic CHF HPI: Patient is a 74-year-old male who was recently admitted to the hospital for atrial fibrillation heart failure. He has a history of CAD, hypertension hyperlipidemia, diabetes, untreated sleep apnea, obesity presented hospital with shortness of breath. He was discharged under is nursing facility in had progressive weight gain over the past couple of days since discharge. He was short of breath and has abdominal discomfort, worsening edema. He is brought back to hospital for further workup and evaluation. He was also had borderline control in heart rate Date of service 12/19: States that his shortness of breath has resolved. However still has abdominal distention as well as lower extremity swelling. Uses CPAP at night Date of service 12/20: Feeling better, diuresing well. Date of service 12/21: Continues to diurese well. Feels like his abdomen is less distended. Date of service 12/22/2024: Complaining of pain on his back and buttocks. Wants to get out of bed. Breathing is better and swelling is improving as well. Date of service 12/23/2024: Feeling better today. No shortness of breath at rest but does still have dyspnea with activity. Complained of a short left pectoral pain that radiated to his back while getting up to the chair but no pain now. Date of service 12/24/2024: Is comfortable watching television sitting in the bedside chair offers no complaints. Expresses concern about whether he strong enough to be discharged today. He says that physicians this morning have indicated plans for discharge. IV furosemide has been discontinued according to the records. Exam Narrative: Awake alert oriented appears stated age Const: General: comfortable and no acute distress Other: Morbidly obese HENMT: Face/Nose/Sinus: Normal nares present Mouth: Yes moist mucous membranes Eyes: General: appearance normal, both eyes and all related structures Sclera: sclerae normal EOM: EOMs intact bilaterally Neck: Neck: supple and no JVD Carotids: no bruits Chest: Other: No reproducible chest wall pain to palpation Resp: Effort & Inspection: normal respiratory effort Auscultation: rales and diminished lung sounds Cardio: Rate: regular rate Rhythm: abnormal rhythm irregularly irregular Other: + Bilateral lower extremity edema GI: Inspection: distended Auscultation: normal bowel sounds Skin: General skin exam: normal color Neuro: Cranial nerves: Yes Normal hearing present Speech: normal speech and No Abnormal speech present Sensory Exam: normal sensation Extrem: General: edema and pedal edema Psych: Mental Status: mental status grossly normal Affect: normal affect Objective Data Vital Signs Vital Signs: Vital Signs - 24 hr 12/23/24 14:00 12/23/24 14:55 12/23/24 16:00 Temperature 36.4 C Pulse Rate 90 110 H 100 Respiratory Rate 16 Blood Pressure 113/65 Pulse Oximetry 93 Oxygen Delivery Fraction of Inspired Oxygen 12/23/24 20:00 12/23/24 20:25 12/23/24 20:32 Temperature 36.5 C Pulse Rate 91 107 H Respiratory Rate 20 Blood Pressure 109/69 Pulse Oximetry 94 Oxygen Delivery Room Air Fraction of Inspired Oxygen 12/23/24 22:05 12/23/24 22:30 12/23/24 22:30 Temperature Pulse Rate 91 Respiratory Rate 17 Blood Pressure Pulse Oximetry 94 94 Oxygen Delivery BiPAP BiPAP BiPAP Fraction of Inspired Oxygen 28 12/24/24 00:00 12/24/24 02:00 12/24/24 04:00 Temperature Pulse Rate 87 89 92 Respiratory Rate 14 Blood Pressure Pulse Oximetry 93 Oxygen Delivery BiPAP Fraction of Inspired Oxygen 12/24/24 05:30 12/24/24 05:59 12/24/24 08:00 Temperature 36.2 C L Pulse Rate 71 94 Respiratory Rate 20 15 Blood Pressure 142/91 H Pulse Oximetry 100 93 Oxygen Delivery BiPAP Room Air Fraction of Inspired Oxygen 12/24/24 08:50 12/24/24 09:02 Temperature Pulse Rate 94 Respiratory Rate Blood Pressure Pulse Oximetry 94 Oxygen Delivery Room Air Fraction of Inspired Oxygen 21 Intake/Output Intake/Output: Intake & Output 12/21/24 12/22/24 12/23/24 12/24/24 23:59 23:59 23:59 23:59 Intake Total 1217 880 936 387 Output Total 4325 6350 3775 1125 [facility] -3108 -[phone] -2839 -738 Meds/Results Medications: Active Medications Generic Name Dose Route Start Last Admin Trade Name Freq PRN Reason Stop Dose Admin Acetaminophen 650 mg 12/18/24 09:32 Acetaminophen 325 Mg Tablet PO Q4H PRN Mild Pain (1-3) or Fever Hydrocodone Bitart/Acetaminophen 1 tab 12/18/24 04:56 12/24/24 08:48 Hydrocodone/Acetaminophen (*Crx) 7.5-325 Mg Tablet PO 1 tab Q4H PRN Administration Pain Rated 7-10 Apixaban 5 mg 12/18/24 09:00 12/24/24 08:50 Apixaban 5 Mg Tablet PO 5 mg Q12HR SHIRA Administration Aspirin 81 mg 12/18/24 09:00 12/24/24 08:50 Aspirin 81 Mg Enteric Tablet PO 81 mg DAILY SHIRA Administration Atorvastatin Calcium 20 mg 12/18/24 05:00 12/24/24 08:50 Atorvastatin 20 Mg Tablet PO 20 mg DAILY SHIRA Administration Cyanocobalamin 1,000 mcg 12/18/24 09:00 12/24/24 08:50 Cyanocobalamin 1,000 Mcg Tablet PO 1,000 mcg QAM SHIRA Administration Dextrose 12.5 gm 12/18/24 04:57 Dextrose 50% 25 Gm/50 Ml Syringe IV PUSH PRN PRN Hypoglycemia Protocol Diltiazem HCl 180 mg 12/18/24 09:00 12/24/24 08:50 Diltiazem Hcl Cd 180 Mg Cap.24hr PO 180 mg QAM SHIRA Administration Empagliflozin 10 mg 12/21/24 09:00 12/24/24 08:50 Empagliflozin 10 Mg Tablet PO 10 mg DAILY SHIRA Administration Furosemide 60 mg 12/19/24 06:45 12/23/24 08:15 Furosemide Inj 40 Mg/4 Ml Vial IV PUSH 60 mg BID SHIRA Administration Gabapentin 300 mg 12/18/24 06:00 12/24/24 06:38 Gabapentin 300 Mg Capsule PO Not Given Q8HR SHIRA Glucagon 1 mg 12/18/24 04:57 Glucagon For Inj 1 Mg Vial IM PRN PRN Hypoglycemia Protocol Glucose 15 gm 12/18/24 04:57 Glucose Oral Gel 15 Gm Of Glucse In 37.5 Gm Tube PO PRN PRN Hypoglycemia Protocol Dextrose 1,000 mls @ 100 mls/hr 12/18/24 04:57 Dextrose 5% 1,000 Ml IVPB PRN PRN Hypoglycemia Protocol Insulin Aspart 3 - 6 units 12/18/24 08:00 12/24/24 12:28 Insulin Aspart (*Bkc) 100 Units/Ml SUB-Q Not Given TIDWM SHIRA Protocol Insulin Glargine 60 units 12/18/24 21:00 12/23/24 20:32 Insulin Glargine (*Bkc) 100 Units/Ml SUB-Q 60 units HS SHIRA Administration Levalbuterol HCl 1.25 mg 12/18/24 18:32 12/19/24 07:06 Levalbuterol Neb 1.25 Mg/3 Ml INHALATION 1.25 mg Q6HRT PRN Administration Shortness Of Breath Losartan Potassium 50 mg 12/19/24 09:00 12/20/24 09:15 Losartan Potassium 50 Mg Tablet PO 50 mg DAILY SHIRA Administration Metoprolol Tartrate 100 mg 12/18/24 05:00 12/24/24 08:50 Metoprolol Tartrate 50 Mg Tab PO 100 mg Q12HR SHIRA Administration Ondansetron HCl 4 mg 12/18/24 09:32 12/21/24 21:03 Ondansetron Inj 4 Mg/2 Ml Vial IV PUSH 4 mg Q6H PRN Administration Nausea And Vomiting Spironolactone 50 mg 12/19/24 09:00 12/24/24 08:50 Spironolactone 50 Mg Tablet PO 50 mg QAM SHIRA Administration Trazodone HCl 25 mg 12/18/24 20:13 12/23/24 20:32 Trazodone Hcl 25 Mg Tablet PO 25 mg HS PRN Administration Insomnia Radiology Results: ITS Impressions Chest X-Ray 12/19/24 06:51 Impression: Minimal right pleural effusion. Stable cardiomegaly. Labs Labs: Laboratory Results - last 24 hr 12/23/24 12/23/24 12/24/24 16:33 19:44 05:35 WBC 6.4 RBC 3.97 L Hgb 11.8 L Hct 37.5 L MCV 94.5 MCH 29.7 MCHC 31.5 L RDW 13.5 Plt Count 166 MPV 11.2 H Immature Gran % (Auto) 0.5 Neut % (Auto) 55.7 Lymph % (Auto) 31.1 [place] % (Auto) 10.1 H Eos % (Auto) 2.0 Baso % (Auto) 0.6 Lymph # (Auto) 2.00 [place] # (Auto) 0.7 H Eos # (Auto) 0.1 Baso # (Auto) 0.0 Abs Immat Gran (auto) 0.03 Absolute Neuts (auto) 3.6 Absolute Nucleated RBC 0.000 Nucleated RBC % 0.0 Sodium 136 L Potassium 3.7 Chloride 85 L Carbon Dioxide > 40 H Anion Gap BUN 28 H Creatinine 1.41 H Estim Creat Clear Calc 67 Estimated GFR 49 L Glucose 137 H POC Capillary Glucose 276 H 297 H Calcium 9.1 Total Bilirubin 0.6 AST 27 ALT 25 Alkaline Phosphatase 115 Total Protein 7.0 Albumin 3.8 Urine Color Urine Appearance Urine pH Ur Specific [place] Urine Protein Urine Glucose (UA) Urine Ketones Ur Blood (Man) Urine Nitrate Urine Bilirubin Urine Urobilinogen Leukocyte Esterase Rfl Urine RBC Urine WBC Ur Squamous Epith Cells Urine Bacteria Urine Casts 12/24/24 12/24/24 12/24/24 06:58 08:04 11:31 WBC RBC Hgb Hct MCV MCH MCHC RDW Plt Count MPV Immature Gran % (Auto) Neut % (Auto) Lymph % (Auto) [place] % (Auto) Eos % (Auto) Baso % (Auto) Lymph # (Auto) [place] # (Auto) Eos # (Auto) Baso # (Auto) Abs Immat Gran (auto) Absolute Neuts (auto) Absolute Nucleated RBC Nucleated RBC % Sodium Potassium Chloride Carbon Dioxide Anion Gap BUN Creatinine Estim Creat Clear Calc Estimated GFR Glucose POC Capillary Glucose 145 H 167 H Calcium Total Bilirubin AST ALT Alkaline Phosphatase Total Protein Albumin Urine Color Yellow Urine Appearance Turbid H Urine pH >=9.0 H Ur Specific [place] 1.019 Urine Protein 1+ H Urine Glucose (UA) 2+ H Urine Ketones Negative Ur Blood (Man) Negative Urine Nitrate Negative Urine Bilirubin Negative Urine Urobilinogen 1.0 Leukocyte Esterase Rfl 2+ H Urine RBC 0-2 Urine WBC 11-20 H Ur Squamous Epith Cells None seen Urine Bacteria 4+ Urine Casts 0-2
[2024-12-24] MEDS: GABAPENTIN 300 MG CAPSULE PO ×2 (14:16→20:15)
[2024-12-24 16:32] LABS: Glucose Point of Care 188 mg/dl (65-105)
[2024-12-24] MEDS: traZODone HCL 25 MG TABLET PO (20:15)
[2024-12-24] MEDS: INSULIN GLARGINE (*BKC) 100 UNITS/ML 60 UNITS SUB-Q (20:16)
--- NOTE | 2024-12-24 20:33 | P.PNPL_ITS ---
Progress Note: A&P Assessment and Plan (1) Hypoventilation associated with obesity syndrome: Code(s): E66.2 - Morbid (severe) obesity with alveolar hypoventilation Status: Acute Assessment and Plan: Patient admitted with BMI 62.5, hypercarbic respiratory failure and fluid overload from right heart failure. He has been diuresed and now is breathing back to near normal. Patient had an ABG on room air off of BiPAP for 24 hours with a pH of 7.44/63/61 indicating chronic hypercarbic respiratory failure from his obesity. TSH on 12/09/2024 1.04. patient has obesity hypoventilation syndrome and would benefit from noninvasive ventilation to prevent further hospitalizations and disease progression. He was initially tried on BiPAP but this was uncomfortable for him and he could not tolerate this. I have initiated noninvasive ventilation with the AVAPS mode. 12/20/24: Patient tells me he is continuing to improve. States he has 50% back to his normal. He denies cough, phlegm or wheezing. He is afebrile. White blood cell count 6.6. Currently is on room air with saturations 95%. Last night patient wore hospital noninvasive ventilator with the AVAPS mode rate of 14, tidal volume 500, EPAP 8, minimal inspiratory pressure 9, maximal inspiratory pressure 25, inspiratory time 1.0, rise of 3 and 24% FiO2. Patient said he slept very well with the machine although it felt like the air was coming and too fast. On these settings patient had an overnight oximetry with a recording duration of 5 hours and 54 minutes. Average saturation 95%. Low saturation 75%. Time with saturation less than or equal to 88% was 0 minutes. Oxygen desaturation index 7.1. Patient had an ABG prior to removal of the mass with pH of 7.45/58/74. I decreased his rise to 5 and increased his inspiratory time to 1.2 and he said these settings were much more comfortable. Plan: continue noninvasive ventilation with the AVAPS mode rate of 14, tidal volume 500, EPAP 8, minimal inspiratory pressure 9, maximal inspiratory pressure 25, inspiratory time 1.2 and a rise of 5 as this provides adequate ventilation.. Tonight I will place on room air and perform an overnight oximetry on room air. Once patient is closer to his baseline will leave off of noninvasive ventilation for 24 hours and repeat a blood gas to determine if he still has chronic hypercarbic respiratory failure and if he does will then initiate plans for home noninvasive ventilation. 12/21/24: Patient continues to improve. Tells me his 60-65% back to his normal. Denies fever, chills, cough or phlegm. Room air saturations 94%. Patient wore the hospital noninvasive ventilator with the AVAPS mode and room air last night. Overnight oximetry with recording duration 7 hours and 36 minutes. Average saturation 92%. Low saturation 85%. Time with saturation less than or equal to 88% was 2 minutes. Oxygen desaturation index 5.4. Patient diuresed yesterday 2.3 L. Cumulative diuresis since admission is 8.9 L. Weight today is 154. Plan: Patient continues to improve. Overnight on hospital AVAPS and room air with adequate ventilation and oxygenation. Tonight I will place the patient on room air and perform an overnight oximetry to assess oxygenation and an ABG at 8:00 a.m. to assess for chronic hypercarbic respiratory failure. 12/22/2024: Patient continues to improve. Tells me is 75-80% back to his normal. He has no cough or phlegm. Patient wore room air last night and said he slept poorly and had desaturations and was increased to 1.5 L. He had an overnight oximetry started on room air and then increase to 1.5 L with recording duration 8 hours and 36 minutes. Average saturation 83%. Low saturation 40%. Time with saturation less than or equal to 88% was 392 minutes. Oxygen desatura tion index 41.8. Patient had an ABG on room air off of BiPAP for 24 hours with a pH of 7.44/63/61. BNP has increased from 2660 on 12/18 to 3300 today. Patient diuresed 3.1 L yesterday cumulative diuresis from admission is 13.3 L. His weight today is an error at 181. Plan: I will initiate home noninvasive ventilation. AVAPS AE with rate of 14, tidal volume 500, Minimum EPAP 5, maximum EPAP 15, minimal inspiratory pressure 6, maximal inspiratory pressure 25, inspiratory time 1.2 and a rise of 5. patient requires room air with these settings. Later in the day, I completed a home noninvasive ventilator order form through via [employer] for TT V-Paps AE: Rate 14, tidal volume 500, EPAP minimum 5, EPAP maximum 15, minimum pressure support 6, maximum pressure support 25 with no oxygen bleed in. I was informed by the coordinator of online programs that the patient will be discharged to SNF facility that is unable to provide noninvasive with the AVAPS but can provide BiPAP. 12/23/2024: Patient tells me he is having a bad day. He complains of his usual pain in his feet, knees, hands, arms and shoulders he has good days and bad days at home. Overall the pain is affecting his breathing. The patient wore BiPAP rate of 14, pressures 18/8 and room air last night and said that he slept okay. Currently says he is breathing 60-65% of his normal, he has a n ormal cough with a little bit of phlegm. His edema has improved but is still present. His white blood cell count is 7.7, creatinine is 1.33. He diuresed 5.4 L yesterday. His weight is 181.1 kg today. Currently on room air with saturations 94%. Patient had an overnight oximetry on these BiPAP settings and room air with recording duration of 6 hours and 40 minutes, average saturation 84%, low saturation 75%. Time with saturation less than or equal to 88% was 370 mL, oxygen desaturation index 17.7. ABG prior to removal was 7.46/60/50. Plan: Current BiPAP settings provide adequate ventilation. He was hypoxemic on room air on these BiPAP settings. Will repeat overnight oximetry tonight on BiPAP 14, pressures 18/8 and 28% FIO2. The current plan will be for the patient to be discharged to his SNF on BiPAP and once he is discharged home from SNF he will use the noninvasive ventilator through via med with the TT V-Paps AE: Rate 14, tidal volume 500, EPAP minimum 5, EPAP maximum 15, minimum pressure support 6, maximum pressure support 25 with no oxygen bleed in as these settings provided adequate ventilation and oxygenation. Discussed with Dr. Leonard. Will follow with you. 12/24/2024: He is tolerating BiPAP 18/8 and 2 L/min at night, room air in the day. Improved. Overnight oximetry showed that this BiPAP with 2 L is sufficient. (2) Right heart failure: Code(s): I50.810 - Right heart failure, unspecified Status: Acute Assessment and Plan: 12/19/24: diuresed 1.9 L yesterday and cumulative diuresis is -2.9 L since admission on lasix 60 IV BID, Spironolactone 50 q.day. Chest x-ray shows minimal right pleural effusion with improved congestion. Patient states his edema and abdominal tightness are improved. BNP has improved from 3770 to 2660. Overall he says he feels better and he says he feels 30% back to his normal. his weight on admission was 158.6 kg and today he is 154.5 kg. Of note on 09/12/2024 he weighed 138.8 kg. Plan: recommend as aggressive diuresis as tolerated by his cardiac and renal systems per Cardiology and hospitalist teams. 12/20/24: creatinine 0.93. He is on Lasix 60 IV b.i.d. and diuresed 3.7 L yesterday cumulative since admission he is -5.7 L. His weight today is 154.5 with admission weight of 158.6. Plan: Agree with as aggressive diuresis as tolerated by his cardiac and renal systems per Cardiology and the hospitalist team. Patient is having some soft blood pressures would consider decreasing his antihypertensives to allow for continued aggressive diuresis. 12/21/24: Patient diuresed yesterday 2.3 L. creatinine 0.91 Cumulative diuresis since admission is 8.9 L. Weight today is 154. Plan: Agree with continued aggressive diuresis with Lasix 60 IV b.i.d.. Clonidine has been decreased. 12/22/24: BNP has increased from 2660 on 12/18 to 3300 today. creatinine 1.27. Patient diuresed 3.1 L yesterday cumulative diuresis from admission is 13.3 L. His weight today is an error at 181. Plan: Agree with continued aggressive diuresis with Lasix 60 IV b.i.d.. Would continue to decrease his antihypertensives. 12/23/24: His edema has improved but is still present. His creatinine is 1.33. He diuresed 5.4 L yesterday. His weight is 181.1 kg today. Cumulative diuresis since admission is 17.5 L Plan: creatinine increased to 1.33, need to be cautious of over-diuresis and would consider cutting back on his antihypertensives. 12/24/24: Wt down 178.2 kg, almost 2 kg since yesterday. Creatinine is 1.41, slightly higher. He has lost about 19 L total. Plan No changes in management. Continue BiPAP 18/8 & 2 L/min with sleep. Room air in the daytime. Subjective Date/time seen: 12/24/24 20:33 Interval history: 12/19/2024: This is a new pulmonary consult for hypoxemic and hypercarbic respiratory failure, morbid obesity and congestive heart failure. 74-year-old with a history of CVA, CAD, AFib with RVR, diastolic dysfunction, hypertension, hyperlipidemia, diabetes, morbid obesity and untreated sleep apnea. Regarding his obstructive sleep apnea the patient tells me in the 1970s he had a sleep study and was prescribed a fullface mask CPAP machine and he were to few times and could not tolerate it and never had any follow-up. At that time he had witnessed apneas per his . Recently he does not know if he snores. He and his sleep in separate bedrooms and does not know if he has witnessed apneas, he has no morning headaches. He was on Ozempic and weight 385 lb and lost 100 lb to 285 lb. At baseline he says he could walk 1 block and this is unchanged over the last year. Over the last 3-4 weeks he can only walk room to room. He does not measure his oxygen. Patient smoked tobacco from [id number] at 1 pack per day for a total of 31 pack years. Approximately 3-4 weeks ago he has had Shortness of breath at rest, dyspnea on exertion, weight gain, tight abdomen and lower extremity edema. He was admitted to the hospital from 12/08/2024 through 12/14/24 with fluid overload with an admission BNP of 3540, TSH 12/09/2024 1.04. AFib with RVR and he was diuresed with IV Lasix. His weight on admission was 159.7 kg and on discharge was 161.2 kg. on 12/13/2024 his BNP was 4470. He was admitted on 20 mg of Lasix twice a day and discharged on 40 mg of Lasix twice a day. 12/17/2024 the patient presented back to the hospital with worsening shortness of breath and increased edema. Is BNP was 3770, chest x-ray showed congestion with small effusions, he had AFib with RVR and he was treated with IV Lasix. His room air blood gas was 7.42/46/63. On 12/18/2024 the patient was on 1 L and had a blood gas of 7.43/52/73 and was empirically placed on auto PAP 5-15. 12/19/24: The patient is awake and alert currently on auto PAP with 1 L bleed in with saturations 97%. I placed him on room air and his saturations were 93- 94%. His white blood cell count 6.8, creatinine 1.09, diuresed 1.9 L yesterday and cumulative diuresis is -2.9 L. patient had an ABG on auto PAP 5-15 of 7.40/57/79. Chest x-ray shows minimal right pleural effusion with improved congestion. Patient states his edema and abdominal tightness are improved. Overall he says he feels better and he says he feels 30% back to his normal. He denies fever, chills, rigors. Remains with shortness of breath. Patient wore the auto PAP 5-15 and said he got the best night of his sleep in the last 3 weeks. 12/20/24: Patient tells me he is continuing to improve. States he has 50% back to his normal. He denies cough, phlegm or wheezing. He is afebrile. White blood cell count 6.6, creatinine 0.93. He is on Lasix 60 IV b.i.d. and diuresed 3.7 L yesterday cumulative since admission he is -5.7 L. His weight today is 154.5 with admission weight of 158.6. Currently is on room air with saturations 95%. Last night patient wore hospital noninvasive ventilator with the AVAPS mode rate of 14, tidal volume 500, EPAP 8, minimal inspiratory pressure 9, maximal inspiratory pressure 25, inspiratory time 1.0, rise of 3 and 24% FiO2. Patient said he slept very well with the machine although it felt like the air was coming and too fast. On these settings patient had an overnight oximetry with a recording duration of 5 hours and 54 minutes. Average saturation 95%. Low saturation 75%. Time with saturation less than or equal to 88% was 0 minutes. Oxygen desaturation index 7.1. Patient had an ABG prior to removal of the mass with pH of 7.45/58/74. I decreased his rise to 5 and increased his inspiratory time to 1.2 and he said these settings were much more comfortable. 12/21/24: Patient continues to improve. Tells me his 60-65% back to his normal. Denies fever, chills, cough or phlegm. Room air saturations 94%. Patient wore the hospital noninvasive ventilator with the AVAPS mode and room air last night. Overnight oximetry with recording duration 7 hours and 36 minutes. Average saturation 92%. Low saturation 85%. Time with saturation less than or equal to 88% was 2 minutes. Oxygen desaturation index 5.4. Patient diuresed yesterday 2.3 L. Cumulative diuresis since admission is 8.9 L. Weight today is 154. 12/22/2024: Patient continues to improve. Tells me is 75-80% back to his normal. He has no cough or phlegm. Patient wore room air last night and said he slept poorly and had desaturations and was increased to 1.5 L. He had an overnight oximetry started on room air and then increase to 1.5 L with recording duration 8 hours and 36 minutes. Average saturation 83%. Low saturation 40%. Time with saturation less than or equal to 88% was 392 minutes. Oxygen desaturation index 41.8. Patient had an ABG on room air off of BiPAP for 24 hours with a pH of 7.44/63/61. BNP has increased from 2660 on 12/18 1-3300 today. Patient diuresed 3.1 L yesterday cumulative diuresis from admission is 13.3 L. His weight today is an error at 181. Later in the day, I completed a home noninvasive ventilator order form through via [employer] for TT V-Paps AE: Rate 14, tidal volume 500, EPAP minimum 5, EPAP maximum 15, minimum pressure support 6, maximum pressure support 25 with no oxygen bleed in. I was informed by the coordinator of online programs that the patient will be discharged to SNF facility that is unable to provide noninvasive with the AVAPS but can provide BiPAP. 12/23/2024: Patient tells me he is having a bad day. He complains of his usual pain in his feet, knees, hands, arms and shoulders he has good days and bad days at home. Overall the pain is affecting his breathing. The patient wore BiPAP rate of 14, pressures 18/8 and room air last night and said that he slept okay. Currently says he is breathing 60-65% of his normal, he has a normal cough with a little bit of phlegm. His edema has improved but is still present. His white blood cell count is 7.7, creatinine is 1.33. Currently on room air with saturations 94%. Patient had an overnight oximetry on these BiPAP settings and room air with recording duration of 6 hours and 40 minutes, average saturation 84%, low saturation 75%. Time with saturation less than or equal to 88% was 370 mL, oxygen desaturation index 17.7. ABG prior to removal was 7.46/60/50. 12/24/2024: His overnight oximetry with BiPAP and 2 L was excellent; no time below 88%; recording time was 5 hours 38 min on BiPAP I/E 18/8, rate 14, 2 L O2. He says that his breathing feels fine, not coughing, no sputum. He is on room air, saturation is 94 to 97%. DATA: 12/17/24: CHEST RADIOGRAPH CLINICAL HISTORY: dyspnea/ chf . COMPARISON: 12/08/2024 TECHNIQUE: Single portable view of the chest. FINDINGS The cardiomediastinal silhouette is enlarged, unchanged. Calcified lymph nodes within the mediastinum suggesting prior granulomatous disease. Increased interstitial markings are identified bilaterally, findings suggesting mild pulmonary vascular congestion. Bilateral pleural effusions, right greater than left. The remainder of the lungs are clear. IMPRESSION: Bilateral pleural effusions, with mild pulmonary vascular congestion. 12/09/24: Echo Summary 1. Left ventricular chamber dimension is normal. 2. Left ventricular systolic function is normal, estimated at 50-55%. 3. There is moderately increased left ventricular wall thickness. 4. Right ventricular chamber dimension is mildly enlarged. 5. Right ventricular systolic function is reduced. 6. Left atrial chamber dimension is severely enlarged. 7. Right atrial chamber dimension is severely enlarged. 8. There is moderate tricuspid valve regurgitation. 9. There is trivial pericardial effusion. Right Ventricle Right ventricular chamber dimension is mildly enlarged. Right ventricular systolic function is reduced. Left Atria Left atrial chamber dimension is severely enlarged. Right Atria Right atrial chamber dimension is severely enlarged. Atrial Septum Intact interatrial septum visualized by color flow imaging. 09/23/2021: Echo Summary 1. Complete two-dimensional, color flow and Doppler transthoracic echocardiogram is performed. 2. Left ventricular chamber dimension is normal. 3. Left ventricular systolic function is normal, estimated at 60-65%. 4. There is moderately increased left ventricular wall thickness. 5. The left ventricular diastolic function is grade I diastolic dysfunction. 6. There is no aortic valve stenosis. 7. There is trace tricuspid valve regurgitation. 8. No pulmonary hypertension, estimated pulmonary arterial systolic pressure is 14 mmHg. 9. There is trace mitral valve regurgitation. Right Ventricle Right ventricular chamber dimension is normal. Right ventricular systolic function is normal. Left Atria Left atrial chamber dimension is mildly enlarged. Right Atria Right atrial chamber dimension is mildly enlarged. Review of Systems Review of Systems: All systems reviewed & are unremarkable except as noted in HPI and below Exam Narrative: GEN: Alert, oriented, not in distress. HEENT: pupils are equal, EOMI, symmetrical face NECK: Trachea is midline CHEST: Equal air entry, symmetric excursion, decreased breath sounds in bases CV: Regular S1S2 no m/g/r ABD : (+) bowel sounds Extremities : no clubbing or cyanosis. PSYCH: normal thought and speech Objective Data Vital Signs Vital Signs: Vital Signs - 24 hr 12/23/24 22:05 12/23/24 22:30 12/23/24 22:30 Temperature Pulse Rate 91 Respiratory Rate 17 Blood Pressure Pulse Oximetry 94 94 Oxygen Delivery BiPAP BiPAP BiPAP Fraction of Inspired Oxygen 28 12/24/24 00:00 12/24/24 02:00 12/24/24 04:00 Temperature Pulse Rate 87 89 92 Respiratory Rate 14 Blood Pressure Pulse Oximetry 93 Oxygen Delivery BiPAP Fraction of Inspired Oxygen 12/24/24 05:30 12/24/24 05:59 12/24/24 08:00 Temperature 36.2 C L Pulse Rate 71 94 Respiratory Rate 20 15 Blood Pressure 142/91 H Pulse Oximetry 100 93 Oxygen Delivery BiPAP Room Air Fraction of Inspired Oxygen 12/24/24 08:00 12/24/24 08:50 12/24/24 09:02 Temperature Pulse Rate 105 H 94 Respiratory Rate Blood Pressure Pulse Oximetry 94 Oxygen Delivery Room Air Fraction of Inspired Oxygen 21 12/24/24 12:00 12/24/24 14:00 12/24/24 16:00 Temperature 36.6 C Pulse Rate 100 62 118 H Respiratory Rate 18 Blood Pressure 133/85 Pulse Oximetry 97 Oxygen Delivery Fraction of Inspired Oxygen 12/24/24 20:15 Temperature Pulse Rate 104 H Respiratory Rate Blood Pressure Pulse Oximetry Oxygen Delivery Fraction of Inspired Oxygen Intake/Output Intake/Output: Intake & Output 12/21/24 12/22/24 12/23/24 12/24/24 23:59 23:59 23:59 23:59 Intake Total 1217 880 936 864 Output Total 4325 6350 3775 1375 [facility] -[phone] Meds/Results Medications: Active Medications Generic Name Dose Route Start Last Admin Trade Name Freq PRN Reason Stop Dose Admin Acetaminophen 650 mg 12/18/24 09:32 Acetaminophen 325 Mg Tablet PO Q4H PRN Mild Pain (1-3) or Fever Hydrocodone Bitart/Acetaminophen 1 tab 12/18/24 04:56 12/24/24 20:15 Hydrocodone/Acetaminophen (*Crx) 7.5-325 Mg Tablet PO 1 tab Q4H PRN Administration Pain Rated 7-10 Apixaban 5 mg 12/18/24 09:00 12/24/24 20:15 Apixaban 5 Mg Tablet PO 5 mg Q12HR SHIRA Administration Aspirin 81 mg 12/18/24 09:00 12/24/24 08:50 Aspirin 81 Mg Enteric Tablet PO 81 mg DAILY SHIRA Administration Atorvastatin Calcium 20 mg 12/18/24 05:00 12/24/24 08:50 Atorvastatin 20 Mg Tablet PO 20 mg DAILY SHIRA Administration Cyanocobalamin 1,000 mcg 12/18/24 09:00 12/24/24 08:50 Cyanocobalamin 1,000 Mcg Tablet PO 1,000 mcg QAM SHIRA Administration Dextrose 12.5 gm 12/18/24 04:57 Dextrose 50% 25 Gm/50 Ml Syringe IV PUSH PRN PRN Hypoglycemia Protocol Diltiazem HCl 180 mg 12/18/24 09:00 12/24/24 08:50 Diltiazem Hcl Cd 180 Mg Cap.24hr PO 180 mg QAM SHIRA Administration Empagliflozin 10 mg 12/21/24 09:00 12/24/24 08:50 Empagliflozin 10 Mg Tablet PO 10 mg DAILY HSIRA Administration Furosemide 80 mg 12/25/24 09:00 Furosemide 80 Mg Tablet PO DAILY SHIRA Gabapentin 300 mg 12/18/24 06:00 12/24/24 20:15 Gabapentin 300 Mg Capsule PO 300 mg Q8HR SHIRA Administration Glucagon 1 mg 12/18/24 04:57 Glucagon For Inj 1 Mg Vial IM PRN PRN Hypoglycemia Protocol Glucose 15 gm 12/18/24 04:57 Glucose Oral Gel 15 Gm Of Glucse In 37.5 Gm Tube PO PRN PRN Hypoglycemia Protocol Dextrose 1,000 mls @ 100 mls/hr 12/18/24 04:57 Dextrose 5% 1,000 Ml IVPB PRN PRN Hypoglycemia Protocol Insulin Aspart 3 - 6 units 12/18/24 08:00 12/24/24 18:20 Insulin Aspart (*Bkc) 100 Units/Ml SUB-Q Not Given [facility] Protocol Insulin Glargine 60 units 12/18/24 21:00 12/24/24 20:16 Insulin Glargine (*Bkc) 100 Units/Ml SUB-Q 60 units HS SHIRA Administration Levalbuterol HCl 1.25 mg 12/18/24 18:32 12/19/24 07:06 Levalbuterol Neb 1.25 Mg/3 Ml INHALATION 1.25 mg Q6HRT PRN Administration Shortness Of Breath Losartan Potassium 50 mg 12/19/24 09:00 12/20/24 09:15 Losartan Potassium 50 Mg Tablet PO 50 mg DAILY SHIRA Administration Metoprolol Tartrate 100 mg 12/18/24 05:00 12/24/24 20:15 Metoprolol Tartrate 50 Mg Tab PO 100 mg Q12HR SHIRA Administration Ondansetron HCl 4 mg 12/18/24 09:32 12/21/24 21:03 Ondansetron Inj 4 Mg/2 Ml Vial IV PUSH 4 mg Q6H PRN Administration Nausea And Vomiting Spironolactone 50 mg 12/19/24 09:00 12/24/24 08:50 Spironolactone 50 Mg Tablet PO 50 mg QAM SHIRA Administration Trazodone HCl 25 mg 12/18/24 20:13 12/24/24 20:15 Trazodone Hcl 25 Mg Tablet PO 25 mg HS PRN Administration Insomnia Radiology Results: ITS Impressions Chest X-Ray 12/19/24 06:51 Impression: Minimal right pleural effusion. Stable cardiomegaly. Labs Labs: Laboratory Results - last 24 hr 12/24/24 12/24/24 12/24/24 05:35 06:58 08:04 WBC 6.4 RBC 3.97 L Hgb 11.8 L Hct 37.5 L MCV 94.5 MCH 29.7 MCHC 31.5 L RDW 13.5 Plt Count 166 MPV 11.2 H Immature Gran % (Auto) 0.5 Neut % (Auto) 55.7 Lymph % (Auto) 31.1 [place] % (Auto) 10.1 H Eos % (Auto) 2.0 Baso % (Auto) 0.6 Lymph # (Auto) 2.00 [place] # (Auto) 0.7 H Eos # (Auto) 0.1 Baso # (Auto) 0.0 Abs Immat Gran (auto) 0.03 Absolute Neuts (auto) 3.6 Absolute Nucleated RBC 0.000 Nucleated RBC % 0.0 Sodium 136 L Potassium 3.7 Chloride 85 L Carbon Dioxide > 40 H Anion Gap BUN 28 H Creatinine 1.41 H Estim Creat Clear Calc 67 Estimated GFR 49 L Glucose 137 H POC Capillary Glucose 145 H Calcium 9.1 Total Bilirubin 0.6 AST 27 ALT 25 Alkaline Phosphatase 115 Total Protein 7.0 Albumin 3.8 Urine Color Yellow Urine Appearance Turbid H Urine pH >=9.0 H Ur Specific [place] 1.019 Urine Protein 1+ H Urine Glucose (UA) 2+ H Urine Ketones Negative Ur Blood (Man) Negative Urine Nitrate Negative Urine Bilirubin Negative Urine Urobilinogen 1.0 Leukocyte Esterase Rfl 2+ H Urine RBC 0-2 Urine WBC 11-20 H Ur Squamous Epith Cells None seen Urine Bacteria 4+ Urine Casts 0-2 12/24/24 12/24/24 11:31 16:26 WBC RBC Hgb Hct MCV MCH MCHC RDW Plt Count MPV Immature Gran % (Auto) Neut % (Auto) Lymph % (Auto) [place] % (Auto) Eos % (Auto) Baso % (Auto) Lymph # (Auto) [place] # (Auto) Eos # (Auto) Baso # (Auto) Abs Immat Gran (auto) Absolute Neuts (auto) Absolute Nucleated RBC Nucleated RBC % Sodium Potassium Chloride Carbon Dioxide Anion Gap BUN Creatinine Estim Creat Clear Calc Estimated GFR Glucose POC Capillary Glucose 167 H 188 H Calcium Total Bilirubin AST ALT Alkaline Phosphatase Total Protein Albumin Urine Color Urine Appearance Urine pH Ur Specific [place] Urine Protein Urine Glucose (UA) Urine Ketones Ur Blood (Man) Urine Nitrate Urine Bilirubin Urine Urobilinogen Leukocyte Esterase Rfl Urine RBC Urine WBC Ur Squamous Epith Cells Urine Bacteria Urine Casts
[2024-12-24 21:32] LABS: Glucose Point of Care 296 mg/dl (65-105)
[2024-12-25] VITALS (14 sets, daily range): BP systolic 105–129; BP diastolic 61–94; PULSE 85–135; RESP 18–24; TEMP 35.6–36.7; O2SAT 90–100
[2024-12-25 05:53] LABS: Basophils Percent Auto 0.4 % (0.2-1.2); Eosinophils Absolute Auto 0.2 K/mm3 (0-0.3); Eosinophils Percent Auto 2.3 % (0-4.4); Hematocrit 40.4 % (42.0-52.0); Hemoglobin 12.5 g/dL (14.0-18.0); Immature Granulocyte Absolute 0.03 K/mm3 (0.00-0.031); Immature Granulocyte Percent A 0.4 % (0-0.5); Lymphocytes Absolute Auto 2.91 K/mm3 (0.9-3.2); Lymphocytes Percent Auto 35.8 % (18.3-44.2); Mean Corpuscular HGB Conc 30.9 g/dl (32-36); Mean Corpuscular Hemoglobin 29.4 pg (26-34); Mean Corpuscular Volume 95.1 fl (80-100); Mean Platelet Volume 11.3 fl (7.4-10.4); Monocytes Absolute Auto 0.7 K/mm3 (0.1-0.6); Monocytes Percent Auto 8.6 % (2.6-8.5); Neutrophils Absolute Auto 4.3 K/mm3 (1.3-6.7); Neutrophils Percent Auto 52.5 % (45.5-73.1); Platelet Count Result 191 k/mm3 (150-375); Red Blood Count 4.25 M/mm3 (4.6-6.20); Red Cell Distribution Width 13.4 % (11.5-14.5); White Blood Count 8.1 K/mm3 (4.5-10.0)
[2024-12-25 06:08] LABS: Alanine Aminotransferase 25 U/L (6-50); Albumin Level 4.1 g/dL (3.5-5.1); Alkaline Phosphatase 122 U/L (38-126); Anion Gap 8 mmol/L (4-12); Aspartate Amino Transferase 29 U/L (17-59); Bilirubin,Total 0.7 mg/dL (0.2-1.3); Blood Urea Nitrogen 27 mg/dL (9-20); Calcium 9.2 mg/dL (8.4-10.2); Carbon Dioxide 39 mmol/L (22-30); Chloride 87 mmol/L (98-107); Estimated CRCL calculation 68 ml/min; Estimated Glomerular Filt Rate 51; Glucose 145 mg/dL (65-110); Potassium 3.7 mmol/L (3.4-5.0); Sodium 134 mmol/L (137-145)
[2024-12-25] MEDS: GABAPENTIN 300 MG CAPSULE PO ×3 (06:16→20:28)
[2024-12-25] MEDS: ONDANSETRON INJ 4 MG/2 ML VIAL IV PUSH (07:46)
[2024-12-25] MEDS: HYDROcodone/acetaminophen (*CRX) 7.5-325 MG TABLET 1 TAB PO ×3 (07:48→20:29)
[2024-12-25 08:26] LABS: Glucose Point of Care 163 mg/dl (65-105)
[2024-12-25] MEDS: FUROSEMIDE 80 MG TABLET PO (09:10)
[2024-12-25] MEDS: METOPROLOL TARTRATE 50 MG TAB 100 MG PO ×2 (09:10→20:29)
[2024-12-25] MEDS: CYANOCOBALAMIN 1,000 MCG TABLET 1000 MCG PO (09:10)
[2024-12-25] MEDS: ATORVASTATIN 20 MG TABLET PO (09:10)
[2024-12-25] MEDS: ASPIRIN 81 MG ENTERIC TABLET PO (09:11)
[2024-12-25] MEDS: EMPAGLIFLOZIN 10 MG TABLET PO (09:11)
[2024-12-25] MEDS: SPIRONOLACTONE 50 MG TABLET PO (09:11)
[2024-12-25] MEDS: dilTIAZem HCL CD 180 MG CAP.24HR PO (09:11)
[2024-12-25] MEDS: APIXABAN 5 MG TABLET PO ×2 (09:11→20:28)
--- NOTE | 2024-12-25 11:17 | P.PNIM_ITS ---
Progress Note: A&P Assessment and Plan (1) Acute on chronic diastolic congestive heart failure: Code(s): I50.33 - Acute on chronic diastolic (congestive) heart failure Status: Acute Assessment and Plan: Patient just discharged 3 days ago after hospitalization for CHF exacerbation and AFib RVR. Severe anasarca currently patient is getting diuresis [id number] diastolic dysfunction with elevated BNP * po Lasix daily.80 mg * spironolactone * one dose Metolazone today * Jardiance * monitor renal function during diuresis * chest x-ray: bilateral pleural effusions interstitial congestion * Daily weight. * Strict I&O's * fluid restriction (2) Hypoventilation associated with obesity syndrome: Code(s): E66.2 - Morbid (severe) obesity with alveolar hypoventilation Status: Acute Assessment and Plan: * lifestyle modification (3) Obstructive sleep apnea: Code(s): G47.33 - Obstructive sleep apnea (adult) (pediatric) Status: Acute Assessment and Plan: on bipap. pulmonary team on board (4) Atrial fibrillation with rapid ventricular response: Code(s): I48.91 - Unspecified atrial fibrillation Status: Acute Assessment and Plan: * EKG showed 86 in atrial fibrillation * on diltiazem, metoprolol, and Eliquis (5) Essential (primary) hypertension: Code(s): I10 - Essential (primary) hypertension Status: Acute Assessment and Plan: * reviewed * diltiazem, metoprolol, losartan * discontinue patient's amlodipine due to bilateral leg edema * losartan on hold * BP per unit protocol (6) Insulin dependent type 2 diabetes mellitus: Code(s): E11.9 - Type 2 diabetes mellitus without complications; Z79.4 - director long term care (current) use of insulin Status: Acute Assessment and Plan: * Accu-Cheks a.c. HS * sliding scale insulin * hold oral diabetic medications * patient's long-acting insulin not formulated * Lantus 60 units HS * Watch for hypoglycemia/hypoglycemic protocol ordered (7) Mixed hyperlipidemia: Code(s): E78.2 - Mixed hyperlipidemia Status: Acute Assessment and Plan: * Atorvastatin (8) Morbid obesity: Code(s): E66.01 - Morbid (severe) obesity due to excess calories Status: Acute Assessment and Plan: * Encouraged strict diet restrictions and weight loss * Encourage increased activity patient going to Rehab at discharge * likely contributing to some of his chronic problems (9) Abdominal pain: Code(s): R10.9 - Unspecified abdominal pain Status: Acute Assessment and Plan: unclear etiology recent US showed splenomegally had BM yesterday denies any chest pain. no fever, WBC WNL, will give bentyl monitor Plan Code status: Full code per patient DVT prophylaxis: Eliquis Stress ulcer prophylaxis: does not need PT/OT notes: SNF Disposition: Continue withpo diuretics. PT/OT ordered plan to return to retirement facility for physical and occupational therapy when medically stable. Today complaining of left-sided pain not getting better with pain medication. Possible discharge tomorrow Subjective Date/time seen: 12/25/24 11:17 Interval history: per HPI: Patient is a 74-year-old male who was recently admitted to the hospital for atrial fibrillation heart failure. He has a history of CAD, hypertension hyperlipidemia, diabetes, untreated sleep apnea, obesity presented hospital with shortness of breath. He was discharged under is nursing facility in had progressive weight gain over the past couple of days since discharge. He was short of breath and has abdominal discomfort, worsening edema. He is brought back to hospital for further workup and evaluation. He was also had borderline control in heart rate Date of service 12/19: States that his shortness of breath has resolved. However still has abdominal distention as well as lower extremity swelling. Uses CPAP at night Date of service 12/20: Feeling better, diuresing well. Date of service 12/21: Continues to diurese well. Feels like his abdomen is less distended. still has bilateral leg edema. pulmonary team on board plan for dest study tonight. cardiology team on board. Continue Lasix 60 mg IV BID. Will give a dose of Metolazone today. -Continue Losartan 50 mg daily and Spironolactone 50 mg daily. lopressor, Eliquis, ASA Statin -Started Jardianc 12/22/24 Patient was seen and examined at bedside. He is feeling better. Breathing improving. Continue with Lasix. Denies any chest pain, abdominal pain, nausea vomiting, bilateral leg swelling improving 12/23/24 Patient with an exam at bedside. He is doing fine. Denies any chest pain optimum pain, nausea vomiting. Breathing and bilateral leg swelling improving. Continue with Lasix losartan, spironolactone. Reviewed pulmonary notes. Plan for desat study on BiPAP tonight. Possible Discharge tomorrow to rehab 12/24/24 Patient was seen and examined at bedside Blood pressure 142/91. Using BiPAP at night WBC 6.4, hemoglobin 11.8, sodium 136, potassium 3.7, creatinine 1.41. UA concerning for UTI Lasix on hold with creatinin 1.41 Reviewed pulmonary note: BiPAP 14, pressures 18/8 and 28% FIO2. The current plan will be for the patient to be discharged to his SNF on BiPAP and once he is discharged home from SNF he will use the noninvasive ventilator through via med with the TT V-Paps AE: Rate 14, tidal volume 500, EPAP minimum 5, EPAP maximum 15, minimum pressure support 6, maximum pressure support 25 with no oxygen bleed in Have reviewed cardiology team. Patient needs to be on Lasix, losartan, Jardiance, Lopressor, details, Eliquis, aspirin and Lipitor. Will start Lasix tomorrow 80 mg 12/25/24 Patient was seen and examined at bedside. he is complaint of left upper abdomen pain. he notes it similar to the pain he had recently. Denied any chest pain, shortness off breath, N or vomiting. Denies any fever chills. One bowel movement yesterday. Recent ultrasound showed a splenomegaly. Will start Bentyl will continue to monitor Review of Systems Review of Systems: 12 systems were reviewed and are negativ e except for as per HPI. All systems reviewed & are unremarkable except as noted in HPI and below Exam Narrative: General: Pleasant chronically ill looking male in no acute distress HEENT: Oral mucosa moist. Respiratory: Lung sounds diminished,at the bases. Cardiovascular: Irregularly irregular Gastrointestinal: Abdomen is obese and L upper tender with normal bowel sounds. Skin: Warm and dry. Extremities: No cyanosis or clubbing. lower ext 2+ edema Neurological: Alert. No gross focal deficits to casual conversation. Objective Data Vital Signs Vital Signs: Vital Signs - 24 hr 12/24/24 12:00 12/24/24 14:00 12/24/24 16:00 Temperature 97.9 F Pulse Rate 100 62 118 H Respiratory Rate 18 Blood Pressure 133/85 Pulse Oximetry 97 Oxygen Delivery Fraction of Inspired Oxygen 12/24/24 20:00 12/24/24 20:00 12/24/24 20:05 Temperature 96.4 F L Pulse Rate 104 H 115 H 104 H Respiratory Rate 18 18 Blood Pressure 152/74 H Pulse Oximetry 94 94 Oxygen Delivery Room Air Fraction of Inspired Oxygen 21 12/24/24 20:15 12/24/24 22:10 12/25/24 00:00 Temperature Pulse Rate 104 H 90 118 H Respiratory Rate 18 Blood Pressure Pulse Oximetry 95 Oxygen Delivery BiPAP Fraction of Inspired Oxygen 12/25/24 01:53 12/25/24 04:00 12/25/24 04:15 Temperature 96.1 F L Pulse Rate 85 98 91 Respiratory Rate 18 20 Blood Pressure 129/94 H Pulse Oximetry 95 100 Oxygen Delivery BiPAP Fraction of Inspired Oxygen 12/25/24 09:05 12/25/24 09:10 Temperature Pulse Rate 110 H Respiratory Rate Blood Pressure Pulse Oximetry 93 Oxygen Delivery Room Air Fraction of Inspired Oxygen Intake/Output Intake/Output: Intake & Output 12/22/24 12/23/24 12/24/24 12/25/24 23:59 23:59 23:59 23:59 Intake Total 880 936 864 462 Output Total 6350 3775 1375 [facility] -[phone] Meds/Results Medications: Active Medications Generic Name Dose Route Start Last Admin Trade Name Freq PRN Reason Stop Dose Admin Acetaminophen 650 mg 12/18/24 09:32 Acetaminophen 325 Mg Tablet PO Q4H PRN Mild Pain (1-3) or Fever Hydrocodone Bitart/Acetaminophen 1 tab 12/18/24 04:56 12/25/24 07:48 Hydrocodone/Acetaminophen (*Crx) 7.5-325 Mg Tablet PO 1 tab Q4H PRN Administration Pain Rated 7-10 Apixaban 5 mg 12/18/24 09:00 12/25/24 09:11 Apixaban 5 Mg Tablet PO 5 mg Q12HR SHIRA Administration Aspirin 81 mg 12/18/24 09:00 12/25/24 09:11 Aspirin 81 Mg Enteric Tablet PO 81 mg DAILY SHIRA Administration Atorvastatin Calcium 20 mg 12/18/24 05:00 12/25/24 09:10 Atorvastatin 20 Mg Tablet PO 20 mg DAILY SHIRA Administration Cyanocobalamin 1,000 mcg 12/18/24 09:00 12/25/24 09:10 Cyanocobalamin 1,000 Mcg Tablet PO 1,000 mcg QAM SHIRA Administration Dextrose 12.5 gm 12/18/24 04:57 Dextrose 50% 25 Gm/50 Ml Syringe IV PUSH PRN PRN Hypoglycemia Protocol Dicyclomine HCl 20 mg 12/25/24 11:15 Dicyclomine Hcl 10 Mg Capsule PO QID PRN Abdominal Cramping Diltiazem HCl 180 mg 12/18/24 09:00 12/25/24 09:11 Diltiazem Hcl Cd 180 Mg Cap.24hr PO 180 mg QAM SHIRA Administration Empagliflozin 10 mg 12/21/24 09:00 12/25/24 09:11 Empagliflozin 10 Mg Tablet PO 10 mg DAILY SHIRA Administration Furosemide 80 mg 12/25/24 09:00 12/25/24 09:10 Furosemide 80 Mg Tablet PO 80 mg DAILY SHIRA Administration Gabapentin 300 mg 12/18/24 06:00 12/25/24 06:16 Gabapentin 300 Mg Capsule PO 300 mg Q8HR SHIRA Administration Glucagon 1 mg 12/18/24 04:57 Glucagon For Inj 1 Mg Vial IM PRN PRN Hypoglycemia Protocol Glucose 15 gm 12/18/24 04:57 Glucose Oral Gel 15 Gm Of Glucse In 37.5 Gm Tube PO PRN PRN Hypoglycemia Protocol Dextrose 1,000 mls @ 100 mls/hr 12/18/24 04:57 Dextrose 5% 1,000 Ml IVPB PRN PRN Hypoglycemia Protocol Insulin Aspart 3 - 6 units 12/18/24 08:00 12/25/24 08:53 Insulin Aspart (*Bkc) 100 Units/Ml SUB-Q Not Given TIDWM SHIRA Protocol Insulin Glargine 60 units 12/18/24 21:00 12/24/24 20:16 Insulin Glargine (*Bkc) 100 Units/Ml SUB-Q 60 units HS SHIRA Administration Levalbuterol HCl 1.25 mg 12/18/24 18:32 12/19/24 07:06 Levalbuterol Neb 1.25 Mg/3 Ml INHALATION 1.25 mg Q6HRT PRN Administration Shortness Of Breath Losartan Potassium 50 mg 12/19/24 09:00 12/20/24 09:15 Losartan Potassium 50 Mg Tablet PO 50 mg DAILY SHIRA Administration Metoprolol Tartrate 100 mg 12/18/24 05:00 12/25/24 09:10 Metoprolol Tartrate 50 Mg Tab PO 100 mg Q12HR SHIRA Administration Ondansetron HCl 4 mg 12/18/24 09:32 12/25/24 07:46 Ondansetron Inj 4 Mg/2 Ml Vial IV PUSH 4 mg Q6H PRN Administration Nausea And Vomiting Spironolactone 50 mg 12/19/24 09:00 12/25/24 09:11 Spironolactone 50 Mg Tablet PO 50 mg QAM SHIRA Administration Trazodone HCl 25 mg 12/18/24 20:13 12/24/24 20:15 Trazodone Hcl 25 Mg Tablet PO 25 mg HS PRN Administration Insomnia Radiology Results: ITS Impressions Chest X-Ray 12/19/24 06:51 Impression: Minimal right pleural effusion. Stable cardiomegaly. Labs Labs: Laboratory Results - last 24 hr 12/24/24 12/24/24 12/24/24 11:31 16:26 20:10 WBC RBC Hgb Hct MCV MCH MCHC RDW Plt Count MPV Immature Gran % (Auto) Neut % (Auto) Lymph % (Auto) [place] % (Auto) Eos % (Auto) Baso % (Auto) Lymph # (Auto) [place] # (Auto) Eos # (Auto) Baso # (Auto) Abs Immat Gran (auto) Absolute Neuts (auto) Absolute Nucleated RBC Nucleated RBC % Sodium Potassium Chloride Carbon Dioxide Anion Gap BUN Creatinine Estim Creat Clear Calc Estimated GFR Glucose POC Capillary Glucose 167 H 188 H 296 H Calcium Total Bilirubin AST ALT Alkaline Phosphatase Total Protein Albumin 12/25/24 12/25/24 05:13 08:10 WBC 8.1 RBC 4.25 L Hgb 12.5 L Hct 40.4 L MCV 95.1 MCH 29.4 MCHC 30.9 L RDW 13.4 Plt Count 191 MPV 11.3 H Immature Gran % (Auto) 0.4 Neut % (Auto) 52.5 Lymph % (Auto) 35.8 [place] % (Auto) 8.6 H Eos % (Auto) 2.3 Baso % (Auto) 0.4 Lymph # (Auto) 2.91 [place] # (Auto) 0.7 H Eos # (Auto) 0.2 Baso # (Auto) 0.0 Abs Immat Gran (auto) 0.03 Absolute Neuts (auto) 4.3 Absolute Nucleated RBC 0.000 Nucleated RBC % 0.0 Sodium 134 L Potassium 3.7 Chloride 87 L Carbon Dioxide 39 H Anion Gap 8 BUN 27 H Creatinine 1.37 H Estim Creat Clear Calc 68 Estimated GFR 51 L Glucose 145 H POC Capillary Glucose 163 H Calcium 9.2 Total Bilirubin 0.7 AST 29 ALT 25 Alkaline Phosphatase 122 Total Protein 8.0 Albumin 4.1 Quality VTE Prophylaxis VTE prophylaxis: pharmacologic ordered
[2024-12-25 11:45] LABS: Glucose Point of Care 239 mg/dl (65-105)
[2024-12-25] MEDS: INSULIN ASPART (*BKC) 100 UNITS/ML SUB-Q ×2 (12:59→17:30)
--- NOTE | 2024-12-25 16:19 | PM.PNPUL ---
Progress Note: A&P Assessment and Plan (1) Hypoventilation associated with obesity syndrome: Code(s): E66.2 - Morbid (severe) obesity with alveolar hypoventilation Status: Acute Assessment and Plan: Patient admitted with BMI 62.5, hypercarbic respiratory failure and fluid overload from right heart failure. He has been diuresed and now is breathing back to near normal. Patient had an ABG on room air off of BiPAP for 24 hours with a pH of 7.44/63/61 indicating chronic hypercarbic respiratory failure from his obesity. TSH on 12/09/2024 1.04. patient has obesity hypoventilation syndrome and would benefit from noninvasive ventilation to prevent further hospitalizations and disease progression. He was initially tried on BiPAP but this was uncomfortable for him and he could not tolerate this. I have initiated noninvasive ventilation with the AVAPS mode. 12/20/24: Patient tells me he is continuing to improve. States he has 50% back to his normal. He denies cough, phlegm or wheezing. He is afebrile. White blood cell count 6.6. Currently is on room air with saturations 95%. Last night patient wore hospital noninvasive ventilator with the AVAPS mode rate of 14, tidal volume 500, EPAP 8, minimal inspiratory pressure 9, maximal inspiratory pressure 25, inspiratory time 1.0, rise of 3 and 24% FiO2. Patient said he slept very well with the machine although it felt like the air was coming and too fast. On these settings patient had an overnight oximetry with a recording duration of 5 hours and 54 minutes. Average saturation 95%. Low saturation 75%. Time with saturation less than or equal to 88% was 0 minutes. Oxygen desaturation index 7.1. Patient had an ABG prior to removal of the mass with pH of 7.45/58/74. I decreased his rise to 5 and increased his inspiratory time to 1.2 and he said these settings were much more comfortable. Plan: continue noninvasive ventilation with the AVAPS mode rate of 14, tidal volume 500, EPAP 8, minimal inspiratory pressure 9, maximal inspiratory pressure 25, inspiratory time 1.2 and a rise of 5 as this provides adequate ventilation.. Tonight I will place on room air and perform an overnight oximetry on room air. Once patient is closer to his baseline will leave off of noninvasive ventilation for 24 hours and repeat a blood gas to determine if he still has chronic hypercarbic respiratory failure and if he does will then initiate plans for home noninvasive ventilation. 12/21/24: Patient continues to improve. Tells me his 60-65% back to his normal. Denies fever, chills, cough or phlegm. Room air saturations 94%. Patient wore the hospital noninvasive ventilator with the AVAPS mode and room air last night. Overnight oximetry with recording duration 7 hours and 36 minutes. Average saturation 92%. Low saturation 85%. Time with saturation less than or equal to 88% was 2 minutes. Oxygen desaturation index 5.4. Patient diuresed yesterday 2.3 L. Cumulative diuresis since admission is 8.9 L. Weight today is 154. Plan: Patient continues to improve. Overnight on hospital AVAPS and room air with adequate ventilation and oxygenation. Tonight I will place the patient on room air and perform an overnight oximetry to assess oxygenation and an ABG at 8:00 a.m. to assess for chronic hypercarbic respiratory failure. 12/22/2024: Patient continues to improve. Tells me is 75-80% back to his normal. He has no cough or phlegm. Patient wore room air last night and said he slept poorly and had desaturations and was increased to 1.5 L. He had an overnight oximetry started on room air and then increase to 1.5 L with recording duration 8 hours and 36 minutes. Average saturation 83%. Low saturation 40%. Time with saturation less than or equal to 88% was 392 minutes. Oxygen desaturation index 41.8. Patient had an ABG on room air off of BiPAP for 24 hours with a pH of 7.44/63/61. BNP has increased from 2660 on 12/18 to 3300 today. Patient diuresed 3.1 L yesterday cumulative diuresis from admission is 13.3 L. His weight today is an error at 181. Plan: I will initiate home noninvasive ventilation. AVAPS AE with rate of 14, tidal volume 500, Minimum EPAP 5, maximum EPAP 15, minimal inspiratory pressure 6, maximal inspiratory pressure 25, inspiratory time 1.2 and a rise of 5. patient requires room air with these settings. Later in the day, I completed a home noninvasive ventilator order form through via [employer] for TT V-Paps AE: Rate 14, tidal volume 500, EPAP minimum 5, EPAP maximum 15, minimum pressure support 6, maximum pressure support 25 with no oxygen bleed in. I was informed by the affiliate marketing coordinator that the patient will be discharged to SNF facility that is unable to provide noninvasive with the AVAPS but can provide BiPAP. 12/23/2024: Patient tells me he is having a bad day. He complains of his usual pain in his feet, knees, hands, arms and shoulders he has good days and bad days at home. Overall the pain is affecting his breathing. The patient wore BiPAP rate of 14, pressures 18/8 and room air last night and said that he slept okay. Currently says he is breathing 60-65% of his normal, he has a normal cough with a little bit of phlegm. His edema has improved but is still present. His white blood cell count is 7.7, creatinine is 1.33. He diuresed 5.4 L yesterday. His weight is 181.1 kg today. Currently on room air with saturations 94%. Patient had an overnight oximetry on these BiPAP settings and room air with recording duration of 6 hours and 40 minutes, average saturation 84%, low saturation 75%. Time with saturation less than or equal to 88% was 370 mL, oxygen desaturation index 17.7. ABG prior to removal was 7.46/60/50. Plan: Current BiPAP settings provide adequate ventilation. He was hypoxemic on room air on these BiPAP settings. Will repeat overnight oximetry tonight on BiPAP 14, pressures 18/8 and 28% FIO2. The current plan will be for the patient to be discharged to his SNF on BiPAP and once he is discharged home from SNF he will use the noninvasive ventilator through via med with the TT V-Paps AE: Rate 14, tidal volume 500, EPAP minimum 5, EPAP maximum 15, minimum pressure support 6, maximum pressure support 25 with no oxygen bleed in as these settings provided adequate ventilation and oxygenation. Discussed with Dr. Leonard. Will follow with you. 12/24/2024: He is tolerating BiPAP 18/8 and 2 L/min at night, room air in the day. Improved. Overnight oximetry showed that this BiPAP with 2 L is sufficient. 12/25/2024: He is on RA at rest, BiPAP 18/8 & 2L/min with sleep. (2) Right heart failure: Code(s): I50.810 - Right heart failure, unspecified Status: Acute Assessment and Plan: 12/19/24: diuresed 1.9 L yesterday and cumulative diuresis is -2.9 L since admission on lasix 60 IV BID, Spironolactone 50 q.day. Chest x-ray shows minimal right pleural effusion with improved congestion. Patient states his edema and abdominal tightness are improved. BNP has improved from 3770 to 2660. Overall he says he feels better and he says he feels 30% back to his normal. his weight on admission was 158.6 kg and today he is 154.5 kg. Of note on 09/12/2024 he weighed 138.8 kg. Plan: recommend as aggressive diuresis as tolerated by his cardiac and renal systems per Cardiology and hospitalist teams. 12/20/24: creatinine 0.93. He is on Lasix 60 IV b.i.d. and diuresed 3.7 L yesterday cumulative since admission he is -5.7 L. His weight today is 154.5 with admission weight of 158.6. Plan: Agree with as aggressive diuresis as tolerated by his cardiac and renal systems per Cardiology and the hospitalist team. Patient is having some soft blood pressures would consider decreasing his antihypertensives to allow for continued aggressive diuresis. 12/21/24: Patient diuresed yesterday 2.3 L. creatinine 0.91 Cumulative diuresis since admission is 8.9 L. Weight today is 154. Plan: Agree with continued aggressive diuresis with Lasix 60 IV b.i.d.. Clonidine has been decreased. 12/22/24: BNP has increased from 2660 on 12/18 to 3300 today. creatinine 1.27. Patient diuresed 3.1 L yesterday cumulative diuresis from admission is 13.3 L. His weight today is an error at 181. Plan: Agree with continued aggressive diuresis with Lasix 60 IV b.i.d.. Would continue to decrease his antihypertensives. 12/23/24: His edema has improved but is still present. His creatinine is 1.33. He diuresed 5.4 L yesterday. His weight is 181.1 kg today. Cumulative diuresis since admission is 17.5 L Plan: creatinine increased to 1.33, need to be cautious of over-diuresis and would consider cutting back on his antihypertensives. 12/24/24: Wt down 178.2 kg, almost 2 kg since yesterday. Creatinine is 1.41, slightly higher. He has lost about 19 L total. 12/25/24: Wt down 176.1 kg, 2 more kg since yesterday. Creat 1.37, stable. Plan No changes in management. Continue BiPAP 18/8 & 2 L/min with sleep. Room air in the daytime. Subjective Date/time seen: 12/25/24 16:19 Interval history: 12/19/2024: This is a new pulmonary consult for hypoxemic and hypercarbic respiratory failure, morbid obesity and congestive heart failure. 74-year-old with a history of CVA, CAD, AFib with RVR, diastolic dysfunction, hypertension, hyperlipidemia, diabetes, morbid obesity and untreated sleep apnea. Regarding his obstructive sleep apnea the patient tells me in the 1970s he had a sleep study and was prescribed a fullface mask CPAP machine and he were to few times and could not tolerate it and never had any follow-up. At that time he had witnessed apneas per his . Recently he does not know if he snores. He and his sleep in separate bedrooms and does not know if he has witnessed apneas, he has no morning headaches. He was on Ozempic and weight 385 lb and lost 100 lb to 285 lb. At baseline he says he could walk 1 block and this is unchanged over the last year. Over the last 3-4 weeks he can only walk room to room. He does not measure his oxygen. Patient smoked tobacco from [id number] at 1 pack per day for a total of 31 pack years. Approximately 3-4 weeks ago he has had Shortness of breath at rest, dyspnea on exertion, weight gain, tight abdomen and lower extremity edema. He was admitted to the hospital from 12/08/2024 through 12/14/24 with fluid overload with an admission BNP of 3540, TSH 12/09/2024 1.04. AFib with RVR and he was diuresed with IV Lasix. His weight on admission was 159.7 kg and on discharge was 161.2 kg. on 12/13/2024 his BNP was 4470. He was admitted on 20 mg of Lasix twice a day and discharged on 40 mg of Lasix twice a day. 12/17/2024 the patient presented back to the hospital with worsening shortness of breath and increased edema. Is BNP was 3770, chest x-ray showed congestion with small effusions, he had AFib with RVR and he was treated with IV Lasix. His room air blood gas was 7.42/46/63. On 12/18/2024 the patient was on 1 L and had a blood gas of 7.43/52/73 and was empirically placed on auto PAP 5-15. 12/19/24: The patient is awake and alert currently on auto PAP with 1 L bleed in with saturations 97%. I placed him on room air and his saturations were 93-94%. His white blood cell count 6.8, creatinine 1.09, diuresed 1.9 L yesterday and cumulative diuresis is -2.9 L. patient had an ABG on auto PAP 5-15 of 7.40/57/79. Chest x-ray shows minimal right pleural effusion with improved congestion. Patient states his edema and abdominal tightness are improved. Overall he says he feels better and he says he feels 30% back to his normal. He denies fever, chills, rigors. Remains with shortness of breath. Patient wore the auto PAP 5-15 and said he got the best night of his sleep in the last 3 weeks. 12/20/24: Patient tells me he is continuing to improve. States he has 50% back to his normal. He denies cough, phlegm or wheezing. He is afebrile. White blood cell count 6.6, creatinine 0.93. He is on Lasix 60 IV b.i.d. and diuresed 3.7 L yesterday cumulative since admission he is -5.7 L. His weight today is 154.5 with admission weight of 158.6. Currently is on room air with saturations 95%. Last night patient wore hospital noninvasive ventilator with the AVAPS mode rate of 14, tidal volume 500, EPAP 8, minimal inspiratory pressure 9, maximal inspiratory pressure 25, inspiratory time 1.0, rise of 3 and 24% FiO2. Patient said he slept very well with the machine although it felt like the air was coming and too fast. On these settings patient had an overnight oximetry with a recording duration of 5 hours and 54 minutes. Average saturation 95%. Low saturation 75%. Time with saturation less than or equal to 88% was 0 minutes. Oxygen desaturation index 7.1. Patient had an ABG prior to removal of the mass with pH of 7.45/58/74. I decreased his rise to 5 and increased his inspiratory time to 1.2 and he said these settings were much more comfortable. 12/21/24: Patient continues to improve. Tells me his 60-65% back to his normal. Denies fever, chills, cough or phlegm. Room air saturations 94%. Patient wore the hospital noninvasive ventilator with the AVAPS mode and room air last night. Overnight oximetry with recording duration 7 hours and 36 minutes. Average saturation 92%. Low saturation 85%. Time with saturation less than or equal to 88% was 2 minutes. Oxygen desaturation index 5.4. Patient diuresed yesterday 2.3 L. Cumulative diuresis since admission is 8.9 L. Weight today is 154. 12/22/2024: Patient continues to improve. Tells me is 75-80% back to his normal. He has no cough or phlegm. Patient wore room air last night and said he slept poorly and had desaturations and was increased to 1.5 L. He had an overnight oximetry started on room air and then increase to 1.5 L with recording duration 8 hours and 36 minutes. Average saturation 83%. Low saturation 40%. Time with saturation less than or equal to 88% was 392 minutes. Oxygen desaturation index 41.8. Patient had an ABG on room air off of BiPAP for 24 hours with a pH of 7.44/63/61. BNP has increased from 2660 on 12/18 1-3300 today. Patient diuresed 3.1 L yesterday cumulative diuresis from admission is 13.3 L. His weight today is an error at 181. Later in the day, I completed a home noninvasive ventilator order form through via [employer] for TT V-Paps AE: Rate 14, tidal volume 500, EPAP minimum 5, EPAP maximum 15, minimum pressure support 6, maximum pressure support 25 with no oxygen bleed in. I was informed by the affiliate marketing coordinator that the patient will be discharged to SNF facility that is unable to provide noninvasive with the AVAPS but can provide BiPAP. 12/23/2024: Patient tells me he is having a bad day. He complains of his usual pain in his feet, knees, hands, arms and shoulders he has good days and bad days at home. Overall the pain is affecting his breathing. The patient wore BiPAP rate of 14, pressures 18/8 and room air last night and said that he slept okay. Currently says he is breathing 60-65% of his normal, he has a normal cough with a little bit of phlegm. His edema has improved but is still present. His white blood cell count is 7.7, creatinine is 1.33. Currently on room air with saturations 94%. Patient had an overnight oximetry on these BiPAP settings and room air with recording duration of 6 hours and 40 minutes, average saturation 84%, low saturation 75%. Time with saturation less than or equal to 88% was 370 mL, oxygen desaturation index 17.7. ABG prior to removal was 7.46/60/50. 12/24/2024: His overnight oximetry with BiPAP and 2 L was excellent; no time below 88%; recording time was 5 hours 38 min on BiPAP I/E 18/8, rate 14, 2 L O2. He says that his breathing feels fine, not coughing, no sputum. He is on room air, saturation is 94 to 97%. 12/25/2024: He is sitting up in a chair, room air; has abdominal pain in the LUQ radiating down the left side, intermittent, no N/V. He discussed with Dr Leonard who held his discharge and ordered testing. His RN Amy told me about the plans. As far as pulmonary issue of obesity hypoventilation, he is stable. DATA: 12/17/24: CHEST RADIOGRAPH CLINICAL HISTORY: dyspnea/ chf . COMPARISON: 12/08/2024 TECHNIQUE: Single portable view of the chest. FINDINGS The cardiomediastinal silhouette is enlarged, unchanged. Calcified lymph nodes within the mediastinum suggesting prior granulomatous disease. Increased interstitial markings are identified bilaterally, findings suggesting mild pulmonary vascular congestion. Bilateral pleural effusions, right greater than left. The remainder of the lungs are clear. IMPRESSION: Bilateral pleural effusions, with mild pulmonary vascular congestion. 12/09/24: Echo Summary 1. Left ventricular chamber dimension is normal. 2. Left ventricular systolic function is normal, estimated at 50-55%. 3. There is moderately increased left ventricular wall thickness. 4. Right ventricular chamber dimension is mildly enlarged. 5. Right ventricular systolic function is reduced. 6. Left atrial chamber dimension is severely enlarged. 7. Right atrial chamber dimension is severely enlarged. 8. There is moderate tricuspid valve regurgitation. 9. There is trivial pericardial effusion. Right Ventricle Right ventricular chamber dimension is mildly enlarged. Right ventricular systolic function is reduced. Left Atria Left atrial chamber dimension is severely enlarged. Right Atria Right atrial chamber dimension is severely enlarged. Atrial Septum Intact interatrial septum visualized by color flow imaging. 09/23/2021: Echo Summary 1. Complete two-dimensional, color flow and Doppler transthoracic echocardiogram is performed. 2. Left ventricular chamber dimension is normal. 3. Left ventricular systolic function is normal, estimated at 60-65%. 4. There is moderately increased left ventricular wall thickness. 5. The left ventricular diastolic function is grade I diastolic dysfunction. 6. There is no aortic valve stenosis. 7. There is trace tricuspid valve regurgitation. 8. No pulmonary hypertension, estimated pulmonary arterial systolic pressure is 14 mmHg. 9. There is trace mitral valve regurgitation. Right Ventricle Right ventricular chamber dimension is normal. Right ventricular systolic function is normal. Left Atria Left atrial chamber dimension is mildly enlarged. Right Atria Right atrial chamber dimension is mildly enlarged. Review of Systems Review of Systems: New abdominal pain in LUQ,, nausea or vomiting, he is not constipated; has had a similar discomfort in the past. All systems reviewed & are unremarkable except as noted in HPI and below Exam Narrative: GEN: Alert, oriented, not in distress. HEENT: pupils are equal, EOMI, symmetrical face NECK: Trachea is midline CHEST: Equal air entry, symmetric excursion, decreased breath sounds in bases with clear sounds; he is sitting up in a chair so his exam is much easier today. CV: Irregular S1S2 no m/g/r ABD : (+) bowel sounds Extremities : no clubbing or cyanosis. PSYCH: normal thought and speech Objective Data Vital Signs Vital Signs: Vital Signs - 24 hr 12/24/24 20:00 12/24/24 20:00 12/24/24 20:05 Temperature 35.8 C L Pulse Rate 104 H 115 H 104 H Respiratory Rate 18 18 Blood Pressure 152/74 H Pulse Oximetry 94 94 Oxygen Delivery Room Air Fraction of Inspired Oxygen 21 12/24/24 20:15 12/24/24 22:10 12/25/24 00:00 Temperature Pulse Rate 104 H 90 118 H Respiratory Rate 18 Blood Pressure Pulse Oximetry 95 Oxygen Delivery BiPAP Fraction of Inspired Oxygen 12/25/24 01:53 12/25/24 04:00 12/25/24 04:15 Temperature 35.6 C L Pulse Rate 85 98 91 Respiratory Rate 18 20 Blood Pressure 129/94 H Pulse Oximetry 95 100 Oxygen Delivery BiPAP Fraction of Inspired Oxygen 12/25/24 08:00 12/25/24 08:00 12/25/24 09:05 Temperature Pulse Rate 125 H Respiratory Rate Blood Pressure Pulse Oximetry 93 Oxygen Delivery Room Air Room Air Fraction of Inspired Oxygen 12/25/24 09:10 12/25/24 15:38 Temperature 36.7 C Pulse Rate 110 H 87 Respiratory Rate 18 Blood Pressure 119/87 Pulse Oximetry 96 Oxygen Delivery Fraction of Inspired Oxygen Intake/Output Intake/Output: Intake & Output 12/22/24 12/23/24 12/24/24 12/25/24 23:59 23:59 23:59 23:59 Intake Total 880 936 864 702 Output Total 3023 5895 2564 350 [facility] [phone] Meds/Results Medications: Active Medications Generic Name Dose Route Start Last Admin Trade Name Freq PRN Reason Stop Dose Admin Acetaminophen 650 mg 12/18/24 09:32 Acetaminophen 325 Mg Tablet PO Q4H PRN Mild Pain (1-3) or Fever Hydrocodone Bitart/Acetaminophen 1 tab 12/18/24 04:56 12/25/24 13:08 Hydrocodone/Acetaminophen (*Crx) 7.5-325 Mg Tablet PO 1 tab Q4H PRN Administration Pain Rated 7-10 Apixaban 5 mg 12/18/24 09:00 12/25/24 09:11 Apixaban 5 Mg Tablet PO 5 mg Q12HR SHIRA Administration Aspirin 81 mg 12/18/24 09:00 12/25/24 09:11 Aspirin 81 Mg Enteric Tablet PO 81 mg DAILY SHIRA Administration Atorvastatin Calcium 20 mg 12/18/24 05:00 12/25/24 09:10 Atorvastatin 20 Mg Tablet PO 20 mg DAILY SHIRA Administration Cyanocobalamin 1,000 mcg 12/18/24 09:00 12/25/24 09:10 Cyanocobalamin 1,000 Mcg Tablet PO 1,000 mcg QAM SHIRA Administration Dextrose 12.5 gm 12/18/24 04:57 Dextrose 50% 25 Gm/50 Ml Syringe IV PUSH PRN PRN Hypoglycemia Protocol Dicyclomine HCl 20 mg 12/25/24 11:15 Dicyclomine Hcl 10 Mg Capsule PO QID PRN Abdominal Cramping Diltiazem HCl 180 mg 12/18/24 09:00 12/25/24 09:11 Diltiazem Hcl Cd 180 Mg Cap.24hr PO 180 mg QAM SHIRA Administration Empagliflozin 10 mg 12/21/24 09:00 12/25/24 09:11 Empagliflozin 10 Mg Tablet PO 10 mg DAILY SHIRA Administration Furosemide 80 mg 12/25/24 09:00 12/25/24 09:10 Furosemide 80 Mg Tablet PO 80 mg DAILY SHIRA Administration Gabapentin 300 mg 12/18/24 06:00 12/25/24 13:03 Gabapentin 300 Mg Capsule PO 300 mg Q8HR SHIRA Administration Glucagon 1 mg 12/18/24 04:57 Glucagon For Inj 1 Mg Vial IM PRN PRN Hypoglycemia Protocol Glucose 15 gm 12/18/24 04:57 Glucose Oral Gel 15 Gm Of Glucse In 37.5 Gm Tube PO PRN PRN Hypoglycemia Protocol Dextrose 1,000 mls @ 100 mls/hr 12/18/24 04:57 Dextrose 5% 1,000 Ml IVPB PRN PRN Hypoglycemia Protocol Insulin Aspart 3 - 6 units 12/18/24 08:00 12/25/24 12:59 Insulin Aspart (*Bkc) 100 Units/Ml SUB-Q 3 units TIDWM SHIRA Administration Protocol Insulin Glargine 60 units 12/18/24 21:00 12/24/24 20:16 Insulin Glargine (*Bkc) 100 Units/Ml SUB-Q 60 units HS SHIRA Administration Levalbuterol HCl 1.25 mg 12/18/24 18:32 12/19/24 07:06 Levalbuterol Neb 1.25 Mg/3 Ml INHALATION 1.25 mg Q6HRT PRN Administration Shortness Of Breath Losartan Potassium 50 mg 12/19/24 09:00 12/20/24 09:15 Losartan Potassium 50 Mg Tablet PO 50 mg DAILY SHIRA Administration Metoprolol Tartrate 100 mg 12/18/24 05:00 12/25/24 09:10 Metoprolol Tartrate 50 Mg Tab PO 100 mg Q12HR SHIRA Administration Ondansetron HCl 4 mg 12/18/24 09:32 12/25/24 07:46 Ondansetron Inj 4 Mg/2 Ml Vial IV PUSH 4 mg Q6H PRN Administration Nausea And Vomiting Spironolactone 50 mg 12/19/24 09:00 12/25/24 09:11 Spironolactone 50 Mg Tablet PO 50 mg QAM SHIRA Administration Trazodone HCl 25 mg 12/18/24 20:13 12/24/24 20:15 Trazodone Hcl 25 Mg Tablet PO 25 mg HS PRN Administration Insomnia Radiology Results: ITS Impressions Chest X-Ray 12/19/24 06:51 Impression: Minimal right pleural effusion. Stable cardiomegaly. Labs Labs: Laboratory Results - last 24 hr 12/24/24 12/24/24 12/25/24 16:26 20:10 05:13 WBC 8.1 RBC 4.25 L Hgb 12.5 L Hct 40.4 L MCV 95.1 MCH 29.4 MCHC 30.9 L RDW 13.4 Plt Count 191 MPV 11.3 H Immature Gran % (Auto) 0.4 Neut % (Auto) 52.5 Lymph % (Auto) 35.8 [place] % (Auto) 8.6 H Eos % (Auto) 2.3 Baso % (Auto) 0.4 Lymph # (Auto) 2.91 [place] # (Auto) 0.7 H Eos # (Auto) 0.2 Baso # (Auto) 0.0 Abs Immat Gran (auto) 0.03 Absolute Neuts (auto) 4.3 Absolute Nucleated RBC 0.000 Nucleated RBC % 0.0 Sodium 134 L Potassium 3.7 Chloride 87 L Carbon Dioxide 39 H Anion Gap 8 BUN 27 H Creatinine 1.37 H Estim Creat Clear Calc 68 Estimated GFR 51 L Glucose 145 H POC Capillary Glucose 188 H 296 H Calcium 9.2 Total Bilirubin 0.7 AST 29 ALT 25 Alkaline Phosphatase 122 Total Protein 8.0 Albumin 4.1 12/25/24 12/25/24 08:10 11:32 WBC RBC Hgb Hct MCV MCH MCHC RDW Plt Count MPV Immature Gran % (Auto) Neut % (Auto) Lymph % (Auto) [place] % (Auto) Eos % (Auto) Baso % (Auto) Lymph # (Auto) [place] # (Auto) Eos # (Auto) Baso # (Auto) Abs Immat Gran (auto) Absolute Neuts (auto) Absolute Nucleated RBC Nucleated RBC % Sodium Potassium Chloride Carbon Dioxide Anion Gap BUN Creatinine Estim Creat Clear Calc Estimated GFR Glucose POC Capillary Glucose 163 H 239 H Calcium Total Bilirubin AST ALT Alkaline Phosphatase Total Protein Albumin
[2024-12-25 17:15] LABS: Glucose Point of Care 217 mg/dl (65-105)
[2024-12-25] MEDS: DICYCLOMINE HCL 10 MG CAPSULE 20 MG PO (17:30)
[2024-12-25] MEDS: INSULIN GLARGINE (*BKC) 100 UNITS/ML 60 UNITS SUB-Q (20:29)
[2024-12-25] MEDS: traZODone HCL 25 MG TABLET PO (20:29)
[2024-12-26] VITALS (16 sets, daily range): BP systolic 105–135; BP diastolic 67–87; PULSE 45–136; RESP 16–20; TEMP 35.8–36.6; O2SAT 92–99
[2024-12-26 00:01] LABS: Glucose Point of Care 317 mg/dl (65-105)
[2024-12-26] MEDS: GABAPENTIN 300 MG CAPSULE PO ×3 (06:07→20:52)
[2024-12-26 06:08] LABS: Basophils Percent Auto 0.3 % (0.2-1.2); Eosinophils Absolute Auto 0.2 K/mm3 (0-0.3); Eosinophils Percent Auto 2.3 % (0-4.4); Hematocrit 39.3 % (42.0-52.0); Hemoglobin 11.9 g/dL (14.0-18.0); Immature Granulocyte Absolute 0.02 K/mm3 (0.00-0.031); Immature Granulocyte Percent A 0.2 % (0-0.5); Lymphocytes Percent Auto 21.6 % (18.3-44.2); Mean Corpuscular HGB Conc 30.3 g/dl (32-36); Mean Corpuscular Hemoglobin 29.5 pg (26-34); Mean Corpuscular Volume 97.3 fl (80-100); Mean Platelet Volume 11.6 fl (7.4-10.4); Monocytes Absolute Auto 0.7 K/mm3 (0.1-0.6); Monocytes Percent Auto 7.4 % (2.6-8.5); Neutrophils Absolute Auto 6.3 K/mm3 (1.3-6.7); Neutrophils Percent Auto 68.2 % (45.5-73.1); Platelet Count Result 179 k/mm3 (150-375); Red Blood Count 4.04 M/mm3 (4.6-6.20); Red Cell Distribution Width 13.6 % (11.5-14.5); White Blood Count 9.3 K/mm3 (4.5-10.0)
[2024-12-26 06:20] LABS: Alanine Aminotransferase 24 U/L (6-50); Albumin Level 3.8 g/dL (3.5-5.1); Alkaline Phosphatase 116 U/L (38-126); Aspartate Amino Transferase 29 U/L (17-59); Bilirubin,Total 0.7 mg/dL (0.2-1.3); Blood Urea Nitrogen 27 mg/dL (9-20); Calcium 9.1 mg/dL (8.4-10.2); Carbon Dioxide > 40 mmol/L (22-30); Chloride 87 mmol/L (98-107); Estimated CRCL calculation 57 ml/min; Estimated Glomerular Filt Rate 42; Glucose 136 mg/dL (65-110); Potassium 3.8 mmol/L (3.4-5.0); Sodium 135 mmol/L (137-145)
[2024-12-26 08:11] LABS: Glucose Point of Care 152 mg/dl (65-105)
[2024-12-26 08:30] LABS: NT Pro B Type Natriuretic Pept 2810 pg/mL (19.9-100)
[2024-12-26] MEDS: FUROSEMIDE 80 MG TABLET PO (09:08)
[2024-12-26] MEDS: dilTIAZem HCL CD 180 MG CAP.24HR PO (09:08)
[2024-12-26] MEDS: CYANOCOBALAMIN 1,000 MCG TABLET 1000 MCG PO (09:08)
[2024-12-26] MEDS: ATORVASTATIN 20 MG TABLET PO (09:08)
[2024-12-26] MEDS: APIXABAN 5 MG TABLET PO ×2 (09:08→20:52)
[2024-12-26] MEDS: METOPROLOL TARTRATE 50 MG TAB 100 MG PO ×2 (09:08→20:52)
[2024-12-26] MEDS: ASPIRIN 81 MG ENTERIC TABLET PO (09:08)
[2024-12-26] MEDS: EMPAGLIFLOZIN 10 MG TABLET PO (09:10)
[2024-12-26] MEDS: HYDROcodone/acetaminophen (*CRX) 7.5-325 MG TABLET 1 TAB PO ×2 (09:11→19:18)
[2024-12-26] MEDS: SPIRONOLACTONE 50 MG TABLET PO (09:11)
--- NOTE | 2024-12-26 10:23 | P.PNIM_ITS ---
Progress Note: A&P Assessment and Plan (1) Acute on chronic diastolic congestive heart failure: Code(s): I50.33 - Acute on chronic diastolic (congestive) heart failure Status: Acute Assessment and Plan: Patient just discharged 3 days ago after hospitalization for CHF exacerbation and AFib RVR. Severe anasarca currently patient is getting diuresis [id number]% diastolic dysfunction with elevated BNP * po Lasix daily.80 mg * spironolactone * one dose Metolazone today * Jardiance * monitor renal function during diuresis * chest x-ray: bilateral pleural effusions interstitial congestion * Daily weight. * Strict I&O's * fluid restriction (2) Hypoventilation associated with obesity syndrome: Code(s): E66.2 - Morbid (severe) obesity with alveolar hypoventilation Status: Acute Assessment and Plan: * lifestyle modification (3) Obstructive sleep apnea: Code(s): G47.33 - Obstructive sleep apnea (adult) (pediatric) Status: Acute Assessment and Plan: on bipap. pulmonary team on board (4) Atrial fibrillation with rapid ventricular response: Code(s): I48.91 - Unspecified atrial fibrillation Status: Acute Assessment and Plan: * * on diltiazem, metoprolol, and Eliquis (5) Essential (primary) hypertension: Code(s): I10 - Essential (primary) hypertension Status: Acute Assessment and Plan: * reviewed * diltiazem, metoprolol, losartan * discontinue patient's amlodipine due to bilateral leg edema * losartan on hold * BP per unit protocol (6) Insulin dependent type 2 diabetes mellitus: Code(s): E11.9 - Type 2 diabetes mellitus without complications; Z79.4 - longterm (current) use of insulin Status: Acute Assessment and Plan: * Accu-Cheks a.c. HS * sliding scale insulin * hold oral diabetic medications * patient's long-acting insulin not formulated * Lantus 60 units HS * Watch for hypoglycemia/hypoglycemic protocol ordered (7) Mixed hyperlipidemia: Code(s): E78.2 - Mixed hyperlipidemia Status: Acute Assessment and Plan: * Atorvastatin (8) Morbid obesity: Code(s): E66.01 - Morbid (severe) obesity due to excess calories Status: Acute Assessment and Plan: * Encouraged strict diet restrictions and weight loss * Encourage increased activity patient going to Rehab at discharge * likely contributing to some of his chronic problems (9) Abdominal pain: Code(s): R10.9 - Unspecified abdominal pain Status: Acute Assessment and Plan: unclear etiology improved recent US showed splenomegally denies any chest pain. no fever, WBC WNL, received bentyl monitor Plan Code status: Full code per patient DVT prophylaxis: Eliquis Stress ulcer prophylaxis: does not need PT/OT notes: SNF Disposition: Continue with po diuretics. PT/OT ordered plan to return to half-way facility for physical and occupational therapy when medically stable. Today worsening SHAYNA. will follow cardiology recs regarding diuretics. Possible discharge tomorrow if kidney function improving Subjective Date/time seen: 12/26/24 10:23 Interval history: per HPI: Patient is a 74-year-old male who was recently admitted to the hospital for atrial fibrillation heart failure. He has a history of CAD, hypertension hyperlipidemia, diabetes, untreated sleep apnea, obesity presented hospital with shortness of breath. He was discharged under is nursing facility in had progressive weight gain over the past couple of days since discharge. He was short of breath and has abdominal discomfort, worsening edema. He is brought back to hospital for further workup and evaluation. He was also had borderline control in heart rate Date of service 12/19: States that his shortness of breath has resolved. However still has abdominal distention as well as lower extremity swelling. Uses CPAP at night Date of service 12/20: Feeling better, diuresing well. Date of service 12/21: Continues to diurese well. Feels like his abdomen is less distended. still has bilateral leg edema. pulmonary team on board plan for dest study tonight. cardiology team on board. Continue Lasix 60 mg IV BID. Will give a dose of Metolazone today. -Continue Losartan 50 mg daily and Spironolactone 50 mg daily. lopressor, Eliquis, ASA Statin -Started Jardianc 12/22/24 Patient was seen and examined at bedside. He is feeling better. Breathing improving. Continue with Lasix. Denies any chest pain, abdominal pain, nausea vomiting, bilateral leg swelling improving 12/23/24 Patient with an exam at bedside. He is doing fine. Denies any chest pain optimum pain, nausea vomiting. Breathing and bilateral leg swelling improving. Continue with Lasix losartan, spironolactone. Reviewed pulmonary notes. Plan for desat study on BiPAP tonight. Possible Discharge tomorrow to rehab 12/24/24 Patient was seen and examined at bedside Blood pressure 142/91. Using BiPAP at night WBC 6.4, hemoglobin 11.8, sodium 136, potassium 3.7, creatinine 1.41. UA concerning for UTI Lasix on hold with creatinin 1.41 Reviewed pulmonary note: BiPAP 14, pressures 18/8 and 28% FIO2. The current plan will be for the patient to be discharged to his SNF on BiPAP and once he is discharged home from SNF he will use the noninvasive ventilator through via med with the TT V-Paps AE: Rate 14, tidal volume 500, EPAP minimum 5, EPAP maximum 15, minimum pressure support 6, maximum pressure support 25 with no oxygen bleed in Have reviewed cardiology team. Patient needs to be on Lasix, losartan, Jardiance, Lopressor, details, Eliquis, aspirin and Lipitor. Will start Lasix tomorrow 80 mg 12/25/24 Patient was seen and examined at bedside. he is complaint of left upper abdomen pain. he notes it similar to the pain he had recently. Denied any chest pain, shortness off breath, N or vomiting. Denies any fever chills. One bowel movement yesterday. Recent ultrasound showed a splenomegaly. Will start Bentyl will continue to monitor 12/26/24 Patient was seen and examined at bedside. He is feeling better. Abdominal pain improving. Denies any chest pain. Breathing improving. Still has bilateral leg swelling. Reviewed BMP. Creatinin 1.63 today. Will follow cardiology team reccomendation regarding Lasix and spironolactone Review of Systems Review of Systems: 12 systems were reviewed and are negativ e except for as per HPI. All systems reviewed & are unremarkable except as noted in HPI and below Exam Narrative: General: Pleasant chronically ill looking male in no acute distress HEENT: Oral mucosa moist. Respiratory: Lung sounds diminished,at the bases. Cardiovascular: Irregularly irregular Gastrointestinal: Abdomen is obese and L upper tender with normal bowel sounds. Skin: Warm and dry. Extremities: No cyanosis or clubbing. lower ext 2+ edema Neurological: Alert. No gross focal deficits to casual conversation. Objective Data Vital Signs Vital Signs: Vital Signs - 24 hr 12/25/24 15:38 12/25/24 16:00 12/25/24 19:59 Temperature 98.1 F Pulse Rate 87 96 96 Respiratory Rate 18 18 Blood Pressure 119/87 Pulse Oximetry 96 96 Oxygen Delivery Room Air Fraction of Inspired Oxygen 21 12/25/24 20:00 12/25/24 20:29 12/25/24 20:38 Temperature Pulse Rate 106 H 135 H 87 Respiratory Rate 20 Blood Pressure Pulse Oximetry 95 Oxygen Delivery BiPAP Fraction of Inspired Oxygen 12/25/24 22:00 12/26/24 00:00 12/26/24 01:53 Temperature 96.9 F L Pulse Rate 135 H 82 83 Respiratory Rate 24 H 20 Blood Pressure 105/61 Pulse Oximetry 90 95 Oxygen Delivery BiPAP Fraction of Inspired Oxygen 12/26/24 04:00 12/26/24 05:34 12/26/24 08:46 Temperature 96.5 F L Pulse Rate 79 45 L Respiratory Rate 16 Blood Pressure 135/76 Pulse Oximetry 99 92 Oxygen Delivery Room Air Fraction of Inspired Oxygen 12/26/24 09:08 Temperature Pulse Rate 114 H Respiratory Rate Blood Pressure Pulse Oximetry Oxygen Delivery Fraction of Inspired Oxygen Intake/Output Intake/Output: Intake & Output 12/23/24 12/24/24 12/25/24 12/26/24 23:59 23:59 23:59 23:59 Intake Total 986 864 922 608 Output Total 2076 7988 417 250 Balance -6229 -511 372 358 Meds/Results Medications: Active Medications Generic Name Dose Route Start Last Admin Trade Name Freq PRN Reason Stop Dose Admin Acetaminophen 650 mg 12/18/24 09:32 Acetaminophen 325 Mg Tablet PO Q4H PRN Mild Pain (1-3) or Fever Hydrocodone Bitart/Acetaminophen 1 tab 12/18/24 04:56 04/07/25 09:11 Hydrocodone/Acetaminophen (*Crx) 7.5-325 Mg Tablet PO 1 tab Q4H PRN Administration Pain Rated 7-10 Apixaban 5 mg 12/18/24 09:00 12/26/24 09:08 Apixaban 5 Mg Tablet PO 5 mg Q12HR SHIRA Administration Aspirin 81 mg 12/18/24 09:00 12/26/24 09:08 Aspirin 81 Mg Enteric Tablet PO 81 mg DAILY SHIRA Administration Atorvastatin Calcium 20 mg 12/18/24 05:00 12/26/24 09:08 Atorvastatin 20 Mg Tablet PO 20 mg DAILY SHIRA Administration Cyanocobalamin 1,000 mcg 12/18/24 09:00 12/26/24 09:08 Cyanocobalamin 1,000 Mcg Tablet PO 1,000 mcg QAM SHIRA Administration Dextrose 12.5 gm 12/18/24 04:57 Dextrose 50% 25 Gm/50 Ml Syringe IV PUSH PRN PRN Hypoglycemia Protocol Dicyclomine HCl 20 mg 12/25/24 11:15 12/25/24 17:30 Dicyclomine Hcl 10 Mg Capsule PO 20 mg QID PRN Administration Abdominal Cramping Diltiazem HCl 180 mg 12/18/24 09:00 12/26/24 09:08 Diltiazem Hcl Cd 180 Mg Cap.24hr PO 180 mg QAM SHIRA Administration Empagliflozin 10 mg 12/21/24 09:00 12/26/24 09:10 Empagliflozin 10 Mg Tablet PO 10 mg DAILY SHIRA Administration Furosemide 80 mg 12/25/24 09:00 12/26/24 09:08 Furosemide 80 Mg Tablet PO 80 mg DAILY SHIRA Administration Gabapentin 300 mg 12/18/24 06:00 12/26/24 06:07 Gabapentin 300 Mg Capsule PO 300 mg Q8HR SHIRA Administration Glucagon 1 mg 12/18/24 04:57 Glucagon For Inj 1 Mg Vial IM PRN PRN Hypoglycemia Protocol Glucose 15 gm 12/18/24 04:57 Glucose Oral Gel 15 Gm Of Glucse In 37.5 Gm Tube PO PRN PRN Hypoglycemia Protocol Dextrose 1,000 mls @ 100 mls/hr 12/18/24 04:57 Dextrose 5% 1,000 Ml IVPB PRN PRN Hypoglycemia Protocol Insulin Aspart 3 - 6 units 12/18/24 08:00 12/26/24 08:17 Insulin Aspart (*Bkc) 100 Units/Ml SUB-Q Not Given TIDWM [facility] Protocol Insulin Glargine 60 units 12/18/24 21:00 12/25/24 20:29 Insulin Glargine (*Bkc) 100 Units/Ml SUB-Q 60 units HS SHIRA Administration Levalbuterol HCl 1.25 mg 12/18/24 18:32 12/19/24 07:06 Levalbuterol Neb 1.25 Mg/3 Ml INHALATION 1.25 mg Q6HRT PRN Administration Shortness Of Breath Losartan Potassium 50 mg 12/19/24 09:00 12/20/24 09:15 Losartan Potassium 50 Mg Tablet PO 50 mg DAILY [facility] Administration Metoprolol Tartrate 100 mg 12/18/24 05:00 12/26/24 09:08 Metoprolol Tartrate 50 Mg Tab PO 100 mg Q12HR SHIRA Administration Ondansetron HCl 4 mg 12/18/24 09:32 12/25/24 07:46 Ondansetron Inj 4 Mg/2 Ml Vial IV PUSH 4 mg Q6H PRN Administration Nausea And Vomiting Spironolactone 50 mg 12/19/24 09:00 12/26/24 09:11 Spironolactone 50 Mg Tablet PO 50 mg QAM SHIRA Administration Trazodone HCl 25 mg 12/18/24 20:13 12/25/24 20:29 Trazodone Hcl 25 Mg Tablet PO 25 mg HS PRN Administration Insomnia Radiology Results: ITS Impressions Chest X-Ray 12/19/24 06:51 Impression: Minimal right pleural effusion. Stable cardiomegaly. Labs Labs: Laboratory Results - last 24 hr 12/25/24 12/25/24 12/25/24 11:32 16:59 20:09 WBC RBC Hgb Hct MCV MCH MCHC RDW Plt Count MPV Immature Gran % (Auto) Neut % (Auto) Lymph % (Auto) [place] % (Auto) Eos % (Auto) Baso % (Auto) Lymph # (Auto) [place] # (Auto) Eos # (Auto) Baso # (Auto) Abs Immat Gran (auto) Absolute Neuts (auto) Absolute Nucleated RBC Nucleated RBC % Sodium Potassium Chloride Carbon Dioxide Anion Gap BUN Creatinine Estim Creat Clear Calc Estimated GFR Glucose POC Capillary Glucose 239 H 217 H 317 H Calcium Total Bilirubin AST ALT Alkaline Phosphatase NT-Pro-B Natriuret Pep Total Protein Albumin 12/26/24 12/26/24 12/26/24 05:16 05:19 05:20 WBC 9.3 RBC 4.04 L Hgb 11.9 L Hct 39.3 L MCV 97.3 MCH 29.5 MCHC 30.3 L RDW 13.6 Plt Count 179 MPV 11.6 H Immature Gran % (Auto) 0.2 Neut % (Auto) 68.2 Lymph % (Auto) 21.6 [place] % (Auto) 7.4 Eos % (Auto) 2.3 Baso % (Auto) 0.3 Lymph # (Auto) 2.00 [place] # (Auto) 0.7 H Eos # (Auto) 0.2 Baso # (Auto) 0.0 Abs Immat Gran (auto) 0.02 Absolute Neuts (auto) 6.3 Absolute Nucleated RBC 0.000 Nucleated RBC % 0.0 Sodium 135 L Potassium 3.8 Chloride 87 L Carbon Dioxide > 40 H Anion Gap BUN 27 H Creatinine 1.63 H Estim Creat Clear Calc 57 Estimated GFR 42 L Glucose 136 H POC Capillary Glucose Calcium 9.1 Total Bilirubin 0.7 AST 29 ALT 24 Alkaline Phosphatase 116 NT-Pro-B Natriuret Pep 2810 H Total Protein 7.0 Albumin 3.8 12/26/24 08:08 WBC RBC Hgb Hct MCV MCH MCHC RDW Plt Count MPV Immature Gran % (Auto) Neut % (Auto) Lymph % (Auto) [place] % (Auto) Eos % (Auto) Baso % (Auto) Lymph # (Auto) [place] # (Auto) Eos # (Auto) Baso # (Auto) Abs Immat Gran (auto) Absolute Neuts (auto) Absolute Nucleated RBC Nucleated RBC % Sodium Potassium Chloride Carbon Dioxide Anion Gap BUN Creatinine Estim Creat Clear Calc Estimated GFR Glucose POC Capillary Glucose 152 H Calcium Total Bilirubin AST ALT Alkaline Phosphatase NT-Pro-B Natriuret Pep Total Protein Albumin Quality VTE Prophylaxis VTE prophylaxis: pharmacologic ordered
--- NOTE | 2024-12-26 10:42 | P.PNPL_ITS ---
Progress Note: A&P Assessment and Plan (1) Hypoventilation associated with obesity syndrome: Code(s): E66.2 - Morbid (severe) obesity with alveolar hypoventilation Status: Acute Assessment and Plan: Patient admitted with BMI 62.5, hypercarbic respiratory failure and fluid overload from right heart failure. He has been diuresed and now is breathing back to near normal. Patient had an ABG on room air off of BiPAP for 24 hours with a pH of 7.44/63/61 indicating chronic hypercarbic respiratory failure from his obesity. TSH on 12/09/2024 1.04. patient has obesity hypoventilation syndrome and would benefit from noninvasive ventilation to prevent further hospitalizations and disease progression. He was initially tried on BiPAP but this was uncomfortable for him and he could not tolerate this. I have initiated noninvasive ventilation with the AVAPS mode. 12/20/24: Patient tells me he is continuing to improve. States he has 50% back to his normal. He denies cough, phlegm or wheezing. He is afebrile. White blood cell count 6.6. Currently is on room air with saturations 95%. Last night patient wore hospital noninvasive ventilator with the AVAPS mode rate of 14, tidal volume 500, EPAP 8, minimal inspiratory pressure 9, maximal inspiratory pressure 25, inspiratory time 1.0, rise of 3 and 24% FiO2. Patient said he slept very well with the machine although it felt like the air was coming and too fast. On these settings patient had an overnight oximetry with a recording duration of 5 hours and 54 minutes. Average saturation 95%. Low saturation 75%. Time with saturation less than or equal to 88% was 0 minutes. Oxygen desaturation index 7.1. Patient had an ABG prior to removal of the mass with pH of 7.45/58/74. I decreased his rise to 5 and increased his inspiratory time to 1.2 and he said these settings were much more comfortable. Plan: continue noninvasive ventilation with the AVAPS mode rate of 14, tidal volume 500, EPAP 8, minimal inspiratory pressure 9, maximal inspiratory pressure 25, inspiratory time 1.2 and a rise of 5 as this provides adequate ventilation.. Tonight I will place on room air and perform an overnight oximetry on room air. Once patient is closer to his baseline will leave off of noninvasive ventilation for 24 hours and repeat a blood gas to determine if he still has chronic hypercarbic respiratory failure and if he does will then initiate plans for home noninvasive ventilation. 12/21/24: Patient continues to improve. Tells me his 60-65% back to his normal. Denies fever, chills, cough or phlegm. Room air saturations 94%. Patient wore the hospital noninvasive ventilator with the AVAPS mode and room air last night. Overnight oximetry with recording duration 7 hours and 36 minutes. Average saturation 92%. Low saturation 85%. Time with saturation less than or equal to 88% was 2 minutes. Oxygen desaturation index 5.4. Patient diuresed yesterday 2.3 L. Cumulative diuresis since admission is 8.9 L. Weight today is 154. Plan: Patient continues to improve. Overnight on hospital AVAPS and room air with adequate ventilation and oxygenation. Tonight I will place the patient on room air and perform an overnight oximetry to assess oxygenation and an ABG at 8:00 a.m. to assess for chronic hypercarbic respiratory failure. 12/22/2024: Patient continues to improve. Tells me is 75-80% back to his normal. He has no cough or phlegm. Patient wore room air last night and said he slept poorly and had desaturations and was increased to 1.5 L. He had an overnight oximetry started on room air and then increase to 1.5 L with recording duration 8 hours and 36 minutes. Average saturation 83%. Low saturation 40%. Time with saturation less than or equal to 88% was 392 minutes. Oxygen desatura tion index 41.8. Patient had an ABG on room air off of BiPAP for 24 hours with a pH of 7.44/63/61. BNP has increased from 2660 on 12/18 to 3300 today. Patient diuresed 3.1 L yesterday cumulative diuresis from admission is 13.3 L. His weight today is an error at 181. Plan: I will initiate home noninvasive ventilation. AVAPS AE with rate of 14, tidal volume 500, Minimum EPAP 5, maximum EPAP 15, minimal inspiratory pressure 6, maximal inspiratory pressure 25, inspiratory time 1.2 and a rise of 5. patient requires room air with these settings. Later in the day, I completed a home noninvasive ventilator order form through via [employer] for TT V-Paps AE: Rate 14, tidal volume 500, EPAP minimum 5, EPAP maximum 15, minimum pressure support 6, maximum pressure support 25 with no oxygen bleed in. I was informed by the cooperative education coordinator that the patient will be discharged to SNF facility that is unable to provide noninvasive with the AVAPS but can provide BiPAP. 12/23/2024: Patient tells me he is having a bad day. He complains of his usual pain in his feet, knees, hands, arms and shoulders he has good days and bad days at home. Overall the pain is affecting his breathing. The patient wore BiPAP rate of 14, pressures 18/8 and room air last night and said that he slept okay. Currently says he is breathing 60-65% of his normal, he has a n ormal cough with a little bit of phlegm. His edema has improved but is still present. His white blood cell count is 7.7, creatinine is 1.33. He diuresed 5.4 L yesterday. His weight is 181.1 kg today. Currently on room air with saturations 94%. Patient had an overnight oximetry on these BiPAP settings and room air with recording duration of 6 hours and 40 minutes, average saturation 84%, low saturation 75%. Time with saturation less than or equal to 88% was 370 mL, oxygen desaturation index 17.7. ABG prior to removal was 7.46/60/50. Plan: Current BiPAP settings provide adequate ventilation. He was hypoxemic on room air on these BiPAP settings. Will repeat overnight oximetry tonight on BiPAP 14, pressures 18/8 and 28% FIO2. The current plan will be for the patient to be discharged to his SNF on BiPAP and once he is discharged home from SNF he will use the noninvasive ventilator through via [employer] with the TT V-Paps AE: Rate 14, tidal volume 500, EPAP minimum 5, EPAP maximum 15, minimum pressure support 6, maximum pressure support 25 with no oxygen bleed in as these settings provided adequate ventilation and oxygenation. Discussed with Dr. Leonard. Will follow with you. 12/24/2024: He is tolerating BiPAP 18/8 and 2 L/min at night, room air in the day. Improved. Overnight oximetry showed that this BiPAP with 2 L is sufficient. 12/25/2024: He is on RA at rest, BiPAP 18/8 & 2L/min with sleep. 12/26/2024: Patient states he slept well with the hospital BiPAP. States he is breathing normal. He has a normal amount of phlegm with no hemoptysis. He is afebrile. Currently is on room air with saturations 92%. White blood cell count 9.3, creatinine 1.63. Yesterday he was positive 372 mL. Cumulative since admission is -19.2 L. His weight today is 173. Patient will be discussed to [facility]. From a pulmonary perspective patient is ready to be discharged on these pulmonary medications: Oxygen at rest and with activity per living facilities protocol. When patient naps or sleeps: BiPAP rate of 14, pressures 18/8 and 2 L bleed in. When patient is discharged from [facility] to home: home noninvasive ventilator order form through via [employer] for TT V-Paps AE: Rate 14, tidal volume 500, EPAP minimum 5, EPAP maximum 15, minimum pressure support 6, maximum pressure support 25 with no oxygen bleed in. Diuretics and antihypertensives per hospitalist and lead network architect teams. Patient to follow-up in the pulmonary clinic 4 weeks after he is discharged from his rehabilitation center. I gave him our business card and informed our senior scheduler. Discussed with Dr. Leonard, will sign off, call with questions (2) Right heart failure: Code(s): I50.810 - Right heart failure, unspecified Status: Acute Assessment and Plan: 12/19/24: diuresed 1.9 L yesterday and cumulative diuresis is -2.9 L since admission on lasix 60 IV BID, Spironolactone 50 q.day. Chest x-ray shows minimal right pleural effusion with improved congestion. Patient states his edema and abdominal tightness are improved. BNP has improved from 3770 to 2660. Overall he says he feels better and he says he feels 30% back to his normal. his weight on admission was 158.6 kg and today he is 154.5 kg. Of note on 09/12/2024 he weighed 138.8 kg. Plan: recommend as aggressive diuresis as tolerated by his cardiac and renal systems per Cardiology and hospitalist teams. 12/20/24: creatinine 0.93. He is on Lasix 60 IV b.i.d. and diuresed 3.7 L yesterday cumulative since admission he is -5.7 L. His weight today is 154.5 with admission weight of 158.6. Plan: Agree with as aggressive diuresis as tolerated by his cardiac and renal systems per Cardiology and the hospitalist team. Patient is having some soft blood pressures would consider decreasing his antihypertensives to allow for continued aggressive diuresis. 12/21/24: Patient diuresed yesterday 2.3 L. creatinine 0.91 Cumulative diuresis since admission is 8.9 L. Weight today is 154. Plan: Agree with continued aggressive diuresis with Lasix 60 IV b.i.d.. Clonidine has been decreased. 12/22/24: BNP has increased from 2660 on 12/18 to 3300 today. creatinine 1.27. Patient diuresed 3.1 L yesterday cumulative diuresis from admission is 13.3 L. His weight today is an error at 181. Plan: Agree with continued aggressive diuresis with Lasix 60 IV b.i.d.. Would continue to decrease his antihypertensives. 12/23/24: His edema has improved but is still present. His creatinine is 1.33. He diuresed 5.4 L yesterday. His weight is 181.1 kg today. Cumulative d iuresis since admission is 17.5 L Plan: creatinine increased to 1.33, need to be cautious of over-diuresis and would consider cutting back on his antihypertensives. 12/24/24: Wt down 178.2 kg, almost 2 kg since yesterday. Creatinine is 1.41, slightly higher. He has lost about 19 L total. 12/25/24: Wt down 176.1 kg, 2 more kg since yesterday. Creat 1.37, stable. 12/26/24: Creatinine 1.63. Yesterday he was positive 372 mL. Cumulative since admission is -19.2 L. His weight today is 173. BNP 2810, decreased from 12/22/24 plan: Diuretics and antihypertensives per lead network architect and hospitalist teams. Subjective Date/time seen: 12/26/24 10:42 Interval history: 12/19/2024: This is a new pulmonary consult for hypoxemic and hypercarbic respiratory failure, morbid obesity and congestive heart failure. 74-year-old with a history of CVA, CAD, AFib with RVR, diastolic dysfunction, hypertension, hyperlipidemia, diabetes, morbid obesity and untreated sleep apnea. Regarding his obstructive sleep apnea the patient tells me in the he had a sleep study and was prescribed a fullface mask CPAP machine and he were to few times and could not tolerate it and never had any follow-up. At that time he had witnessed apneas per his . Recently he does not know if he snores. He and his sleep in separate bedrooms and does not know if he has witnessed apneas, he has no morning headaches. He was on Ozempic and weight 385 lb and lost 100 lb to 285 lb. At baseline he says he could walk 1 block and this is unchanged over the last year. Over the last 3-4 weeks he can only walk room to room. He does not measure his oxygen. Patient smoked tobacco from [id number] at 1 pack per day for a total of 31 pack years. Approximately 3-4 weeks ago he has had Shortness of breath at rest, dyspnea on exertion, weight gain, tight abdomen and lower extremity edema. He was admitted to the hospital from 12/08/2024 through 12/14/24 with fluid overload with an admission BNP of 3540, TSH 12/09/2024 1.04. AFib with RVR and he was diuresed with IV Lasix. His weight on admission was 159.7 kg and on discharge was 161.2 kg. on 12/13/2024 his BNP was 4470. He was admitted on 20 mg of Lasix twice a day and discharged on 40 mg of Lasix twice a day. 12/17/2024 the patient presented back to the hospital with worsening shortness of breath and increased edema. Is BNP was 3770, chest x-ray showed congestion with small effusions, he had AFib with RVR and he was treated with IV Lasix. His room air blood gas was 7.42/46/63. On 12/18/2024 the patient was on 1 L and had a blood gas of 7.43/52/73 and was empirically placed on auto PAP 5-15. 12/19/24: The patient is awake and alert currently on auto PAP with 1 L bleed in with saturations 97%. I placed him on room air and his saturations were 93- 94%. His white blood cell count 6.8, creatinine 1.09, diuresed 1.9 L yesterday and cumulative diuresis is -2.9 L. patient had an ABG on auto PAP 5-15 of 7.40/57/79. Chest x-ray shows minimal right pleural effusion with improved congestion. Patient states his edema and abdominal tightness are improved. Overall he says he feels better and he says he feels 30% back to his normal. He denies fever, chills, rigors. Remains with shortness of breath. Patient wore the auto PAP 5-15 and said he got the best night of his sleep in the last 3 weeks. 12/20/24: Patient tells me he is continuing to improve. States he has 50% back to his normal. He denies cough, phlegm or wheezing. He is afebrile. White blood cell count 6.6, creatinine 0.93. He is on Lasix 60 IV b.i.d. and diuresed 3.7 L yesterday cumulative since admission he is -5.7 L. His weight today is 154.5 with admission weight of 158.6. Currently is on room air with saturations 95%. Last night patient wore hospital noninvasive ventilator with the AVAPS mode rate of 14, tidal volume 500, EPAP 8, minimal inspiratory pressure 9, maximal inspiratory pressure 25, inspiratory time 1.0, rise of 3 and 24% FiO2. Patient said he slept very well with the machine although it felt like the air was coming and too fast. On these settings patient had an overnight oximetry with a recording duration of 5 hours and 54 minutes. Average saturation 95%. Low saturation 75%. Time with saturation less than or equal to 88% was 0 minutes. Oxygen desaturation index 7.1. Patient had an ABG prior to removal of the mass with pH of 7.45/58/74. I decreased his rise to 5 and increased his inspiratory time to 1.2 and he said these settings were much more comfortable. 12/21/24: Patient continues to improve. Tells me his 60-65% back to his normal. Denies fever, chills, cough or phlegm. Room air saturations 94%. Patient wore the hospital noninvasive ventilator with the AVAPS mode and room air last night. Overnight oximetry with recording duration 7 hours and 36 minutes. Average saturation 92%. Low saturation 85%. Time with saturation less than or equal to 88% was 2 minutes. Oxygen desaturation index 5.4. Patient diuresed yesterday 2.3 L. Cumulative diuresis since admission is 8.9 L. Weight today is 154. 12/22/2024: Patient continues to improve. Tells me is 75-80% back to his normal. He has no cough or phlegm. Patient wore room air last night and said he slept poorly and had desaturations and was increased to 1.5 L. He had an overnight oximetry started on room air and then increase to 1.5 L with recording duration 8 hours and 36 minutes. Average saturation 83%. Low saturation 40%. Time with saturation less than or equal to 88% was 392 minutes. Oxygen desaturation index 41.8. Patient had an ABG on room air off of BiPAP for 24 hours with a pH of 7.44/63/61. BNP has increased from 2660 on 12/18 1-3300 today. Patient diuresed 3.1 L yesterday cumulative diuresis from admission is 13.3 L. His weight today is an error at 181. Later in the day, I completed a home noninvasive ventilator order form through via [employer] for TT V-Paps AE: Rate 14, tidal volume 500, EPAP minimum 5, EPAP maximum 15, minimum pressure support 6, maximum pressure support 25 with no oxygen bleed in. I was informed by the cooperative education coordinator that the patient will be dis charged to SNF facility that is unable to provide noninvasive with the AVAPS but can provide BiPAP. 12/23/2024: Patient tells me he is having a bad day. He complains of his usual pain in his feet, knees, hands, arms and shoulders he has good days and bad days at home. Overall the pain is affecting his breathing. The patient wore BiPAP rate of 14, pressures 18/8 and room air last night and said that he slept okay. Currently says he is breathing 60-65% of his normal, he has a normal cough with a little bit of phlegm. His edema has improved but is still present. His white blood cell count is 7.7, creatinine is 1.33. Currently on room air with saturations 94%. Patient had an overnight oximetry on these BiPAP settings and room air with recording duration of 6 hours and 40 minutes, average saturation 84%, low saturation 75%. Time with saturation less than or equal to 88% was 370 mL, oxygen desaturation index 17.7. ABG prior to removal was 7.46/60/50. 12/24/2024: His overnight oximetry with BiPAP and 2 L was excellent; no time below 88%; recording time was 5 hours 38 min on BiPAP I/E 18/8, rate 14, 2 L O2. He says that his breathing feels fine, not coughing, no sputum. He is on room air, saturation is 94 to 97%. 12/25/2024: He is sitting up in a chair, room air; has abdominal pain in the LUQ radiating down the left side, intermittent, no N/V. He discussed with Dr Leonard who held his discharge and ordered testing. His RN Amy told me about the plans. As far as pulmonary issue of obesity hypoventilation, he is stable. 12/26/2024: Patient states he slept well with the hospital BiPAP. States he is breathing normal. He has a normal amount of phlegm with no hemoptysis. He is afebrile. Currently is on room air with saturations 92%. White blood cell count 9.3, creatinine 1.63. Yesterday he was positive 372 mL. Cumulative since admission is -19.2 L. His weight today is 173. BNP 2810, decreased from 12/22/24 DATA: 12/23/24: His overnight oximetry with BiPAP and 2 L was excellent; no time below 88%; recording time was 5 hours 38 min 12/22/24: Patient had an overnight oximetry on these BiPAP settings and room air with recording duration of 6 hours and 40 minutes, average saturation 84%, low saturation 75%. Time with saturation less than or equal to 88% was 370 mL, oxygen desaturation index 17.7. ABG prior to removal was 7.46/60/50. 12/20/24: Last night patient wore hospital noninvasive ventilator with the AVAPS mode rate of 14, tidal volume 500, EPAP 8, minimal inspiratory pressure 9, maximal inspiratory pressure 25, inspiratory time 1.0, rise of 3 and 24% FiO2. Patient said he slept very well with the machine although it felt like the air was coming and too fast. On these settings patient had an overnight oximetry with a recording duration of 5 hours and 54 minutes. Average saturation 95%. Low saturation 75%. Time with saturation less than or equal to 88% was 0 minutes. Oxygen desaturation index 7.1. Patient had an ABG prior to removal of the mass with pH of 7.45/58/74. I decreased his rise to 5 and increased his inspiratory time to 1.2 and he said these settings were much more comfortable. ------ 12/17/24: CHEST RADIOGRAPH CLINICAL HISTORY: dyspnea/ chf . COMPARISON: 12/08/2024 TECHNIQUE: Single portable view of the chest. FINDINGS The cardiomediastinal silhouette is enlarged, unchanged. Calcified lymph nodes within the mediastinum suggesting prior granulomatous disease. Increased interstitial markings are identified bilaterally, findings suggesting mild pulmonary vascular congestion. Bilateral pleural effusions, right greater than left. The remainder of the lungs are clear. IMPRESSION: Bilateral pleural effusions, with mild pulmonary vascular congestion. 12/09/24: Echo Summary 1. Left ventricular chamber dimension is normal. 2. Left ventricular systolic function is normal, estimated at 50-55%. 3. There is moderately increased left ventricular wall thickness. 4. Right ventricular chamber dimension is mildly enlarged. 5. Right ventricular systolic function is reduced. 6. Left atrial chamber dimension is severely enlarged. 7. Right atrial chamber dimension is severely enlarged. 8. There is moderate tricuspid valve regurgitation. 9. There is trivial pericardial effusion. Right Ventricle Right ventricular chamber dimension is mildly enlarged. Right ventricular systolic function is reduced. Left Atria Left atrial chamber dimension is severely enlarged. Right Atria Right atrial chamber dimension is severely enlarged. Atrial Septum Intact interatrial septum visualized by color flow imaging. 09/23/2021: Echo Summary 1. Complete two-dimensional, color flow and Doppler transthoracic echocardiogram is performed. 2. Left ventricular chamber dimension is normal. 3. Left ventricular systolic function is normal, estimated at 60-65%. 4. There is moderately increased left ventricular wall thickness. 5. The left ventricular diastolic function is grade I diastolic dysfunction. 6. There is no aortic valve stenosis. 7. There is trace tricuspid valve regurgitation. 8. No pulmonary hypertension, estimated pulmonary arterial systolic pressure is 14 mmHg. 9. There is trace mitral valve regurgitation. Right Ventricle Right ventricular chamber dimension is normal. Right ventricular systolic function is normal. Left Atria Left atrial chamber dimension is mildly enlarged. Right Atria Right atrial chamber dimension is mildly enlarged. Review of Systems Review of Systems: New abdominal pain in LUQ,, nausea or vomiting, he is not constipated; has had a similar discomfort in the past. All systems reviewed & are unremarkable except as noted in HPI and below Constitutional: Constitutional: Reports no additional constitutional complaints Eyes: Eyes: Reports no additional eye complaints ENT: Reports system reviewed and no additional complaints, except as documented Cardiovascular: Cardiovascular: Reports no additional cardiovascular complaints Respiratory: Respiratory: Reports no additional respiratory complaints Gastrointestinal: Gastrointestinal: Reports no additional gastrointestinal complaints Musculoskeletal: Musculoskeletal: Reports no additional musculoskeletal complaints Neurologic: Reports system reviewed and no additional complaints, except as documented Psychiatric: Psychiatric: Reports no additional psychiatric complaints Endocrine: Endocrine: Reports no additional endocrine complaints Hematologic/Lymphatic: Hematologic/Lymphatic: Reports no additional hematologic/lymphatic complaints Allergic/Immunologic: Allergic/Immunologic: Reports no additional allergic/immunologic complaints Exam Const: General: cooperative and comfortable Orientation/consciousness: oriented to person, oriented to place and oriented to time Other: obese HENMT: Head: normal to inspection Ears: hearing grossly normal bilaterally Eyes: General: appearance normal, both eyes and all related structures Neck: Neck: normal visual inspection Chest: Chest palpation & inspection: normal inspection of the chest Resp: Effort & Inspection: normal respiratory effort and able to speak in complete sentences Auscultation: no crackles, no rales, no rhonchi, no wheezes and diminished lung sounds Other: obese Cardio: Jugular venous distension: no JVD GI: Inspection: distended Other: Less distended Skin: General skin exam: normal color Neuro: General: oriented to person, oriented to place and oriented to time Extrem: General: normal to inspection and edema Other: improved edema Psych: Appearance: grossly normal Objective Data Vital Signs Vital Signs: Vital Signs - 24 hr 12/25/24 15:38 12/25/24 16:00 12/25/24 19:59 Temperature 36.7 C Pulse Rate 87 96 96 Respiratory Rate 18 18 Blood Pressure 119/87 Pulse Oximetry 96 96 Oxygen Delivery Room Air Fraction of Inspired Oxygen 21 12/25/24 20:00 12/25/24 20:29 12/25/24 20:38 Temperature Pulse Rate 106 H 135 H 87 Respiratory Rate 20 Blood Pressure Pulse Oximetry 95 Oxygen Delivery BiPAP Fraction of Inspired Oxygen 12/25/24 22:00 12/26/24 00:00 12/26/24 01:53 Temperature 36.1 C L Pulse Rate 135 H 82 83 Respiratory Rate 24 H 20 Blood Pressure 105/61 Pulse Oximetry 90 95 Oxygen Delivery BiPAP Fraction of Inspired Oxygen 12/26/24 04:00 12/26/24 05:34 12/26/24 08:46 Temperature 35.8 C L Pulse Rate 79 45 L Respiratory Rate 16 Blood Pressure 135/76 Pulse Oximetry 99 92 Oxygen Delivery Room Air Fraction of Inspired Oxygen 12/26/24 09:08 Temperature Pulse Rate 114 H Respiratory Rate Blood Pressure Pulse Oximetry Oxygen Delivery Fraction of Inspired Oxygen Intake/Output Intake/Output: Intake & Output 12/23/24 12/24/24 12/25/24 12/26/24 23:59 23:59 23:59 23:59 Intake Total 936 864 922 608 Output Total [phone] 420 [facility] [phone] Meds/Results Medications: Active Medications Generic Name Dose Route Start Last Admin Trade Name Freq PRN Reason Stop Dose Admin Acetaminophen 650 mg 12/18/24 09:32 Acetaminophen 325 Mg Tablet PO Q4H PRN Mild Pain (1-3) or Fever Hydrocodone Bitart/Acetaminophen 1 tab 12/18/24 04:56 12/26/24 09:11 Hydrocodone/Acetaminophen (*Crx) 7.5-325 Mg Tablet PO 1 tab Q4H PRN Administration Pain Rated 7-10 Apixaban 5 mg 12/18/24 09:00 12/26/24 09:08 Apixaban 5 Mg Tablet PO 5 mg Q12HR SHIRA Administration Aspirin 81 mg 12/18/24 09:00 12/26/24 09:08 Aspirin 81 Mg Enteric Tablet PO 81 mg DAILY SHIRA Administration Atorvastatin Calcium 20 mg 12/18/24 05:00 12/26/24 09:08 Atorvastatin 20 Mg Tablet PO 20 mg DAILY SHIRA Administration Cyanocobalamin 1,000 mcg 12/18/24 09:00 12/26/24 09:08 Cyanocobalamin 1,000 Mcg Tablet PO 1,000 mcg QAM SHIRA Administration Dextrose 12.5 gm 12/18/24 04:57 Dextrose 50% 25 Gm/50 Ml Syringe IV PUSH PRN PRN Hypoglycemia Protocol Dicyclomine HCl 20 mg 12/25/24 11:15 12/25/24 17:30 Dicyclomine Hcl 10 Mg Capsule PO 20 mg QID PRN Administration Abdominal Cramping Diltiazem HCl 180 mg 12/18/24 09:00 12/26/24 09:08 Diltiazem Hcl Cd 180 Mg Cap.24hr PO 180 mg QAM SHIRA Administration Empagliflozin 10 mg 12/21/24 09:00 12/26/24 09:10 Empagliflozin 10 Mg Tablet PO 10 mg DAILY SHIRA Administration Furosemide 80 mg 12/25/24 09:00 12/26/24 09:08 Furosemide 80 Mg Tablet PO 80 mg DAILY SHIRA Administration Gabapentin 300 mg 12/18/24 06:00 12/26/24 06:07 Gabapentin 300 Mg Capsule PO 300 mg Q8HR SHIRA Administration Glucagon 1 mg 12/18/24 04:57 Glucagon For Inj 1 Mg Vial IM PRN PRN Hypoglycemia Protocol Glucose 15 gm 12/18/24 04:57 Glucose Oral Gel 15 Gm Of Glucse In 37.5 Gm Tube PO PRN PRN Hypoglycemia Protocol Dextrose 1,000 mls @ 100 mls/hr 12/18/24 04:57 Dextrose 5% 1,000 Ml IVPB PRN PRN Hypoglycemia Protocol Insulin Aspart 3 - 6 units 12/18/24 08:00 12/26/24 08:17 Insulin Aspart (*Bkc) 100 Units/Ml SUB-Q Not Given TIDWM [facility] Protocol Insulin Glargine 60 units 12/18/24 21:00 12/25/24 20:29 Insulin Glargine (*Bkc) 100 Units/Ml SUB-Q 60 units HS SHIRA Administration Levalbuterol HCl 1.25 mg 12/18/24 18:32 12/19/24 07:06 Levalbuterol Neb 1.25 Mg/3 Ml INHALATION 1.25 mg Q6HRT PRN Administration Shortness Of Breath Losartan Potassium 50 mg 12/19/24 09:00 12/20/24 09:15 Losartan Potassium 50 Mg Tablet PO 50 mg DAILY SHIRA Administration Metoprolol Tartrate 100 mg 12/18/24 05:00 12/26/24 09:08 Metoprolol Tartrate 50 Mg Tab PO 100 mg Q12HR SHIRA Administration Ondansetron HCl 4 mg 12/18/24 09:32 12/25/24 07:46 Ondansetron Inj 4 Mg/2 Ml Vial IV PUSH 4 mg Q6H PRN Administration Nausea And Vomiting Spironolactone 50 mg 12/19/24 09:00 12/26/24 09:11 Spironolactone 50 Mg Tablet PO 50 mg QAM SHIRA Administration Trazodone HCl 25 mg 12/18/24 20:13 12/25/24 20:29 Trazodone Hcl 25 Mg Tablet PO 25 mg HS PRN Administration Insomnia Radiology Results: ITS Impressions Chest X-Ray 12/19/24 06:51 Impression: Minimal right pleural effusion. Stable cardiomegaly. Labs Labs: Laboratory Results - last 24 hr 12/25/24 12/25/24 12/25/24 11:32 16:59 20:09 WBC RBC Hgb Hct MCV MCH MCHC RDW Plt Count MPV Immature Gran % (Auto) Neut % (Auto) Lymph % (Auto) [place] % (Auto) Eos % (Auto) Baso % (Auto) Lymph # (Auto) [place] # (Auto) Eos # (Auto) Baso # (Auto) Abs Immat Gran (auto) Absolute Neuts (auto) Absolute Nucleated RBC Nucleated RBC % Sodium Potassium Chloride Carbon Dioxide Anion Gap BUN Creatinine Estim Creat Clear Calc Estimated GFR Glucose POC Capillary Glucose 239 H 217 H 317 H Calcium Total Bilirubin AST ALT Alkaline Phosphatase NT-Pro-B Natriuret Pep Total Protein Albumin 12/26/24 12/26/24 12/26/24 05:16 05:19 05:20 WBC 9.3 RBC 4.04 L Hgb 11.9 L Hct 39.3 L MCV 97.3 MCH 29.5 MCHC 30.3 L RDW 13.6 Plt Count 179 MPV 11.6 H Immature Gran % (Auto) 0.2 Neut % (Auto) 68.2 Lymph % (Auto) 21.6 [place] % (Auto) 7.4 Eos % (Auto) 2.3 Baso % (Auto) 0.3 Lymph # (Auto) 2.00 [place] # (Auto) 0.7 H Eos # (Auto) 0.2 Baso # (Auto) 0.0 Abs Immat Gran (auto) 0.02 Absolute Neuts (auto) 6.3 Absolute Nucleated RBC 0.000 Nucleated RBC % 0.0 Sodium 135 L Potassium 3.8 Chloride 87 L Carbon Dioxide > 40 H Anion Gap BUN 27 H Creatinine 1.63 H Estim Creat Clear Calc 57 Estimated GFR 42 L Glucose 136 H POC Capillary Glucose Calcium 9.1 Total Bilirubin 0.7 AST 29 ALT 24 Alkaline Phosphatase 116 NT-Pro-B Natriuret Pep 2810 H Total Protein 7.0 Albumin 3.8 12/26/24 08:08 WBC RBC Hgb Hct MCV MCH MCHC RDW Plt Count MPV Immature Gran % (Auto) Neut % (Auto) Lymph % (Auto) [place] % (Auto) Eos % (Auto) Baso % (Auto) Lymph # (Auto) [place] # (Auto) Eos # (Auto) Baso # (Auto) Abs Immat Gran (auto) Absolute Neuts (auto) Absolute Nucleated RBC Nucleated RBC % Sodium Potassium Chloride Carbon Dioxide Anion Gap BUN Creatinine Estim Creat Clear Calc Estimated GFR Glucose POC Capillary Glucose 152 H Calcium Total Bilirubin AST ALT Alkaline Phosphatase NT-Pro-B Natriuret Pep Total Protein Albumin
[2024-12-26 11:32] LABS: Glucose Point of Care 146 mg/dl (65-105)
[2024-12-26 16:23] LABS: Glucose Point of Care 172 mg/dl (65-105)
[2024-12-26] MEDS: METOPROLOL TARTRATE INJ 5 MG/5 ML VIAL IV PUSH (19:20)
--- NOTE | 2024-12-26 19:41 | PC.NURSE ---
called to inform him of pt having tachycardia at 1844 and that we had no prn med to treat high heart rate. ordered iv metoprolol prn. metoprolol given at approx 1815
[2024-12-26] MEDS: INSULIN GLARGINE (*BKC) 100 UNITS/ML 60 UNITS SUB-Q (20:52)
[2024-12-26] MEDS: traZODone HCL 25 MG TABLET PO (20:52)
[2024-12-26 21:06] LABS: Glucose Point of Care 229 mg/dl (65-105)
[2024-12-27] VITALS (8 sets, daily range): BP systolic 131; BP diastolic 74; PULSE 63–118; RESP 16–20; TEMP 36.7; O2SAT 98–99
[2024-12-27 06:11] LABS: Hematocrit 38.2 % (42.0-52.0); Hemoglobin 11.7 g/dL (14.0-18.0); Mean Corpuscular HGB Conc 30.6 g/dl (32-36); Mean Corpuscular Hemoglobin 29.6 pg (26-34); Mean Corpuscular Volume 96.7 fl (80-100); Mean Platelet Volume 11.5 fl (7.4-10.4); Platelet Count Result 167 k/mm3 (150-375); Red Blood Count 3.95 M/mm3 (4.6-6.20); Red Cell Distribution Width 13.5 % (11.5-14.5); White Blood Count 9.2 K/mm3 (4.5-10.0)
[2024-12-27] MEDS: GABAPENTIN 300 MG CAPSULE PO (06:48)
[2024-12-27 06:53] LABS: Blood Urea Nitrogen 30 mg/dL (9-20); Carbon Dioxide > 40 mmol/L (22-30); Chloride 89 mmol/L (98-107); Estimated CRCL calculation 66 ml/min; Estimated Glomerular Filt Rate 49; Glucose 106 mg/dL (65-110); Magnesium 2.2 mg/dL (1.6-2.3); Potassium 3.2 mmol/L (3.4-5.0); Sodium 135 mmol/L (137-145)
[2024-12-27] MEDS: METOPROLOL TARTRATE 50 MG TAB 100 MG PO (08:03)
[2024-12-27] MEDS: dilTIAZem HCL CD 180 MG CAP.24HR PO (08:03)
[2024-12-27] MEDS: ATORVASTATIN 20 MG TABLET PO (08:03)
[2024-12-27] MEDS: ASPIRIN 81 MG ENTERIC TABLET PO (08:03)
[2024-12-27] MEDS: EMPAGLIFLOZIN 10 MG TABLET PO (08:03)
[2024-12-27] MEDS: CYANOCOBALAMIN 1,000 MCG TABLET 1000 MCG PO (08:04)
[2024-12-27] MEDS: APIXABAN 5 MG TABLET PO (08:05)
[2024-12-27] MEDS: FUROSEMIDE 80 MG TABLET PO (08:14)
[2024-12-27 08:20] LABS: Glucose Point of Care 115 mg/dl (65-105)
--- NOTE | 2024-12-27 10:14 | P.DS_ITS ---
DS: Admitting Diagnosis Discharge Date 12/27/24 Admitting Diagnosis CHF exacerbation DS: Discharge Diagnosis Discharge Diagnosis (1) Acute on chronic diastolic congestive heart failure: Code(s): I50.33 - Acute on chronic diastolic (congestive) heart failure Status: Acute Assessment and Plan: Severe anasarca currently patient is getting diuresis [id number] diastolic dysfunction with elevated BNP * po Lasix daily.40 BID * spironolactone * Jardiance * monitor renal function during diuresis * chest x-ray: bilateral pleural effusions interstitial congestion * Daily weight. * Strict I&O's * fluid restriction (2) Hypoventilation associated with obesity syndrome: Code(s): E66.2 - Morbid (severe) obesity with alveolar hypoventilation Status: Acute Assessment and Plan: * lifestyle modification (3) Obstructive sleep apnea: Code(s): G47.33 - Obstructive sleep apnea (adult) (pediatric) Status: Acute Assessment and Plan: on bipap. Oxygen at rest and with activity per living facilities protocol. When patient naps or sleeps: BiPAP rate of 14, pressures 18/8 and 2 L bleed in. When patient is discharged from [facility] to home: home noninvasive ventilator order form through via [employer] for TT V-Paps AE: Rate 14, tidal volume 500, EPAP minimum 5, EPAP maximum 15, minimum pressure support 6, maximum pressure support 25 with no oxygen bleed in. (4) Atrial fibrillation with rapid ventricular response: Code(s): I48.91 - Unspecified atrial fibrillation Status: Acute Assessment and Plan: * * on diltiazem, metoprolol, and Eliquis (5) Essential (primary) hypertension: Code(s): I10 - Essential (primary) hypertension Status: Acute Assessment and Plan: * reviewed * diltiazem, metoprolol, losartan * BP per unit protocol (6) Insulin dependent type 2 diabetes mellitus: Code(s): E11.9 - Type 2 diabetes mellitus without complications; Z79.4 - intermediate school teacher (current) use of insulin Status: Acute Assessment and Plan: * Accu-Cheks a.cBradford HS * sliding scale insulin * Watch for hypoglycemia/hypoglycemic protocol ordered (7) Mixed hyperlipidemia: Code(s): E78.2 - Mixed hyperlipidemia Status: Acute Assessment and Plan: * Atorvastatin (8) Morbid obesity: Code(s): E66.01 - Morbid (severe) obesity due to excess calories Status: Acute Assessment and Plan: * Encouraged strict diet restrictions and weight loss * Encourage increased activity patient going to Rehab at discharge * likely contributing to some of his chronic problems (9) Abdominal pain: Code(s): R10.9 - Unspecified abdominal pain Status: Acute Assessment and Plan: unclear etiology improved recent US showed splenomegally denies any chest pain. no fever, WBC WNL, received bentyl monitor Plan Code status: Full code per patient DVT prophylaxis: Eliquis Stress ulcer prophylaxis: does not need PT/OT notes: SNF DS: Summary Hospital Course Hospital Course: per HPI: Patient is a 74-year-old male who was recently admitted to the hospital for atrial fibrillation heart failure. He has a history of CAD, hypertension hyperlipidemia, diabetes, untreated sleep apnea, obesity presented hospital with shortness of breath. He was discharged under is nursing facility in had progressive weight gain over the past couple of days since discharge. He was short of breath and has abdominal discomfort, worsening edema. He is brought back to hospital for further workup and evaluation. He was also had borderline control in heart rate 12/27/24 Patient was seen examined at bedside. He has been admitted for CHF exacerbation. He has been treated with IV Lasix, spironolactone. Cardiology has been consulted. Patient needs to be on Lasix, losartan, Jardiance, Lopressor, details, Eliquis, aspirin and Lipitor. Patient gradually was improving. Kidney function showed creatinine 1.41 on 12/24/2024. Lasix and spironolactone was on hold. Resumed Lasix and spironolactone yesterday. Kidney function improving. Patient improving. Patient also had episode of left-sided abdominal pain which improved with Bentyl. Patient feeling fine today. He is on room air saturation fine. Denies any chest pain, shortness of breath, abdominal pain, nausea vomiting. Reviewed pulmonary note: BiPAP 14, pressures 18/8 and 28% FIO2. The current plan will be for the patient to be discharged to his SNF on BiPAP and once he is discharged home from SNF he will use the noninvasive ventilator through via med with the TT V-Paps AE: Rate 14, tidal volume 500, EPAP minimum 5, EPAP maximum 15, minimum pressure support 6, maximum pressure support 25 with no oxygen bleed in Have reviewed cardiology team. Patient needs to be on Lasix, losartan, Jardiance, Lopressor, details, Eliquis, aspirin and Lipitor, Status at Discharge Overall status at discharge: patient is progressing back to baseline Time Spent with Patient Time attestation: Total time spent providing and/or coordinating discharge services: Time spent: Greater than 30 minutes Exam Narrative: General: Pleasant chronically ill looking male in no acute distress HEENT: Oral mucosa moist. Respiratory: Lung sounds diminished,at the bases. Cardiovascular: Irregularly irregular Gastrointestinal: Abdomen is obese and L upper tender with normal bowel sounds. Skin: Warm and dry. Extremities: No cyanosis or clubbing. lower ext 2+ edema Neurological: Alert. No gross focal deficits to casual conversation. DS: Data Data Completed and Pending Labs on day of discharge: Labs from last 24 hours 12/27/24 12/27/24 12/26/24 08:16 05:23 20:13 WBC 9.2 RBC 3.95 L Hgb 11.7 L Hct 38.2 L MCV 96.7 MCH 29.6 MCHC 30.6 L RDW 13.5 Plt Count 167 MPV 11.5 H Sodium 135 L Potassium 3.2 L Chloride 89 L Carbon Dioxide > 40 H Anion Gap BUN 30 H Creatinine 1.41 H Estim Creat Clear Calc 66 Estimated GFR 49 L Glucose 106 POC Capillary Glucose 115 H 229 H Calcium 9.0 Magnesium 2.2 12/26/24 12/26/24 16:21 11:30 WBC RBC Hgb Hct MCV MCH MCHC RDW Plt Count MPV Sodium Potassium Chloride Carbon Dioxide Anion Gap BUN Creatinine Estim Creat Clear Calc Estimated GFR Glucose POC Capillary Glucose 172 H 146 H Calcium Magnesium Discharge Plan Discharge Consulting providers: Linnea Sprague; Tru Rodriguez; Alma,Juan Price Discharging Clinician: Fabiano Leonard Patient Disposition: SNF Activity: as tolerated Diet: heart healthy Discharge Instructions: Oxygen at rest and with activity per living facilities protocol. When patient naps or sleeps: BiPAP rate of 14, pressures 18/8 and 2 L bleed in. When patient is discharged from [facility] to home: home noninvasive ventilator order form through via med for TT V-Paps AE: Rate 14, tidal volume 500, EPAP minimum 5, EPAP maximum 15, minimum pressure support 6, maximum pressure support 25 with no oxygen bleed in. Patient to follow-up in the pulmonary clinic 4 weeks after he is discharged from his rehabilitation center. Please continue losartan, spironolactone, Lasix, Lopressor, diltiazem, Eliquis and Jardiance Check your weight daily and report to PCP if you are gaining more than 2.5 lb Check your blood pressure and heart rate regularly and reporte to CP Fluid restriction to 1500 cc per day Patient Instructions: Apixaban (By mouth), Heart Failure (DC) Patient Language: Divehi Stand Alone Forms: General Discharge Information Follow-up/Referrals: Kevyn Mccann MD [Primary Care Provider] - Tru Rodriguez MD [Physician] - Alma,Juan Price MD [Non-Staff] - Discharge Medications: New spironolactone [Aldactone] 50 mg Tablet 50 mg PO QAM Qty: 30 0RF Jardiance 10 mg Tablet 10 mg PO DAILY Qty: 30 0RF Continued naloxone 4 mg/actuation spray,non-aerosol 4 mg intranasal Q3M PRN (Reason: opioid overdose) Qty: 2 0RF Rx Instructions: spray 1 dose into ONE nostril; alternate nostrils w each dose until help arrives--PT STATES NEVER PICKED UP RX (DME) FreeStyle Sara 2 [place] Misc See Rx Instructions .Route Qty: 1 0RF Rx Instructions: use to monitor blood sugar on insulin losartan 25 mg tablet 25 mg PO DAILY Qty: 90 1RF furosemide 40 mg Tablet 40 mg PO BID Qty: 30 0RF diltiazem HCl 180 mg Capsule,Ext.Rel 24h Degradable 180 mg PO QAM Qty: 30 0RF Eliquis 5 mg Tablet 5 mg PO Q12HR Qty: 60 0RF cyanocobalamin (vitamin B-12) [Vitamin B-12] 1,000 mcg Tablet 1,000 mcg PO QAM Qty: 0 0RF amlodipine 10 mg tablet 10 mg PO HS gabapentin 300 mg capsule 300 mg PO Q8H ergocalciferol (vitamin D2) 1,250 mcg (50,000 unit) capsule 1,250 mcg PO WEEKLY Patient Comments: Thursday insulin glargine U-300 conc [Toujeo Max U-300 SoloStar] 300 unit/mL (3 mL) insulin pen See Rx Instructions subcut .COMPLEX Rx Instructions: Inject 50 units subcutaneously QAM and 60 units subcutaneously every evening. Belsomra 10 mg tablet 10 mg PO HS clonidine HCl 0.2 mg tablet 0.2 mg PO Q8H (DME) lancets [Microlet Lancet] Misc See Rx Instructions .Route Qty: 100 0RF Rx Instructions: As directed test daily metoprolol tartrate 100 mg tablet See Rx Instructions .ROUTE .COMPLEX Qty: 180 3RF Dose Instruction: TAKE 1 TABLET BY MOUTH EVERY 12 HOURS Rx Instructions: TAKE 1 TABLET BY MOUTH EVERY 12 HOURS (DME) pen needle, diabetic [BD Ultra-Fine Short Pen Needle] 31 gauge x 5/16 needle See Rx Instructions .ROUTE .COMPLEX Qty: 200 3RF Dose Instruction: USE WITH INSULIN INJECTIONS ONCE DAILY Rx Instructions: USE WITH INSULIN INJECTIONS TWICE A DAY atorvastatin 20 mg tablet See Rx Instructions .ROUTE .COMPLEX Qty: 90 1RF Dose Instruction: TAKE 1 TABLET BY MOUTH EVERY DAY IN THE MORNING Rx Instructions: TAKE 1 TABLET BY MOUTH EVERY DAY IN THE MORNING aspirin [Teo Low Dose Aspirin] 81 mg tablet,delayed release (DR/EC) 81 mg PO DAILY Qty: 100 3RF glimepiride 4 mg tablet See Rx Instructions .ROUTE .COMPLEX Qty: 90 1RF Dose Instruction: TAKE 1 TABLET BY MOUTH EVERY MORNING WITH BREAKFAST Rx Instructions: TAKE 1 TABLET BY MOUTH EVERY MORNING WITH BREAKFAST (DME) FreeStyle Sara 2 Sensor Kit See Rx Instructions .Route Qty: 2 3RF Rx Instructions: use to monitor blood sugar while on insulin Ozempic 1 mg/dose (4 mg/3 mL) pen injector 1 mg subcut WEEKLY Qty: 3 5RF Patient Comments: Fridays hydrocodone-acetaminophen 7.5-325 mg tablet 1 tablet PO Q4H PRN (Reason: Pain Rated 7-10) Qty: 180 0RF Other Ambulatory Orders: Basic Metabolic Panel (Routine) Timeframe: 2 Days Location: Determined by Patient Ordered By: Fabiano Leonard Date of admission: 12/19/24 09:55 Primary Care Provider: Kevyn Mccann Admitting Provider: Dot Israel Attending physician on admission: Dot Israel Condition: Stable Quality VTE Prophylaxis VTE prophylaxis: pharmacologic ordered
[2024-12-27 11:42] LABS: Glucose Point of Care 176 mg/dl (65-105)
[2024-12-27] MEDS: HYDROcodone/acetaminophen (*CRX) 7.5-325 MG TABLET 1 TAB PO (12:38)
== END 2024-12-27 13:30 | DRG 291 ==
LOC: ANHED 22:46 → ANHIMU 12-18 01:30 → ANH3MEDSUR 12-20 18:45
PROVIDERS: General Practice; Internal Medicine; Internal Medicine Pulmonary Disease; Nurse Practitioner Family; Admitting Provider Internal Medicine; Emergency Provider Emergency Medicine; PCP Family Medicine; Visit Provider Internal Medicine
DX: I13.0 Hypertensive heart and chronic kidney disease with heart failure and stage 1 through stage 4 chronic kidney disease, or unspecified chronic kidney disease (principal); I50.33 Acute on chronic diastolic (congestive) heart failure; E66.2 Morbid (severe) obesity with alveolar hypoventilation; J96.12 Chronic respiratory failure with hypercapnia; I48.19 Other persistent atrial fibrillation; M51.06 Intervertebral disc disorders with myelopathy, lumbar region; F11.20 Opioid dependence, uncomplicated; Z68.43 Body mass index [BMI] 50.0-59.9, adult; I25.10 Atherosclerotic heart disease of native coronary artery without angina pectoris; N18.30 Chronic kidney disease, stage 3 unspecified; E11.21 Type 2 diabetes mellitus with diabetic nephropathy; E11.22 Type 2 diabetes mellitus with diabetic chronic kidney disease; E87.6 Hypokalemia; E78.2 Mixed hyperlipidemia; E53.8 Deficiency of other specified B group vitamins; E55.9 Vitamin D deficiency, unspecified; G89.29 Other chronic pain; F32.A Depression, unspecified; Z20.822 Contact with and (suspected) exposure to COVID-19; I25.2 Old myocardial infarction; Z79.82 Long term (current) use of aspirin; Z79.01 Long term (current) use of anticoagulants; Z79.4 Long term (current) use of insulin; Z87.891 Personal history of nicotine dependence; Z86.73 Personal history of transient ischemic attack (TIA), and cerebral infarction without residual deficits
CPT/HCPCS: 36415; 36600; 71045; 80048; 80053; 81001; 81003; 82375; 82805; 82948; 83050; 83735; 83880; 84484; 85018; 85025; 85027; 85055; 87086; 87186; 87637; 93005; 94002; 94003; 94640; 94762; 96374; 96376; 97110; 97116; 97161; 97165; 97530; 97535; 99285; A9270; G0378; J1815; J1938; J1940; J2405

== ENCOUNTER 2025-05-25 12:26 | Outpatient (CLI) | payer OTHER, SELFPAY ==
--- OUTSIDE RECORDS SUMMARY | 2025-05-25 12:38 | XMS_ITS | Encounter Summary ---
Author Organization [facility] Healthcare Address [address] [place] [address] Care Team Providers Care Switchgear Repairer Name Role Phone Evie Platt MD Primary Care Provider Kevyn Mccann MD Primary Care Provider Encounter Details Date Type Department Care Team (Late st Contact Info) Description 12/09/2024 Orders Only [facility] Health Information Management [address] [place] [phone] Scanning, Provider Social History Tobacco Use Types Packs/Day Years Used Date Smoking Tobacco: Former Cigarettes Q uit: 2018 Smokeless Tobacco: Former Alcohol Use Standard Drinks/Week Comments Not Currently 0 (1 standard drink = 0.6 oz pur e alcohol) Sex and Gender Information Value Date Recorded Sex Assigned at Not on file Legal Sex Male 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 Gender Identity Not on file Sexual Orientation Not on file documented as of this encounter Plan of Treatment Not on file documented as of this encounter Procedures Procedure Name Priority Date/Time Associated Diagnosis Comments SCAN - RADIOLOGY/IMAGING 12/09/2024 documented in this encounter Results * SCAN - RADIOLOGY/IMAGING (12/09/2024) Anatomical Region Laterality Modality Other us Provider Scanning Final Result documented in this encounter Visit Diagnoses Not on filedocumented in this encounter Care Teams Switchgear Repairer Relationship Specialty Start Date End Date Evie Platt MD [address] [facility] [address] [place] [address] PCP - General 10/25/15 12/26/24 Kevyn Mccann MD [address] [facility] [address] [place] [address] PCP - General Family Medicine 12/27/24 documented as of this encounter
--- OUTSIDE RECORDS SUMMARY | 2025-05-25 12:38 | XMS_ITS | Clinical Summary ---
Author Organization [facility] Address [address] [place] [id number] Care Team Providers Care Physician President Name Role Phone Unavailable Primary Care Provider [...] Td Vaccines ( 1 - Tdap) 1971 Pneumococcal Vaccine: 50+ Ye ars (1 of 1 - PCV) 2002 Zoster Vaccines (1 of 2) 2002 COVID-19 Vaccine ( - 2023-2 5 season) 2025 RSV Immunization or 60+ Years (1 - [...]
--- OUTSIDE RECORDS SUMMARY | 2025-05-25 12:38 | XMS_ITS | Encounter Summary ---
Author Organization [facility] Healthcare Address [address] [place] [address] Care Team Providers Care Biomass Plant Manager Name Role Phone Evie Platt MD Primary Care Provider Kevyn Mccann MD Primary Care Provider Encounter Details Date Type Department Care Team (Late st Contact Info) Description 12/19/2024 Orders Only [facility] Health Information Management [address] [place] [phone] Scanning, Provider Social History Tobacco Use Types Packs/Day Years Used Date Smoking Tobacco: Former Cigarettes Q uit: 2018 Smokeless Tobacco: Former Alcohol Use Standard Drinks/Week Comments Not Currently 0 (1 standard drink = 0.6 oz pur e alcohol) Sex and Gender Information Value Date Recorded Sex Assigned at Not on file Legal Sex Male 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 Gender Identity Not on file Sexual Orientation Not on file documented as of this encounter Plan of Treatment Not on file documented as of this encounter Procedures Procedure Name Priority Date/Time Associated Diagnosis Comments SCAN - RADIOLOGY/IMAGING 12/19/2024 documented in this encounter Results * SCAN - RADIOLOGY/IMAGING (12/19/2024) Anatomical Region Laterality Modality Other us Provider Scanning Edited Result - Final documented in this encounter Visit Diagnoses Not on filedocumented in this encounter Care Teams Biomass Plant Manager Relationship Specialty Start Date End Date Evie Platt MD [address] [facility] [address] [place] [address] PCP - General 10/25/15 12/26/24 Kevyn Mccann MD [address] [facility] [address] [place] [address] PCP - General Family Medicine 12/27/24 documented as of this encounter
--- OUTSIDE RECORDS SUMMARY | 2025-05-25 12:38 | XMS_ITS | Clinical Summary ---
Author Organization [facility] [address] Address [address] [place] [address] Care Team Providers Care Park Guard Name Role Phone Kevyn Mccann MD Primary Care Provider Allergies No known active allergies Medications HYDROcodone-magaly taminophen (NORCO) 10-325 mg per tablet Take by mouth every 6 (six) hours as needed 9 Active cloNIDine (CATAPRES) 0.2 mg tablet Take 1 tablet (0.2 mg total) by mouth 3 (three) times a day 9 Active metoprolol (LOPRESSOR) 100 mg tablet Take 1 tablet (100 mg total) by mouth 2 (two) times a day 9 Active atorvastatin (LIPITOR) 20 mg tablet Take 1 tablet (20 mg total) by mouth daily 9 Active gabapentin (NEURONTIN) 300 mg capsule Take 1 capsule (300 mg total) by mouth 3 (three) times a day Active ergocalciferol (VITAMIN D) 50,000 unit capsule Take 1 capsule (50,000 Units total) by mouth once a week 2 Active insulin glargine (TOUJEO) 300 unit/mL (1.5 mL) pen for injection Inject 10 Units/day under the skin Active aspirin 81 mg enteric coated tablet TAKE 1 TABLET BY MOUTH EVERY DAY 90 tablet 2 2 Active Eliquis 5 mg tablet Take 1 tablet (5 mg total) by mouth every 12 (twelve) hours 5 Active Jardiance 10 mg tablet Take 1 tablet (10 mg total) by mouth daily 5 Active naloxone (NARCAN) 4 mg/actuation spray,non-aeros ol 2 5 Active Ozempic 1 mg/dose (4 mg/3 mL) pen injector injection Inject 1 mg under the skin once a week 5 Active Belsomra 10 mg tablet 0 5 Active spironolactone (ALDACTONE) 50 mg tablet Take 1 tablet (50 mg total) by mouth every morning 5 Active traZODone (DESYREL) 50 mg tablet Take 0.5 tablets (25 mg total) by mouth nightly 5 Active furosemide (LASIX) 40 mg tablet Take 1 tablet (40 mg total) by mouth 2 (two) times a day 5 Active glimepiride (AMARYL) 4 mg tablet Take 1 tablet (4 mg total) by mouth daily with breakfast 5 Active diltiazem LA (CARDIZEM LA) 240 mg 24 hr tablet Take 1 tablet (240 mg total) by mouth daily 30 tablet 3 5 Active losartan (COZAAR) 25 mg tablet Take 1 tablet (25 mg total) by mouth daily 5 Active Active Problems No known active problems Encounters Date Type Department Care Team Description 05/04/2025 Telephone [facility] Cardiology [address] [place] [id number] Delano Delatorre MD 04/26/2025 8:45 AM CDT Office Visit [facility] Cardiology [address] [phone] Delano Delatorre MD Chronic diastolic congestive heart failure (HCC) (Primary Dx); Atrial fibrillation with controlled ventricular rate (HCC); Chronic anticoagulation; History of CVA (cerebrovascular accident); RUSSELL (obstructive sleep apnea); Morbid obesity with BMI of 45.0-49.9, adult (HCC); Lipid screening from Last 3 Months Surgical History Surgery [...] Cigarettes Q uit: 2018 Smokeless Tobacco: Former Tobacco Cessation:Counseling Given: Not Answered Alcohol Use Standard Drinks/Week Comments Not Currently 0 (1 standard drink = 0.6 oz pur e alcohol) Sex and Gender Information Value Date Recorded Sex Assigned at Not on file Legal Sex Male 2:15 AM [employer] Gender Identity Not on file Sexual Orientation Not on file Obstetrics History Last Filed Vital Signs Vital Sign Reading Time Taken Comments Blood Pressure 120/72 04/26/2025 8:38 AM CDT Pulse 99 04/26/2025 8:38 AM CDT Temperature - - Respiratory Rate - - Oxygen Saturation 96% 04/26/2025 8:38 AM CDT Inhaled Oxygen Concentration - - Weight 134.7 kg (297 lb) 04/26/2025 8:38 AM CDT Height 170.2 cm (5' 7) 04/26/2025 8:38 AM CDT Body Mass Index 46.52 04/26/2025 8:38 AM CDT Plan of Treatment Health Maintenance [...] 07/23/2022 07/23/2021 Covid-19 Vaccine (4 - season) 2025 08/06/2021, 06/12/2021, 05/15/2021 Influenza Vaccine (#1) 2025 07/22/2021 Procedures Procedure Name Priority Date/Time Associated Diagnosis Comments ELECTROCARDIOGRAM REPORT Routine 025 9:42 AM CDT Atrial fibrillation with controlled ventricular rate (HCC) POCT LIPID PANEL Routine 04/26/2025 8:43 AM CDT Lipid screening from Last 3 Months Results * Electrocardiogram Report (04/26/2025 9:42 AM CDT) 04/26/2025 9:42 AM CDT us Delano Delatorre MD ECG ORDERABLES Edited Result - Final * (ABNORMAL) POCT lipid panel (04/26/2025 8:43 AM CDT) Cholesterol, POC 101 <200 MG/DL HDL, POC 37(A) >=40 mg/dL Triglycerides, POC 102 <=149 mg/dL LDL Cholesterol POC 43 <=129 mg/dL Chol/HDL Ratio, POC 1.2 NONE Non-HDL Cholesterol, POC 63 NONE mg/dL Cholesterol Total, POC 101 30 - 199 mg/dL Capillary blood 04/26/2025 8 :43 AM CDT us Delano Delatorre MD POINT OF CARE TEST ORDERABLES Fi nal Result from Last [address] [place] [phone] [facility] Care Teams Park Guard Relationship Specialty Start Date End Date Kevyn Mccann MD [address] [facility] [address] [place] [address] PCP - General Family Medicine 12/27/24
[2025-05-25 13:00] VITALS: PULSE 136; O2SAT 96
[2025-05-25 13:05] VITALS: PULSE 156; O2SAT 95
[2025-05-25 13:15] VITALS: PULSE 149; O2SAT 96
[2025-05-25 13:29] LABS: Alveolar/Arterial O2 Gradient 142.8 mmHg; Carboxyhemoglobin 1.3 % THb (0-2.0); Fractional Inspired Oxygen 24 %; HCO3 ABG 21.3 mEq/l (22.0-26.0); Methemoglobin ABG 0.0 %THb (0-1.5); Oxygen Content ABG 18.9 %vol (16.0-22.0); Oxygen Saturation ABG 95.0 % (95.0-100.0); PCO2 ABG 34.1 mmHg (35.0-45.0); PO2 ABG 72.8 mmHg (80.0-100.0); PO2 FiO2 Ratio Arterial Blood 3.03 %; Reduced Hemoglobin 5.0 %THb (0-5.0)
[2025-05-25 13:34] LABS: Liters per Minute 0.0 LPM; Modified Allen's Test Pass; Site Drawn RIGHT RADIAL
--- NOTE | 2025-05-25 13:34 | HOMEO2EVAL ---
Evaluation was performed at [facility] Home Oxygen Evaluation RC: Home Oxygen (O2) Evaluation Start: 05/25/25 13:29 Freq: Status: Active Protocol: RPE Activity Type Activity Date Activity User E-sign Co-sign Detail Recorded Client Recorded Date Recorded By Document 05/25/25 13:00 JERICA [email or web address] 05/25/25 13:33 JERICA Document 05/25/25 13:05 JERICA [email or web address] 05/25/25 13:33 JERICA Document 05/25/25 13:15 JERICA [email or web address] 05/25/25 13:33 JERICA 05/25/25 05/25/25 05/25/25 13:00 13:05 13:15 Home O2 Evaluation [Oxygen] -Test Phase Resting Exercise Resting -Oxygen Delivery Room Air Room Air Room Air [Pulse Oximetry] -Pulse Oximetry (90-100 %) 96 95 96 [Pulse Rate] -Pulse Rate (60-100 beats/min) 136 H 156 H 149 H [Exercise] -Ambulation Distance (feet) 50 -Ambulation Distance (meters) 15.23 [Comments] -Home Oxygen Evaluation Comments Pt has difficulty walking, used wheeled walker and followed pt with wheelchair to sit if unable to continue. walked approx. 50 feet, needed to sit. [Charges] -Evaluation Charges O2 Evaluation by Pulmonary
== END 2025-05-25 12:27 | disposition home or self-care (01) ==
PROVIDERS: Nurse Practitioner Family; PCP Family Medicine; Visit Provider Internal Medicine Pulmonary Disease
DX: E66.2 Morbid (severe) obesity with alveolar hypoventilation (principal)
CPT/HCPCS: 36600; 82375; 82805; 83050; 85018; 94618